=== PATIENT | male | born 1935 | race Caucasian/White ===

== ENCOUNTER → 2018-02-18 | Outpatient (CLI) | payer MEDICARE, BC ==
[2018-02-18 21:31] LABS: Albumin 3.7 g/dL (3.5-5.0); Potassium 4.7 mmol/L (3.5-5.1); Total Bilirubin 0.8 mg/dL (0.2-1.3); Total Protein 6.1 g/dL (6.3-8.2)
== END | disposition home or self-care (01) ==
LOC: LAB 18:18
PROVIDERS: ATTEND Internal Medicine Interventional Cardiology
DX: I48.91 Unspecified atrial fibrillation (principal)
CPT/HCPCS: 80053; 84443

== ENCOUNTER → 2018-03-13 | Outpatient (CLI) | payer MEDICARE, BC | END | disposition home or self-care (01) | LOC: LABWHC1 13:41 | PROVIDERS: ATTEND Family Medicine | DX: R06.02 Shortness of breath (principal) | CPT/HCPCS: 36415; 83880 ==

== ENCOUNTER → 2018-03-26 | Outpatient (CLI) | payer MEDICARE, BC ==
[2018-03-26 16:02] LABS: HCT 46.6 % (39.0-53.0); HGB 14.6 gm/dL (13.0-17.5); MCH 29.3 pg (25.0-35.0); MCHC 31.2 g/dL (31.0-37.0); MCV 93.9 fL (80.0-100.0); Mean Platelet Volume 6.8; Platelet Count 139 k/uL (150-450); RBC 4.96 m/uL (4.30-5.90); RDW 14.2 % (11.5-15.5); WBC 7.2 k/uL (3.8-10.6)
== END | disposition home or self-care (01) ==
LOC: LABPAT 15:27
PROVIDERS: ATTEND Internal Medicine Interventional Cardiology
DX: Z01.812 Encounter for preprocedural laboratory examination (principal); I48.1 Persistent atrial fibrillation
CPT/HCPCS: 36415; 85027

== ENCOUNTER 2018-04-02 06:12 | Day surgery (SDC) | payer MEDICARE, BC ==
[2018-03-26 10:06] VITALS: BMI 35.9
[~2018-04-02 06:12] MED LIST: LACTATED RINGERS 1,000 ML IV SCH; LIDOCAINE 1% 20 ML VIAL (10MG/ML) FOR IV START INTRADERMA PRN; MIDAZOLAM 2 MG/2 ML VIAL IV PRN; SODIUM CHLORIDE 0.9% 1,000 ML IV SCH
[2018-04-02 06:54] VITALS: TEMP 97.5
[2018-04-02] MEDS ORDERED: SODIUM CHLORIDE 0.9% 500 ML IV ONE (06:54)
[2018-04-02] MEDS ORDERED: BENZOCAINE SPRAY 1 CAN MUCOUS MEM ONE ×2 (07:05→07:15)
[2018-04-02] MEDS ORDERED: LIDOCAINE 1% INJ 10MG/ML (20 ML MDV) ONE (07:14)
[2018-04-02] MEDS ORDERED: PROPOFOL 10 MG/ML 20 ML VIAL IV ONE (07:14)
[2018-04-02] MEDS ORDERED: SODIUM CHLORIDE 0.9% 1,000 ML IV SCH (07:45)
--- NOTE | 2018-04-02 07:51 | CE ---
CARDIAC ELECTROPHYSIOLOGY REPORT CARDIOVERSION PROCEDURE NOTE. INDICATION: Atrial fibrillation PROCEDURE: After explaining the procedure to the patient, its risks and the complications and after obtaining sedated state and performing transesophageal echocardiogram, a biphasic synchronized cardioversion using 200 joules was performed with mu-ism of normal sinus rhythm. There was no immediate complication. AMY / TRISHA: [id number] /
--- NOTE | 2018-04-02 08:04 | ECHOT ---
TRANSESOPHAGEAL ECHOCARDIOGRAM INDICATION: Evaluation left atrial appendage. PROCEDURE: After explaining the procedure to the patient, its risks and the complications, blood pressure, heart rate, O2 saturation was monitored. The throat was sprayed with Cetacaine. After receiving sedated state per anesthesia department, the probe was introduced into the esophagus without difficulty. Images were obtained. Following that, the probe was removed there was no immediate complication. FINDINGS: Biatrial enlargement was noted. Left atrial appendage was normal. Mild spontaneous contrast was noted. Aneurysmal interatrial septum was noted. The left ventricular size was normal. There was mild global hypokinesis. Estimated ejection fraction 40%. The aortic valve revealed fibrocalcific change with aortic cusp with preserved opening. Mitral annulus calcification was noted. Tricuspid valve was normal. Descending thoracic aorta appears to be normal. Minimal pericardial effusion was noted. Contrast bubble study revealed no shunting across the interatrial septum. Doppler pulse wave and color Doppler obtained and revealed moderate mitral and tricuspid regurgitation with mild aortic regurgitation. There was no shunting by color Doppler study. CONCLUSION: 1. Biatrial enlargement with normal appearance of left atrial appendage. 2. Aneurysmal interatrial septum. 3. Moderately impaired left ventricular systolic function. 4. Aortic sclerosis with no evidence of stenosis. 5. Mitral annulus calcification. 6. Moderate mitral, tricuspid and mild aortic regurgitation. 7. No evidence shunting across the interatrial septum. MMODL / IJN: [id number] /
[2018-04-02] MEDS ORDERED: methylPREDNISolone 4 MG TAB PO SCH (09:00)
[2018-04-02] MEDS ORDERED: APIXABAN 2.5 MG TABLET PO SCH (09:00)
[2018-04-02] MEDS ORDERED: CARBIDOPA-LEVODOPA 25-100 MG 1 EACH TAB PO SCH (09:00)
[2018-04-02] MEDS ORDERED: NON-FORMULARY DRUG (Carvedilol [Coreg] 25 MG) PO SCH (09:00)
[2018-04-02] MEDS ORDERED: FUROSEMIDE 40 MG TAB PO SCH (09:00)
[2018-04-02] MEDS ORDERED: AMIODARONE 200 MG TAB PO SCH (09:00)
[2018-04-02 09:29] VITALS: PULSE 54; RESP 16
[2018-04-02 09:39] VITALS: BP 121/79
[2018-04-02] MEDS ORDERED: LISINOPRIL 10 MG TAB PO SCH (21:00)
== END 2018-04-02 09:59 | disposition home or self-care (01) ==
LOC: CATHCVL 06:12
PROVIDERS: ATTEND Internal Medicine Interventional Cardiology
DX: I48.91 Unspecified atrial fibrillation (principal); I08.3 Combined rheumatic disorders of mitral, aortic and tricuspid valves; I25.3 Aneurysm of heart; I11.9 Hypertensive heart disease without heart failure; I44.0 Atrioventricular block, first degree; I44.7 Left bundle-branch block, unspecified; I25.10 Atherosclerotic heart disease of native coronary artery without angina pectoris; I42.9 Cardiomyopathy, unspecified; E78.2 Mixed hyperlipidemia; E11.9 Type 2 diabetes mellitus without complications; M10.9 Gout, unspecified; I25.2 Old myocardial infarction; Z79.01 Long term (current) use of anticoagulants; Z79.899 Other long term (current) drug therapy; Z79.52 Long term (current) use of systemic steroids
CPT/HCPCS: 93312; 93320; 93325; 92960; J2001; J2704

== ENCOUNTER → 2018-05-22 | Outpatient (CLI) | payer MEDICARE, BC ==
[2018-05-22 13:39] LABS: Albumin 3.6 g/dL (3.5-5.0); Calcium 9.3 mg/dL (8.4-10.2); Potassium 5.1 mmol/L (3.5-5.1); Total Bilirubin 1.2 mg/dL (0.2-1.3); Total Protein 6.3 g/dL (6.3-8.2)
== END | disposition home or self-care (01) ==
LOC: LABWHC1 12:27
PROVIDERS: ATTEND Internal Medicine Interventional Cardiology
DX: I48.1 Persistent atrial fibrillation (principal)
CPT/HCPCS: 36415; 80053

== ENCOUNTER 2018-07-27 23:46 | Inpatient (IN) | payer MEDICARE, BC ==
--- NOTE | 2018-07-27 23:52 | ED ---
Weakness HPI - General Stated complaint: weakness Time Seen by Provider: 07/27/18 23:51 - History of Present Illness Initial comments: Julius is a pleasant 83-year-old male who presents the emergency department today via EMS after his called concerned that he has been ill and may have pneumonia. He reports he was in his usual state of health until Saturday of this week. He states on Saturday he went and put blankets [place] the [place] of the [place], he reports after being on the cold all day he was feeling unwell, he reports that since that time he developed a progressively worsening productive cough. He's also lost his voice. He attributes this to coughing. Patient reports that his cough is productive of dark sputum. He also reports that today he had subjective fever, chills and had an episode of vomiting and reports the vomited up a lot of mucus. She reports that he just feels completely run down and without any energy. He denies any chest pain, palpitations, but does report fever and SOB. - Related Data Home Medications Medication Instructions Recorded Confirmed Carbidopa-Levodopa 25-100 mg 2 tab PO BID 08/03/16 04/02/18 [Sinemet 25-100] Carvedilol [Coreg] 25 mg PO BID 08/03/16 04/02/18 methylPREDNISolone [Medrol] 4 mg PO DAILY 08/03/16 04/02/18 Amiodarone [Cordarone] 200 mg PO DAILY 03/26/18 04/02/18 Apixaban [Eliquis] 2.5 mg PO BID 03/26/18 04/02/18 Furosemide [Lasix] 40 mg PO DAILY 03/26/18 04/02/18 Lisinopril [Zestril] 10 mg PO HS 03/26/18 04/02/18 Allergies Allergy/AdvReac Type Severity Reaction Status Date / Time No Known Allergies Allergy Verified 07/27/18 23:50 Review of Systems ROS Statement: Those systems with pertinent positive or pertinent negative responses have been documented in the HPI. ROS Other: All systems not noted in ROS Statement are negative. Past Medical History Past Medical History: Atrial Fibrillation, Coronary Artery Disease (CAD), Cancer , Chest Pain / Angina, Heart Failure, Diabetes Mellitus, Hypertension, Myocardial Infarction ([place]), Osteoarthritis (OA), Skin Disorder, Supraventricular Tachycardia (SVT) Additional Past Medical History / Comment(s): hx gout, diet control diabetic(rx in past), hx kidney stones, skin cancer Last Myocardial Infarction Date:: unknown History of Any Multi-Drug Resistant Organisms: None Reported Past Surgical History: Appendectomy, Back Surgery, Heart Catheterization With Stent, Joint Replacement Additional Past Surgical History / Comment(s): bilateral knee replacement(left knee x 2), left hip replacement, two cardiac stents, spinal fusion, michael cataracts Past Anesthesia/Blood Transfusion Reactions: No Reported Reaction Date of Last Stent Placement:: unknown Smoking Status: Never smoker - Past Family History Brother(s) Family Medical History: Cancer Daughter(s) Family Medical History: Cancer Father Family Medical History: Cancer General Exam - General Exam Comments Initial Comments: Physical Exam GENERAL: Chronically ill-appearing HENT: Normocephalic, Atraumatic. EYES: PERRL, EOMI PULMONARY: Crackles at left bases CARDIOVASCULAR: Irregularly irregular tachycardic ABDOMEN: Soft and nontender with normal bowel sounds. SKIN: Skin is clear with no lesions or rashes and otherwise unremarkable. : Deferred NEUROLOGIC: Patient is alert and oriented x3. Moving all extremities spontaneously MUSCULOSKELETAL: 2+ pitting edema of the bilateral lower extremities PSYCHIATRIC: Normal psychiatric evaluation. Limitations: no limitations Course Vital Signs 07/27/18 07/28/18 07/28/18 23:50 00:45 01:40 Temperature 96.9 F L 97.5 F L 97.6 F Pulse Rate 111 H 126 H 126 H Respiratory 20 22 22 Rate Blood Pressure 94/73 98/80 122/78 O2 Sat by Pulse 97 97 98 Oximetry EKG Findings - EKG Comments: EKG Findings:: EKG obtained at 12:09 AM, rate is 120, rhythm is a wide complex irregularly irregular tachycardia consistent with the history of atrial fibrillation in the left bundle-branch block. There are no acute ST elevations or depressions no evidence of acute ischemia or infarction. Medical Decision Making - Medical Decision Making Patient was seen and evaluated, history was obtained from the patient and at bedside as well as review of medical record Patient is noted to be tachycardic, mildly hypotensive, on physical exam he appears to be fluid overloaded as he does have 2+ pitting edema bilaterally. Patient received small fluid bolus in route to the hospital. At this time I'll hold further fluids, septic workup was obtained Labs with elevated lactic acid No leukocytosis, normal kidney function and electrolytes Chest x-ray concerning for left lower lobe pneumonia Rocephin and azithromycin ordered for pneumonia Patient's blood pressure remained soft systolics in the 90s, heart rate improving but remains in the 1 teens A. fib on the monitor. A 500 mL fluid bolus was ordered Considering the patient's multiple comorbidities, A. fib, hypotension, pneumonia and generalized malaise I do feel he warrants admission to the hospital. Patient care was discussed with his primary care physician Dr. Riddle who agrees with the plan for admission and treatment for community- acquired pneumonia, intravascular fluid depletion and congestive heart failure. - Lab Data Result diagrams: 07/28/18 00:10 07/28/18 00:10 Lab Results 07/28/18 07/28/18 07/28/18 Range/Units 00:10 00:10 00:10 WBC 5.4 (3.8-10.6) k/uL RBC 4.41 (4.30-5.90) m/uL Hgb 13.8 (13.0-17.5) gm/dL Hct 43.4 (39.0-53.0) % MCV 98.5 (80.0-100.0) fL MCH 31.3 (25.0-35.0) pg MCHC 31.8 (31.0-37.0) g/dL RDW 15.1 (11.5-15.5) % Plt Count 117 L (150-450) k/uL Neutrophils % 82 % Lymphocytes % 10 % Monocytes % 5 % Eosinophils % 1 % Basophils % 0 % Neutrophils # 4.4 (1.3-7.7) k/uL Lymphocytes # 0.6 L (1.0-4.8) k/uL Monocytes # 0.3 (0-1.0) k/uL Eosinophils # 0.1 (0-0.7) k/uL Basophils # 0.0 (0-0.2) k/uL Macrocytosis Slight PT (9.0-12.0) sec INR (<1.2) APTT (22.0-30.0) sec Sodium 136 L (137-145) mmol/L Potassium 3.9 (3.5-5.1) mmol/L Chloride 98 (98-107) mmol/L Carbon Dioxide 29 (22-30) mmol/L Anion Gap 9 mmol/L BUN 32 H (9-20) mg/dL Creatinine 0.95 (0.66-1.25) mg/dL Est GFR (CKD-EPI)AfAm 85 (>60 ml/min/1.73 sqM) Est GFR (CKD-EPI)NonAf 73 (>60 ml/min/1.73 sqM) Glucose 183 H (74-99) mg/dL Plasma Lactic Acid Otilio (0.7-2.0) mmol/L Calcium 8.3 L (8.4-10.2) mg/dL Total Bilirubin 2.0 H (0.2-1.3) mg/dL AST 22 (17-59) U/L ALT 15 L (21-72) U/L Alkaline Phosphatase 85 (38-126) U/L Total Creatine Kinase <20 L (55-170) U/L CK-MB (CK-2) 0.8 (0.0-2.4) ng/mL CK-MB (CK-2) Rel Index Troponin I <0.012 (0.000-0.034) ng/mL NT-Pro-B Natriuret Pep pg/mL Total Protein 5.8 L (6.3-8.2) g/dL Albumin 3.2 L (3.5-5.0) g/dL Influenza Type A RNA (Not Detectd) Influenza Type B (PCR) (Not Detectd) 07/28/18 07/28/18 07/28/18 Range/Units 00:10 00:10 00:10 WBC (3.8-10.6) k/uL RBC (4.30-5.90) m/uL Hgb (13.0-17.5) gm/dL Hct (39.0-53.0) % MCV (80.0-100.0) fL MCH (25.0-35.0) pg MCHC (31.0-37.0) g/dL RDW (11.5-15.5) % Plt Count (150-450) k/uL Neutrophils % % Lymphocytes % % Monocytes % % Eosinophils % % Basophils % % Neutrophils # (1.3-7.7) k/uL Lymphocytes # (1.0-4.8) k/uL Monocytes # (0-1.0) k/uL Eosinophils # (0-0.7) k/uL Basophils # (0-0.2) k/uL Macrocytosis PT 12.2 H (9.0-12.0) sec INR 1.3 H (<1.2) APTT 24.4 (22.0-30.0) sec Sodium (137-145) mmol/L Potassium (3.5-5.1) mmol/L Chloride (98-107) mmol/L Carbon Dioxide (22-30) mmol/L Anion Gap mmol/L BUN (9-20) mg/dL Creatinine (0.66-1.25) mg/dL Est GFR (CKD-EPI)AfAm (>60 ml/min/1.73 sqM) Est GFR (CKD-EPI)NonAf (>60 ml/min/1.73 sqM) Glucose (74-99) mg/dL Plasma Lactic Acid Otilio 2.8 H* (0.7-2.0) mmol/L Calcium (8.4-10.2) mg/dL Total Bilirubin (0.2-1.3) mg/dL AST (17-59) U/L ALT (21-72) U/L Alkaline Phosphatase (38-126) U/L Total Creatine Kinase (55-170) U/L CK-MB (CK-2) (0.0-2.4) ng/mL CK-MB (CK-2) Rel Index Troponin I (0.000-0.034) ng/mL NT-Pro-B Natriuret Pep 4960 pg/mL Total Protein (6.3-8.2) g/dL Albumin (3.5-5.0) g/dL Influenza Type A RNA (Not Detectd) Influenza Type B (PCR) (Not Detectd) 07/28/18 Range/Units 01:35 WBC (3.8-10.6) k/uL RBC (4.30-5.90) m/uL Hgb (13.0-17.5) gm/dL Hct (39.0-53.0) % MCV (80.0-100.0) fL MCH (25.0-35.0) pg MCHC (31.0-37.0) g/dL RDW (11.5-15.5) % Plt Count (150-450) k/uL Neutrophils % % Lymphocytes % % Monocytes % % Eosinophils % % Basophils % % Neutrophils # (1.3-7.7) k/uL Lymphocytes # (1.0-4.8) k/uL Monocytes # (0-1.0) k/uL Eosinophils # (0-0.7) k/uL Basophils # (0-0.2) k/uL Macrocytosis PT (9.0-12.0) sec INR (<1.2) APTT (22.0-30.0) sec Sodium (137-145) mmol/L Potassium (3.5-5.1) mmol/L Chloride (98-107) mmol/L Carbon Dioxide (22-30) mmol/L Anion Gap mmol/L BUN (9-20) mg/dL Creatinine (0.66-1.25) mg/dL Est GFR (CKD-EPI)AfAm (>60 ml/min/1.73 sqM) Est GFR (CKD-EPI)NonAf (>60 ml/min/1.73 sqM) Glucose (74-99) mg/dL Plasma Lactic Acid Otilio (0.7-2.0) mmol/L Calcium (8.4-10.2) mg/dL Total Bilirubin (0.2-1.3) mg/dL AST (17-59) U/L ALT (21-72) U/L Alkaline Phosphatase (38-126) U/L Total Creatine Kinase (55-170) U/L CK-MB (CK-2) (0.0-2.4) ng/mL CK-MB (CK-2) Rel Index Troponin I (0.000-0.034) ng/mL NT-Pro-B Natriuret Pep pg/mL Total Protein (6.3-8.2) g/dL Albumin (3.5-5.0) g/dL Influenza Type A RNA Not Detected (Not Detectd) Influenza Type B (PCR) Not Detected (Not Detectd) Disposition Clinical Impression: Pneumonia, CHF exacerbation, Atrial fibrillation with RVR Disposition: ADMITTED IP TO THIS HOSP Condition: Stable Is patient prescribed a controlled substance at d/c from ED?: No Referrals: Davey Riddle MD [Primary Care Provider] - 1-2 days
[2018-07-28 00:32] LABS: Basophils % (A) 0 %; Eosinophils # (A) 0.1 k/uL (0-0.7); Eosinophils % (A) 1 %; HCT 43.4 % (39.0-53.0); HGB 13.8 gm/dL (13.0-17.5); Lymphocytes # (A) 0.6 k/uL (1.0-4.8); Lymphocytes % (A) 10 %; MCH 31.3 pg (25.0-35.0); MCHC 31.8 g/dL (31.0-37.0); MCV 98.5 fL (80.0-100.0); Macrocytosis Slight; Monocytes # (A) 0.3 k/uL (0-1.0); Monocytes % (A) 5 %; Neutrophils # (A) 4.4 k/uL (1.3-7.7); Neutrophils % (A) 82 %; Platelet Count 117 k/uL (150-450); RBC 4.41 m/uL (4.30-5.90); RDW 15.1 % (11.5-15.5); WBC 5.4 k/uL (3.8-10.6)
[2018-07-28 00:42] LABS: Albumin 3.2 g/dL (3.5-5.0); Calcium 8.3 mg/dL (8.4-10.2); Potassium 3.9 mmol/L (3.5-5.1); Total Protein 5.8 g/dL (6.3-8.2)
--- NOTE | 2018-07-28 00:46 | XR ---
EXAMINATION TYPE: XR chest 2V DATE OF EXAM: 07/28/2018 COMPARISON: NONE HISTORY: Weakness and cough TECHNIQUE: Frontal and lateral views of the chest are obtained. FINDINGS: There is mild linear density at the left lung base. There is no heart failure. Heart size is normal. Thoracic aorta is atheromatous. There are chest leads. Costophrenic angles are clear. Ther e is spurring in the thoracic spine. IMPRESSION: Subsegmental atelectasis at the left lung base. No heart failure.
[2018-07-28 00:48] LABS: INR 1.3 (<1.2); Partial Thromboplastin Time 24.4 sec (22.0-30.0); Prothrombin Time 12.2 sec (9.0-12.0)
[2018-07-28 00:54] LABS: Creatine Kinase <20 U/L (55-170)
[2018-07-28] MEDS ORDERED: SODIUM CHLORIDE 0.9% 500 ML 500 ML IV ONE (01:05)
[2018-07-28 01:07] LABS: Creatine Kinase MB 0.8 ng/mL (0.0-2.4); Troponin I <0.012 ng/mL (0.000-0.034)
[2018-07-28] MEDS ORDERED: AZITHROMYCIN 500 MG in SODIUM CHLORIDE 0.9% 250 ML IVPB STA (01:23)
[2018-07-28] MEDS: SODIUM CHLORIDE 0.9% 1,000 ML IV SCH ×2 (01:30→21:11)
[2018-07-28] MEDS ORDERED: PNEUMONIA PROTOCOL UTILIZED 1 EACH MISC PO PRN (02:28)
[2018-07-28] MEDS ORDERED: CARVEDILOL 12.5 MG TAB PO STA ×2 (02:50→03:24)
[2018-07-28] MEDS: IPRATROPIUM-ALBUTEROL 3 ML NEB INHALATION PRN ×4 (03:31→19:30)
[2018-07-28 04:33] LABS: Appearance,Urine Clear (Clear); Bilirubin,Urine 1+ (Negative); Blood,Urine Negative (Negative); Color,Urine Dark Yellow; Glucose,Urine (UA) Trace (Negative); Hyaline Casts,Urine 13 /lpf (0-2); Ketones,Urine Negative (Negative); Leukocyte Esterase,Urine Negative (Negative); Mucus,Urine Many /hpf; Nitrite,Urine Negative (Negative); PH, Urine 5.5 (5.0-8.0); Protein,Urine 2+ (Negative); RBC,Urine 1 /hpf (0-5); Specific Gravity,Urine 1.028 (1.001-1.035); Squamous Epithelial Cell,Urine 1 /hpf (0-4); WBC,Urine 1 /hpf (0-5)
[2018-07-28] MEDS: FUROSEMIDE 40 MG TAB PO SCH (09:09)
[2018-07-28] MEDS: CARVEDILOL 12.5 MG TAB PO SCH ×2 (09:10→18:26)
[2018-07-28] MEDS: CARBIDOPA-LEVODOPA 25-100 MG 1 EACH TAB PO SCH ×2 (09:10→21:10)
[2018-07-28] MEDS: AMIODARONE 200 MG TAB PO SCH (09:11)
[2018-07-28] MEDS: APIXABAN 2.5 MG TABLET PO SCH ×2 (09:11→21:10)
--- NOTE | 2018-07-28 14:43 | HP ---
HISTORY AND PHYSICAL CHIEF COMPLAINT: Congestion, shortness of breath and left lower lobe pneumonitis. HISTORY OF PRESENT ILLNESS: This is another admission for this 83-year-old gentleman who has a history of coronary artery disease, hypertension, and CHF. He has been having a lot of difficulty lately in regaining strength and quality of life. After an episode of congestive heart failure, he probably started with urinary tract infection and then went out to the cemetery on a cold day and became chilled and then developed a sore throat, congestion, and cough. He grew worse with shortness of breath and malaise and came to the emergency room where he was diagnosed as having left lower lobe pneumonitis. REVIEW OF SYSTEMS: He has had no syncope, neurologic changes, problems with vision or hearing, hemoptysis, purulent sputum production, angina, arrhythmias, etc. He has had no abdominal pain, nausea, vomiting, melena, hematochezia, jaundice, hematuria, frequency, urgency, renal failure, etc. Past medical history, family history and personal and social histories demonstrate that he cannot take ALLOPURINOL, QUINIDINE and CELEBREX. He is on in Entresto 24-26 b.i.d., carvedilol 25 twice a day, Eliquis 2.5 twice a day, lisinopril 10 mg once a day, amiodarone 200 mg once a day, Lasix 40 mg once a day, Trazodone 50 mg 1 or 2 at bedtime, Remeron 15 mg at bedtime. Vitamin D3 five thousand units a day, Lipitor 40 mg at bedtime, aspirin 325 once a day. The remainder of his history is unremarkable. He has never been a smoker and he does not drink. PHYSICAL EXAM: Blood pressure 120/70 with a pulse of 84, respirations of 37, and he is afebrile. GENERAL: He appeared to be dehydrated, weak, in no acute distress. He was awake and alert. Head, ears, eyes, nose, mouth, and throat were normal. Neck veins not distended. Chest demonstrated reduced rales and rhonchi scattered throughout. Cardiac exam demonstrated sinus rhythm and no murmurs or extra sounds. The abdomen is soft, nontender. Extremities are normal. Neurologically, he is intact. He is admitted to the hospital with diagnoses: 1. Left lower lobe pneumonitis. 2. Upper respiratory infection. 3. Bronchitis. 4. History of coronary artery disease. 5. Congestive heart failure. PLAN: 1. Bed rest. 2. IV fluids. 3. Antibiotics and updrafts. AMY / CHUCHON: [id number] /
[2018-07-28] MEDS ORDERED: LISINOPRIL 10 MG TAB PO SCH (21:00)
[2018-07-28] MEDS: SACUBITRIL/VALSARTAN 24 MG-26 MG TABLET PO SCH (21:04)
[2018-07-28] MEDS: MIRTAZAPINE 15 MG TAB PO SCH (21:10)
[2018-07-28] MEDS: AZITHROMYCIN 500 MG TAB PO SCH (21:10)
[2018-07-29] MEDS: IPRATROPIUM-ALBUTEROL 3 ML NEB INHALATION PRN ×4 (07:53→21:23)
[2018-07-29] MEDS: AZITHROMYCIN 500 MG TAB PO SCH (09:28)
[2018-07-29] MEDS: APIXABAN 2.5 MG TABLET PO SCH ×2 (09:28→20:54)
[2018-07-29] MEDS: CARBIDOPA-LEVODOPA 25-100 MG 1 EACH TAB PO SCH ×2 (09:28→20:54)
[2018-07-29] MEDS: ASPIRIN 325 MG TAB PO SCH (09:29)
[2018-07-29] MEDS: AMIODARONE 200 MG TAB PO SCH (09:29)
[2018-07-29] MEDS: SPIRONOLACTONE 25 MG TAB PO SCH (09:29)
[2018-07-29] MEDS: FUROSEMIDE 40 MG TAB PO SCH (09:29)
[2018-07-29] MEDS: SACUBITRIL/VALSARTAN 24 MG-26 MG TABLET PO SCH ×2 (09:29→20:53)
[2018-07-29] MEDS: CARVEDILOL 12.5 MG TAB PO SCH ×2 (09:29→18:30)
[2018-07-29] MEDS: SODIUM CHLORIDE 0.9% 1,000 ML IV SCH (09:30)
--- NOTE | 2018-07-29 17:15 | PN ---
PROGRESS NOTE DATE OF SERVICE: 07/29/2018 CHIEF COMPLAINT: Pneumonitis. HISTORY OF PRESENT ILLNESS: This gentleman is feeling a little bit better and a little bit less short of breath. PHYSICAL EXAMINATION: Breath sounds are still diminished at the bases and he has wheezing on expiration throughout. Cardiac exam is normal. IMPRESSION: 1. Pneumonitis. 2. Mild congestive heart failure. 3. Hypertension. PLAN: Continue with current program with IV fluids, antibiotics and updrafts. MMODL / IJN: [id number] /
[2018-07-29] MEDS: MIRTAZAPINE 15 MG TAB PO SCH (20:54)
[2018-07-30] MEDS: IPRATROPIUM-ALBUTEROL 3 ML NEB INHALATION PRN ×4 (04:27→19:45)
[2018-07-30] MEDS: FUROSEMIDE 40 MG TAB PO SCH (07:24)
[2018-07-30] MEDS: SPIRONOLACTONE 25 MG TAB PO SCH (07:25)
[2018-07-30] MEDS: ASPIRIN 325 MG TAB PO SCH (07:25)
[2018-07-30] MEDS: APIXABAN 2.5 MG TABLET PO SCH ×2 (07:25→21:23)
[2018-07-30] MEDS: AMIODARONE 200 MG TAB PO SCH (07:25)
[2018-07-30] MEDS: CARBIDOPA-LEVODOPA 25-100 MG 1 EACH TAB PO SCH ×2 (07:25→21:22)
[2018-07-30] MEDS: CARVEDILOL 12.5 MG TAB PO SCH ×2 (07:25→17:44)
[2018-07-30] MEDS: SACUBITRIL/VALSARTAN 24 MG-26 MG TABLET PO SCH ×2 (07:26→21:23)
[2018-07-30] MEDS: AZITHROMYCIN 500 MG TAB PO SCH (07:26)
--- NOTE | 2018-07-30 09:23 | CDI ---
Last Revision, July 2017 Documentation Clarification Form Date: 07/30/18 From: Sowmya Greer RN Admit Date: 07/28/2018 2:32:00 AM Patient Name: Julius Murphy Visit Number: [id number] ATTENTION: The Clinical Documentation Specialists (CDI) and [facility] Coding Staff appreciate your assistance in clarifying documentation. Please respond to the clarification below the line at the bottom and electronically sign. The CDI & [facility] Coding staff will review the response and follow-up if needed. Please note: Queries are made part of the Legal Health Record. If you have any questions, please contact the author of this message via ITS. Davey Escobar MD, Documentation and location in medical record included Pneumonia and UTI. Patient admitted with Pneumonia, CHF exacerbation, A Fib RVR and UTI. History/Risk Factors: CAD, CHF, HTN Clinical Indicators: WBC on admission: 5.4 Lactic acid: 2.4 Blood cultures: No growth after 48 hours Sputum culture in process Vitals signs on admission: T 96.9, P 111, R 20, 94/73, 97% RA, On 07/28: P 126 , B/P 98/80, R 22 Treatment: ID Consult: no Antibiotics: Azithromycin PO, Ceftriaxone IVPB IV Bolus: .9 500 ml In your professional opinion, please clarify if these findings signify one of the following conditions, whether the condition is POA, and cause, if known: Condition Sepsis ruled out Sepsis ruled in Other, please specify Unable to determine Present on Admission: Yes No Identify the (suspected) organism MTDD
[2018-07-30 11:21] LABS: HCT 41.4 % (39.0-53.0); HGB 13.4 gm/dL (13.0-17.5); MCH 32.4 pg (25.0-35.0); MCHC 32.3 g/dL (31.0-37.0); MCV 100.3 fL (80.0-100.0); Macrocytosis Slight; Mean Platelet Volume 6.7; Platelet Count 118 k/uL (150-450); RBC 4.13 m/uL (4.30-5.90); RDW 15.5 % (11.5-15.5); WBC 6.8 k/uL (3.8-10.6)
[2018-07-30 12:10] LABS: Glucose,Whole Blood 164 mg/dL (75-99)
[2018-07-30] MEDS: INSULIN ASPART 100 UNIT/ML 1 ML 10 ML VIAL SQ SCH ×3 (12:10→21:22)
[2018-07-30 12:15] LABS: Total Bilirubin 1.1 mg/dL (0.2-1.3); Total Protein 5.5 g/dL (6.3-8.2)
[2018-07-30 12:27] LABS: Anisocytosis (M) Present; Band Neutrophils % 1 %; Eosinophils # (M) 0.07 k/uL (0-0.7); Lymphocytes # (M) 0.82 k/uL (1.0-4.8); Monocytes # (M) 0.54 k/uL (0-1.0); Neutrophils % (M) 78 %; Nucleated Red Blood Cells 0 /100 WBC (0-0); Poikilocytosis (M) Present; Total Cells Counted 100
--- NOTE | 2018-07-30 13:50 | XR ---
EXAMINATION TYPE: XR chest 2V DATE OF EXAM: 07/30/2018 COMPARISON: 07/28/2018 HISTORY: Shortness of breath TECHNIQUE: Frontal and lateral views of the chest are obtained. FINDINGS: Scattered senescent parenchymal changes noted. Hyperinflation compatible with COPD. Persistent right lower lobe infiltrate. Mild patchy density left lung base also persists. Continued f ollow-up advised. Heart size is stable. Mediastinal structures are stable and grossly unremarkable. No evidence for hilar prominence. Degenerative changes dorsal spine. IMPRESSION: 1. Persistent right lower lobe infiltrate. Mild patchy density left lung base also persists. Continue d follow-up advised.
[2018-07-30 17:43] LABS: Glucose,Whole Blood 111 mg/dL (75-99)
[2018-07-30] MEDS: SODIUM CHLORIDE 0.9% 1,000 ML IV SCH (17:45)
[2018-07-30 19:42] LABS: Glucose,Whole Blood 165 mg/dL (75-99)
[2018-07-30] MEDS: BUDESONIDE 0.5 MG/2 ML NEBU INHALATION SCH (19:45)
[2018-07-30] MEDS: MIRTAZAPINE 15 MG TAB PO SCH (21:22)
[2018-07-31 07:33] LABS: Glucose,Whole Blood 107 mg/dL (75-99)
[2018-07-31] MEDS: INSULIN ASPART 100 UNIT/ML 1 ML 10 ML VIAL SQ SCH ×4 (07:36→21:46)
[2018-07-31] MEDS: CARVEDILOL 12.5 MG TAB PO SCH ×2 (07:40→16:53)
--- NOTE | 2018-07-31 08:08 | CDI ---
Last Revision, July 2017 Documentation Clarification Form Date: 07/31/18 From: Sowmya Greer RN Admit Date: 07/28/2018 2:32:00 AM Patient Name: Julius Murphy Visit Number: [id number] ATTENTION: The Clinical Documentation Specialists (CDI) and [facility] Coding Staff appreciate your assistance in clarifying documentation. Please respond to the clarification below the line at the bottom and electronically sign. The CDI & [facility] Coding staff will review the response and follow-up if needed. Please note: Queries are made part of the Legal Health Record. If you have any questions, please contact the author of this message via ITS. Davey Escobar MD, Can you please render your opinion on the following documentation? Patient was admitted with Pneumonia, CHF exacerbation, and A-Fib with RVR History/Risk Factors: CAD, CHF, HTN, skin cancer, angina, DM, PR, OA, SVT Clinical Indicators: VS on admission: T 96.9, P 111, R 20, 94/73, 97% RA BNP: 4210 & 3230 Echocardiogram Results: Results from 04/02/18 EF 40% Chest X Ray: Persistent right lower lobe infiltrate, mild patchy density left lung base ED note: 2+ pitting edema bilaterally. Treatment: Heart Healthy diet Lasix 40mg daily PO (also at home), Daily Weights, strict I&O No Cardiology consult In your professional opinion, can you please clarify the acuity and type of CHF if known? Diastolic Heart Failure: Acute Chronic Acute on Chronic Systolic & Diastolic Heart Failure: Acute Chronic Acute on Chronic Heart Failure Unable to Determine Other, please specify MTDD
[2018-07-31] MEDS: IPRATROPIUM-ALBUTEROL 3 ML NEB INHALATION PRN ×2 (08:22→11:36)
[2018-07-31] MEDS: BUDESONIDE 0.5 MG/2 ML NEBU INHALATION SCH ×2 (08:22→18:56)
[2018-07-31] MEDS: AMIODARONE 200 MG TAB PO SCH (08:53)
[2018-07-31] MEDS: CARBIDOPA-LEVODOPA 25-100 MG 1 EACH TAB PO SCH ×2 (08:53→21:45)
[2018-07-31] MEDS: APIXABAN 2.5 MG TABLET PO SCH ×2 (08:53→21:45)
[2018-07-31] MEDS: ASPIRIN 325 MG TAB PO SCH (08:53)
[2018-07-31] MEDS: SPIRONOLACTONE 25 MG TAB PO SCH (08:53)
[2018-07-31] MEDS: FUROSEMIDE 40 MG TAB PO SCH (08:53)
[2018-07-31] MEDS: AZITHROMYCIN 500 MG TAB PO SCH (08:53)
[2018-07-31] MEDS: SACUBITRIL/VALSARTAN 24 MG-26 MG TABLET PO SCH ×2 (08:53→21:48)
[2018-07-31] MEDS: SODIUM CHLORIDE 0.9% 1,000 ML IV SCH (10:40)
[2018-07-31 12:06] LABS: Glucose,Whole Blood 145 mg/dL (75-99)
--- NOTE | 2018-07-31 16:47 | PN ---
PROGRESS NOTE CHIEF COMPLAINT: Pneumonitis. HISTORY OF PRESENT ILLNESS: This gentleman is still quite short of breath and wheezy. He is also slightly tachycardic. REVIEW OF SYSTEMS: He is awake and alert and not complaining of any pain. He is not confused. Chest demonstrates bilateral wheezing with rhonchi and rales at both bases. Cardiac exam demonstrates tachycardia and the abdomen is soft, nontender. IMPRESSION: 1. Pneumonitis. 2. Bronchospasm. 3. Congestive heart failure. 4. Tachycardia. PLAN: 1. Repeat BNP. 2. Repeat chest x-ray. 3. Follow labs. 4. Increase updrafts. MMODL / IJN: [id number] /
[2018-07-31] MEDS: methylPREDNISolone SOD SUCCI 40 MG/ML 1 ML VIAL IV SCH (16:48)
--- NOTE | 2018-07-31 16:50 | PN ---
PROGRESS NOTE DATE OF SERVICE: 07/31/2018. CHIEF COMPLAINT: Pneumonitis with bronchospasm. HISTORY OF PRESENT ILLNESS: This gentleman is still having quite a bit of wheezing. Other than that, he is doing well. He is not short of breath. He has no pain. He is not febrile. PHYSICAL EXAM: Chest demonstrates bilateral wheezing. Cardiac exam is normal. Abdomen is soft, nontender. IMPRESSION: 1. Pneumonitis. 2. Bronchospasm. 3. Congestive heart failure. 4. Coronary artery disease. 5. Diabetes. PLAN: Try adding Solu Medrol 30 mg IV q.8h to see if it helps his bronchospasm. MMODL / IJN: [id number] /
[2018-07-31 17:23] LABS: Glucose,Whole Blood 153 mg/dL (75-99)
--- NOTE | 2018-07-31 20:11 | MISC ---
MISCELLANOUS REPORT Diastolic heart failure, chronic. Systolic chronic. MMODL / IJN: [id number] /
--- NOTE | 2018-07-31 20:11 | MISC ---
MISCELLANOUS REPORT Sepsis ruled out. MMODL / IJN: [id number] /
[2018-07-31 20:28] LABS: Glucose,Whole Blood 199 mg/dL (75-99)
[2018-07-31 21:22] LABS: Glucose,Whole Blood 177 mg/dL (75-99)
[2018-07-31] MEDS: MIRTAZAPINE 15 MG TAB PO SCH (21:45)
[2018-08-01] MEDS: methylPREDNISolone SOD SUCCI 40 MG/ML 1 ML VIAL IV SCH ×4 (00:24→23:31)
[2018-08-01] MEDS: SODIUM CHLORIDE 0.9% 1,000 ML IV SCH ×2 (06:50→23:33)
[2018-08-01 07:08] LABS: Glucose,Whole Blood 156 mg/dL (75-99)
[2018-08-01] MEDS: BUDESONIDE 0.5 MG/2 ML NEBU INHALATION SCH ×2 (08:10→20:22)
[2018-08-01] MEDS: IPRATROPIUM-ALBUTEROL 3 ML NEB INHALATION PRN ×4 (08:10→20:22)
[2018-08-01] MEDS: FUROSEMIDE 40 MG TAB PO SCH (09:52)
[2018-08-01] MEDS: AZITHROMYCIN 500 MG TAB PO SCH (09:52)
[2018-08-01] MEDS: AMIODARONE 200 MG TAB PO SCH (09:52)
[2018-08-01] MEDS: ASPIRIN 325 MG TAB PO SCH (09:52)
[2018-08-01] MEDS: CARBIDOPA-LEVODOPA 25-100 MG 1 EACH TAB PO SCH ×2 (09:52→22:01)
[2018-08-01] MEDS: SPIRONOLACTONE 25 MG TAB PO SCH (09:53)
[2018-08-01] MEDS: APIXABAN 2.5 MG TABLET PO SCH ×2 (09:53→21:57)
[2018-08-01] MEDS: INSULIN ASPART 100 UNIT/ML 1 ML 10 ML VIAL SQ SCH ×4 (09:58→22:02)
[2018-08-01 11:43] LABS: Glucose,Whole Blood 230 mg/dL (75-99)
[2018-08-01] MEDS: SACUBITRIL/VALSARTAN 24 MG-26 MG TABLET PO SCH ×2 (12:10→21:57)
[2018-08-01] MEDS: CARVEDILOL 12.5 MG TAB PO SCH ×2 (12:10→17:12)
[2018-08-01 16:47] LABS: Glucose,Whole Blood 287 mg/dL (75-99)
[2018-08-01 20:22] LABS: Glucose,Whole Blood 274 mg/dL (75-99)
[2018-08-01] MEDS: MIRTAZAPINE 15 MG TAB PO SCH (22:02)
[2018-08-02 07:24] LABS: Glucose,Whole Blood 212 mg/dL (75-99)
[2018-08-02] MEDS: BUDESONIDE 0.5 MG/2 ML NEBU INHALATION SCH ×2 (07:53→19:05)
[2018-08-02] MEDS: IPRATROPIUM-ALBUTEROL 3 ML NEB INHALATION PRN ×2 (07:53→19:05)
[2018-08-02] MEDS: INSULIN ASPART 100 UNIT/ML 1 ML 10 ML VIAL SQ SCH ×4 (08:01→20:48)
[2018-08-02] MEDS: SPIRONOLACTONE 25 MG TAB PO SCH (08:04)
[2018-08-02] MEDS: FUROSEMIDE 40 MG TAB PO SCH (08:04)
[2018-08-02] MEDS: CARBIDOPA-LEVODOPA 25-100 MG 1 EACH TAB PO SCH ×2 (08:04→20:47)
[2018-08-02] MEDS: APIXABAN 2.5 MG TABLET PO SCH ×2 (08:04→22:19)
[2018-08-02] MEDS: ASPIRIN 325 MG TAB PO SCH (08:04)
[2018-08-02] MEDS: AZITHROMYCIN 500 MG TAB PO SCH (08:05)
[2018-08-02] MEDS: AMIODARONE 200 MG TAB PO SCH (08:05)
[2018-08-02] MEDS: SACUBITRIL/VALSARTAN 24 MG-26 MG TABLET PO SCH ×2 (08:05→20:51)
[2018-08-02] MEDS: CARVEDILOL 12.5 MG TAB PO SCH ×2 (08:05→17:31)
[2018-08-02] MEDS: methylPREDNISolone SOD SUCCI 40 MG/ML 1 ML VIAL IV SCH ×3 (08:06→23:39)
[2018-08-02 11:26] LABS: Glucose,Whole Blood 229 mg/dL (75-99)
[2018-08-02 16:58] LABS: Glucose,Whole Blood 228 mg/dL (75-99)
[2018-08-02 20:27] LABS: Glucose,Whole Blood 247 mg/dL (75-99)
[2018-08-02] MEDS: MIRTAZAPINE 15 MG TAB PO SCH (20:48)
[2018-08-02] MEDS: SODIUM CHLORIDE 0.9% 1,000 ML IV SCH (22:20)
[2018-08-03 07:05] LABS: Glucose,Whole Blood 197 mg/dL (75-99)
[2018-08-03] MEDS: INSULIN ASPART 100 UNIT/ML 1 ML 10 ML VIAL SQ SCH ×4 (07:37→22:25)
[2018-08-03] MEDS: BUDESONIDE 0.5 MG/2 ML NEBU INHALATION SCH ×2 (07:41→20:54)
[2018-08-03] MEDS: IPRATROPIUM-ALBUTEROL 3 ML NEB INHALATION PRN ×4 (07:41→20:54)
[2018-08-03] MEDS: methylPREDNISolone SOD SUCCI 40 MG/ML 1 ML VIAL IV SCH ×2 (08:15→17:15)
[2018-08-03] MEDS: FUROSEMIDE 40 MG TAB PO SCH (08:16)
[2018-08-03] MEDS: CARVEDILOL 12.5 MG TAB PO SCH ×2 (08:16→17:15)
[2018-08-03] MEDS: APIXABAN 2.5 MG TABLET PO SCH ×2 (08:16→22:16)
[2018-08-03] MEDS: SPIRONOLACTONE 25 MG TAB PO SCH (08:16)
[2018-08-03] MEDS: ASPIRIN 325 MG TAB PO SCH (08:16)
[2018-08-03] MEDS: AMIODARONE 200 MG TAB PO SCH (08:16)
[2018-08-03] MEDS: CARBIDOPA-LEVODOPA 25-100 MG 1 EACH TAB PO SCH ×2 (08:16→22:16)
[2018-08-03] MEDS: AZITHROMYCIN 500 MG TAB PO SCH (08:16)
[2018-08-03] MEDS: SACUBITRIL/VALSARTAN 24 MG-26 MG TABLET PO SCH ×2 (08:16→22:16)
[2018-08-03 12:26] LABS: Glucose,Whole Blood 282 mg/dL (75-99)
[2018-08-03] MEDS: SODIUM CHLORIDE 0.9% 1,000 ML IV SCH (14:24)
--- NOTE | 2018-08-03 14:35 | PN ---
PROGRESS NOTE DATE OF SERVICE: 08/01/2018 CHIEF COMPLAINT: Pneumonitis. HISTORY OF PRESENT ILLNESS: This gentleman is starting to improve. He is wheezing much less. He has had no confusion, shortness of breath, chest pain, nausea, vomiting, etc. PHYSICAL EXAM: Color is improved. He continues to have rales and rhonchi bilaterally and particularly posterior at the bases. Cardiac exam is unchanged. Abdomen is soft, nontender. IMPRESSION: 1. Bronchial pneumonia. 2. Congestive heart failure. PLAN: Continue on current program and he is steadily improving. MMODL / IJN: [id number] /
--- NOTE | 2018-08-03 14:47 | PN ---
PROGRESS NOTE DATE OF SERVICE: 08/02/2018 CHIEF COMPLAINT: Pneumonia with bronchospasm and CHF. HISTORY OF PRESENT ILLNESS: This gentleman is doing much better. Since being placed on steroids, he has much less wheezing. Shortness of breath improved. He is feeling better. PHYSICAL EXAM: Head, ears, eyes, nose, mouth, and throat are normal and his chest demonstrates rales and rhonchi at the bases posteriorly, but his chest is generally clearing. Wheezing is gone. Cardiac exam is unchanged. Abdomen is soft, nontender. IMPRESSION: 1. Pneumonitis. 2. Bronchospasm. 3. Congestive heart failure. PLAN: He continues to improve, but will require several more days for him to be strong enough to go home. MMODL / IJN: [id number] /
[2018-08-03 16:21] LABS: Glucose,Whole Blood 348 mg/dL (75-99)
--- NOTE | 2018-08-03 17:02 | PN ---
PROGRESS NOTE CHIEF COMPLAINT: Pneumonitis and heart failure. HISTORY OF PRESENT ILLNESS: This gentleman is doing better each day. He is complaining a little bit now of some scrotal edema. He has had no dysuria. PHYSICAL EXAM: Chest is improving. He still has rales and rhonchi bilaterally posteriorly. Cardiac exam is normal. Abdomen is soft, nontender. He has a significant amount of edema in the scrotum and in the left hemiscrotum. He may have a hydrocele. IMPRESSION: 1. Pneumonitis. 2. Congestive heart failure. 3. Possible hydrocele. PLAN: Continue on current program and probably discharge in the next day or two. MMODL / IJN: [id number] /
[2018-08-03 20:00] LABS: Glucose,Whole Blood 297 mg/dL (75-99)
[2018-08-03] MEDS: MIRTAZAPINE 15 MG TAB PO SCH (22:16)
[2018-08-04] MEDS: methylPREDNISolone SOD SUCCI 40 MG/ML 1 ML VIAL IV SCH ×4 (00:15→23:51)
[2018-08-04 06:54] LABS: Glucose,Whole Blood 209 mg/dL (75-99)
[2018-08-04] MEDS: IPRATROPIUM-ALBUTEROL 3 ML NEB INHALATION PRN ×2 (08:30→12:09)
[2018-08-04] MEDS: BUDESONIDE 0.5 MG/2 ML NEBU INHALATION SCH ×2 (08:30→19:28)
[2018-08-04] MEDS: AMIODARONE 200 MG TAB PO SCH (09:00)
[2018-08-04] MEDS: INSULIN ASPART 100 UNIT/ML 1 ML 10 ML VIAL SQ SCH ×4 (09:00→20:10)
[2018-08-04] MEDS: ASPIRIN 325 MG TAB PO SCH (09:00)
[2018-08-04] MEDS: FUROSEMIDE 40 MG TAB PO SCH (09:00)
[2018-08-04] MEDS: SPIRONOLACTONE 25 MG TAB PO SCH (09:00)
[2018-08-04] MEDS: AZITHROMYCIN 500 MG TAB PO SCH (09:00)
[2018-08-04] MEDS: APIXABAN 2.5 MG TABLET PO SCH ×2 (09:00→20:10)
[2018-08-04] MEDS: CARBIDOPA-LEVODOPA 25-100 MG 1 EACH TAB PO SCH ×2 (09:00→20:10)
[2018-08-04] MEDS: SACUBITRIL/VALSARTAN 24 MG-26 MG TABLET PO SCH ×2 (09:01→20:10)
[2018-08-04] MEDS: CARVEDILOL 12.5 MG TAB PO SCH ×2 (09:01→16:08)
[2018-08-04 11:51] LABS: Glucose,Whole Blood 322 mg/dL (75-99)
[2018-08-04] MEDS: SODIUM CHLORIDE 0.9% 1,000 ML IV SCH (13:12)
[2018-08-04] MEDS: TAMSULOSIN 0.4 MG CAP.ER.24H PO SCH (16:06)
[2018-08-04 17:15] LABS: Glucose,Whole Blood 310 mg/dL (75-99)
--- NOTE | 2018-08-04 19:04 | P.GSCN ---
History of Present Illness Consult date: 08/04/18 History of present illness: This is an 83-year-old gentleman in the hospital with respiratory issues. I've been asked to see the patient for scrotal edema possible hydrocele possible urine retention. This patient has a known history of cardiac issues including congestive failure. He had a chest x-ray on 07 30 suggested atelectasis or infiltrate. The patient apparently has had some problems urinating this morning. He is also on examination found to have scrotal edema for this reason I assessed see the patient. The patient is interviewed at the bedside. He states that he did have problems urinating last night but is urinated well today. Catheterized for 500 mL and 250 mL successively over the night. Today is urinating without difficulty. The patient does have some shortness of breath. He has marked lower extremity and abdominal edema as well as genital edema. The patient was just started on tamsulosin today. Review of Systems - Constitutional Reports fatigue, Reports weakness, Reports weight gain - Respiratory Reports dyspnea - Genitourinary Reports urinary hesitancy Past Medical History Past Medical History: Atrial Fibrillation, Coronary Artery Disease (CAD), Cancer , Chest Pain / Angina, Heart Failure, Diabetes Mellitus, Hypertension, Myocardial Infarction (ID), Osteoarthritis (OA), Skin Disorder, Supraventricular Tachycardia (SVT) Additional Past Medical History / Comment(s): hx gout, diet control diabetic(rx in past), hx kidney stones, skin cancer Last Myocardial Infarction Date:: 1992 History of Any Multi-Drug Resistant Organisms: None Reported Past Surgical History: Appendectomy, Back Surgery, Heart Catheterization With Stent, Joint Replacement Additional Past Surgical History / Comment(s): bilateral knee replacement(left knee x 2), left hip replacement, two cardiac stents, spinal fusion, michael cataracts Past Anesthesia/Blood Transfusion Reactions: No Reported Reaction Date of Last Stent Placement:: unknown Past Psychological History: No Psychological Hx Reported Smoking Status: Never smoker Past Alcohol Use History: None Reported Past Drug Use History: None Reported - Past Family History Brother(s) Family Medical History: Cancer Daughter(s) Family Medical History: Cancer Father Family Medical History: Cancer Medications and Allergies Home Medications Medication Instructions Recorded Confirmed Type Carvedilol [Coreg] 25 mg PO BID 08/03/16 07/28/18 History Amiodarone [Cordarone] 200 mg PO DAILY 03/26/18 07/28/18 History Apixaban [Eliquis] 2.5 mg PO BID 03/26/18 07/28/18 History Furosemide [Lasix] 40 mg PO DAILY 03/26/18 07/28/18 History Lisinopril [Zestril] 10 mg PO DAILY 03/26/18 07/28/18 History Aspirin EC [Ecotrin] 325 mg PO DAILY 07/28/18 07/28/18 History Atorvastatin [Lipitor] 40 mg PO DAILY 07/28/18 07/28/18 History Cholecalciferol [Vitamin D3] 5,000 unit PO DAILY 07/28/18 07/28/18 History Mirtazapine [Remeron] 15 mg PO HS 07/28/18 07/28/18 History Sacubitril/Valsartan [Entresto 24 1 tab PO BID 07/28/18 07/28/18 History mg-26 mg Tablet] Spironolactone [Aldactone] 25 mg PO DAILY 07/28/18 07/28/18 History traZODone HCL [Desyrel] 100 mg PO HS PRN 07/28/18 07/28/18 History Allergies Allergy/AdvReac Type Severity Reaction Status Date / Time No Known Allergies Allergy Verified 07/28/18 09:17 Surgical - Exam Vital Signs Temp Pulse Resp BP Pulse Ox 96.9 F L 111 H 20 94/73 97 07/27/18 23:50 07/27/18 23:50 07/27/18 23:50 07/27/18 23:50 07/27/18 23:50 - General well developed, well nourished - Eyes PERRL - ENT no hearing loss - Neck trachea midline - Respiratory normal expansion, normal respiratory effort - Cardiovascular Rhythm: irregularly irregular - Abdomen Lower abdominal edema Abdomen: soft, non tender - Genitourinary Marked scrotal and penile edema. Testicles are not palpable due to the edema. The prostate is 20-30 g and benign. normal penis with no external lesions - Rectum Rectum: normal sphincter tone - Integumentary no rash, no growths - Neurologic normal coordination, normal sensation - Musculoskeletal Pitting edema all the way up into his thighs bilaterally. - Psychiatric oriented to time, oriented to person, oriented to place, speech is normal, memory intact Results - Labs 07/30/18 11:00 07/30/18 11:00 Abnormal Lab Results - Last 24 Hours (Table) 08/03/18 08/04/18 08/04/18 Range/Units 19:48 06:53 11:34 POC Glucose (mg/dL) 297 H 209 H 322 H (75-99) mg/dL 08/04/18 Range/Units 17:04 POC Glucose (mg/dL) 310 H (75-99) mg/dL Assessment and Plan Assessment: Impression: Scrotal edema secondary to generalized edema is likely cardiac based on history. No evidence of hydrocele. Incomplete bladder emptying intermittent probably related to fluid shifts and immobility. Recommendations: Even of the lower extremity edema and probable cardiac problems will help the scrotal edema. There is nothing urologic to do for that. With regards to voiding tamsulosin should aid but more importantly the cardiac issues will need to be dealt with.
[2018-08-04] MEDS: MIRTAZAPINE 15 MG TAB PO SCH (20:10)
[2018-08-04 20:17] LABS: Glucose,Whole Blood 276 mg/dL (75-99)
[2018-08-05 06:46] LABS: Glucose,Whole Blood 203 mg/dL (75-99)
[2018-08-05] MEDS: IPRATROPIUM-ALBUTEROL 3 ML NEB INHALATION PRN ×2 (07:13→19:47)
[2018-08-05] MEDS: BUDESONIDE 0.5 MG/2 ML NEBU INHALATION SCH ×2 (07:14→19:47)
[2018-08-05] MEDS: INSULIN ASPART 100 UNIT/ML 1 ML 10 ML VIAL SQ SCH ×4 (09:48→20:47)
[2018-08-05] MEDS: SACUBITRIL/VALSARTAN 24 MG-26 MG TABLET PO SCH ×2 (09:49→23:28)
[2018-08-05] MEDS: AZITHROMYCIN 500 MG TAB PO SCH (09:49)
[2018-08-05] MEDS: ASPIRIN 325 MG TAB PO SCH (10:14)
[2018-08-05] MEDS: CARVEDILOL 12.5 MG TAB PO SCH ×2 (10:15→18:55)
[2018-08-05] MEDS: FUROSEMIDE 40 MG TAB PO SCH (10:15)
[2018-08-05] MEDS: AMIODARONE 200 MG TAB PO SCH (10:16)
[2018-08-05] MEDS: SODIUM CHLORIDE 0.9% 1,000 ML IV SCH (10:16)
[2018-08-05] MEDS: CARBIDOPA-LEVODOPA 25-100 MG 1 EACH TAB PO SCH ×2 (10:16→20:47)
[2018-08-05] MEDS: APIXABAN 2.5 MG TABLET PO SCH ×2 (10:16→20:47)
[2018-08-05] MEDS: SPIRONOLACTONE 25 MG TAB PO SCH (10:16)
[2018-08-05] MEDS: methylPREDNISolone SOD SUCCI 40 MG/ML 1 ML VIAL IV SCH ×3 (10:17→23:28)
--- NOTE | 2018-08-05 10:44 | CDI ---
Documentation Clarification Form Date: 08/05/18 From: Sowmya Greer RN Admit Date: 07/28/2018 2:32:00 AM Patient Name: Julius Murphy Visit Number: [id number] ATTENTION: The Clinical Documentation Specialists (CDI) and [facility] Coding Staff appreciate your assistance in clarifying documentation. Please respond to the clarification below the line at the bottom and electronically sign. The CDI & [facility] Coding staff will review the response and follow-up if needed. Please note: Queries are made part of the Legal Health Record. If you have any questions, please contact the author of this message via ITS. Dr. Davey Riddle, Can you please render your opinion on the following documentation? Patient presented with Weakness and dyspnea. Admitted with Pneumonia, CHF exacerbation, and A Fib RVR History/Risk Factors: CAD, CHF, HTN, DM, [place], SVT Clinical indicators: Abnormal Blood Sugars: 164, 111, 165, 107, 145, 153, 199, 177, 156, 230, 287 , 274, 212, 229, 228, 247, 197, 282, 348, 297, 209, 322, 310, 276, 203 Patient is On Soul-Medrol q 8 hr Treatment: Monitor blood glucose Novolog PRN Clinical significance of diagnostic testing and treatment CANNOT be assumed or coded without physician documentation of significance if any. Please clarify what abnormal laboratory signifies: Disease process, please specify Infectious process, please specify Unable to determine Other, please specify MTDD
--- NOTE | 2018-08-05 11:01 | CDI ---
Documentation Clarification Form Date: From: Somwya Greer RN Admit Date: 07/28/2018 2:32:00 AM Patient Name: Julius Murphy Visit Number: [id number] ATTENTION: The Clinical Documentation Specialists (CDI) and [facility] Coding Staff appreciate your assistance in clarifying documentation. Please respond to the clarification below the line at the bottom and electronically sign. The CDI & [facility] Coding staff will review the response and follow-up if needed. Please note: Queries are made part of the Legal Health Record. If you have any questions, please contact the author of this message via ITS. Dr. Daevy Riddle, The patient presented with the following Weakness, productive cough, lost his voice, dark sputum, chills and vomiting. Patient was admitted with Pneumonia, CHF exacerbation, A Fib RVR and patient was found to have a UTI. History/Risk Factors: CAD, CHF, HTN, skin cancer, angina, DM, [place], OA, SVT Clinical Indicators: Urinalysis: color dark yellow, mucus many, casts 13 WBC on admission: 6.8 Lactic acid: 2.4 Blood cultures: no growth after 144 hours Vitals signs on admission: T 96.6, P 111, R 20, 94/73, 97% RA H&P states: Upper respiratory infection, Bronchitis, UTI and left lower lobe pneumonia Treatment: Antibiotics: Azithromycin PO, Ceftriaxone IVPB, IV Bolus: .9 500ML x1 In your professional opinion, please clarify if these findings signify one of the following conditions, whether the condition is POA, and cause, if known: Condition Sepsis ruled in Sepsis ruled out Other, please specify Unable to determine Present on Admission Yes No MTDD
[2018-08-05 11:44] LABS: Glucose,Whole Blood 255 mg/dL (75-99)
[2018-08-05 17:04] LABS: Glucose,Whole Blood 242 mg/dL (75-99)
[2018-08-05] MEDS: TAMSULOSIN 0.4 MG CAP.ER.24H PO SCH (18:55)
[2018-08-05 20:08] LABS: Glucose,Whole Blood 245 mg/dL (75-99)
[2018-08-05] MEDS: MIRTAZAPINE 15 MG TAB PO SCH (20:47)
[2018-08-06] MEDS: SODIUM CHLORIDE 0.9% 1,000 ML IV SCH (05:40)
[2018-08-06] MEDS: IPRATROPIUM-ALBUTEROL 3 ML NEB INHALATION PRN ×2 (07:05→19:28)
[2018-08-06] MEDS: BUDESONIDE 0.5 MG/2 ML NEBU INHALATION SCH ×2 (07:05→19:28)
[2018-08-06 07:06] LABS: Glucose,Whole Blood 192 mg/dL (75-99)
[2018-08-06] MEDS: INSULIN ASPART 100 UNIT/ML 1 ML 10 ML VIAL SQ SCH ×4 (08:12→21:41)
[2018-08-06] MEDS: CARVEDILOL 12.5 MG TAB PO SCH ×2 (08:13→17:18)
[2018-08-06] MEDS: AMIODARONE 200 MG TAB PO SCH (08:13)
[2018-08-06] MEDS: SPIRONOLACTONE 25 MG TAB PO SCH (08:13)
[2018-08-06] MEDS: APIXABAN 2.5 MG TABLET PO SCH ×2 (08:13→21:42)
[2018-08-06] MEDS: ASPIRIN 325 MG TAB PO SCH (08:13)
[2018-08-06] MEDS: CARBIDOPA-LEVODOPA 25-100 MG 1 EACH TAB PO SCH ×2 (08:13→21:42)
[2018-08-06] MEDS: SACUBITRIL/VALSARTAN 24 MG-26 MG TABLET PO SCH (08:14)
[2018-08-06] MEDS: AZITHROMYCIN 500 MG TAB PO SCH (08:14)
[2018-08-06] MEDS: FUROSEMIDE 40 MG TAB PO SCH (08:23)
[2018-08-06] MEDS: methylPREDNISolone SOD SUCCI 40 MG/ML 1 ML VIAL IV SCH ×2 (08:23→17:17)
--- NOTE | 2018-08-06 09:03 | P.PN ---
Subjective Progress Note Date: 08/06/18 The scrotal swelling and lower extremity swelling have decreased somewhat. He has no complaints. Objective - Vital Signs Vital signs: Vital Signs Temp 97.5 F L 08/06/18 07:25 Pulse 110 H 08/06/18 07:25 Resp 20 08/06/18 07:25 BP 102/60 08/06/18 08:26 Pulse Ox 97 08/06/18 07:25 Intake & Output 08/05/18 08/06/18 08/06/18 18:59 06:59 18:59 Intake Total 140 Output Total 400 Balance 140 -400 Weight 133 kg Intake: IV 140 Sodium Chloride 0.9% 1, 140 000 ml @ 20 mls/hr IV . Q24H MARIA C Rx#:[id number] Output: Urine 400 Other: Voiding Method Urinal # Voids 1 - Labs CBC & Chem 7: 07/30/18 11:00 07/30/18 11:00 Labs: Abnormal Lab Results - Last 24 Hours (Table) 08/05/18 08/05/18 08/05/18 Range/Units 11:43 17:02 20:07 POC Glucose (mg/dL) 255 H 242 H 245 H (75-99) mg/dL 08/06/18 Range/Units 07:04 POC Glucose (mg/dL) 192 H (75-99) mg/dL
[2018-08-06 11:40] LABS: Glucose,Whole Blood 288 mg/dL (75-99)
--- NOTE | 2018-08-06 12:29 | MISC ---
MISCELLANOUS REPORT QUERY Question: Clarify what abnormal laboratory signify infectious process pneumonitis. MMODL / IJN: [id number] /
--- NOTE | 2018-08-06 16:08 | PN ---
PROGRESS NOTE CHIEF COMPLAINT: Pneumonitis and congestive heart failure. HISTORY OF PRESENT ILLNESS: This gentleman's has developed retention. He had around a 1000 mL of retained urine. This will be evaluated. PHYSICAL EXAM: Abdomen is soft and nontender. Chest is clear. Cardiac exam is unchanged. IMPRESSION: 1. Pneumonitis. 2. Congestive heart failure. 3. Coronary artery disease. 4. Urinary retention. PLAN: 1. Echo of the bladder. 2. Leyva catheter. 3. Start Flomax 0.4 at bedtime. 4. Urology consult. MMODL / IJN: [id number] /
--- NOTE | 2018-08-06 16:26 | PN ---
PROGRESS NOTE CHIEF COMPLAINT: Pneumonitis, urinary retention. HISTORY OF PRESENT ILLNESS: This gentleman is doing a little bit better. Catheter is out. He is being straight cathed. He has had no fever and chills, cough, etc. He is eating. He is feeling stronger. PHYSICAL EXAM: Color is good. Chest is clear. Cardiac exam is normal. Abdomen is soft, nontender. IMPRESSION: 1. Pneumonitis. 2. Congestive heart failure. 3. Coronary artery disease. 4. Urinary retention. PLAN: Continue to try to increase activity and probably home in the next few days. MMODL / IJN: [id number] /
--- NOTE | 2018-08-06 16:29 | PN ---
PROGRESS NOTE DATE OF SERVICE: 08/06/2018 CHIEF COMPLAINT: Pneumonitis and urinary retention. HISTORY OF PRESENT ILLNESS: This gentleman seems to be doing pretty well. He is awake and alert. He is still being cathed as needed. PHYSICAL EXAM: His chest demonstrates decreased breath sounds at bases, but very few rales. Cardiac exam is unremarkable. Abdomen is soft and protuberant. Extremities are normal. IMPRESSION: 1. Pneumonitis. 2. Congestive heart failure. 3. Coronary artery disease. 4. Urinary retention. PLAN: Continue to work on increasing activity with hopes of getting him out of the hospital sometime this week. MMODL / IJN: [id number] /
[2018-08-06 17:17] LABS: Glucose,Whole Blood 290 mg/dL (75-99)
[2018-08-06] MEDS: TAMSULOSIN 0.4 MG CAP.ER.24H PO SCH (17:18)
[2018-08-06 21:36] LABS: Glucose,Whole Blood 302 mg/dL (75-99)
[2018-08-06] MEDS: MIRTAZAPINE 15 MG TAB PO SCH (21:42)
[2018-08-07] MEDS: methylPREDNISolone SOD SUCCI 40 MG/ML 1 ML VIAL IV SCH ×4 (00:30→23:07)
[2018-08-07] MEDS: SACUBITRIL/VALSARTAN 24 MG-26 MG TABLET PO SCH ×2 (00:30→07:37)
[2018-08-07] MEDS: SODIUM CHLORIDE 0.9% 1,000 ML IV SCH ×2 (00:31→23:07)
[2018-08-07] MEDS ORDERED: BENZOCAINE/MENTHOL LOZENG 1 EACH LOZENGE MUCOUS MEM PRN (06:48)
[2018-08-07 07:18] LABS: Glucose,Whole Blood 206 mg/dL (75-99)
[2018-08-07 07:21] LABS: Basophils % (A) 0 %; Eosinophils % (A) 1 %; HCT 44.4 % (39.0-53.0); HGB 14.1 gm/dL (13.0-17.5); Lymphocytes # (A) 0.4 k/uL (1.0-4.8); Lymphocytes % (A) 5 %; MCH 31.9 pg (25.0-35.0); MCHC 31.8 g/dL (31.0-37.0); MCV 100.4 fL (80.0-100.0); Macrocytosis Slight; Monocytes # (A) 0.3 k/uL (0-1.0); Monocytes % (A) 4 %; Neutrophils % (A) 90 %; Platelet Count 125 k/uL (150-450); RBC 4.43 m/uL (4.30-5.90); RDW 15.1 % (11.5-15.5); WBC 6.7 k/uL (3.8-10.6)
[2018-08-07] MEDS: BUDESONIDE 0.5 MG/2 ML NEBU INHALATION SCH ×2 (07:26→19:36)
[2018-08-07] MEDS: IPRATROPIUM-ALBUTEROL 3 ML NEB INHALATION PRN ×2 (07:26→19:36)
[2018-08-07] MEDS: INSULIN ASPART 100 UNIT/ML 1 ML 10 ML VIAL SQ SCH ×4 (07:36→23:06)
[2018-08-07] MEDS: AMIODARONE 200 MG TAB PO SCH (07:38)
[2018-08-07] MEDS: CARBIDOPA-LEVODOPA 25-100 MG 1 EACH TAB PO SCH ×2 (07:38→23:06)
[2018-08-07] MEDS: AZITHROMYCIN 500 MG TAB PO SCH (07:38)
[2018-08-07] MEDS: SPIRONOLACTONE 25 MG TAB PO SCH (07:38)
[2018-08-07] MEDS: FUROSEMIDE 40 MG TAB PO SCH (07:38)
[2018-08-07] MEDS: ASPIRIN 325 MG TAB PO SCH (07:38)
[2018-08-07 07:39] LABS: ALT 27 U/L (21-72); AST 35 U/L (17-59); Albumin 2.7 g/dL (3.5-5.0); Alkaline Phosphatase 62 U/L (38-126); Anion Gap 7 mmol/L; Blood Urea Nitrogen 34 mg/dL (9-20); Calcium 7.9 mg/dL (8.4-10.2); Carbon Dioxide 26 mmol/L (22-30); Chloride 99 mmol/L (98-107); Glucose 227 mg/dL (74-99); Sodium 132 mmol/L (137-145); Total Bilirubin 0.8 mg/dL (0.2-1.3); Total Protein 5.2 g/dL (6.3-8.2)
[2018-08-07] MEDS: CARVEDILOL 12.5 MG TAB PO SCH ×2 (07:39→17:30)
[2018-08-07] MEDS: APIXABAN 2.5 MG TABLET PO SCH ×2 (07:39→23:06)
[2018-08-07 08:12] LABS: Potassium 4.7 mmol/L (3.5-5.1)
[2018-08-07 11:21] LABS: Glucose,Whole Blood 245 mg/dL (75-99)
[2018-08-07 17:14] LABS: Glucose,Whole Blood 204 mg/dL (75-99)
[2018-08-07] MEDS: NYSTATIN 100,000 UNIT/ML SUSP 500,000 UNIT/5 ML CUP PO SCH (17:25)
[2018-08-07] MEDS: TAMSULOSIN 0.4 MG CAP.ER.24H PO SCH (17:30)
[2018-08-07 20:00] LABS: Glucose,Whole Blood 237 mg/dL (75-99)
[2018-08-07] MEDS: MIRTAZAPINE 15 MG TAB PO SCH (23:06)
[2018-08-08] MEDS: SACUBITRIL/VALSARTAN 24 MG-26 MG TABLET PO SCH ×3 (00:44→21:26)
[2018-08-08 07:10] LABS: Glucose,Whole Blood 182 mg/dL (75-99)
[2018-08-08] MEDS: INSULIN ASPART 100 UNIT/ML 1 ML 10 ML VIAL SQ SCH ×4 (07:18→21:26)
[2018-08-08] MEDS: CARBIDOPA-LEVODOPA 25-100 MG 1 EACH TAB PO SCH ×2 (08:48→21:25)
[2018-08-08] MEDS: AZITHROMYCIN 500 MG TAB PO SCH (08:48)
[2018-08-08] MEDS: methylPREDNISolone SOD SUCCI 40 MG/ML 1 ML VIAL IV SCH ×2 (08:48→16:57)
[2018-08-08] MEDS: APIXABAN 2.5 MG TABLET PO SCH ×2 (08:48→21:25)
[2018-08-08] MEDS: CARVEDILOL 12.5 MG TAB PO SCH ×2 (08:48→16:57)
[2018-08-08] MEDS: FUROSEMIDE 40 MG TAB PO SCH (08:48)
[2018-08-08] MEDS: AMIODARONE 200 MG TAB PO SCH (08:48)
[2018-08-08] MEDS: SPIRONOLACTONE 25 MG TAB PO SCH (08:49)
[2018-08-08] MEDS: ASPIRIN 325 MG TAB PO SCH (08:49)
[2018-08-08] MEDS: BUDESONIDE 0.5 MG/2 ML NEBU INHALATION SCH ×2 (09:54→20:55)
[2018-08-08] MEDS: IPRATROPIUM-ALBUTEROL 3 ML NEB INHALATION PRN ×2 (09:54→20:55)
[2018-08-08 11:28] LABS: Glucose,Whole Blood 222 mg/dL (75-99)
[2018-08-08 16:55] LABS: Glucose,Whole Blood 252 mg/dL (75-99)
[2018-08-08] MEDS ORDERED: VANCOMYCIN IV PER PHARMACY 1 EACH MISC MISCELLANE PRN (17:59)
[2018-08-08] MEDS: TAMSULOSIN 0.4 MG CAP.ER.24H PO SCH (18:02)
[2018-08-08] MEDS: SODIUM CHLORIDE 0.9% 1,000 ML IV SCH (20:09)
[2018-08-08] MEDS: VANCOMYCIN 2,500 MG in SODIUM CHLORIDE 0.9% 500 ML 500 ML IVPB SCH (20:09)
[2018-08-08 21:07] LABS: Glucose,Whole Blood 334 mg/dL (75-99)
[2018-08-08] MEDS: guaiFENesin 600 MG TABLET.ER PO SCH (21:25)
[2018-08-08] MEDS: MIRTAZAPINE 15 MG TAB PO SCH (21:26)
[2018-08-09] MEDS: methylPREDNISolone SOD SUCCI 40 MG/ML 1 ML VIAL IV SCH ×4 (00:10→23:46)
[2018-08-09 07:28] LABS: Glucose,Whole Blood 189 mg/dL (75-99)
[2018-08-09] MEDS: VANCOMYCIN 2,500 MG in SODIUM CHLORIDE 0.9% 500 ML 500 ML IVPB SCH (08:21)
[2018-08-09] MEDS: INSULIN ASPART 100 UNIT/ML 1 ML 10 ML VIAL SQ SCH ×4 (08:21→20:45)
[2018-08-09] MEDS: CARVEDILOL 12.5 MG TAB PO SCH ×2 (08:22→17:51)
[2018-08-09] MEDS: CARBIDOPA-LEVODOPA 25-100 MG 1 EACH TAB PO SCH ×2 (08:22→20:44)
[2018-08-09] MEDS: SACUBITRIL/VALSARTAN 24 MG-26 MG TABLET PO SCH ×2 (08:22→20:41)
[2018-08-09] MEDS: guaiFENesin 600 MG TABLET.ER PO SCH ×2 (08:23→20:47)
[2018-08-09] MEDS: AMIODARONE 200 MG TAB PO SCH (08:23)
[2018-08-09] MEDS: ASPIRIN 325 MG TAB PO SCH (08:23)
[2018-08-09] MEDS: SPIRONOLACTONE 25 MG TAB PO SCH (08:23)
[2018-08-09] MEDS: APIXABAN 2.5 MG TABLET PO SCH ×2 (08:23→20:45)
[2018-08-09] MEDS: FUROSEMIDE 40 MG TAB PO SCH (08:23)
[2018-08-09] MEDS: AZITHROMYCIN 500 MG TAB PO SCH (08:24)
[2018-08-09] MEDS: BUDESONIDE 0.5 MG/2 ML NEBU INHALATION SCH ×2 (10:00→20:46)
[2018-08-09 12:10] LABS: Glucose,Whole Blood 206 mg/dL (75-99)
--- NOTE | 2018-08-09 14:50 | PN ---
PROGRESS NOTE DATE OF SERVICE: 08/07/2018 CHIEF COMPLAINT: Pneumonitis. HISTORY OF PRESENT ILLNESS: This gentleman is getting a little bit stronger every day. It is expected that he will go home. He has good family support. He is currently receiving intermittent catheterizations. PHYSICAL EXAM: His chest is fairly clear with only occasional rales at the bases now. Cardiac exam is unchanged. The abdomen is soft and nontender. His activity is being increased. IMPRESSION: 1. Pneumonitis. 2. Congestive heart failure. 3. Urinary retention. 4. Urinary tract infection. PLAN: Continue to increase activity in hopes that he will be able to be discharged soon. MMODL / IJN: [id number] /
--- NOTE | 2018-08-09 16:35 | PN ---
PROGRESS NOTE DATE OF SERVICE: 08/08/2018 CHIEF COMPLAINT: Pneumonitis. HISTORY OF PRESENT ILLNESS: This gentleman is coming along nicely. However, there was a call from the lab that he has grown MRSA out of his sputum. Hence, he will be referred to Infectious Disease and be started on vancomycin. He can probably go home fairly soon in that he is clinically improving and we will likely be able to manage this as an outpatient with oral antibiotics and close followup. MMODL / IJN: [id number] /
--- NOTE | 2018-08-09 16:56 | PN ---
PROGRESS NOTE DATE OF SERVICE: 08/09/2018 CHIEF COMPLAINT: Pneumonitis and congestive heart failure. HISTORY OF PRESENT ILLNESS: This gentleman continues to improve and do well. He has not been seen by Infectious Disease yet, but vancomycin has been started. PHYSICAL EXAM: His color is good. He is alert. He has occasional rhonchi and scattered rales throughout. Cardiac exam is unchanged. The abdomen is soft, nontender. IMPRESSION: 1. Pneumonitis. 2. Methicillin resistant Staphylococcus aureus. 3. Congestive heart failure. 4. Hypertension. PLAN: We will keep him on vancomycin for another day or 2 and then try to discharge him home. MMODL / IJN: [id number] /
--- NOTE | 2018-08-09 17:04 | P.CONS ---
History of Present Illness - Reason for Consult Consult date: 08/09/18 - Chief Complaint Shortness of breath and congestion - History of Present Illness Pleasant 83-year-old male who's been seen by the infectious disease service in the past presents to hospital with complaints of progressive shortness of breath cough and chest congestion. The time of his admission on he had evidence of left lower lobe pneumonia has been treated with antibiotic therapy. Was also thought that he was having difficulties with congestive heart failure at that time. It is related the patient had chills, malaise significant congestion in his chest with cough at the time of his diagnosis. Since since admission there has only been slow improvement but not resolution. With the lack of resolution cultures were obtained and sputum culture showed evidence of MRSA in the infectious diseases consultation was requested Review of Systems HEENT:Denies headache or acute visual change. Denies sinus or mouth discomforts. Denies neck stiffness or pain. Denies significant oral cavity pain. Denies difficulty on swallowing. Lungs: Cough sputum production still has shortness of breath no hemoptysis Cardiovascular: Denies chest pain or pressure no chest wall pain orthopnea does have dyspnea with any exertion no syncope Gastrointestinal:Denies nausea, vomiting, diarrhea, constipation, hematemesis, melena, hematochezia. No no significant change of bowel habit noticed. Musculoskeletal: denies significant myalgias or arthralgias. No new joint swelling. Denies new back pain. Skin: Lower extremity edema and apparently was having some discomfort to his left heel that's improved Neuro: Denies headache or visual change. Denies any new onset weakness or difficulty with ambulation. Denies falls or seizures. Psychiatric:Denies anxiety or depression. Endocrine: Fatigue and has gained weight Past Medical History Past Medical History: Atrial Fibrillation, Coronary Artery Disease (CAD), Cancer , Chest Pain / Angina, Heart Failure, Diabetes Mellitus, Hypertension, Myocardial Infarction (NE), Osteoarthritis (OA), Skin Disorder, Supraventricular Tachycardia (SVT) Additional Past Medical History / Comment(s): hx gout, diet control diabetic(rx in past), hx kidney stones, skin cancer Last Myocardial Infarction Date:: 1992 History of Any Multi-Drug Resistant Organisms: MRSA Year Discovered:: 08/05/18 MDRO Source:: mrsa sputum Past Surgical History: Appendectomy, Back Surgery, Heart Catheterization With Stent, Joint Replacement Additional Past Surgical History / Comment(s): bilateral knee replacement(left knee x 2), left hip replacement, two cardiac stents, spinal fusion, michael cataracts Past Anesthesia/Blood Transfusion Reactions: No Reported Reaction Date of Last Stent Placement:: unknown Additional Psychological History / Comment(s): Lifelong nonsmoker. Retired. Lives with his daughter Pily and her family. No recent travel. The experience. No animals in the home Smoking Status: Never smoker - Past Family History Brother(s) Family Medical History: Cancer Daughter(s) Family Medical History: Cancer Father Family Medical History: Cancer Medications and Allergies Home Medications and Allergies Comment(s): Current Medications Albuterol/Ipratropium (Duoneb 0.5 Mg-3 Mg/3 Ml Soln) 3 ml INHALATION RT-Q4H PRN PRN Reason: shortness of breath Last Admin: 08/08/18 20:55 Dose: 3 ml Amiodarone HCl (Cordarone) 200 mg PO DAILY [facility] Last Admin: 08/09/18 08:23 Dose: 200 mg Apixaban (Eliquis) 2.5 mg PO BID [facility] Last Admin: 08/09/18 08:23 Dose: 2.5 mg Aspirin (Aspirin) 325 mg PO DAILY [facility] Last Admin: 08/09/18 08:23 Dose: 325 mg Benzocaine/Menthol (Cepacol Lozenge) 1 each MUCOUS MEM Q4HR PRN PRN Reason: Sore Throat Last Admin: 08/07/18 07:36 Dose: 1 each Budesonide (Pulmicort) 0.5 mg INHALATION RT-BID [facility] Last Admin: 08/09/18 10:00 Dose: Not Given Carbidopa/Levodopa (Sinemet 25-100) 2 each PO BID [facility] Last Admin: 08/09/18 08:22 Dose: 2 each Carvedilol (Coreg) 25 mg PO BID-W/MEALS [facility] Last Admin: 08/09/18 08:22 Dose: 25 mg Furosemide (Lasix) 40 mg PO DAILY [facility] Last Admin: 08/09/18 08:23 Dose: 40 mg Guaifenesin (Mucinex) 600 mg PO Q12HR [facility] Last Admin: 08/09/18 08:23 Dose: 600 mg Sodium Chloride (Saline 0.9%) 1,000 mls @ 20 mls/hr IV .Q24H [facility] Last Admin: 08/08/18 20:09 Dose: 20 mls/hr Vancomycin HCl 2,500 mg/ (Sodium Chloride) 500 mls @ 167 mls/hr IVPB Q24HR [facility] Last Admin: 08/09/18 08:21 Dose: 167 mls/hr Insulin Aspart (Novolog) 0 unit SQ ACHS [facility]; Protocol Last Admin: 08/09/18 12:15 Dose: 4 unit Methylprednisolone Sodium Succinate (Solu-Medrol) 30 mg IV Q8HR [facility] Last Admin: 08/09/18 08:24 Dose: 30 mg Mirtazapine (Remeron) 15 mg PO HS [facility] Last Admin: 08/08/18 21:26 Dose: 15 mg Miscellaneous Information (Pneumonia Protocol Utilized) 1 each PO ONCE PRN PRN Reason: Per Protocol Nystatin (Mycostatin Oral Susp) 500,000 unit PO QID [facility] Sacubitril/Valsartan (Entresto 24 Mg-26 Mg Tablet) 1 each PO BID [facility] Last Admin: 08/09/18 08:22 Dose: 1 each Spironolactone (Aldactone) 25 mg PO DAILY [facility] Last Admin: 08/09/18 08:23 Dose: 25 mg Tamsulosin HCl (Flomax) 0.4 mg PO PC-SUPPER [facility] Last Admin: 08/08/18 18:02 Dose: 0.4 mg Home Medications Medication Instructions Recorded Confirmed Type Carvedilol [Coreg] 25 mg PO BID 08/03/16 07/28/18 History Amiodarone [Cordarone] 200 mg PO DAILY 03/26/18 07/28/18 History Apixaban [Eliquis] 2.5 mg PO BID 03/26/18 07/28/18 History Furosemide [Lasix] 40 mg PO DAILY 03/26/18 07/28/18 History Lisinopril [Zestril] 10 mg PO DAILY 03/26/18 07/28/18 History Aspirin EC [Ecotrin] 325 mg PO DAILY 07/28/18 07/28/18 History Atorvastatin [Lipitor] 40 mg PO DAILY 07/28/18 07/28/18 History Cholecalciferol [Vitamin D3] 5,000 unit PO DAILY 07/28/18 07/28/18 History Mirtazapine [Remeron] 15 mg PO HS 07/28/18 07/28/18 History Sacubitril/Valsartan [Entresto 24 1 tab PO BID 07/28/18 07/28/18 History mg-26 mg Tablet] Spironolactone [Aldactone] 25 mg PO DAILY 07/28/18 07/28/18 History traZODone HCL [Desyrel] 100 mg PO HS PRN 07/28/18 07/28/18 History Allergies Allergy/AdvReac Type Severity Reaction Status Date / Time No Known Allergies Allergy Verified 07/28/18 09:17 Physical Exam Vitals: Vital Signs Temp Pulse Pulse Resp BP Pulse Ox 08/09/18 14:50 97.8 F 58 L 18 92/51 97 08/09/18 07:20 98.3 F 93 18 94/66 97 08/08/18 23:25 97.6 F 106 H 16 94/64 94 L 08/08/18 21:10 97 08/08/18 20:55 94 08/08/18 19:03 98.5 F 81 15 104/71 91 L Intake and Output 08/09/18 08/09/18 08/09/18 06:59 14:59 22:59 Intake Total 200 Output Total 300 Balance -100 Intake: Intake, IV Titration 200 Amount Sodium Chloride 0.9% 1, 200 000 ml @ 20 mls/hr IV . Q24H [facility] Rx#:[id number] Output: Urine 300 Other: Voiding Method Toilet Urinal # Voids 1 Weight 135.5 kg Pleasant 83-year-old male not in distress but is still not feel well HEENT: Anicteric conjunctiva are pink and moist nasal mucosa grossly intact without significant lesions, there is no thrush. Neck: The neck is supple without significant lymphadenopathy or thyromegaly. Lungs: Symmetrical air entry is noted expiratory wheezes are somewhat scattered few crackles in the right lower zone Heart: Regular rate and rhythm with an audible S1-S2, no S3 no S4. There is no significant murmur click or rub, PMI was nondisplaced. Abdomen: Positive bowel sounds soft and nontender without palpable masses or organomegaly. There was no guarding or rebound. Extremities: The upper extremities have evidence of edema he has very thin skin and there are areas of injury and ecchymosis. The arms are with significant edema and there is evidence of weeping. No splinter hemorrhages were noted. Lower extremities have edema 2+ and symmetric no open ulcers are seen Neuro: Awake alert oriented to person place and time. There are no acute new gross focal sensory motor deficits. Results CBC & Chem 7: 08/07/18 06:38 12 06:38 Labs: Abnormal Lab Results - Last 24 Hours (Table) 08/08/18 08/08/18 08/09/18 Range/Units 16:41 21:05 07:24 POC Glucose (mg/dL) 252 H 334 H 189 H (75-99) mg/dL 08/09/18 Range/Units 12:09 POC Glucose (mg/dL) 206 H (75-99) mg/dL Microbiology - Last 24 Hours (Table) 08/05/18 19:51 Gram Stain - Final Sputum Sputum Culture - Final Methicillin resist S. aureus Xi albicans Laboratory Results WBC 6.7 k/uL (3.8-10.6) 08/07/18 06:38 RBC 4.43 m/uL (4.30-5.90) 08/07/18 06:38 Hgb 14.1 gm/dL (13.0-17.5) 08/07/18 06:38 Hct 44.4 % (39.0-53.0) 08/07/18 06:38 MCV 100.4 fL (80.0-100.0) H 08/07/18 06:38 MCH 31.9 pg (25.0-35.0) 08/07/18 06:38 MCHC 31.8 g/dL (31.0-37.0) 08/07/18 06:38 RDW 15.1 % (11.5-15.5) 08/07/18 06:38 Plt Count 125 k/uL (150-450) L 08/07/18 06:38 Neutrophils % 90 % 08/07/18 06:38 Neutrophils % (Manual) 78 % 07/30/18 11:00 Band Neutrophils % 1 % 07/30/18 11:00 Lymphocytes % 5 % 08/07/18 06:38 Lymphocytes % (Manual) 12 % 07/30/18 11:00 Monocytes % 4 % 08/07/18 06:38 Monocytes % (Manual) 8 % 07/30/18 11:00 Eosinophils % 1 % 08/07/18 06:38 Eosinophils % (Manual) 1 % 07/30/18 11:00 Basophils % 0 % 08/07/18 06:38 Neutrophils # 6.0 k/uL (1.3-7.7) 08/07/18 06:38 Neutrophils # (Manual) 5.30 k/uL (1.3-7.7) 07/30/18 11:00 Lymphocytes # 0.4 k/uL (1.0-4.8) L 08/07/18 06:38 Lymphocytes # (Manual) 0.82 k/uL (1.0-4.8) L 07/30/18 11:00 Monocytes # 0.3 k/uL (0-1.0) 08/07/18 06:38 Monocytes # (Manual) 0.54 k/uL (0-1.0) 07/30/18 11:00 Eosinophils # 0.0 k/uL (0-0.7) 08/07/18 06:38 Eosinophils # (Manual) 0.07 k/uL (0-0.7) 07/30/18 11:00 Basophils # 0.0 k/uL (0-0.2) 08/07/18 06:38 Nucleated RBCs 0 /100 WBC (0-0) 07/30/18 11:00 Poikilocytosis (manual Present 07/30/18 11:00 Anisocytosis (manual) Present 07/30/18 11:00 Macrocytosis Slight 08/07/18 06:38 PT 12.2 sec (9.0-12.0) H 07/28/18 00:10 INR 1.3 (<1.2) H 07/28/18 00:10 APTT 24.4 sec (22.0-30.0) 07/28/18 00:10 Sodium 132 mmol/L (137-145) L 08/07/18 06:38 Potassium 4.7 mmol/L (3.5-5.1) 08/07/18 06:38 Chloride 99 mmol/L (98-107) 08/07/18 06:38 Carbon Dioxide 26 mmol/L (22-30) 08/07/18 06:38 Anion Gap 7 mmol/L 08/07/18 06:38 BUN 34 mg/dL (9-20) H 08/07/18 06:38 Creatinine 0.89 mg/dL (0.66-1.25) 08/07/18 06:38 Est GFR (CKD-EPI)AfAm >90 (>60 ml/min/1.73 sqM) 08/07/18 06:38 Est GFR (CKD-EPI)NonAf 78 (>60 ml/min/1.73 sqM) 08/07/18 06:38 Glucose 227 mg/dL (74-99) H 08/07/18 06:38 POC Glucose (mg/dL) 206 mg/dL (75-99) H 08/09/18 12:09 POC Glu Lifeguard ID [place] 08/09/18 12:09 Lactic Ac Sepsis Rflx Y 07/28/18 04:21 Plasma Lactic Acid Otilio 1.8 mmol/L (0.7-2.0) 07/28/18 07:36 Calcium 7.9 mg/dL (8.4-10.2) L 08/07/18 06:38 Total Bilirubin 0.8 mg/dL (0.2-1.3) 08/07/18 06:38 AST 35 U/L (17-59) 08/07/18 06:38 ALT 27 U/L (21-72) 08/07/18 06:38 Alkaline Phosphatase 62 U/L (38-126) 08/07/18 06:38 Total Creatine Kinase <20 U/L (55-170) L 07/28/18 00:10 CK-MB (CK-2) 0.8 ng/mL (0.0-2.4) 07/28/18 00:10 CK-MB (CK-2) Rel Index 07/28/18 00:10 Troponin I <0.012 ng/mL (0.000-0.034) 07/28/18 00:10 NT-Pro-B Natriuret Pep 3230 pg/mL 07/30/18 11:00 Total Protein 5.2 g/dL (6.3-8.2) L 08/07/18 06:38 Albumin 2.7 g/dL (3.5-5.0) L 08/07/18 06:38 Urine Color Dark Yellow 07/28/18 04:15 Urine Appearance Clear (Clear) 07/28/18 04:15 Urine pH 5.5 (5.0-8.0) 07/28/18 04:15 Ur Specific [place] 1.028 (1.001-1.035) 07/28/18 04:15 Urine Protein 2+ (Negative) H 07/28/18 04:15 Urine Glucose (UA) Trace (Negative) H 07/28/18 04:15 Urine Ketones Negative (Negative) 07/28/18 04:15 Urine Blood Negative (Negative) 07/28/18 04:15 Urine Nitrite Negative (Negative) 07/28/18 04:15 Urine Bilirubin 1+ (Negative) H 07/28/18 04:15 Urine Urobilinogen 6.0 mg/dL (<2.0) 07/28/18 04:15 Ur Leukocyte Esterase Negative (Negative) 07/28/18 04:15 Urine RBC 1 /hpf (0-5) 07/28/18 04:15 Urine WBC 1 /hpf (0-5) 07/28/18 04:15 Ur Squamous Epith Cells 1 /hpf (0-4) 07/28/18 04:15 Hyaline Casts 13 /lpf (0-2) H 07/28/18 04:15 Urine Mucus Many /hpf (None) H 07/28/18 04:15 Influenza Type A RNA Not Detected (Not Detectd) 07/28/18 01:35 Influenza Type B (PCR) Not Detected (Not Detectd) 07/28/18 01:35 Microbiology 08/05/18 19:51 Sputum Gram Stain - Final 08/05/18 19:51 Sputum Sputum Culture - Final Methicillin resist S. aureus Xi albicans 07/28/18 00:10 Blood Blood Culture - Final No Growth after 144 hours Assessment and Plan (1) Atrial fibrillation with RVR Current Visit: Yes Status: Acute Code(s): I48.91 - UNSPECIFIED ATRIAL FIBRILLATION SNOMED Code(s): 613152153118782 (2) MRSA pneumonia Narrative/Plan: Pleasant 83-year-old male presents to Hospital feeling poorly any evidence of pneumonia which is right lower lobe as well as A. fib with RVR. He is now been stabilized but continues to have cough and shortness of breath. Sputum cultures were obtained and now has evidence of MRSA in his sputum. Antibiotic therapy has now been transitioned to vancomycin this will therapy in the no other pathogens have been found, and he is flu negative. Would plan a few days vancomycin therapy and monitor his progress. This potentially could require a course of outpatient intravenous antibiotic therapy but if he has improvement there is a possibility of transition to oral therapy to complete the treatment of his current pneumonia. He has a extremity edema and EMILY hose are requested. He is elevating his legs which is excellent. He has edema and weeping to his upper extremities for which some Silvadene wraps are applied to help with this acute difficulty. He is receiving diuresis and treatment for his underlying cardiovascular disease. Current Visit: Yes Status: Acute Code(s): J15.212 - PNEUMONIA DUE TO METHICILLIN RESISTANT STAPHYLOCOCCUS AUREUS SNOMED Code(s): 330827522778148
[2018-08-09 17:46] LABS: Glucose,Whole Blood 294 mg/dL (75-99)
[2018-08-09] MEDS: NYSTATIN 100,000 UNIT/ML SUSP 500,000 UNIT/5 ML CUP PO SCH ×2 (17:51→20:44)
[2018-08-09] MEDS: TAMSULOSIN 0.4 MG CAP.ER.24H PO SCH (17:51)
[2018-08-09] MEDS: SODIUM CHLORIDE 0.9% 1,000 ML IV SCH (20:04)
[2018-08-09 20:07] LABS: Glucose,Whole Blood 304 mg/dL (75-99)
[2018-08-09] MEDS: MIRTAZAPINE 15 MG TAB PO SCH (20:45)
[2018-08-09] MEDS: IPRATROPIUM-ALBUTEROL 3 ML NEB INHALATION PRN (20:46)
[2018-08-10 07:11] LABS: Glucose,Whole Blood 244 mg/dL (75-99)
[2018-08-10] MEDS: AMIODARONE 200 MG TAB PO SCH ×2 (07:37→15:17)
[2018-08-10] MEDS: INSULIN ASPART 100 UNIT/ML 1 ML 10 ML VIAL SQ SCH ×4 (07:42→22:17)
[2018-08-10] MEDS: CARVEDILOL 12.5 MG TAB PO SCH (07:43)
[2018-08-10 08:22] LABS: Calcium 7.9 mg/dL (8.4-10.2); Potassium 4.9 mmol/L (3.5-5.1)
[2018-08-10] MEDS: IPRATROPIUM-ALBUTEROL 3 ML NEB INHALATION PRN ×2 (09:11→21:33)
[2018-08-10] MEDS: BUDESONIDE 0.5 MG/2 ML NEBU INHALATION SCH ×2 (09:12→21:33)
[2018-08-10] MEDS: FUROSEMIDE 40 MG TAB PO SCH ×2 (09:53→16:41)
[2018-08-10] MEDS: methylPREDNISolone SOD SUCCI 40 MG/ML 1 ML VIAL IV SCH ×2 (09:53→20:41)
[2018-08-10] MEDS: VANCOMYCIN 2,500 MG in SODIUM CHLORIDE 0.9% 500 ML 500 ML IVPB SCH (09:53)
[2018-08-10] MEDS: SACUBITRIL/VALSARTAN 24 MG-26 MG TABLET PO SCH ×2 (10:02→22:18)
[2018-08-10] MEDS: APIXABAN 2.5 MG TABLET PO SCH ×2 (10:07→20:41)
[2018-08-10] MEDS: guaiFENesin 600 MG TABLET.ER PO SCH ×2 (10:07→20:41)
[2018-08-10] MEDS: NYSTATIN 100,000 UNIT/ML SUSP 500,000 UNIT/5 ML CUP PO SCH ×4 (10:07→22:17)
[2018-08-10] MEDS: CARBIDOPA-LEVODOPA 25-100 MG 1 EACH TAB PO SCH ×2 (10:07→20:41)
[2018-08-10] MEDS: ASPIRIN 325 MG TAB PO SCH (10:07)
[2018-08-10 11:56] LABS: Glucose,Whole Blood 236 mg/dL (75-99)
[2018-08-10 12:36] LABS: Basophils % (A) 0 %; Eosinophils % (A) 0 %; HCT 48.1 % (39.0-53.0); HGB 14.7 gm/dL (13.0-17.5); Lymphocytes # (A) 0.3 k/uL (1.0-4.8); Lymphocytes % (A) 3 %; MCH 31.8 pg (25.0-35.0); MCHC 30.6 g/dL (31.0-37.0); MCV 103.8 fL (80.0-100.0); Macrocytosis Moderate; Mean Platelet Volume 7.6; Monocytes # (A) 0.3 k/uL (0-1.0); Monocytes % (A) 4 %; Neutrophils # (A) 7.7 k/uL (1.3-7.7); Neutrophils % (A) 92 %; Platelet Count 109 k/uL (150-450); RBC 4.64 m/uL (4.30-5.90); RDW 14.9 % (11.5-15.5); WBC 8.4 k/uL (3.8-10.6)
[2018-08-10] MEDS: SPIRONOLACTONE 25 MG TAB PO SCH (12:43)
[2018-08-10 12:49] LABS: Albumin 2.7 g/dL (3.5-5.0)
--- NOTE | 2018-08-10 13:31 | XR ---
EXAMINATION TYPE: XR chest 2V DATE OF EXAM: 08/10/2018 HISTORY: CHF. REFERENCE: Previous study dated 07/30/2018. FINDINGS: The heart is mildly enlarged. There is bibasilar atelectasis which is minimal. Pleural spac es are clear. IMPRESSION: OVERALL IMPROVED AERATION FROM THE PREVIOUS STUDY.
[2018-08-10 16:36] LABS: Glucose,Whole Blood 246 mg/dL (75-99)
[2018-08-10] MEDS: SODIUM CHLORIDE 0.9% 1,000 ML IV SCH (16:48)
[2018-08-10] MEDS: CARVEDILOL 3.125 MG TAB PO SCH (17:39)
[2018-08-10] MEDS: TAMSULOSIN 0.4 MG CAP.ER.24H PO SCH (17:39)
[2018-08-10] MEDS: MIRTAZAPINE 15 MG TAB PO SCH (20:41)
[2018-08-10 21:16] LABS: Glucose,Whole Blood 252 mg/dL (75-99)
--- NOTE | 2018-08-10 22:27 | P.PN ---
Subjective Progress Note Date: 08/10/18 Edgar 83-year-old male who's been seen by the infectious disease service in the past presents to hospital with complaints of progressive shortness of breath cough and chest congestion. The time of his admission on he had evidence of left lower lobe pneumonia has been treated with antibiotic therapy. Was also thought that he was having difficulties with congestive heart failure at that time. It is related the patient had chills, malaise significant congestion in his chest with cough at the time of his diagnosis. Since since admission there has only been slow improvement but not resolution. With the lack of resolution cultures were obtained and sputum culture showed evidence of MRSA in the infectious diseases consultation was requested 08/10/2018 Patient relates feeling slightly better today. The upper extremities edema is responded well to the wraps. Lower extremity edema is also improving with elevation and compression hose. Shortness of breath is improved but certainly not resolved. Is not having fever or chills. Objective - Vital Signs Vital signs: Vital Signs Temp 97.7 F 08/10/18 18:43 Pulse 127 H 08/10/18 21:47 Resp 20 08/10/18 18:43 BP 86/67 08/10/18 18:43 Pulse Ox 97 08/10/18 21:35 Intake & Output 08/10/18 08/10/18 08/11/18 06:59 18:59 06:59 Intake Total 640 600 Output Total 300 Balance 640 300 Weight 140 kg Intake: IV 200 100 Sodium Chloride 0.9% 1, 200 100 000 ml @ 20 mls/hr IV . Q24H [facility] Rx#:[id number] Intake, IV Titration 500 Amount Vancomycin 2,500 mg In 500 Sodium Chloride 0.9% 500 ml 500 ml @ 167 mls/hr IVPB Q24HR [facility] Rx#: [id number] Oral 440 Output: Urine 300 Other: Voiding Method Toilet Urinal # Voids 2 1 # Bowel Movements 1 - Exam Pleasant 83-year-old male not in distress but is still not feel well HEENT: Anicteric conjunctiva are pink and moist nasal mucosa grossly intact without significant lesions, there is no thrush. Neck: The neck is supple without significant lymphadenopathy or thyromegaly. Lungs: Symmetrical air entry is noted expiratory wheezes are somewhat scattered few crackles in the right lower zone Heart: Regular rate and rhythm with an audible S1-S2, no S3 no S4. There is no significant murmur click or rub, PMI was nondisplaced. Abdomen: Positive bowel sounds soft and nontender without palpable masses or organomegaly. There was no guarding or rebound. Extremities: The upper extremities have evidence of edema with the compression wraps of the upper extremities the copious edema and weeping is improved. No splinter hemorrhages were noted. Lower extremities have edema 2+ and symmetric no open ulcers are seen Neuro: Awake alert oriented to person place and time. There are no acute new gross focal sensory motor deficits. - Labs CBC & Chem 7: 08/10/18 07:26 08/10/18 07:26 Labs: Abnormal Lab Results - Last 24 Hours (Table) 08/10/18 08/10/18 08/10/18 Range/Units 07:10 07:26 07:26 MCV 103.8 H (80.0-100.0) fL MCHC 30.6 L (31.0-37.0) g/dL Plt Count 109 L (150-450) k/uL Lymphocytes # 0.3 L (1.0-4.8) k/uL Sodium 131 L (137-145) mmol/L BUN 40 H (9-20) mg/dL Glucose 228 H (74-99) mg/dL POC Glucose (mg/dL) 244 H (75-99) mg/dL Calcium 7.9 L (8.4-10.2) mg/dL Total Protein 5.0 L (6.3-8.2) g/dL Albumin 2.7 L (3.5-5.0) g/dL 08/10/18 08/10/18 08/10/18 Range/Units 11:55 16:34 21:14 MCV (80.0-100.0) fL MCHC (31.0-37.0) g/dL Plt Count (150-450) k/uL Lymphocytes # (1.0-4.8) k/uL Sodium (137-145) mmol/L BUN (9-20) mg/dL Glucose (74-99) mg/dL POC Glucose (mg/dL) 236 H 246 H 252 H (75-99) mg/dL Calcium (8.4-10.2) mg/dL Total Protein (6.3-8.2) g/dL Albumin (3.5-5.0) g/dL Laboratory Results WBC 8.4 k/uL (3.8-10.6) 08/10/18 07:26 RBC 4.64 m/uL (4.30-5.90) 08/10/18 07:26 Hgb 14.7 gm/dL (13.0-17.5) 08/10/18 07:26 Hct 48.1 % (39.0-53.0) 08/10/18 07:26 MCV 103.8 fL (80.0-100.0) H 08/10/18 07:26 MCH 31.8 pg (25.0-35.0) 08/10/18 07: MCHC 30.6 g/dL (31.0-37.0) L 08/10/18 07:26 RDW 14.9 % (11.5-15.5) 08/10/18 07:26 Plt Count 109 k/uL (150-450) L 08/10/18 07:26 Neutrophils % 92 % 08/10/18 07:26 Neutrophils % (Manual) 78 % 07/30/18 11:00 Band Neutrophils % 1 % 07/30/18 11:00 Lymphocytes % 3 % 08/10/18 07:26 Lymphocytes % (Manual) 12 % 07/30/18 11:00 Monocytes % 4 % 08/10/18 07:26 Monocytes % (Manual) 8 % 07/30/18 11:00 Eosinophils % 0 % 08/10/18 07: Eosinophils % (Manual) 1 % 07/30/18 11:00 Basophils % 0 % 08/10/18 07:26 Neutrophils # 7.7 k/uL (1.3-7.7) 08/10/18 07: Neutrophils # (Manual) 5.30 k/uL (1.3-7.7) 07/30/18 11:00 Lymphocytes # 0.3 k/uL (1.0-4.8) L 08/10/18 07:26 Lymphocytes # (Manual) 0.82 k/uL (1.0-4.8) L 07/30/18 11:00 Monocytes # 0.3 k/uL (0-1.0) 08/10/18 07: Monocytes # (Manual) 0.54 k/uL (0-1.0) 07/30/18 11:00 Eosinophils # 0.0 k/uL (0-0.7) 08/10/18 07:26 Eosinophils # (Manual) 0.07 k/uL (0-0.7) 07/30/18 11:00 Basophils # 0.0 k/uL (0-0.2) 08/10/18 07:26 Nucleated RBCs 0 /100 WBC (0-0) 07/30/18 11:00 Poikilocytosis (manual Present 07/30/18 11:00 Anisocytosis (manual) Present 07/30/18 11:00 Macrocytosis Moderate 08/10/18 07:26 PT 12.2 sec (9.0-12.0) H 07/28/18 00:10 INR 1.3 (<1.2) H 07/28/18 00:10 APTT 24.4 sec (22.0-30.0) 07/28/18 00:10 Sodium 131 mmol/L (137-145) L 08/10/18 07:26 Potassium 4.9 mmol/L (3.5-5.1) 08/10/18 07:26 Chloride 98 mmol/L (98-107) 08/10/18 07:26 Carbon Dioxide 25 mmol/L (22-30) 08/10/18 07:26 Anion Gap 8 mmol/L 08/10/18 07:26 BUN 40 mg/dL (9-20) H 08/10/18 07:26 Creatinine 0.90 mg/dL (0.66-1.25) 08/10/18 07:26 Est GFR (CKD-EPI)AfAm 90 (>60 ml/min/1.73 sqM) 08/10/18 07:26 Est GFR (CKD-EPI)NonAf 78 (>60 ml/min/1.73 sqM) 08/10/18 07:26 Glucose 228 mg/dL (74-99) H 08/10/18 07:26 POC Glucose (mg/dL) 252 mg/dL (75-99) H 08/10/18 21:14 POC Glu Geospatial Technician LOY Jm Nation 08/10/18 21:14 Lactic Ac Sepsis Rflx Y 07/28/18 04:21 Plasma Lactic Acid Otilio 1.8 mmol/L (0.7-2.0) 07/28/18 07:36 Calcium 7.9 mg/dL (8.4-10.2) L 08/10/18 07:26 Total Bilirubin 1.0 mg/dL (0.2-1.3) 08/10/18 07:26 AST 25 U/L (17-59) 08/10/18 07:26 ALT 52 U/L (21-72) 08/10/18 07:26 Alkaline Phosphatase 60 U/L (38-126) 08/10/18 07:26 Total Creatine Kinase <20 U/L (55-170) L 07/28/18 00:10 CK-MB (CK-2) 0.8 ng/mL (0.0-2.4) 07/28/18 00:10 CK-MB (CK-2) Rel Index 07/28/18 00:10 Troponin I <0.012 ng/mL (0.000-0.034) 07/28/18 00:10 NT-Pro-B Natriuret Pep 2090 pg/mL 08/10/18 07:26 Total Protein 5.0 g/dL (6.3-8.2) L 08/10/18 07:26 Albumin 2.7 g/dL (3.5-5.0) L 08/10/18 07:26 Urine Color Dark Yellow 07/28/18 04:15 Urine Appearance Clear (Clear) 07/28/18 04:15 Urine pH 5.5 (5.0-8.0) 07/28/18 04:15 Ur Specific [place] 1.028 (1.001-1.035) 07/28/18 04:15 Urine Protein 2+ (Negative) H 07/28/18 04:15 Urine Glucose (UA) Trace (Negative) H 07/28/18 04:15 Urine Ketones Negative (Negative) 07/28/18 04:15 Urine Blood Negative (Negative) 07/28/18 04:15 Urine Nitrite Negative (Negative) 07/28/18 04:15 Urine Bilirubin 1+ (Negative) H 07/28/18 04:15 Urine Urobilinogen 6.0 mg/dL (<2.0) 07/28/18 04:15 Ur Leukocyte Esterase Negative (Negative) 07/28/18 04:15 Urine RBC 1 /hpf (0-5) 07/28/18 04:15 Urine WBC 1 /hpf (0-5) 07/28/18 04:15 Ur Squamous Epith Cells 1 /hpf (0-4) 07/28/18 04:15 Hyaline Casts 13 /lpf (0-2) H 07/28/18 04:15 Urine Mucus Many /hpf (None) H 07/28/18 04:15 Influenza Type A RNA Not Detected (Not Detectd) 07/28/18 01:35 Influenza Type B (PCR) Not Detected (Not Detectd) 07/28/18 01:35 Microbiology 08/05/18 19:51 Sputum Gram Stain - Final 08/05/18 19:51 Sputum Sputum Culture - Final Methicillin resist S. aureus Xi albicans 07/28/18 00:10 Blood Blood Culture - Final No Growth after 144 hours Assessment and Plan (1) Atrial fibrillation with RVR Current Visit: Yes Status: Acute Code(s): I48.91 - UNSPECIFIED ATRIAL FIBRILLATION SNOMED Code(s): 411869178396098 (2) MRSA pneumonia Narrative/Plan: Pleasant 83-year-old male presents to Hospital feeling poorly any evidence of pneumonia which is right lower lobe as well as A. fib with RVR. He is now been stabilized but continues to have cough and shortness of breath. Sputum cultures were obtained and now has evidence of MRSA in his sputum. Antibiotic therapy has now been transitioned to vancomycin this will therapy in the no other pathogens have been found, and he is flu negative. Would plan a few days vancomycin therapy and monitor his progress. This potentially could require a course of outpatient intravenous antibiotic therapy but if he has improvement there is a possibility of transition to oral therapy to complete the treatment of his current pneumonia. He has a extremity edema and EMILY hose are requested. He is elevating his legs which is excellent. He has edema and weeping to his upper extremities for which some Silvadene wraps are applied to help with this acute difficulty. He is receiving diuresis and treatment for his underlying cardiovascular disease. 08/10/2018 patient is feeling somewhat better today. Shortness of breath is stable to slightly improved. The edema is improving with the compression that is being applied. He is tolerating current antibiotic therapy well. Continue elevate the arms and legs while he is at rest and increase his protein intake. Antibiotic therapy with vancomycin is being utilized for now. We'll have a potential for conversion to oral antibiotic at discharge if he continues to have further improvement. Current Visit: Yes Status: Acute Code(s): J15.212 - PNEUMONIA DUE TO METHICILLIN RESISTANT STAPHYLOCOCCUS AUREUS SNOMED Code(s): [id number]
[2018-08-10] MEDS: INSULIN DETEMIR 100 UNIT/ML 10 ML VIAL SQ SCH (23:56)
[2018-08-11 06:34] LABS: Glucose,Whole Blood 194 mg/dL (75-99)
[2018-08-11] MEDS: INSULIN ASPART 100 UNIT/ML 1 ML 10 ML VIAL SQ SCH ×4 (06:55→20:54)
[2018-08-11] MEDS: CARVEDILOL 3.125 MG TAB PO SCH ×2 (06:55→17:36)
[2018-08-11] MEDS: SODIUM CHLORIDE 0.9% 1,000 ML IV SCH (08:15)
[2018-08-11] MEDS: FUROSEMIDE 40 MG TAB PO SCH (08:16)
[2018-08-11] MEDS: guaiFENesin 600 MG TABLET.ER PO SCH ×2 (08:16→20:53)
[2018-08-11] MEDS: CARBIDOPA-LEVODOPA 25-100 MG 1 EACH TAB PO SCH ×2 (08:16→20:53)
[2018-08-11] MEDS: AMIODARONE 200 MG TAB PO SCH (08:16)
[2018-08-11] MEDS: APIXABAN 2.5 MG TABLET PO SCH ×2 (08:16→20:53)
[2018-08-11] MEDS: SPIRONOLACTONE 25 MG TAB PO SCH (08:16)
[2018-08-11] MEDS: SACUBITRIL/VALSARTAN 24 MG-26 MG TABLET PO SCH ×2 (08:16→21:06)
[2018-08-11] MEDS: NYSTATIN 100,000 UNIT/ML SUSP 500,000 UNIT/5 ML CUP PO SCH ×4 (08:16→20:53)
[2018-08-11] MEDS: ASPIRIN 325 MG TAB PO SCH (08:16)
[2018-08-11] MEDS: methylPREDNISolone SOD SUCCI 40 MG/ML 1 ML VIAL IV SCH ×2 (08:17→20:54)
[2018-08-11] MEDS: IPRATROPIUM-ALBUTEROL 3 ML NEB INHALATION PRN ×4 (08:29→20:06)
[2018-08-11] MEDS: BUDESONIDE 0.5 MG/2 ML NEBU INHALATION SCH ×2 (08:29→20:06)
[2018-08-11] MEDS: VANCOMYCIN 2,500 MG in SODIUM CHLORIDE 0.9% 500 ML 500 ML IVPB SCH (09:06)
--- NOTE | 2018-08-11 11:27 | P.CRDCN ---
History of Present Illness Consult date: 08/11/18 Requesting physician: Davey Riddle Consult reason: congestive heart failure Chief complaint: Shortness of breath History of present illness: This is an 83-year-old gentleman who follows regularly with Dr. Jorge in the office. He has known history of persistent atrial fibrillation, hyperlipidemia, hypertension, diabetes, nonischemic cardiomyopathy, osteoarthritis, coronary artery disease with prior stent placement to the proximal OM in 2002, presented to the hospital a couple of weeks ago with symptoms of progressively worsening shortness of breath with associated productive cough and cough congestion. Patient had evidence of left lower lobe pneumonia and was being treated with antibiotic therapy. Patient persisted to be short of breath, sputum culture showed evidence of MRSA, infectious disease is also currently following. BNP level was obtained which came back to be elevated and for this reason a cardiology consultation was requested. Chest x- ray shows subsegmental atelectasis in the left lung base with no acute heart failure. Subsequent x-ray showed persistent right lower lobe infiltrate. EKG shows atrial fibrillation with rapid ventricular response. Chest x-ray repeated yesterday morning shows overall improved aeration from previous study. Blood pressure 103/50 with a heart rate in the 1 teens, 95% on room air. White blood cell count 8.4, hemoglobin 14.7, platelet count 109. Sodium 131, potassium 4.9, BUN 40, creatinine 0.9. BNP 2090. Total protein 5.0, albumin 2.7. We will discontinue the oral diuretics and start the patient on IV Lasix today. Obtain echocardiogram with Doppler study. Decrease aspirin to 81 mg daily. At the time of my examination this morning, patient still complaining of feeling short of breath, he has significant generalized edema throughout. Past Medical History Past Medical History: Atrial Fibrillation, Coronary Artery Disease (CAD), Cancer , Chest Pain / Angina, Heart Failure, Diabetes Mellitus, Hypertension, Myocardial Infarction ([place]), Osteoarthritis (OA), Skin Disorder, Supraventricular Tachycardia (SVT) Additional Past Medical History / Comment(s): hx gout, diet control diabetic(rx in past), hx kidney stones, skin cancer Last Myocardial Infarction Date:: 1992 History of Any Multi-Drug Resistant Organisms: MRSA Date of last positivie culture/infection: 08/05/18 MDRO Source:: mrsa sputum Past Surgical History: Appendectomy, Back Surgery, Heart Catheterization With Stent, Joint Replacement Additional Past Surgical History / Comment(s): bilateral knee replacement(left knee x 2), left hip replacement, two cardiac stents, spinal fusion, michael cataracts Past Anesthesia/Blood Transfusion Reactions: No Reported Reaction Date of Last Stent Placement:: unknown Additional Psychological History / Comment(s): Lifelong nonsmoker. Retired. Lives with his daughter Pily and her family. No recent travel. The experience. No animals in the home Smoking Status: Never smoker - Past Family History Brother(s) Family Medical History: Cancer Daughter(s) Family Medical History: Cancer Father Family Medical History: Cancer Medications and Allergies Home Medications Medication Instructions Recorded Confirmed Type Carvedilol [Coreg] 25 mg PO BID 08/03/16 07/28/18 History Amiodarone [Cordarone] 200 mg PO DAILY 03/26/18 07/28/18 History Apixaban [Eliquis] 2.5 mg PO BID 03/26/18 07/28/18 History Furosemide [Lasix] 40 mg PO DAILY 03/26/18 07/28/18 History Lisinopril [Zestril] 10 mg PO DAILY 03/26/18 07/28/18 History Aspirin EC [Ecotrin] 325 mg PO DAILY 07/28/18 07/28/18 History Atorvastatin [Lipitor] 40 mg PO DAILY 07/28/18 07/28/18 History Cholecalciferol [Vitamin D3] 5,000 unit PO DAILY 07/28/18 07/28/18 History Mirtazapine [Remeron] 15 mg PO HS 07/28/18 07/28/18 History Sacubitril/Valsartan [Entresto 24 1 tab PO BID 07/28/18 07/28/18 History mg-26 mg Tablet] Spironolactone [Aldactone] 25 mg PO DAILY 07/28/18 07/28/18 History traZODone HCL [Desyrel] 100 mg PO HS PRN 07/28/18 07/28/18 History Allergies Allergy/AdvReac Type Severity Reaction Status Date / Time No Known Allergies Allergy Verified 07/28/18 09:17 Physical Exam Vitals: Vital Signs Temp Pulse Pulse Resp BP BP Pulse Ox 08/11/18 08:51 112 H 08/11/18 08:31 114 H 08/11/18 08:00 97.4 F L 100 18 103/55 95 08/11/18 04:00 98.1 F 118 H 18 101/69 08/11/18 00:00 97.7 F 116 H 20 104/64 08/10/18 21:47 127 H 08/10/18 21:35 125 H 97 08/10/18 20:00 96.2 F L 121 H 20 100/62 08/10/18 18:43 97.7 F 121 H 20 86/67 08/10/18 16:09 122 H 08/10/18 15:55 100/67 08/10/18 13:39 97.4 F L 113 H 17 86/55 97 08/10/18 12:40 102/72 Intake and Output 08/10/18 08/11/18 08/11/18 22:59 06:59 14:59 Intake Total 600 240 Output Total 800 500 Balance -200 -500 240 Intake: IV 100 Sodium Chloride 0.9% 1, 100 000 ml @ 20 mls/hr IV . Q24H [facility] Rx#:[id number] Intake, IV Titration 500 Amount Vancomycin 2,500 mg In 500 Sodium Chloride 0.9% 500 ml 500 ml @ 167 mls/hr IVPB Q24HR [facility] Rx#: [id number] Oral 240 Output: Urine 800 500 Other: Voiding Method Urinal Urinal # Voids 1 # Bowel Movements 1 Weight 144.5 kg PHYSICAL EXAMINATION: GENERAL:83-year-old gentleman in no acute distress at the time of my examination HEENT: Head is atraumatic, normocephalic. Pupils equal, round. Sclera anicteric. Conjunctiva are clear. Mucous membranes of the mouth are moist. Neck is supple. There is elevated jugular venous pressure. No carotid bruit is heard. HEART EXAMINATION: Heart S1 and S2 irregularly irregular a systolic ejection murmur is heard. CHEST EXAMINATION: Lungs reveal diminished air entry to bilateral bases. ABDOMEN: Soft, obese, nontender. Bowel sounds are heard. No organomegaly noted. EXTREMITIES: 2+ peripheral pulses with 3+ evidence of peripheral edema, bilateral [place] wraps to arms with significant drainage noted. NEUROLOGIC patient is awake, alert and oriented 3 . . Results 08/10/18 07:26 08/10/18 07:26 Cardiac Enzymes 08/10/18 Range/Units 07:26 AST 25 (17-59) U/L CBC 08/10/18 Range/Units 07:26 WBC 8.4 (3.8-10.6) k/uL RBC 4.64 (4.30-5.90) m/uL Hgb 14.7 (13.0-17.5) gm/dL Hct 48.1 (39.0-53.0) % Plt Count 109 L (150-450) k/uL Comprehensive Metabolic Panel 08/10/18 Range/Units 07:26 Sodium 131 L (137-145) mmol/L Potassium 4.9 (3.5-5.1) mmol/L Chloride 98 (98-107) mmol/L Carbon Dioxide 25 (22-30) mmol/L BUN 40 H (9-20) mg/dL Creatinine 0.90 (0.66-1.25) mg/dL Glucose 228 H (74-99) mg/dL Calcium 7.9 L (8.4-10.2) mg/dL AST 25 (17-59) U/L ALT 52 (21-72) U/L Alkaline Phosphatase 60 (38-126) U/L Total Protein 5.0 L (6.3-8.2) g/dL Albumin 2.7 L (3.5-5.0) g/dL Current Medications Generic Name Dose Route Start Last Admin Trade Name Freq PRN Reason Stop Dose Admin Albuterol/Ipratropium 3 ml 07/28/18 02:28 08/11/18 08:29 Duoneb 0.5 Mg-3 Mg/3 Ml Soln INHALATION 3 ml RT-Q4H PRN Administration shortness of breath Amiodarone HCl 200 mg 07/28/18 09:00 08/11/18 08:16 Cordarone PO 200 mg DAILY MAR[facility] C Administration Apixaban 2.5 mg 07/28/18 09:00 08/11/18 08:16 Eliquis PO 2.5 mg BID MAR[facility] C Administration Aspirin 325 mg 07/29/18 09:00 08/11/18 08:16 Aspirin PO 325 mg DAILY MAR[facility] C Administration Benzocaine/Menthol 1 each 08/07/18 06:48 08/07/18 07:36 Cepacol Lozenge MUCOUS MEM 1 each Q4HR PRN Administration Sore Throat Budesonide 0.5 mg 07/30/18 20:00 08/11/18 08:29 Pulmicort INHALATION 0.5 mg RT-BID MAR[facility] C Administration Carbidopa/Levodopa 2 each 07/28/18 09:00 08/11/18 08:16 Sinemet 25-100 PO 2 each BID [facility] C Administration Carvedilol 3.125 mg 08/10/18 17:30 08/11/18 06:55 Coreg PO 3.125 mg BID-W/MEALS [facility] C Administration Furosemide 40 mg 08/10/18 16:00 08/11/18 08:16 Lasix PO 40 mg BID@0900,1600 [facility] C Administration Guaifenesin 600 mg 08/08/18 21:00 08/11/18 08:16 Mucinex PO 600 mg Q12HR [facility] C Administration Sodium Chloride 1,000 mls @ 20 mls/hr 07/28/18 01:15 08/11/18 08:15 Saline 0.9% IV Not Given .Q24H [facility] Vancomycin HCl 2,500 mg/ 500 mls @ 167 mls/hr 08/08/18 18:30 08/11/18 09:06 Sodium Chloride IVPB 167 mls/hr Q24HR [facility] Administration Insulin Aspart 0 unit 07/30/18 12:30 08/11/18 06:55 Novolog SQ 3 unit ACHS [facility] C Administration Protocol Insulin Detemir 40 unit 08/10/18 21:00 08/10/18 23:56 Levemir SQ 40 unit HS [facility] C Administration Methylprednisolone Sodium Succinate 20 mg 08/10/18 21:00 08/11/18 08:17 Solu-Medrol IV 20 mg Q12HR [facility] C Administration Mirtazapine 15 mg 07/28/18 21:00 08/10/18 20:41 Remeron PO 15 mg HS [facility] C Administration Miscellaneous Information 1 each 07/28/18 02:28 Pneumonia Protocol Utilized PO ONCE PRN Per Protocol Miscellaneous Information 0 each 08/12/18 08:00 Vancomycin Trough Due MISCELLANE 08/12/18 08:01 DIRECTED ONE Nystatin 500,000 unit 08/09/18 18:00 08/11/18 08:16 Mycostatin Oral Susp PO 500,000 unit QID [facility] Administration Sacubitril/Valsartan 1 each 07/28/18 21:00 08/11/18 08:16 Entresto 24 Mg-26 Mg Tablet PO 1 each BID [facility] C Administration Silver Sulfadiazine 1 applic 08/10/18 20:00 08/10/18 20:43 Silvadene Cream TOPICAL 1 applic 1999 [facility] C Administration Spironolactone 25 mg 07/29/18 09:00 08/11/18 08:16 Aldactone PO 25 mg DAILY [facility] C Administration Tamsulosin HCl 0.4 mg 08/04/18 18:30 08/10/18 17:39 Flomax PO 0.4 mg PC-SUPPER [facility] C Administration Intake and Output 08/10/18 08/11/18 08/11/18 22:59 06:59 14:59 Intake Total 600 240 Output Total 800 500 Balance -200 -500 240 Intake: IV 100 Sodium Chloride 0.9% 1, 100 000 ml @ 20 mls/hr IV . Q24H [facility] Rx#:[id number] Intake, IV Titration 500 Amount Vancomycin 2,500 mg In 500 Sodium Chloride 0.9% 500 ml 500 ml @ 167 mls/hr IVPB Q24HR [facility] Rx#: [id number] Oral 240 Output: Urine 800 500 Other: Voiding Method Urinal Urinal # Voids 1 # Bowel Movements 1 Weight 144.5 kg 08/10/18 07:26 08/10/18 07:26 EKG Interpretations (text) EKG shows atrial fibrillation with rapid ventricular response Assessment and Plan Plan: Assessment and plan #1 symptoms of progressively since shortness of breath with associated productive cough of Bilateral peripheral edema. Evidence of right lower lobe pneumonia, sputum cultures with evidence of MRSA. Combination of pneumonia and congestive cardiac failure, systolic acute on chronic. #2 chronic persistent atrial fibrillation on Eliquis for anticoagulation #3 coronary artery disease with prior stent placement #4 hyperlipidemia #5 diabetes Plan We will obtain an echocardiogram with Doppler study. Discontinue by mouth Lasix and start the patient on oral diuretics. Monitor intake and output along with daily weights and daily lytes BUN and creatinine. Optimize rate control. Decrease aspirin to 81 mg daily. Continue Coreg and Entresto along with amiodarone. Further recommendations to follow. DNP note has been reviewed, I agree with a documented findings and plan of care. Patient was seen and examined.
[2018-08-11 12:17] LABS: Glucose,Whole Blood 243 mg/dL (75-99)
[2018-08-11] MEDS: FUROSEMIDE 250 MG in SODIUM CHLORIDE 0.9% 225 ML IVP SCH (14:17)
[2018-08-11 16:37] LABS: Glucose,Whole Blood 257 mg/dL (75-99)
[2018-08-11] MEDS: TAMSULOSIN 0.4 MG CAP.ER.24H PO SCH (17:35)
[2018-08-11 20:37] LABS: Glucose,Whole Blood 247 mg/dL (75-99)
[2018-08-11] MEDS: MIRTAZAPINE 15 MG TAB PO SCH (20:53)
[2018-08-11] MEDS: INSULIN DETEMIR 100 UNIT/ML 10 ML VIAL SQ SCH (20:53)
[2018-08-11] MEDS ORDERED: FUROSEMIDE 10 MG/ML 4 ML VIAL IV SCH (21:00)
--- NOTE | 2018-08-11 22:04 | PN ---
PROGRESS NOTE DATE OF SERVICE: 08/11/2018. CHIEF COMPLAINT: Congestive heart failure. HISTORY OF PRESENT ILLNESS: This gentleman has been diuresing and is feeling a little bit less short of breath. He has had no fever, chills, chest pain etc. PHYSICAL EXAM: Chest demonstrates scattered rales and rhonchi. Cardiac exam is unchanged and the abdomen is protuberant. Extremities might be slightly less edematous. IMPRESSION: 1. Acute congestive heart failure. 2. Chronic congestive heart failure. 3. Atherosclerotic cardiomyopathy. 4. Diastolic heart failure. 5. Generalized anasarca. 6. Pneumonitis. PLAN: Continue current program. Await results of echocardiogram. MMODL / IJN: [id number] /
--- NOTE | 2018-08-12 05:49 | PN ---
PROGRESS NOTE DATE OF SERVICE: 08/10/2018 CHIEF COMPLAINT: Pneumonitis. HISTORY OF PRESENT ILLNESS: This gentleman is having issues with anasarca and progressively becoming more edematous. He states that his breathing is adequate, however. He is also extremely weak and is having difficulty standing. He has not been getting physical therapy. PHYSICAL EXAM: He has severe edema of both arms and legs with some transudation in the arms as well as the lower legs. is rales of the bases. The cardiac exam is normal except for atrial fibrillation. IMPRESSION: 1. Progressive congestive heart failure. 2. Anasarca. 3. Pneumonitis. 4. Generalized weakness. PLAN: 1. Increase diuretic management. 2. Consult with Cardiology. 3. Echocardiogram. 4. Telemetry. MMADAMARISL / CHUCHON: [id number] /
[2018-08-12 05:53] LABS: Glucose,Whole Blood 147 mg/dL (75-99)
[2018-08-12] MEDS: SODIUM CHLORIDE 0.9% 1,000 ML IV SCH ×2 (06:33→20:46)
[2018-08-12] MEDS: CARVEDILOL 3.125 MG TAB PO SCH ×2 (07:06→17:51)
[2018-08-12] MEDS: INSULIN ASPART 100 UNIT/ML 1 ML 10 ML VIAL SQ SCH ×4 (07:06→21:09)
[2018-08-12 07:39] LABS: Calcium 7.4 mg/dL (8.4-10.2)
--- NOTE | 2018-08-12 07:42 | P.PN ---
Subjective Progress Note Date: 08/11/18 Edgar 83-year-old male who's been seen by the infectious disease service in the past presents to hospital with complaints of progressive shortness of breath cough and chest congestion. The time of his admission on he had evidence of left lower lobe pneumonia has been treated with antibiotic therapy. Was also thought that he was having difficulties with congestive heart failure at that time. It is related the patient had chills, malaise significant congestion in his chest with cough at the time of his diagnosis. Since since admission there has only been slow improvement but not resolution. With the lack of resolution cultures were obtained and sputum culture showed evidence of MRSA in the infectious diseases consultation was requested 08/10/2018 Patient relates feeling slightly better today. The upper extremities edema is responded well to the wraps. Lower extremity edema is also improving with elevation and compression hose. Shortness of breath is improved but certainly not resolved. Is not having fever or chills. 08/11/2018 H and continues to feel slightly improved. The upper extremity edema continues to improve with the elevation in the wraps. Lower extremities still have some edema. Shortness of breath is improved. Objective - Vital Signs Vital signs: Vital Signs Temp 97.0 F L 08/12/18 02:40 Pulse 120 H 08/12/18 02:40 Resp 19 08/12/18 02:40 BP 93/60 08/12/18 02:40 Pulse Ox 96 08/12/18 02:40 Intake & Output 08/11/18 08/12/18 08/12/18 18:59 06:59 18:59 Intake Total 960 600 Output Total 500 3750 Balance 460 -3150 Weight 139.5 kg Intake: Intake, IV Titration 600 Amount Furosemide 250 mg In 600 Sodium Chloride 0.9% 225 ml @ 10 MG/HR 10 mls/hr IVP .Q24H [facility] Rx#: [id number] Oral 960 Output: Urine 500 3750 Other: Voiding Method Urinal Urinal # Voids 1 # Bowel Movements 1 - Exam Edgar 83-year-old male not in distress but is still not feel well HEENT: Anicteric conjunctiva are pink and moist nasal mucosa grossly intact without significant lesions, there is no thrush. Neck: The neck is supple without significant lymphadenopathy or thyromegaly. Lungs: Symmetrical air entry is noted expiratory wheezes are somewhat scattered few crackles in the right lower zone Heart: Regular rate and rhythm with an audible S1-S2, no S3 no S4. There is no significant murmur click or rub, PMI was nondisplaced. Abdomen: Positive bowel sounds soft and nontender without palpable masses or organomegaly. There was no guarding or rebound. Extremities: The upper extremities have evidence of edema with the compression wraps of the upper extremities the copious edema and weeping is improved. No splinter hemorrhages were noted. Lower extremities have edema 2+ and symmetric no open ulcers are seen Neuro: Awake alert oriented to person place and time. There are no acute new gross focal sensory motor deficits. - Labs CBC & Chem 7: 08/10/18 07:26 08/10/18 07:26 Labs: Abnormal Lab Results - Last 24 Hours (Table) 08/11/18 08/11/18 08/11/18 Range/Units 12:03 16:35 20:35 POC Glucose (mg/dL) 243 H 257 H 247 H (75-99) mg/dL 08/12/18 Range/Units 05:51 POC Glucose (mg/dL) 147 H (75-99) mg/dL Laboratory Results WBC 8.4 k/uL (3.8-10.6) 08/10/18 07:26 RBC 4.64 m/uL (4.30-5.90) 08/10/18 07:26 Hgb 14.7 gm/dL (13.0-17.5) 08/10/18 07:26 Hct 48.1 % (39.0-53.0) 08/10/18 07:26 MCV 103.8 fL (80.0-100.0) H 08/10/18 07:26 MCH 31.8 pg (25.0-35.0) 08/10/18 07:26 MCHC 30.6 g/dL (31.0-37.0) L 08/10/18 07:26 RDW 14.9 % (11.5-15.5) 08/10/18 07:26 Plt Count 109 k/uL (150-450) L 08/10/18 07:26 Neutrophils % 92 % 08/10/18 07:26 Neutrophils % (Manual) 78 % 07/30/18 11:00 Band Neutrophils % 1 % 07/30/18 11:00 Lymphocytes % 3 % 08/10/18 07:26 Lymphocytes % (Manual) 12 % 07/30/18 11:00 Monocytes % 4 % 08/10/18 07: Monocytes % (Manual) 8 % 07/30/18 11:00 Eosinophils % 0 % 08/10/18 07:26 Eosinophils % (Manual) 1 % 07/30/18 11:00 Basophils % 0 % 08/10/18 07:26 Neutrophils # 7.7 k/uL (1.3-7.7) 08/10/18 07:26 Neutrophils # (Manual) 5.30 k/uL (1.3-7.7) 07/30/18 11:00 Lymphocytes # 0.3 k/uL (1.0-4.8) L 08/10/18 07:26 Lymphocytes # (Manual) 0.82 k/uL (1.0-4.8) L 07/30/18 11:00 Monocytes # 0.3 k/uL (0-1.0) 08/10/18 07:26 Monocytes # (Manual) 0.54 k/uL (0-1.0) 07/30/18 11:00 Eosinophils # 0.0 k/uL (0-0.7) 08/10/18 07:26 Eosinophils # (Manual) 0.07 k/uL (0-0.7) 07/30/18 11:00 Basophils # 0.0 k/uL (0-0.2) 08/10/18 07:26 Nucleated RBCs 0 /100 WBC (0-0) 07/30/18 11:00 Poikilocytosis (manual Present 07/30/18 11:00 Anisocytosis (manual) Present 07/30/18 11:00 Macrocytosis Moderate 08/10/18 07:26 PT 12.2 sec (9.0-12.0) H 07/28/18 00:10 INR 1.3 (<1.2) H 07/28/18 00:10 APTT 24.4 sec (22.0-30.0) 07/28/18 00:10 Sodium 131 mmol/L (137-145) L 08/10/18 07:26 Potassium 4.9 mmol/L (3.5-5.1) 08/10/18 07:26 Chloride 98 mmol/L (98-107) 08/10/18 07:26 Carbon Dioxide 25 mmol/L (22-30) 08/10/18 07:26 Anion Gap 8 mmol/L 08/10/18 07:26 BUN 40 mg/dL (9-20) H 08/10/18 07:26 Creatinine 0.90 mg/dL (0.66-1.25) 08/10/18 07:26 Est GFR (CKD-EPI)AfAm 90 (>60 ml/min/1.73 sqM) 08/10/18 07:26 Est GFR (CKD-EPI)NonAf 78 (>60 ml/min/1.73 sqM) 08/10/18 07:26 Glucose 228 mg/dL (74-99) H 08/10/18 07:26 POC Glucose (mg/dL) 147 mg/dL (75-99) H 08/12/18 05:51 POC Glu [employer] Jm Michael 08/12/18 05:51 Lactic Ac Sepsis Rflx Y 07/28/18 04:21 Plasma Lactic Acid Otilio 1.8 mmol/L (0.7-2.0) 07/28/18 07:36 Calcium 7.9 mg/dL (8.4-10.2) L 08/10/18 07:26 Total Bilirubin 1.0 mg/dL (0.2-1.3) 08/10/18 07:26 AST 25 U/L (17-59) 08/10/18 07:26 ALT 52 U/L (21-72) 08/10/18 07:26 Alkaline Phosphatase 60 U/L (38-126) 08/10/18 07:26 Total Creatine Kinase <20 U/L (55-170) L 07/28/18 00:10 CK-MB (CK-2) 0.8 ng/mL (0.0-2.4) 07/28/18 00:10 CK-MB (CK-2) Rel Index 07/28/18 00:10 Troponin I <0.012 ng/mL (0.000-0.034) 07/28/18 00:10 NT-Pro-B Natriuret Pep 2090 pg/mL 08/10/18 07:26 Total Protein 5.0 g/dL (6.3-8.2) L 08/10/18 07:26 Albumin 2.7 g/dL (3.5-5.0) L 08/10/18 07:26 Urine Color Dark Yellow 07/28/18 04:15 Urine Appearance Clear (Clear) 07/28/18 04:15 Urine pH 5.5 (5.0-8.0) 07/28/18 04:15 Ur Specific [place] 1.028 (1.001-1.035) 07/28/18 04:15 Urine Protein 2+ (Negative) H 07/28/18 04:15 Urine Glucose (UA) Trace (Negative) H 07/28/18 04:15 Urine Ketones Negative (Negative) 07/28/18 04:15 Urine Blood Negative (Negative) 07/28/18 04:15 Urine Nitrite Negative (Negative) 07/28/18 04:15 Urine Bilirubin 1+ (Negative) H 07/28/18 04:15 Urine Urobilinogen 6.0 mg/dL (<2.0) 07/28/18 04:15 Ur Leukocyte Esterase Negative (Negative) 07/28/18 04:15 Urine RBC 1 /hpf (0-5) 07/28/18 04:15 Urine WBC 1 /hpf (0-5) 07/28/18 04:15 Ur Squamous Epith Cells 1 /hpf (0-4) 07/28/18 04:15 Hyaline Casts 13 /lpf (0-2) H 07/28/18 04:15 Urine Mucus Many /hpf (None) H 07/28/18 04:15 Influenza Type A RNA Not Detected (Not Detectd) 07/28/18 01:35 Influenza Type B (PCR) Not Detected (Not Detectd) 07/28/18 01:35 Microbiology 08/05/18 19:51 Sputum Gram Stain - Final 08/05/18 19:51 Sputum Sputum Culture - Final Methicillin resist S. aureus Xi albicans 07/28/18 00:10 Blood Blood Culture - Final No Growth after 144 hours Assessment and Plan (1) Atrial fibrillation with RVR Current Visit: Yes Status: Acute Code(s): I48.91 - UNSPECIFIED ATRIAL FIBRILLATION SNOMED Code(s): 486180505828719 (2) MRSA pneumonia Narrative/Plan: Pleasant 83-year-old male presents to Hospital feeling poorly any evidence of pneumonia which is right lower lobe as well as A. fib with RVR. He is now been stabilized but continues to have cough and shortness of breath. Sputum cultures were obtained and now has evidence of MRSA in his sputum. Antibiotic therapy has now been transitioned to vancomycin this will therapy in the no other pathogens have been found, and he is flu negative. Would plan a few days vancomycin therapy and monitor his progress. This potentially could require a course of outpatient intravenous antibiotic therapy but if he has improvement there is a possibility of transition to oral therapy to complete the treatment of his current pneumonia. He has a extremity edema and EMILY hose are requested. He is elevating his legs which is excellent. He has edema and weeping to his upper extremities for which some Silvadene wraps are applied to help with this acute difficulty. He is receiving diuresis and treatment for his underlying cardiovascular disease. 08/10/2018 patient is feeling somewhat better today. Shortness of breath is stable to slightly improved. The edema is improving with the compression that is being applied. He is tolerating current antibiotic therapy well. Continue elevate the arms and legs while he is at rest and increase his protein intake. Antibiotic therapy with vancomycin is being utilized for now. We'll have a potential for conversion to oral antibiotic at discharge if he continues to have further improvement. 08/11/2018 patient continues to have some improvement. With diuresis, elevation and compression therapy the extensive upper extremity edema is improving and the dressings are not saturated today as they have been in the past. Lower extremities still remaining quite edematous. The patient is having improvement and again there is the likelihood of oral antibiotic therapy at discharge to complete his treatment for his MRSA pneumonia. Continues to need ongoing diuretic therapy. Improved oral intake is helpful to improve his low albumin status and appropriate intake will also help with his current hyperglycemia. Current Visit: Yes Status: Acute Code(s): J15.212 - PNEUMONIA DUE TO METHICILLIN RESISTANT STAPHYLOCOCCUS AUREUS SNOMED Code(s): 465799919886347
[2018-08-12 07:44] LABS: Potassium 4.5 mmol/L (3.5-5.1)
[2018-08-12] MEDS ORDERED: VANCOMYCIN TROUGH DUE 1 EACH MISC MISCELLANE ONE (08:00)
[2018-08-12] MEDS: BUDESONIDE 0.5 MG/2 ML NEBU INHALATION SCH ×2 (08:41→20:36)
[2018-08-12] MEDS: IPRATROPIUM-ALBUTEROL 3 ML NEB INHALATION PRN ×2 (08:42→20:34)
[2018-08-12] MEDS: CARBIDOPA-LEVODOPA 25-100 MG 1 EACH TAB PO SCH ×2 (09:44→20:46)
[2018-08-12] MEDS: AMIODARONE 200 MG TAB PO SCH (09:44)
[2018-08-12] MEDS: APIXABAN 2.5 MG TABLET PO SCH ×2 (09:44→20:46)
[2018-08-12] MEDS: SPIRONOLACTONE 25 MG TAB PO SCH (09:45)
[2018-08-12] MEDS: ASPIRIN 81 MG PO SCH (09:45)
[2018-08-12] MEDS: guaiFENesin 600 MG TABLET.ER PO SCH ×2 (09:45→20:46)
[2018-08-12] MEDS: NYSTATIN 100,000 UNIT/ML SUSP 500,000 UNIT/5 ML CUP PO SCH ×4 (09:45→20:46)
[2018-08-12] MEDS: methylPREDNISolone SOD SUCCI 40 MG/ML 1 ML VIAL IV SCH ×2 (09:45→20:44)
[2018-08-12] MEDS: VANCOMYCIN 2,500 MG in SODIUM CHLORIDE 0.9% 500 ML 500 ML IVPB SCH (10:02)
--- NOTE | 2018-08-12 11:26 | ECHOF ---
Referral Reason:chf MEASUREMENTS -------- HEIGHT: 177.8 cm WEIGHT: 144.2 kg BP: 103/55 RVIDd: 3.4 cm (< 3.3) IVSd: 1.4 cm (0.6 - 1.1) LVIDd: 4.4 cm (3.9 - 5.3) LVPWd: 1.5 cm (0.6 - 1.1) IVSs: 1.7 cm LVIDs: 3.6 cm LVPWs: 2.2 cm LA Diam: 3.8 cm (2.7 - 3.8) LAESV Index (A-L): 30.91 ml/m Ao Diam: 2.9 cm (2.0 - 3.7) AV Cusp: 1.8 cm (1.5 - 2.6) MV EXCURSION: 18.742 mm (> 18.000) MV EF SLOPE: 164 mm/s (70 - 150) EPSS: 1.4 cm RAP: 5.00 mmHg RVSP: 26.52 mmHg FINDINGS -------- Undetermined rhythm. This was a technically difficult study with suboptimal views. The left ventricular size is normal. There is moderate concentric left ventricular hypertrophy. O verall left ventricular systolic function is moderate-severely impaired with, an EF between 30 - 35 % . The right ventricle is mildly enlarged. LA is midly dilated 29-33ml/m2. The right atrium was not well visualized. 3 ml of Lumason was utilized for enhancement of images. There is mild aortic valve sclerosis. Mild mitral annular calcification present. Mild mitral regurgitation is present. Mild tricuspid regurgitation present. Right ventricular systolic pressure is normal at < 35 mmHg. Trace/mild (physiologic) pulmonic regurgitation. The aortic root size is normal. IVC Not well visulized. There is no pericardial effusion. CONCLUSIONS -------- 1. Undetermined rhythm. 2. This was a technically difficult study with suboptimal views. 3. The left ventricular size is normal. 4. There is moderate concentric left ventricular hypertrophy. 5. Overall left ventricular systolic function is moderate-severely impaired with, an EF between 30 - 35 %. 6. The right ventricle is mildly enlarged. 7. LA is midly dilated 29-33ml/m2. 8. The right atrium was not well visualized. 9. 3 ml of Lumason was utilized for enhancement of images. 10. There is mild aortic valve sclerosis. 11. Mild mitral annular calcification present. 12. Mild mitral regurgitation is present. 13. Mild tricuspid regurgitation present. 14. Right ventricular systolic pressure is normal at < 35 mmHg. 15. Trace/mild (physiologic) pulmonic regurgitation. 16. The aortic root size is normal. 17. IVC Not well visulized. 18. There is no pericardial effusion. OUTPATIENT PHLEBOTOMIST: Elizabeth Traore RDCS
[2018-08-12 11:53] LABS: Glucose,Whole Blood 224 mg/dL (75-99)
[2018-08-12] MEDS: SACUBITRIL/VALSARTAN 24 MG-26 MG TABLET PO SCH ×2 (12:27→20:39)
--- NOTE | 2018-08-12 14:52 | P.PN ---
Subjective Progress Note Date: 08/12/18 This is an 83-year-old gentleman who follows regularly with Dr. Jorge in the office. He has known history of persistent atrial fibrillation, hyperlipidemia, hypertension, diabetes, nonischemic cardiomyopathy, osteoarthritis, coronary artery disease with prior stent placement to the proximal OM in 2002, presented to the hospital a couple of weeks ago with symptoms of progressively worsening shortness of breath with associated productive cough and cough congestion. Patient had evidence of left lower lobe pneumonia and was being treated with antibiotic therapy. Patient persisted to be short of breath, sputum culture showed evidence of MRSA, infectious disease is also currently following. BNP level was obtained which came back to be elevated and for this reason a cardiology consultation was requested. Chest x- ray shows subsegmental atelectasis in the left lung base with no acute heart failure. Subsequent x-ray showed persistent right lower lobe infiltrate. EKG shows atrial fibrillation with rapid ventricular response. Chest x-ray repeated yesterday morning shows overall improved aeration from previous study. Blood pressure 103/50 with a heart rate in the 1 teens, 95% on room air. White blood cell count 8.4, hemoglobin 14.7, platelet count 109. Sodium 131, potassium 4.9, BUN 40, creatinine 0.9. BNP 2090. Total protein 5.0, albumin 2.7. We will discontinue the oral diuretics and start the patient on IV Lasix today. Obtain echocardiogram with Doppler study. Decrease aspirin to 81 mg daily. At the time of my examination this morning, patient still complaining of feeling short of breath, he has significant generalized edema throughout. 08/12/2008 Patient seen and examined this morning, diuresed well through the night last night, weight down 5 kg. We will continue current dose of IV Lasix drip, continue to monitor intake and output along with daily weights today. Sodium 131, potassium 4.5, BUN 37, creatinine 0.9. Blood pressure 86/60. Objective - Vital Signs Vital signs: Vital Signs Temp 96.9 F L 08/12/18 12:00 Pulse 128 H 08/12/18 12:00 Resp 18 08/12/18 12:00 BP 85/64 08/12/18 12:00 Pulse Ox 95 08/12/18 12:00 Intake & Output 08/11/18 08/12/18 08/12/18 18:59 06:59 18:59 Intake Total 960 600 360 Output Total 500 3750 800 Balance 566 -4856 -127 Weight 139.5 kg 139.5 kg Intake: Intake, IV Titration 600 Amount Furosemide 250 mg In 600 Sodium Chloride 0.9% 225 ml @ 10 MG/HR 10 mls/hr IVP .Q24H MARIA C Rx#: [id number] Oral 960 360 Output: Urine 500 3750 800 Other: Voiding Method Urinal Urinal # Voids 1 # Bowel Movements 1 - Exam PHYSICAL EXAMINATION: GENERAL:83-year-old gentleman in no acute distress at the time of my examination HEENT: Head is atraumatic, normocephalic. Pupils equal, round. Sclera anicteric. Conjunctiva are clear. Mucous membranes of the mouth are moist. Neck is supple. There is elevated jugular venous pressure. No carotid bruit is heard. HEART EXAMINATION: Heart S1 and S2 irregularly irregular a systolic ejection murmur is heard. CHEST EXAMINATION: Lungs reveal diminished air entry to bilateral bases. ABDOMEN: Soft, obese, nontender. Bowel sounds are heard. No organomegaly noted. EXTREMITIES: 2+ peripheral pulses with 3+ evidence of peripheral edema, bilateral Payam wraps to arms with significant drainage noted. NEUROLOGIC patient is awake, alert and oriented 3 . . - Labs CBC & Chem 7: 08/10/18 07:26 08/12/18 06:54 Labs: Abnormal Lab Results - Last 24 Hours (Table) 08/11/18 08/11/18 08/12/18 Range/Units 16:35 20:35 05:51 Sodium (137-145) mmol/L Chloride (98-107) mmol/L Carbon Dioxide (22-30) mmol/L BUN (9-20) mg/dL Glucose (74-99) mg/dL POC Glucose (mg/dL) 257 H 247 H 147 H (75-99) mg/dL Calcium (8.4-10.2) mg/dL 08/12/18 08/12/18 Range/Units 06:54 11:46 Sodium 131 L (137-145) mmol/L Chloride 90 L (98-107) mmol/L Carbon Dioxide 34 H (22-30) mmol/L BUN 37 H (9-20) mg/dL Glucose 139 H (74-99) mg/dL POC Glucose (mg/dL) 224 H (75-99) mg/dL Calcium 7.4 L (8.4-10.2) mg/dL Assessment and Plan Plan: Assessment and plan #1 symptoms of progressively since shortness of breath with associated productive cough of Bilateral peripheral edema. Evidence of right lower lobe pneumonia, sputum cultures with evidence of MRSA. Combination of pneumonia and congestive cardiac failure, systolic acute on chronic. #2 chronic persistent atrial fibrillation on Eliquis for anticoagulation #3 coronary artery disease with prior stent placement #4 hyperlipidemia #5 diabetes Plan Cardiogram with Doppler study revealed an ejection fraction of 30-30%. We will recommend to continue the patient on current dose of Lasix drip. Check lytes BUN and creatinine in the morning. DNP note has been reviewed, I agree with a documented findings and plan of care. Patient was seen and examined.
[2018-08-12] MEDS: FUROSEMIDE 250 MG in SODIUM CHLORIDE 0.9% 225 ML IVP SCH (16:00)
[2018-08-12 16:43] LABS: Glucose,Whole Blood 293 mg/dL (75-99)
--- NOTE | 2018-08-12 17:29 | PN ---
PROGRESS NOTE CHIEF COMPLAINT: Pneumonitis and congestive heart failure. HISTORY OF PRESENT ILLNESS: This gentleman is doing better. He is diuresing and breathing much better. Sugars are still quite high and will increase his Levemir. Ejection fraction was 30-35 percent, which should be tolerable for him. PHYSICAL EXAM: He is less edematous. His chest demonstrates better breath sounds and fewer rales. Cardiac exam is unchanged. IMPRESSION: 1. Pneumonitis. 2. Chronic heart failure. 3. Acute exacerbation of congestive heart failure. 4. Elevated blood sugars. PLAN: Increase Levemir by 10 units and continue with this current program otherwise. MMODL / IJN: [id number] /
[2018-08-12] MEDS: TAMSULOSIN 0.4 MG CAP.ER.24H PO SCH (17:51)
[2018-08-12] MEDS: MIRTAZAPINE 15 MG TAB PO SCH (20:46)
[2018-08-12 21:04] LABS: Glucose,Whole Blood 306 mg/dL (75-99)
[2018-08-12] MEDS: INSULIN DETEMIR 100 UNIT/ML 10 ML VIAL SQ SCH (21:08)
--- NOTE | 2018-08-13 00:15 | P.PN ---
Subjective Progress Note Date: 08/12/18 Pleasant 83-year-old male who's been seen by the infectious disease service in the past presents to hospital with complaints of progressive shortness of breath cough and chest congestion. The time of his admission on he had evidence of left lower lobe pneumonia has been treated with antibiotic therapy. Was also thought that he was having difficulties with congestive heart failure at that time. It is related the patient had chills, malaise significant congestion in his chest with cough at the time of his diagnosis. Since since admission there has only been slow improvement but not resolution. With the lack of resolution cultures were obtained and sputum culture showed evidence of MRSA in the infectious diseases consultation was requested 08/10/2018 Patient relates feeling slightly better today. The upper extremities edema is responded well to the wraps. Lower extremity edema is also improving with elevation and compression hose. Shortness of breath is improved but certainly not resolved. Is not having fever or chills. 08/11/2018 H and continues to feel slightly improved. The upper extremity edema continues to improve with the elevation in the wraps. Lower extremities still have some edema. Shortness of breath is improved. 08/12/2018 patient has had further improvement with his extensive diuresis from the Lasix drip. Other than complaints of polyuria he is feeling considerably better. The significant edema and weeping from his arms has now resolved and he is more comfortable. Objective - Vital Signs Vital signs: Vital Signs Temp 97.6 F 08/12/18 20:00 Pulse 88 08/12/18 20:48 Resp 18 08/12/18 20:00 BP 90/63 08/12/18 20:00 Pulse Ox 97 08/12/18 20:39 Intake & Output 08/12/18 08/12/18 08/13/18 06:59 18:59 06:59 Intake Total 600 610 Output Total 3750 800 1650 Balance -8789 -190 -9260 Weight 139.5 kg 139.5 kg Intake: Intake, IV Titration 600 250 Amount Furosemide 250 mg In 600 250 Sodium Chloride 0.9% 225 ml @ 10 MG/HR 10 mls/hr IVP .Q24H MARIA C Rx#: [id number] Oral 360 Output: Urine 3750 800 1650 Other: Voiding Method Urinal Urinal # Voids 1 1 - Exam Pleasant 83-year-old male not in distress but is still not feel well HEENT: Anicteric conjunctiva are pink and moist nasal mucosa grossly intact without significant lesions, there is no thrush. Neck: The neck is supple without significant lymphadenopathy or thyromegaly. Lungs: Symmetrical air entry is noted expiratory wheezes are somewhat scattered few crackles in the right lower zone Heart: Regular rate and rhythm with an audible S1-S2, no S3 no S4. There is no significant murmur click or rub, PMI was nondisplaced. Abdomen: Positive bowel sounds soft and nontender without palpable masses or organomegaly. There was no guarding or rebound. Extremities: The upper extremities have evidence of edema with the compression wraps of the upper extremities the copious edema and weeping is improved. No splinter hemorrhages were noted. Lower extremities have edema 2+ and symmetric no open ulcers are seen Neuro: Awake alert oriented to person place and time. There are no acute new gross focal sensory motor deficits. - Labs CBC & Chem 7: 08/10/18 07:26 08/12/18 06:54 Labs: Abnormal Lab Results - Last 24 Hours (Table) 08/12/18 08/12/18 08/12/18 Range/Units 05:51 06:54 11:46 Sodium 131 L (137-145) mmol/L Chloride 90 L (98-107) mmol/L Carbon Dioxide 34 H (22-30) mmol/L BUN 37 H (9-20) mg/dL Glucose 139 H (74-99) mg/dL POC Glucose (mg/dL) 147 H 224 H (75-99) mg/dL Calcium 7.4 L (8.4-10.2) mg/dL 08/12/18 08/12/18 Range/Units 16:25 21:01 Sodium (137-145) mmol/L Chloride (98-107) mmol/L Carbon Dioxide (22-30) mmol/L BUN (9-20) mg/dL Glucose (74-99) mg/dL POC Glucose (mg/dL) 293 H 306 H (75-99) mg/dL Calcium (8.4-10.2) mg/dL Laboratory Results WBC 8.4 k/uL (3.8-10.6) 08/10/18 07:26 RBC 4.64 m/uL (4.30-5.90) 08/10/18 07:26 Hgb 14.7 gm/dL (13.0-17.5) 08/10/18 07:26 Hct 48.1 % (39.0-53.0) 08/10/18 07:26 MCV 103.8 fL (80.0-100.0) H 08/10/18 07:26 MCH 31.8 pg (25.0-35.0) 08/10/18 07:26 MCHC 30.6 g/dL (31.0-37.0) L 08/10/18 07:26 RDW 14.9 % (11.5-15.5) 08/10/18 07:26 Plt Count 109 k/uL (150-450) L 08/10/18 07:26 Neutrophils % 92 % 08/10/18 07:26 Neutrophils % (Manual) 78 % 07/30/18 11:00 Band Neutrophils % 1 % 07/30/18 11:00 Lymphocytes % 3 % 08/10/18 07:26 Lymphocytes % (Manual) 12 % 07/30/18 11:00 Monocytes % 4 % 08/10/18 07:26 Monocytes % (Manual) 8 % 07/30/18 11:00 Eosinophils % 0 % 08/10/18 07:26 Eosinophils % (Manual) 1 % 07/30/18 11:00 Basophils % 0 % 08/10/18 07:26 Neutrophils # 7.7 k/uL (1.3-7.7) 08/10/18 07:26 Neutrophils # (Manual) 5.30 k/uL (1.3-7.7) 07/30/18 11:00 Lymphocytes # 0.3 k/uL (1.0-4.8) L 08/10/18 07:26 Lymphocytes # (Manual) 0.82 k/uL (1.0-4.8) L 07/30/18 11:00 Monocytes # 0.3 k/uL (0-1.0) 08/10/18 07: Monocytes # (Manual) 0.54 k/uL (0-1.0) 07/30/18 11:00 Eosinophils # 0.0 k/uL (0-0.7) 08/10/18 07:26 Eosinophils # (Manual) 0.07 k/uL (0-0.7) 07/30/18 11:00 Basophils # 0.0 k/uL (0-0.2) 08/10/18 07:26 Nucleated RBCs 0 /100 WBC (0-0) 07/30/18 11:00 Poikilocytosis (manual Present 07/30/18 11:00 Anisocytosis (manual) Present 07/30/18 11:00 Macrocytosis Moderate 08/10/18 07:26 PT 12.2 sec (9.0-12.0) H 07/28/18 00:10 INR 1.3 (<1.2) H 07/28/18 00:10 APTT 24.4 sec (22.0-30.0) 07/28/18 00:10 Sodium 131 mmol/L (137-145) L 08/12/18 06:54 Potassium 4.5 mmol/L (3.5-5.1) 08/12/18 06:54 Chloride 90 mmol/L (98-107) L 08/12/18 06:54 Carbon Dioxide 34 mmol/L (22-30) H 08/12/18 06:54 Anion Gap 7 mmol/L 08/12/18 06:54 BUN 37 mg/dL (9-20) H 08/12/18 06:54 Creatinine 0.93 mg/dL (0.66-1.25) 08/12/18 06:54 Est GFR (CKD-EPI)AfAm 87 (>60 ml/min/1.73 sqM) 08/12/18 06:54 Est GFR (CKD-EPI)NonAf 75 (>60 ml/min/1.73 sqM) 08/12/18 06:54 Glucose 139 mg/dL (74-99) H 08/12/18 06:54 POC Glucose (mg/dL) 306 mg/dL (75-99) H 08/12/18 21:01 POC Glu Nurse Consultant ID Jm Nation 08/12/18 21:01 Lactic Ac Sepsis Rflx Y 07/28/18 04:21 Plasma Lactic Acid Otilio 1.8 mmol/L (0.7-2.0) 07/28/18 07:36 Calcium 7.4 mg/dL (8.4-10.2) L 08/12/18 06:54 Total Bilirubin 1.0 mg/dL (0.2-1.3) 08/10/18 07:26 AST 25 U/L (17-59) 08/10/18 07:26 ALT 52 U/L (21-72) 08/10/18 07:26 Alkaline Phosphatase 60 U/L (38-126) 08/10/18 07:26 Total Creatine Kinase <20 U/L (55-170) L 07/28/18 00:10 CK-MB (CK-2) 0.8 ng/mL (0.0-2.4) 07/28/18 00:10 CK-MB (CK-2) Rel Index 07/28/18 00:10 Troponin I <0.012 ng/mL (0.000-0.034) 07/28/18 00:10 NT-Pro-B Natriuret Pep 2090 pg/mL 08/10/18 07:26 Total Protein 5.0 g/dL (6.3-8.2) L 08/10/18 07:26 Albumin 2.7 g/dL (3.5-5.0) L 08/10/18 07:26 Urine Color Dark Yellow 07/28/18 04:15 Urine Appearance Clear (Clear) 07/28/18 04:15 Urine pH 5.5 (5.0-8.0) 07/28/18 04:15 Ur Specific [place] 1.028 (1.001-1.035) 07/28/18 04:15 Urine Protein 2+ (Negative) H 07/28/18 04:15 Urine Glucose (UA) Trace (Negative) H 07/28/18 04:15 Urine Ketones Negative (Negative) 07/28/18 04:15 Urine Blood Negative (Negative) 07/28/18 04:15 Urine Nitrite Negative (Negative) 07/28/18 04:15 Urine Bilirubin 1+ (Negative) H 07/28/18 04:15 Urine Urobilinogen 6.0 mg/dL (<2.0) 07/28/18 04:15 Ur Leukocyte Esterase Negative (Negative) 07/28/18 04:15 Urine RBC 1 /hpf (0-5) 07/28/18 04:15 Urine WBC 1 /hpf (0-5) 07/28/18 04:15 Ur Squamous Epith Cells 1 /hpf (0-4) 07/28/18 04:15 Hyaline Casts 13 /lpf (0-2) H 07/28/18 04:15 Urine Mucus Many /hpf (None) H 07/28/18 04:15 Vancomycin Trough 18.6 ug/mL 08/12/18 06:54 Influenza Type A RNA Not Detected (Not Detectd) 07/28/18 01:35 Influenza Type B (PCR) Not Detected (Not Detectd) 07/28/18 01:35 Microbiology 08/05/18 19:51 Sputum Gram Stain - Final 08/05/18 19:51 Sputum Sputum Culture - Final Methicillin resist S. aureus Xi albicans 07/28/18 00:10 Blood Blood Culture - Final No Growth after 144 hours Assessment and Plan (1) Atrial fibrillation with RVR Current Visit: Yes Status: Acute Code(s): I48.91 - UNSPECIFIED ATRIAL FIBRILLATION SNOMED Code(s): 063963616562034 (2) MRSA pneumonia Narrative/Plan: Pleasant 83-year-old male presents to Hospital feeling poorly any evidence of pneumonia which is right lower lobe as well as A. fib with RVR. He is now been stabilized but continues to have cough and shortness of breath. Sputum cultures were obtained and now has evidence of MRSA in his sputum. Antibiotic therapy has now been transitioned to vancomycin this will therapy in the no other pathogens have been found, and he is flu negative. Would plan a few days vancomycin therapy and monitor his progress. This potentially could require a course of outpatient intravenous antibiotic therapy but if he has improvement there is a possibility of transition to oral therapy to complete the treatment of his current pneumonia. He has a extremity edema and EMILY hose are requested. He is elevating his legs which is excellent. He has edema and weeping to his upper extremities for which some Silvadene wraps are applied to help with this acute difficulty. He is receiving diuresis and treatment for his underlying cardiovascular disease. 08/10/2018 patient is feeling somewhat better today. Shortness of breath is stable to slightly improved. The edema is improving with the compression that is being applied. He is tolerating current antibiotic therapy well. Continue elevate the arms and legs while he is at rest and increase his protein intake. Antibiotic therapy with vancomycin is being utilized for now. We'll have a potential for conversion to oral antibiotic at discharge if he continues to have further improvement. 08/11/2018 patient continues to have some improvement. With diuresis, elevation and compression therapy the extensive upper extremity edema is improving and the dressings are not saturated today as they have been in the past. Lower extremities still remaining quite edematous. The patient is having improvement and again there is the likelihood of oral antibiotic therapy at discharge to complete his treatment for his MRSA pneumonia. Continues to need ongoing diuretic therapy. Improved oral intake is helpful to improve his low albumin status and appropriate intake will also help with his current hyperglycemia. 08/12/2018 patient continues to have improvement as his diuresis continues to occur and his massive volume overload resolves. His extensive generalized edema is improved his weeping skin is improved. His respiratory status is improved. When ready for discharge to home on transitioned to oral antibiotic therapy. Current Visit: Yes Status: Acute Code(s): J15.212 - PNEUMONIA DUE TO METHICILLIN RESISTANT STAPHYLOCOCCUS AUREUS SNOMED Code(s): 033669041123262
[2018-08-13 05:53] LABS: Glucose,Whole Blood 130 mg/dL (75-99)
[2018-08-13] MEDS: INSULIN ASPART 100 UNIT/ML 1 ML 10 ML VIAL SQ SCH ×4 (06:00→21:44)
[2018-08-13] MEDS: CARVEDILOL 3.125 MG TAB PO SCH ×2 (06:09→09:24)
[2018-08-13] MEDS: FUROSEMIDE 250 MG in SODIUM CHLORIDE 0.9% 225 ML IVP SCH (06:09)
[2018-08-13] MEDS: IPRATROPIUM-ALBUTEROL 3 ML NEB INHALATION PRN ×2 (08:23→20:12)
[2018-08-13] MEDS: BUDESONIDE 0.5 MG/2 ML NEBU INHALATION SCH ×2 (08:23→20:12)
[2018-08-13 08:31] LABS: Calcium 7.8 mg/dL (8.4-10.2)
[2018-08-13 08:33] LABS: Potassium 4.3 mmol/L (3.5-5.1)
[2018-08-13] MEDS: guaiFENesin 600 MG TABLET.ER PO SCH ×2 (09:24→21:43)
[2018-08-13] MEDS: APIXABAN 2.5 MG TABLET PO SCH ×2 (09:24→21:42)
[2018-08-13] MEDS: AMIODARONE 200 MG TAB PO SCH (09:24)
[2018-08-13] MEDS: CARBIDOPA-LEVODOPA 25-100 MG 1 EACH TAB PO SCH ×2 (09:25→21:42)
[2018-08-13] MEDS: SPIRONOLACTONE 25 MG TAB PO SCH (09:25)
[2018-08-13] MEDS: methylPREDNISolone SOD SUCCI 40 MG/ML 1 ML VIAL IV SCH ×2 (09:26→21:43)
[2018-08-13 11:45] LABS: Glucose,Whole Blood 113 mg/dL (75-99)
--- NOTE | 2018-08-13 15:01 | P.PN ---
Subjective Progress Note Date: 08/13/18 This is an 83-year-old gentleman who follows regularly with Dr. Jorge in the office. He has known history of persistent atrial fibrillation, hyperlipidemia, hypertension, diabetes, nonischemic cardiomyopathy, osteoarthritis, coronary artery disease with prior stent placement to the proximal OM in 2002, presented to the hospital a couple of weeks ago with symptoms of progressively worsening shortness of breath with associated productive cough and cough congestion. Patient had evidence of left lower lobe pneumonia and was being treated with antibiotic therapy. Patient persisted to be short of breath, sputum culture showed evidence of MRSA, infectious disease is also currently following. BNP level was obtained which came back to be elevated and for this reason a cardiology consultation was requested. Chest x- ray shows subsegmental atelectasis in the left lung base with no acute heart failure. Subsequent x-ray showed persistent right lower lobe infiltrate. EKG shows atrial fibrillation with rapid ventricular response. Chest x-ray repeated yesterday morning shows overall improved aeration from previous study. Blood pressure 103/50 with a heart rate in the 1 teens, 95% on room air. White blood cell count 8.4, hemoglobin 14.7, platelet count 109. Sodium 131, potassium 4.9, BUN 40, creatinine 0.9. BNP 2090. Total protein 5.0, albumin 2.7. We will discontinue the oral diuretics and start the patient on IV Lasix today. Obtain echocardiogram with Doppler study. Decrease aspirin to 81 mg daily. At the time of my examination this morning, patient still complaining of feeling short of breath, he has significant generalized edema throughout. 08/12/2018 Patient seen and examined this morning, diuresed well through the night last night, weight down 5 kg. We will continue current dose of IV Lasix drip, continue to monitor intake and output along with daily weights today. Sodium 131, potassium 4.5, BUN 37, creatinine 0.9. Blood pressure 86/60. 08/13/2018 Patient seen and examined today, continues to diurese significantly well. Weight is down another 2 kg today, BUN 38 and creatinine 0.9 today. Objective - Vital Signs Vital signs: Vital Signs Temp 97.1 F L 08/13/18 08:00 Pulse 95 08/13/18 12:00 Resp 17 08/13/18 12:00 BP 90/49 08/13/18 12:00 Pulse Ox 97 08/13/18 12:00 Intake & Output 08/12/18 08/13/18 08/13/18 18:59 06:59 18:59 Intake Total 610 141.5 240 Output Total 800 3475 2800 Balance -190 -3333.5 -2560 Weight 139.5 kg 137.5 kg Intake: Intake, IV Titration 250 141.5 Amount Furosemide 250 mg In 250 141.5 Sodium Chloride 0.9% 225 ml @ 10 MG/HR 10 mls/hr IVP .Q24H MARIA C Rx#: [id number] Oral 360 240 Output: Urine 800 3475 2800 Other: Voiding Method Urinal Urinal # Voids 1 # Bowel Movements 0 - Exam PHYSICAL EXAMINATION: GENERAL:83-year-old gentleman in no acute distress at the time of my examination HEENT: Head is atraumatic, normocephalic. Pupils equal, round. Sclera anicteric. Conjunctiva are clear. Mucous membranes of the mouth are moist. Neck is supple. There is elevated jugular venous pressure. No carotid bruit is heard. HEART EXAMINATION: Heart S1 and S2 irregularly irregular a systolic ejection murmur is heard. CHEST EXAMINATION: Lungs reveal diminished air entry to bilateral bases. ABDOMEN: Soft, obese, nontender. Bowel sounds are heard. No organomegaly noted. EXTREMITIES: 2+ peripheral pulses with 3+ evidence of peripheral edema, bilateral Payam wraps to arms with significant drainage noted. NEUROLOGIC patient is awake, alert and oriented 3 . . - Labs CBC & Chem 7: 08/10/18 07:26 08/13/18 07:29 Labs: Abnormal Lab Results - Last 24 Hours (Table) 08/12/18 08/12/18 08/13/18 Range/Units 16:25 21:01 05:52 Sodium (137-145) mmol/L Chloride (98-107) mmol/L Carbon Dioxide (22-30) mmol/L BUN (9-20) mg/dL Glucose (74-99) mg/dL POC Glucose (mg/dL) 293 H 306 H 130 H (75-99) mg/dL Calcium (8.4-10.2) mg/dL 08/13/18 08/13/18 Range/Units 07:29 11:32 Sodium 131 L (137-145) mmol/L Chloride 89 L (98-107) mmol/L Carbon Dioxide 35 H (22-30) mmol/L BUN 38 H (9-20) mg/dL Glucose 109 H (74-99) mg/dL POC Glucose (mg/dL) 113 H (75-99) mg/dL Calcium 7.8 L (8.4-10.2) mg/dL Assessment and Plan Plan: Assessment and plan #1 symptoms of progressively since shortness of breath with associated productive cough of Bilateral peripheral edema. Evidence of right lower lobe pneumonia, sputum cultures with evidence of MRSA. Combination of pneumonia and congestive cardiac failure, systolic acute on chronic. #2 chronic persistent atrial fibrillation on Eliquis for anticoagulation #3 coronary artery disease with prior stent placement #4 hyperlipidemia #5 diabetes Plan From cardiology's perspective, we'll recommend to continue current dose of IV Lasix drip. Continue to monitor intake and output along with daily weights and daily lytes BUN and creatinine. DNP note has been reviewed, I agree with a documented findings and plan of care. Patient was seen and examined.
[2018-08-13 16:25] LABS: Glucose,Whole Blood 144 mg/dL (75-99)
[2018-08-13] MEDS: VANCOMYCIN 2,500 MG in SODIUM CHLORIDE 0.9% 500 ML 500 ML IVPB SCH ×2 (16:36→22:27)
--- NOTE | 2018-08-13 17:21 | PN ---
PROGRESS NOTE CHIEF COMPLAINT: Congestive heart failure, pneumonia. HISTORY OF PRESENT ILLNESS: This gentleman is doing better each day. He is diuresing nicely on the Lasix drip. PHYSICAL EXAMINATION: Breath sounds are better and there are fewer rales at the bases. Cardiac exam is normal. Abdomen is soft, nontender. IMPRESSION: 1. Resolving congestive heart failure. 2. Pneumonitis. PLAN: Start to try to increase activity. MMODL / IJN: [id number] /
[2018-08-13] MEDS: ASPIRIN 81 MG PO SCH (17:24)
[2018-08-13] MEDS: NYSTATIN 100,000 UNIT/ML SUSP 500,000 UNIT/5 ML CUP PO SCH ×3 (20:16→21:43)
[2018-08-13] MEDS: SACUBITRIL/VALSARTAN 24 MG-26 MG TABLET PO SCH ×2 (20:16→22:02)
[2018-08-13] MEDS: TAMSULOSIN 0.4 MG CAP.ER.24H PO SCH (20:26)
[2018-08-13 20:54] LABS: Glucose,Whole Blood 223 mg/dL (75-99)
[2018-08-13] MEDS: SODIUM CHLORIDE 0.9% 1,000 ML IV SCH (21:42)
[2018-08-13] MEDS: INSULIN DETEMIR 100 UNIT/ML 10 ML VIAL SQ SCH (21:43)
[2018-08-13] MEDS: MIRTAZAPINE 15 MG TAB PO SCH (21:43)
[2018-08-14 05:36] LABS: Glucose,Whole Blood 108 mg/dL (75-99)
[2018-08-14] MEDS: FUROSEMIDE 250 MG in SODIUM CHLORIDE 0.9% 225 ML IVP SCH (06:17)
[2018-08-14] MEDS: INSULIN ASPART 100 UNIT/ML 1 ML 10 ML VIAL SQ SCH ×4 (06:18→21:27)
[2018-08-14] MEDS: CARVEDILOL 3.125 MG TAB PO SCH ×2 (06:34→17:03)
[2018-08-14 07:18] LABS: Calcium 7.8 mg/dL (8.4-10.2)
[2018-08-14] MEDS: BUDESONIDE 0.5 MG/2 ML NEBU INHALATION SCH ×2 (08:45→21:18)
[2018-08-14] MEDS: IPRATROPIUM-ALBUTEROL 3 ML NEB INHALATION PRN (08:46)
[2018-08-14] MEDS: SACUBITRIL/VALSARTAN 24 MG-26 MG TABLET PO SCH ×2 (09:01→21:58)
[2018-08-14] MEDS: methylPREDNISolone SOD SUCCI 40 MG/ML 1 ML VIAL IV SCH ×2 (09:14→21:26)
[2018-08-14] MEDS: AMIODARONE 200 MG TAB PO SCH (09:15)
[2018-08-14] MEDS: APIXABAN 2.5 MG TABLET PO SCH ×2 (09:15→21:26)
[2018-08-14] MEDS: NYSTATIN 100,000 UNIT/ML SUSP 500,000 UNIT/5 ML CUP PO SCH ×4 (09:15→21:26)
[2018-08-14] MEDS: ASPIRIN 81 MG PO SCH (09:15)
[2018-08-14] MEDS: SPIRONOLACTONE 25 MG TAB PO SCH (09:15)
[2018-08-14] MEDS: guaiFENesin 600 MG TABLET.ER PO SCH ×2 (09:15→21:26)
[2018-08-14] MEDS: CARBIDOPA-LEVODOPA 25-100 MG 1 EACH TAB PO SCH ×2 (09:15→21:26)
[2018-08-14 11:56] LABS: Glucose,Whole Blood 109 mg/dL (75-99)
[2018-08-14] MEDS: SODIUM CHLORIDE 0.9% 1,000 ML IV SCH (12:12)
--- NOTE | 2018-08-14 14:11 | P.PN ---
Subjective Progress Note Date: 08/14/18 This is an 83-year-old gentleman who follows regularly with Dr. Jorge in the office. He has known history of persistent atrial fibrillation, hyperlipidemia, hypertension, diabetes, nonischemic cardiomyopathy, osteoarthritis, coronary artery disease with prior stent placement to the proximal OM in 2002, presented to the hospital a couple of weeks ago with symptoms of progressively worsening shortness of breath with associated productive cough and cough congestion. Patient had evidence of left lower lobe pneumonia and was being treated with antibiotic therapy. Patient persisted to be short of breath, sputum culture showed evidence of MRSA, infectious disease is also currently following. BNP level was obtained which came back to be elevated and for this reason a cardiology consultation was requested. Chest x- ray shows subsegmental atelectasis in the left lung base with no acute heart failure. Subsequent x-ray showed persistent right lower lobe infiltrate. EKG shows atrial fibrillation with rapid ventricular response. Chest x-ray repeated yesterday morning shows overall improved aeration from previous study. Blood pressure 103/50 with a heart rate in the 1 teens, 95% on room air. White blood cell count 8.4, hemoglobin 14.7, platelet count 109. Sodium 131, potassium 4.9, BUN 40, creatinine 0.9. BNP 2090. Total protein 5.0, albumin 2.7. We will discontinue the oral diuretics and start the patient on IV Lasix today. Obtain echocardiogram with Doppler study. Decrease aspirin to 81 mg daily. At the time of my examination this morning, patient still complaining of feeling short of breath, he has significant generalized edema throughout. 08/12/2018 Patient seen and examined this morning, diuresed well through the night last night, weight down 5 kg. We will continue current dose of IV Lasix drip, continue to monitor intake and output along with daily weights today. Sodium 131, potassium 4.5, BUN 37, creatinine 0.9. Blood pressure 86/60. 08/13/2018 Patient seen and examined today, continues to diurese significantly well. Weight is down another 2 kg today, BUN 38 and creatinine 0.9 today. 08/14/2008 Patient seen and examined today, continues to diurese well on IV Lasix drip. The weight today is down 5 kg, patient is feeling significantly better. We will discontinue the IV Lasix drip today and start the patient on IV push Lasix every 8 hourly. Objective - Vital Signs Vital signs: Vital Signs Temp 97 F L 08/14/18 08:00 Pulse 69 08/14/18 12:00 Resp 17 08/14/18 12:00 BP 101/53 08/14/18 12:00 Pulse Ox 93 L 08/14/18 12:00 Intake & Output 08/13/18 08/14/18 08/14/18 18:59 06:59 18:59 Intake Total 240 241.333 360 Output Total 2800 2325 1100 Balance -2560 -2083.667 -740 Weight 132 kg Intake: Intake, IV Titration 241.333 Amount Furosemide 250 mg In 241.333 Sodium Chloride 0.9% 225 ml @ 10 MG/HR 10 mls/hr IVP .Q24H [facility] Rx#: [id number] Oral 240 360 Output: Urine 2800 2325 1100 Other: Voiding Method Indwelling Catheter Indwelling Catheter Indwelling Catheter # Bowel Movements 0 1 - Exam PHYSICAL EXAMINATION: GENERAL:83-year-old gentleman in no acute distress at the time of my examination HEENT: Head is atraumatic, normocephalic. Pupils equal, round. Sclera anicteric. Conjunctiva are clear. Mucous membranes of the mouth are moist. Neck is supple. There is elevated jugular venous pressure. No carotid bruit is heard. HEART EXAMINATION: Heart S1 and S2 irregularly irregular a systolic ejection murmur is heard. CHEST EXAMINATION: Lungs reveal diminished air entry to bilateral bases. ABDOMEN: Soft, obese, nontender. Bowel sounds are heard. No organomegaly noted. EXTREMITIES: 2+ peripheral pulses with 1-2+ evidence of peripheral edema, bilateral [place] wraps to arms with significant drainage noted. NEUROLOGIC patient is awake, alert and oriented 3 . . - Labs CBC & Chem 7: 08/10/18 07:26 08/14/18 06:26 Labs: Abnormal Lab Results - Last 24 Hours (Table) 08/13/18 08/13/18 08/14/18 Range/Units 16:21 20:52 05:34 Sodium (137-145) mmol/L Chloride (98-107) mmol/L Carbon Dioxide (22-30) mmol/L BUN (9-20) mg/dL Glucose (74-99) mg/dL POC Glucose (mg/dL) 144 H 223 H 108 H (75-99) mg/dL Calcium (8.4-10.2) mg/dL 08/14/18 08/14/18 Range/Units 06:26 11:53 Sodium 131 L (137-145) mmol/L Chloride 86 L (98-107) mmol/L Carbon Dioxide 39 H (22-30) mmol/L BUN 35 H (9-20) mg/dL Glucose 100 H (74-99) mg/dL POC Glucose (mg/dL) 109 H (75-99) mg/dL Calcium 7.8 L (8.4-10.2) mg/dL Assessment and Plan Plan: Assessment and plan #1 symptoms of progressively since shortness of breath with associated productive cough of Bilateral peripheral edema. Evidence of right lower lobe pneumonia, sputum cultures with evidence of MRSA. Combination of pneumonia and congestive cardiac failure, systolic acute on chronic. #2 chronic persistent atrial fibrillation on Eliquis for anticoagulation #3 coronary artery disease with prior stent placement #4 hyperlipidemia #5 diabetes Plan From cardiology's perspective, we will discontinue the Lasix drip and start the patient on Lasix 40 mg IV every 8 hourly. Continue to monitor daily weights, daily lytes BUN and creatinine. DNP note has been reviewed, I agree with a documented findings and plan of care. Patient was seen and examined.
[2018-08-14 16:50] LABS: Glucose,Whole Blood 214 mg/dL (75-99)
[2018-08-14] MEDS: VANCOMYCIN 2,500 MG in SODIUM CHLORIDE 0.9% 500 ML 500 ML IVPB SCH (17:02)
[2018-08-14] MEDS: FUROSEMIDE 10 MG/ML 4 ML VIAL IV SCH ×2 (17:02→23:24)
[2018-08-14] MEDS: TAMSULOSIN 0.4 MG CAP.ER.24H PO SCH (17:03)
[2018-08-14] MEDS: NYSTATIN 100,000 UNIT/GM POWD 15 GM TOPICAL SCH ×2 (17:03→21:26)
--- NOTE | 2018-08-14 17:43 | PN ---
PROGRESS NOTE CHIEF COMPLAINT: Congestive heart failure and pneumonitis. HISTORY OF PRESENT ILLNESS: This gentleman continues to slowly respond. His continues to diuresis and he is breathing much more easily and he is feeling better. He has developed a laceration and a rash in the intertriginous areas. PHYSICAL EXAM: CHEST: Clearing a little bit more each day. Cardiac exam is unremarkable. Abdomen is soft, nontender. He has maceration in both inguinal areas. IMPRESSION: 1. Congestive heart failure. 2. Pneumonitis. 3. History of coronary artery disease. 4. Intertrigo. PLAN: 1. Nystatin powder to the groin areas. 2. Continue to monitor his blood sugars which have definitely improved. MMODL / IJN: [id number] /
[2018-08-14] MEDS: MIRTAZAPINE 15 MG TAB PO SCH (21:26)
[2018-08-14 21:33] LABS: Glucose,Whole Blood 203 mg/dL (75-99)
[2018-08-14] MEDS: INSULIN DETEMIR 100 UNIT/ML 10 ML VIAL SQ SCH (21:58)
--- NOTE | 2018-08-15 | P.PN ---
Subjective Progress Note Date: 08/14/18 Pleasant 83-year-old male who's been seen by the infectious disease service in the past presents to hospital with complaints of progressive shortness of breath cough and chest congestion. The time of his admission on he had evidence of left lower lobe pneumonia has been treated with antibiotic therapy. Was also thought that he was having difficulties with congestive heart failure at that time. It is related the patient had chills, malaise significant congestion in his chest with cough at the time of his diagnosis. Since since admission there has only been slow improvement but not resolution. With the lack of resolution cultures were obtained and sputum culture showed evidence of MRSA in the infectious diseases consultation was requested 08/10/2018 Patient relates feeling slightly better today. The upper extremities edema is responded well to the wraps. Lower extremity edema is also improving with elevation and compression hose. Shortness of breath is improved but certainly not resolved. Is not having fever or chills. 08/11/2018 H and continues to feel slightly improved. The upper extremity edema continues to improve with the elevation in the wraps. Lower extremities still have some edema. Shortness of breath is improved. 08/12/2018 patient has had further improvement with his extensive diuresis from the Lasix drip. Other than complaints of polyuria he is feeling considerably better. The significant edema and weeping from his arms has now resolved and he is more comfortable. 08/14/2018 patient has had further improvement with his diuresis. The extensive edema to his arms and legs and hands of improved he definitely feels better. No fevers or chills. Shortness of breath is improved. Objective - Vital Signs Vital signs: Vital Signs Temp 97.4 F L 08/14/18 16:00 Pulse 90 08/14/18 21:26 Resp 16 08/14/18 21:26 BP 106/68 08/14/18 20:00 Pulse Ox 94 L 08/14/18 20:00 Intake & Output 08/14/18 08/14/18 08/15/18 06:59 18:59 06:59 Intake Total 241.333 960 Output Total 5935 1999 Balance -2083.667 -1040 Weight 132 kg Intake: Intake, IV Titration 241.333 Amount Furosemide 250 mg In 241.333 Sodium Chloride 0.9% 225 ml @ 10 MG/HR 10 mls/hr IVP .Q24H [facility] Rx#: [id number] Oral 960 Output: Urine 2325 2000 Other: Voiding Method Indwelling Catheter Indwelling Catheter Indwelling Catheter # Bowel Movements 1 - Exam Pleasant 83-year-old male not in distress but is still not feel well HEENT: Anicteric conjunctiva are pink and moist nasal mucosa grossly intact without significant lesions, there is no thrush. Neck: The neck is supple without significant lymphadenopathy or thyromegaly. Lungs: Symmetrical air entry is noted expiratory wheezes are somewhat scattered few crackles in the right lower zone Heart: Regular rate and rhythm with an audible S1-S2, no S3 no S4. There is no significant murmur click or rub, PMI was nondisplaced. Abdomen: Positive bowel sounds soft and nontender without palpable masses or organomegaly. There was no guarding or rebound. Extremities: The upper extremities have evidence of edema with the compression wraps of the upper extremities the copious edema and weeping is improved. No splinter hemorrhages were noted. Lower extremities have edema 2+ and symmetric no open ulcers are seen Neuro: Awake alert oriented to person place and time. There are no acute new gross focal sensory motor deficits. - Labs CBC & Chem 7: 08/10/18 07:26 08/14/18 06:26 Labs: Abnormal Lab Results - Last 24 Hours (Table) 08/14/18 08/14/18 08/14/18 Range/Units 05:34 06:26 11:53 Sodium 131 L (137-145) mmol/L Chloride 86 L (98-107) mmol/L Carbon Dioxide 39 H (22-30) mmol/L BUN 35 H (9-20) mg/dL Glucose 100 H (74-99) mg/dL POC Glucose (mg/dL) 108 H 109 H (75-99) mg/dL Calcium 7.8 L (8.4-10.2) mg/dL 08/14/18 08/14/18 Range/Units 16:30 21:21 Sodium (137-145) mmol/L Chloride (98-107) mmol/L Carbon Dioxide (22-30) mmol/L BUN (9-20) mg/dL Glucose (74-99) mg/dL POC Glucose (mg/dL) 214 H 203 H (75-99) mg/dL Calcium (8.4-10.2) mg/dL Laboratory Results WBC 8.4 k/uL (3.8-10.6) 08/10/18 07:26 RBC 4.64 m/uL (4.30-5.90) 08/10/18 07:26 Hgb 14.7 gm/dL (13.0-17.5) 08/10/18 07:26 Hct 48.1 % (39.0-53.0) 08/10/18 07:26 MCV 103.8 fL (80.0-100.0) H 08/10/18 07:26 MCH 31.8 pg (25.0-35.0) 08/10/18 07: MCHC 30.6 g/dL (31.0-37.0) L 08/10/18 07:26 RDW 14.9 % (11.5-15.5) 08/10/18 07:26 Plt Count 109 k/uL (150-450) L 08/10/18 07:26 Neutrophils % 92 % 08/10/18 07:26 Neutrophils % (Manual) 78 % 07/30/18 11:00 Band Neutrophils % 1 % 07/30/18 11:00 Lymphocytes % 3 % 08/10/18 07:26 Lymphocytes % (Manual) 12 % 07/30/18 11:00 Monocytes % 4 % 08/10/18 07:26 Monocytes % (Manual) 8 % 07/30/18 11:00 Eosinophils % 0 % 08/10/18 07:26 Eosinophils % (Manual) 1 % 07/30/18 11:00 Basophils % 0 % 08/10/18 07:26 Neutrophils # 7.7 k/uL (1.3-7.7) 08/10/18 07:26 Neutrophils # (Manual) 5.30 k/uL (1.3-7.7) 07/30/18 11:00 Lymphocytes # 0.3 k/uL (1.0-4.8) L 08/10/18 07:26 Lymphocytes # (Manual) 0.82 k/uL (1.0-4.8) L 07/30/18 11:00 Monocytes # 0.3 k/uL (0-1.0) 08/10/18 07:26 Monocytes # (Manual) 0.54 k/uL (0-1.0) 07/30/18 11:00 Eosinophils # 0.0 k/uL (0-0.7) 08/10/18 07:26 Eosinophils # (Manual) 0.07 k/uL (0-0.7) 07/30/18 11:00 Basophils # 0.0 k/uL (0-0.2) 08/10/18 07:26 Nucleated RBCs 0 /100 WBC (0-0) 07/30/18 11:00 Poikilocytosis (manual Present 07/30/18 11:00 Anisocytosis (manual) Present 07/30/18 11:00 Macrocytosis Moderate 08/10/18 07:26 PT 12.2 sec (9.0-12.0) H 07/28/18 00:10 INR 1.3 (<1.2) H 07/28/18 00:10 APTT 24.4 sec (22.0-30.0) 07/28/18 00:10 Sodium 131 mmol/L (137-145) L 08/14/18 06:26 Potassium 4.0 mmol/L (3.5-5.1) 08/14/18 06:26 Chloride 86 mmol/L (98-107) L 08/14/18 06:26 Carbon Dioxide 39 mmol/L (22-30) H 08/14/18 06:26 Anion Gap 6 mmol/L 08/14/18 06:26 BUN 35 mg/dL (9-20) H 08/14/18 06:26 Creatinine 0.91 mg/dL (0.66-1.25) 08/14/18 06:26 Est GFR (CKD-EPI)AfAm 89 (>60 ml/min/1.73 sqM) 08/14/18 06:26 Est GFR (CKD-EPI)NonAf 77 (>60 ml/min/1.73 sqM) 08/14/18 06:26 Glucose 100 mg/dL (74-99) H 08/14/18 06:26 POC Glucose (mg/dL) 203 mg/dL (75-99) H 08/14/18 21:21 POC Glu [employer] ID Jane Price 08/14/18 21:21 Lactic Ac Sepsis Rflx Y 07/28/18 04:21 Plasma Lactic Acid Otilio 1.8 mmol/L (0.7-2.0) 07/28/18 07:36 Calcium 7.8 mg/dL (8.4-10.2) L 08/14/18 06:26 Total Bilirubin 1.0 mg/dL (0.2-1.3) 08/10/18 07:26 AST 25 U/L (17-59) 08/10/18 07:26 ALT 52 U/L (21-72) 08/10/18 07:26 Alkaline Phosphatase 60 U/L (38-126) 08/10/18 07:26 Total Creatine Kinase <20 U/L (55-170) L 07/28/18 00:10 CK-MB (CK-2) 0.8 ng/mL (0.0-2.4) 07/28/18 00:10 CK-MB (CK-2) Rel Index 07/28/18 00:10 Troponin I <0.012 ng/mL (0.000-0.034) 07/28/18 00:10 NT-Pro-B Natriuret Pep 2090 pg/mL 08/10/18 07:26 Total Protein 5.0 g/dL (6.3-8.2) L 08/10/18 07:26 Albumin 2.7 g/dL (3.5-5.0) L 08/10/18 07:26 Urine Color Dark Yellow 07/28/18 04:15 Urine Appearance Clear (Clear) 07/28/18 04:15 Urine pH 5.5 (5.0-8.0) 07/28/18 04:15 Ur Specific [place] 1.028 (1.001-1.035) 07/28/18 04:15 Urine Protein 2+ (Negative) H 07/28/18 04:15 Urine Glucose (UA) Trace (Negative) H 07/28/18 04:15 Urine Ketones Negative (Negative) 07/28/18 04:15 Urine Blood Negative (Negative) 07/28/18 04:15 Urine Nitrite Negative (Negative) 07/28/18 04:15 Urine Bilirubin 1+ (Negative) H 07/28/18 04:15 Urine Urobilinogen 6.0 mg/dL (<2.0) 07/28/18 04:15 Ur Leukocyte Esterase Negative (Negative) 07/28/18 04:15 Urine RBC 1 /hpf (0-5) 07/28/18 04:15 Urine WBC 1 /hpf (0-5) 07/28/18 04:15 Ur Squamous Epith Cells 1 /hpf (0-4) 07/28/18 04:15 Hyaline Casts 13 /lpf (0-2) H 07/28/18 04:15 Urine Mucus Many /hpf (None) H 07/28/18 04:15 Vancomycin Trough 18.6 ug/mL 08/12/18 06:54 Influenza Type A RNA Not Detected (Not Detectd) 07/28/18 01:35 Influenza Type B (PCR) Not Detected (Not Detectd) 07/28/18 01:35 Microbiology 08/05/18 19:51 Sputum Gram Stain - Final 08/05/18 19:51 Sputum Sputum Culture - Final Methicillin resist S. aureus Xi albicans 07/28/18 00:10 Blood Blood Culture - Final No Growth after 144 hours Assessment and Plan (1) Atrial fibrillation with RVR Current Visit: Yes Status: Acute Code(s): I48.91 - UNSPECIFIED ATRIAL FIBRILLATION SNOMED Code(s): 380958970598446 (2) MRSA pneumonia Narrative/Plan: Pleasant 83-year-old male presents to Hospital feeling poorly any evidence of pneumonia which is right lower lobe as well as A. fib with RVR. He is now been stabilized but continues to have cough and shortness of breath. Sputum cultures were obtained and now has evidence of MRSA in his sputum. Antibiotic therapy has now been transitioned to vancomycin this will therapy in the no other pathogens have been found, and he is flu negative. Would plan a few days vancomycin therapy and monitor his progress. This potentially could require a course of outpatient intravenous antibiotic therapy but if he has improvement there is a possibility of transition to oral therapy to complete the treatment of his current pneumonia. He has a extremity edema and EMILY hose are requested. He is elevating his legs which is excellent. He has edema and weeping to his upper extremities for which some Silvadene wraps are applied to help with this acute difficulty. He is receiving diuresis and treatment for his underlying cardiovascular disease. 08/10/2018 patient is feeling somewhat better today. Shortness of breath is stable to slightly improved. The edema is improving with the compression that is being applied. He is tolerating current antibiotic therapy well. Continue elevate the arms and legs while he is at rest and increase his protein intake. Antibiotic therapy with vancomycin is being utilized for now. We'll have a potential for conversion to oral antibiotic at discharge if he continues to have further improvement. 08/11/2018 patient continues to have some improvement. With diuresis, elevation and compression therapy the extensive upper extremity edema is improving and the dressings are not saturated today as they have been in the past. Lower extremities still remaining quite edematous. The patient is having improvement and again there is the likelihood of oral antibiotic therapy at discharge to complete his treatment for his MRSA pneumonia. Continues to need ongoing diuretic therapy. Improved oral intake is helpful to improve his low albumin status and appropriate intake will also help with his current hyperglycemia. 08/12/2018 patient continues to have improvement as his diuresis continues to occur and his massive volume overload resolves. His extensive generalized edema is improved his weeping skin is improved. His respiratory status is improved. When ready for discharge to home on transitioned to oral antibiotic therapy. 08/14/2018 ongoing improvement with his diuresis. He said extensive removal of fluid she is allowed improvement of his edema weeping and shortness of breath. We will plan on transitioning to oral doxycycline 100 mg daily twice per day for 7 days at his discharge. Current Visit: Yes Status: Acute Code(s): J15.212 - PNEUMONIA DUE TO METHICILLIN RESISTANT STAPHYLOCOCCUS AUREUS SNOMED Code(s): 665065493251125
[2018-08-15 06:35] LABS: Glucose,Whole Blood 126 mg/dL (75-99)
[2018-08-15 06:40] LABS: Calcium 7.9 mg/dL (8.4-10.2); Potassium 4.2 mmol/L (3.5-5.1)
[2018-08-15] MEDS: INSULIN ASPART 100 UNIT/ML 1 ML 10 ML VIAL SQ SCH ×4 (06:41→21:30)
[2018-08-15] MEDS: CARVEDILOL 3.125 MG TAB PO SCH (06:51)
[2018-08-15] MEDS: SACUBITRIL/VALSARTAN 24 MG-26 MG TABLET PO SCH ×2 (09:10→21:30)
[2018-08-15] MEDS: guaiFENesin 600 MG TABLET.ER PO SCH ×2 (09:11→23:27)
[2018-08-15] MEDS: APIXABAN 2.5 MG TABLET PO SCH (09:11)
[2018-08-15] MEDS: ASPIRIN 81 MG PO SCH (09:11)
[2018-08-15] MEDS: AMIODARONE 200 MG TAB PO SCH (09:11)
[2018-08-15] MEDS: CARBIDOPA-LEVODOPA 25-100 MG 1 EACH TAB PO SCH ×2 (09:11→23:27)
[2018-08-15] MEDS: FUROSEMIDE 10 MG/ML 4 ML VIAL IV SCH (09:11)
[2018-08-15] MEDS: SPIRONOLACTONE 25 MG TAB PO SCH (09:11)
[2018-08-15] MEDS: NYSTATIN 100,000 UNIT/GM POWD 15 GM TOPICAL SCH ×3 (09:12→23:33)
[2018-08-15] MEDS: methylPREDNISolone SOD SUCCI 40 MG/ML 1 ML VIAL IV SCH ×2 (09:12→23:26)
[2018-08-15] MEDS: NYSTATIN 100,000 UNIT/ML SUSP 500,000 UNIT/5 ML CUP PO SCH ×4 (09:12→23:28)
[2018-08-15] MEDS: IPRATROPIUM-ALBUTEROL 3 ML NEB INHALATION PRN (09:31)
[2018-08-15] MEDS: BUDESONIDE 0.5 MG/2 ML NEBU INHALATION SCH ×2 (09:31→19:55)
[2018-08-15] MEDS: SODIUM CHLORIDE 0.9% 1,000 ML IV SCH (10:29)
[2018-08-15 11:45] LABS: Glucose,Whole Blood 264 mg/dL (75-99)
--- NOTE | 2018-08-15 15:34 | PN ---
PROGRESS NOTE CHIEF COMPLAINT: Pneumonitis and congestive heart failure. HISTORY OF PRESENT ILLNESS: This gentleman is gradually improving each day. He continues to diurese. He is not having any shortness of breath. He is probably close to being able to go to a skilled nursing. PHYSICAL EXAMINATION: He has much less edema. Cardiac exam is unremarkable and his chest is clearing each day with fewer rales and rhonchi. IMPRESSION: 1. Pneumonitis. 2. Congestive heart failure with anasarca. PLAN: Continue with current process, and he can probably go to a skilled nursing soon. MMODL / IJN: [id number] /
[2018-08-15 16:23] LABS: Glucose,Whole Blood 269 mg/dL (75-99)
--- NOTE | 2018-08-15 17:23 | PN ---
PROGRESS NOTE Mr. Murphy was switched from Lasix drip to IV push Lasix. He is doing better. He remains in atrial fibrillation, rate control is not so optimal. I will discontinue Coreg and place him on Lopressor 25 mg t.i.d. Continue Lasix IV push, but increase to 60 mg q.8 hours. Vitals are stable. Electrolytes are good. JVD is evident. S1-S2 heard normally. Short systolic murmur at the base, irregular rhythm. Lungs reveal improved air entry. Abdomen is soft. Lower extremity edema has improved but persists. MMODL / IJN: [id number] /
[2018-08-15] MEDS: VANCOMYCIN 2,500 MG in SODIUM CHLORIDE 0.9% 500 ML 500 ML IVPB SCH (17:32)
[2018-08-15] MEDS: FUROSEMIDE 10 MG/ML 10 ML VIAL IV SCH ×2 (17:32→23:28)
[2018-08-15] MEDS: TAMSULOSIN 0.4 MG CAP.ER.24H PO SCH (17:33)
[2018-08-15 20:38] LABS: Glucose,Whole Blood 342 mg/dL (75-99)
[2018-08-15] MEDS: MIRTAZAPINE 15 MG TAB PO SCH (23:27)
[2018-08-15] MEDS: METOPROLOL TARTRATE 25 MG TAB PO SCH (23:28)
[2018-08-15] MEDS: INSULIN DETEMIR 100 UNIT/ML 10 ML VIAL SQ SCH (23:29)
[2018-08-16 05:53] LABS: Glucose,Whole Blood 143 mg/dL (75-99)
[2018-08-16] MEDS: APIXABAN 2.5 MG TABLET PO SCH ×3 (06:38→22:32)
[2018-08-16 07:00] LABS: Anion Gap 8 mmol/L; Blood Urea Nitrogen 34 mg/dL (9-20); Carbon Dioxide 37 mmol/L (22-30); Chloride 86 mmol/L (98-107); Glucose 149 mg/dL (74-99); Potassium 4.2 mmol/L (3.5-5.1); Sodium 131 mmol/L (137-145)
[2018-08-16] MEDS: INSULIN ASPART 100 UNIT/ML 1 ML 10 ML VIAL SQ SCH ×4 (07:17→22:34)
[2018-08-16] MEDS: BUDESONIDE 0.5 MG/2 ML NEBU INHALATION SCH ×2 (08:14→20:14)
[2018-08-16] MEDS: IPRATROPIUM-ALBUTEROL 3 ML NEB INHALATION PRN (08:14)
[2018-08-16] MEDS: guaiFENesin 600 MG TABLET.ER PO SCH ×2 (08:35→22:31)
[2018-08-16] MEDS: CARBIDOPA-LEVODOPA 25-100 MG 1 EACH TAB PO SCH ×2 (08:35→22:31)
[2018-08-16] MEDS: AMIODARONE 200 MG TAB PO SCH (08:35)
[2018-08-16] MEDS: ASPIRIN 81 MG PO SCH (08:35)
[2018-08-16] MEDS: SPIRONOLACTONE 25 MG TAB PO SCH (08:35)
[2018-08-16] MEDS: NYSTATIN 100,000 UNIT/ML SUSP 500,000 UNIT/5 ML CUP PO SCH ×4 (08:35→22:31)
[2018-08-16] MEDS: methylPREDNISolone SOD SUCCI 40 MG/ML 1 ML VIAL IV SCH ×2 (08:35→22:33)
[2018-08-16] MEDS: SACUBITRIL/VALSARTAN 24 MG-26 MG TABLET PO SCH ×2 (08:36→22:41)
[2018-08-16] MEDS: METOPROLOL TARTRATE 25 MG TAB PO SCH ×2 (08:36→22:31)
[2018-08-16] MEDS: FUROSEMIDE 10 MG/ML 10 ML VIAL IV SCH ×3 (08:36→22:32)
[2018-08-16] MEDS: NYSTATIN 100,000 UNIT/GM POWD 15 GM TOPICAL SCH ×3 (08:44→22:33)
[2018-08-16 11:53] LABS: Glucose,Whole Blood 198 mg/dL (75-99)
--- NOTE | 2018-08-16 13:39 | PN ---
PROGRESS NOTE DATE OF SERVICE: 08/16/2018 CHIEF COMPLAINT: CHF. HISTORY OF PRESENT ILLNESS: This gentleman is just about the same. He still has a lot of lower extremity edema, but he is less short of breath. He has had no chest pain. PHYSICAL EXAM: Chest is fairly clear. Cardiac exam is unchanged. Abdomen is protuberant, soft. He still has a lot of lower extremity and scrotal edema. IMPRESSION: Congestive heart failure. PLAN: Continue efforts to manage his congestive heart failure with the expectation that he will have to go to a custodial for rehab. MMODL / IJN: [id number] /
--- NOTE | 2018-08-16 14:17 | P.PN ---
Subjective Progress Note Date: 08/16/18 This is an 83-year-old gentleman who follows regularly with Dr. Jorge in the office. He has known history of persistent atrial fibrillation, hyperlipidemia, hypertension, diabetes, nonischemic cardiomyopathy, osteoarthritis, coronary artery disease with prior stent placement to the proximal OM in 2002, presented to the hospital a couple of weeks ago with symptoms of progressively worsening shortness of breath with associated productive cough and cough congestion. Patient had evidence of left lower lobe pneumonia and was being treated with antibiotic therapy. Patient persisted to be short of breath, sputum culture showed evidence of MRSA, infectious disease is also currently following. BNP level was obtained which came back to be elevated and for this reason a cardiology consultation was requested. Chest x- ray shows subsegmental atelectasis in the left lung base with no acute heart failure. Subsequent x-ray showed persistent right lower lobe infiltrate. EKG shows atrial fibrillation with rapid ventricular response. Chest x-ray repeated yesterday morning shows overall improved aeration from previous study. Blood pressure 103/50 with a heart rate in the 1 teens, 95% on room air. White blood cell count 8.4, hemoglobin 14.7, platelet count 109. Sodium 131, potassium 4.9, BUN 40, creatinine 0.9. BNP 2090. Total protein 5.0, albumin 2.7. We will discontinue the oral diuretics and start the patient on IV Lasix today. Obtain echocardiogram with Doppler study. Decrease aspirin to 81 mg daily. At the time of my examination this morning, patient still complaining of feeling short of breath, he has significant generalized edema throughout. 08/12/2018 Patient seen and examined this morning, diuresed well through the night last night, weight down 5 kg. We will continue current dose of IV Lasix drip, continue to monitor intake and output along with daily weights today. Sodium 131, potassium 4.5, BUN 37, creatinine 0.9. Blood pressure 86/60. 08/13/2018 Patient seen and examined today, continues to diurese significantly well. Weight is down another 2 kg today, BUN 38 and creatinine 0.9 today. 08/14/2008 Patient seen and examined today, continues to diurese well on IV Lasix drip. The weight today is down 5 kg, patient is feeling significantly better. We will discontinue the IV Lasix drip today and start the patient on IV push Lasix every 8 hourly. 08/16/2018 Patient seen and examined today, he continues to diurese well. Continues at this time to be on IV push Lasix. Sodium 131, potassium 4.2, BUN 34, creatinine 0.8. Objective - Vital Signs Vital signs: Vital Signs Temp 97.4 F L 08/16/18 11:25 Pulse 124 H 08/16/18 11:25 Resp 20 08/16/18 11:25 BP 85/62 08/16/18 11:25 Pulse Ox 97 08/16/18 11:25 Intake & Output 08/15/18 08/16/18 08/16/18 18:59 06:59 18:59 Intake Total 906 222 240 Output Total 800 2700 1200 Balance 106 -7910 -960 Weight 135 kg Intake: Oral 906 222 240 Output: Urine 800 2700 1200 Other: Voiding Method Indwelling Catheter Indwelling Catheter Indwelling Catheter # Voids 1 # Bowel Movements 1 - Exam PHYSICAL EXAMINATION: GENERAL:83-year-old gentleman in no acute distress at the time of my examination HEENT: Head is atraumatic, normocephalic. Pupils equal, round. Sclera anicteric. Conjunctiva are clear. Mucous membranes of the mouth are moist. Neck is supple. There is elevated jugular venous pressure. No carotid bruit is heard. HEART EXAMINATION: Heart S1 and S2 irregularly irregular a systolic ejection murmur is heard. CHEST EXAMINATION: Lungs reveal diminished air entry to bilateral bases. ABDOMEN: Soft, obese, nontender. Bowel sounds are heard. No organomegaly noted. EXTREMITIES: 2+ peripheral pulses with 1-2+ evidence of peripheral edema, bilateral Payam wraps to arms with significant drainage noted. NEUROLOGIC patient is awake, alert and oriented 3 . . - Labs CBC & Chem 7: 08/10/18 07:26 08/16/18 06:08 Labs: Abnormal Lab Results - Last 24 Hours (Table) 08/15/18 08/15/18 08/16/18 Range/Units 16:19 20:36 05:52 Sodium (137-145) mmol/L Chloride (98-107) mmol/L Carbon Dioxide (22-30) mmol/L BUN (9-20) mg/dL Glucose (74-99) mg/dL POC Glucose (mg/dL) 269 H 342 H 143 H (75-99) mg/dL Calcium (8.4-10.2) mg/dL 08/16/18 08/16/18 Range/Units 06:08 11:19 Sodium 131 L (137-145) mmol/L Chloride 86 L (98-107) mmol/L Carbon Dioxide 37 H (22-30) mmol/L BUN 34 H (9-20) mg/dL Glucose 149 H (74-99) mg/dL POC Glucose (mg/dL) 198 H (75-99) mg/dL Calcium 8.0 L (8.4-10.2) mg/dL Assessment and Plan Plan: Assessment and plan #1 symptoms of progressively since shortness of breath with associated productive cough of Bilateral peripheral edema. Evidence of right lower lobe pneumonia, sputum cultures with evidence of MRSA. Combination of pneumonia and congestive cardiac failure, systolic acute on chronic. #2 chronic persistent atrial fibrillation on Eliquis for anticoagulation #3 coronary artery disease with prior stent placement #4 hyperlipidemia #5 diabetes Plan From cardiology's perspective, we will continue the Lasix 60 mg IV every 8 hourly. Continue to monitor daily weights, daily lytes BUN and creatinine. DNP note has been reviewed, I agree with a documented findings and plan of care. Patient was seen and examined.
[2018-08-16] MEDS: VANCOMYCIN 2,500 MG in SODIUM CHLORIDE 0.9% 500 ML 500 ML IVPB SCH (16:49)
[2018-08-16] MEDS: SODIUM CHLORIDE 0.9% 1,000 ML IV SCH (17:26)
[2018-08-16 17:48] LABS: Glucose,Whole Blood 337 mg/dL (75-99)
[2018-08-16] MEDS: TAMSULOSIN 0.4 MG CAP.ER.24H PO SCH (18:47)
[2018-08-16 20:39] LABS: Glucose,Whole Blood 357 mg/dL (75-99)
[2018-08-16] MEDS: MIRTAZAPINE 15 MG TAB PO SCH (22:31)
[2018-08-16] MEDS: INSULIN DETEMIR 100 UNIT/ML 10 ML VIAL SQ SCH (22:34)
[2018-08-17 06:01] LABS: Glucose,Whole Blood 184 mg/dL (75-99)
[2018-08-17] MEDS: SODIUM CHLORIDE 0.9% 1,000 ML IV SCH (06:26)
[2018-08-17 06:29] LABS: Calcium 8.3 mg/dL (8.4-10.2)
[2018-08-17] MEDS: FUROSEMIDE 10 MG/ML 10 ML VIAL IV SCH ×2 (06:52→17:02)
[2018-08-17] MEDS: INSULIN ASPART 100 UNIT/ML 1 ML 10 ML VIAL SQ SCH ×4 (06:53→23:40)
[2018-08-17] MEDS: BUDESONIDE 0.5 MG/2 ML NEBU INHALATION SCH ×2 (08:18→19:41)
[2018-08-17] MEDS: IPRATROPIUM-ALBUTEROL 3 ML NEB INHALATION PRN (08:18)
[2018-08-17] MEDS: APIXABAN 2.5 MG TABLET PO SCH ×2 (08:36→23:39)
[2018-08-17] MEDS: guaiFENesin 600 MG TABLET.ER PO SCH ×2 (08:36→23:39)
[2018-08-17] MEDS: METOPROLOL TARTRATE 25 MG TAB PO SCH ×2 (08:36→23:41)
[2018-08-17] MEDS: ASPIRIN 81 MG PO SCH (08:36)
[2018-08-17] MEDS: methylPREDNISolone SOD SUCCI 40 MG/ML 1 ML VIAL IV SCH (08:36)
[2018-08-17] MEDS: AMIODARONE 200 MG TAB PO SCH (08:36)
[2018-08-17] MEDS: CARBIDOPA-LEVODOPA 25-100 MG 1 EACH TAB PO SCH ×2 (08:36→23:39)
[2018-08-17] MEDS: SPIRONOLACTONE 25 MG TAB PO SCH (08:36)
[2018-08-17] MEDS: NYSTATIN 100,000 UNIT/ML SUSP 500,000 UNIT/5 ML CUP PO SCH ×4 (08:36→23:50)
[2018-08-17] MEDS: NYSTATIN 100,000 UNIT/GM POWD 15 GM TOPICAL SCH ×3 (08:37→23:48)
[2018-08-17] MEDS: SACUBITRIL/VALSARTAN 24 MG-26 MG TABLET PO SCH ×2 (08:37→23:44)
[2018-08-17 11:58] LABS: Glucose,Whole Blood 109 mg/dL (75-99)
--- NOTE | 2018-08-17 13:13 | PN ---
PROGRESS NOTE CHIEF COMPLAINT: Congestive heart failure and renal failure. HISTORY OF PRESENT ILLNESS: This gentleman is slowly improving. Feels better. He is less short of breath. PHYSICAL EXAM: Chest is quite clear now. Cardiac exam is unchanged. Abdomen is soft and lower extremity edema is improving. IMPRESSION: 1. Congestive heart failure. 2. Cardiomyopathy. 3. Coronary artery disease. 4. Diabetes. 5. Anasarca. 6. Elevated blood sugars. PLAN: Stop steroids and continue to monitor blood sugars. MMODL / IJN: [id number] /
--- NOTE | 2018-08-17 14:11 | P.PN ---
Subjective Progress Note Date: 08/17/18 This is an 83-year-old gentleman who follows regularly with Dr. Jorge in the office. He has known history of persistent atrial fibrillation, hyperlipidemia, hypertension, diabetes, nonischemic cardiomyopathy, osteoarthritis, coronary artery disease with prior stent placement to the proximal OM in 2002, presented to the hospital a couple of weeks ago with symptoms of progressively worsening shortness of breath with associated productive cough and cough congestion. Patient had evidence of left lower lobe pneumonia and was being treated with antibiotic therapy. Patient persisted to be short of breath, sputum culture showed evidence of MRSA, infectious disease is also currently following. BNP level was obtained which came back to be elevated and for this reason a cardiology consultation was requested. Chest x- ray shows subsegmental atelectasis in the left lung base with no acute heart failure. Subsequent x-ray showed persistent right lower lobe infiltrate. EKG shows atrial fibrillation with rapid ventricular response. Chest x-ray repeated yesterday morning shows overall improved aeration from previous study. Blood pressure 103/50 with a heart rate in the 1 teens, 95% on room air. White blood cell count 8.4, hemoglobin 14.7, platelet count 109. Sodium 131, potassium 4.9, BUN 40, creatinine 0.9. BNP 2090. Total protein 5.0, albumin 2.7. We will discontinue the oral diuretics and start the patient on IV Lasix today. Obtain echocardiogram with Doppler study. Decrease aspirin to 81 mg daily. At the time of my examination this morning, patient still complaining of feeling short of breath, he has significant generalized edema throughout. 08/12/2018 Patient seen and examined this morning, diuresed well through the night last night, weight down 5 kg. We will continue current dose of IV Lasix drip, continue to monitor intake and output along with daily weights today. Sodium 131, potassium 4.5, BUN 37, creatinine 0.9. Blood pressure 86/60. 08/13/2018 Patient seen and examined today, continues to diurese significantly well. Weight is down another 2 kg today, BUN 38 and creatinine 0.9 today. 08/14/2008 Patient seen and examined today, continues to diurese well on IV Lasix drip. The weight today is down 5 kg, patient is feeling significantly better. We will discontinue the IV Lasix drip today and start the patient on IV push Lasix every 8 hourly. 08/16/2018 Patient seen and examined today, he continues to diurese well. Continues at this time to be on IV push Lasix. Sodium 131, potassium 4.2, BUN 34, creatinine 0.8. 08/17/2018: patient states he is feeling well today and feeling that he is getting better. He has had good urine output. heart rate is running in the low 100s, pulse ox 96% on room air.He continues to have lower extremity edema.repeat lab work shows a sodium of 1:30, potassium 5.0, chloride 85, CO2 39, BUN 36 and creatinine 0.9.he will be continued on Lasix 60 mg IV every 8 hours Objective - Vital Signs Vital signs: Vital Signs Temp 98.2 F 08/17/18 08:00 Pulse 124 H 08/17/18 12:00 Resp 20 08/17/18 12:00 BP 94/71 08/17/18 12:00 Pulse Ox 96 08/17/18 12:00 Intake & Output 08/16/18 08/17/18 08/17/18 18:59 06:59 18:59 Intake Total 760 500 240 Output Total 2700 3300 675 Balance -5280 -2800 -435 Weight 134 kg Intake: Intake, IV Titration 40 500 Amount Sodium Chloride 0.9% 1, 40 000 ml @ 20 mls/hr IV . Q24H MARIA C Rx#:[id number] Vancomycin 2,500 mg In 500 Sodium Chloride 0.9% 500 ml 500 ml @ 167 mls/hr IVPB Q24H MARIA C Rx#: [id number] Oral 720 240 Output: Urine 2700 3300 675 Other: Voiding Method Indwelling Catheter Indwelling Catheter Indwelling Catheter # Voids 1 # Bowel Movements 1 - Exam GENERAL:83-year-old gentleman in no acute distress at the time of my examination HEENT: Head is atraumatic, normocephalic. Pupils equal, round. Sclera anicteric. Conjunctiva are clear. Mucous membranes of the mouth are moist. Neck is supple. There is elevated jugular venous pressure. No carotid bruit is heard. HEART EXAMINATION: Heart S1 and S2 irregularly irregular a systolic ejection murmur is heard. CHEST EXAMINATION: Lungs reveal diminished air entry to bilateral bases. ABDOMEN: Soft, obese, nontender. Bowel sounds are heard. No organomegaly noted. EXTREMITIES: 2+ peripheral pulses with 2+ pedal edema. NEUROLOGIC patient is awake, alert and oriented 3 . - Labs CBC & Chem 7: 08/10/18 07:26 08/17/18 05:34 Labs: Abnormal Lab Results - Last 24 Hours (Table) 08/16/18 08/16/18 08/17/18 Range/Units 17:03 20:37 05:34 Sodium 130 L (137-145) mmol/L Chloride 85 L (98-107) mmol/L Carbon Dioxide 39 H (22-30) mmol/L BUN 36 H (9-20) mg/dL Glucose 123 H (74-99) mg/dL POC Glucose (mg/dL) 337 H 357 H (75-99) mg/dL Calcium 8.3 L (8.4-10.2) mg/dL 08/17/18 08/17/18 Range/Units 05:59 11:48 Sodium (137-145) mmol/L Chloride (98-107) mmol/L Carbon Dioxide (22-30) mmol/L BUN (9-20) mg/dL Glucose (74-99) mg/dL POC Glucose (mg/dL) 184 H 109 H (75-99) mg/dL Calcium (8.4-10.2) mg/dL Assessment and Plan Plan: #1 symptoms of progressively since shortness of breath with associated productive cough of Bilateral peripheral edema. Evidence of right lower lobe pneumonia, sputum cultures with evidence of MRSA. Combination of pneumonia and acute on chronic systolic heart failurec. #2 chronic persistent atrial fibrillation on Eliquis for anticoagulation #3 coronary artery disease with prior stent placement #4 hyperlipidemia #5 diabetes Plan From cardiology's perspective, we will continue the Lasix 60 mg IV every 8 hourly. Continue to monitor daily weights, daily lytes BUN and creatinine. Nurse Practitioner note has been reviewed, I agree with a documented findings and plan of care. Patient was seen and examined.
[2018-08-17 16:53] LABS: Glucose,Whole Blood 223 mg/dL (75-99)
[2018-08-17] MEDS: VANCOMYCIN 2,500 MG in SODIUM CHLORIDE 0.9% 500 ML 500 ML IVPB SCH (17:02)
[2018-08-17] MEDS: TAMSULOSIN 0.4 MG CAP.ER.24H PO SCH (18:11)
[2018-08-17 21:48] LABS: Glucose,Whole Blood 244 mg/dL (75-99)
[2018-08-17] MEDS: INSULIN DETEMIR 100 UNIT/ML 10 ML VIAL SQ SCH (23:41)
[2018-08-17] MEDS: MIRTAZAPINE 15 MG TAB PO SCH (23:44)
[2018-08-18] MEDS: FUROSEMIDE 10 MG/ML 10 ML VIAL IV SCH ×3 (00:15→17:15)
[2018-08-18 06:03] LABS: Glucose,Whole Blood 118 mg/dL (75-99)
[2018-08-18] MEDS: SODIUM CHLORIDE 0.9% 1,000 ML IV SCH ×2 (06:58→16:00)
[2018-08-18 07:33] LABS: Anion Gap 5 mmol/L; Blood Urea Nitrogen 42 mg/dL (9-20); Calcium 8.1 mg/dL (8.4-10.2); Carbon Dioxide 39 mmol/L (22-30); Chloride 86 mmol/L (98-107); Glucose 112 mg/dL (74-99); Potassium 4.3 mmol/L (3.5-5.1); Sodium 130 mmol/L (137-145)
[2018-08-18] MEDS: INSULIN ASPART 100 UNIT/ML 1 ML 10 ML VIAL SQ SCH ×4 (07:36→20:58)
[2018-08-18] MEDS: APIXABAN 2.5 MG TABLET PO SCH ×2 (08:07→21:05)
[2018-08-18] MEDS: METOPROLOL TARTRATE 25 MG TAB PO SCH ×2 (08:08→20:59)
[2018-08-18] MEDS: SPIRONOLACTONE 25 MG TAB PO SCH (08:08)
[2018-08-18] MEDS: ASPIRIN 81 MG PO SCH (08:08)
[2018-08-18] MEDS: CARBIDOPA-LEVODOPA 25-100 MG 1 EACH TAB PO SCH ×2 (08:08→21:05)
[2018-08-18] MEDS: AMIODARONE 200 MG TAB PO SCH (08:08)
[2018-08-18] MEDS: NYSTATIN 100,000 UNIT/ML SUSP 500,000 UNIT/5 ML CUP PO SCH ×4 (08:08→21:05)
[2018-08-18] MEDS: guaiFENesin 600 MG TABLET.ER PO SCH ×2 (08:08→21:05)
[2018-08-18] MEDS: NYSTATIN 100,000 UNIT/GM POWD 15 GM TOPICAL SCH ×3 (08:09→21:05)
[2018-08-18] MEDS: BUDESONIDE 0.5 MG/2 ML NEBU INHALATION SCH ×2 (09:54→20:01)
[2018-08-18] MEDS: IPRATROPIUM-ALBUTEROL 3 ML NEB INHALATION PRN ×2 (09:54→20:01)
[2018-08-18] MEDS: SACUBITRIL/VALSARTAN 24 MG-26 MG TABLET PO SCH ×2 (10:19→20:59)
[2018-08-18 11:12] LABS: Glucose,Whole Blood 141 mg/dL (75-99)
[2018-08-18] MEDS ORDERED: VANCOMYCIN TROUGH DUE 1 EACH MISC MISCELLANE ONE (15:00)
[2018-08-18] MEDS: VANCOMYCIN 2,500 MG in SODIUM CHLORIDE 0.9% 500 ML 500 ML IVPB SCH (15:50)
[2018-08-18 16:25] LABS: Glucose,Whole Blood 112 mg/dL (75-99)
[2018-08-18] MEDS: TAMSULOSIN 0.4 MG CAP.ER.24H PO SCH (17:15)
--- NOTE | 2018-08-18 17:47 | XR ---
EXAMINATION TYPE: XR chest 2V DATE OF EXAM: 08/18/2018 COMPARISON: 08/10/2018 HISTORY: Shortness of breath TECHNIQUE: Frontal and lateral views of the chest are obtained. FINDINGS: Scattered senescent parenchymal changes noted Patchy density right lower lobe may reflect developing infiltrate. Correlate clinically and progress studies are recommended. Heart size is stable. Mediastinal structures are stable and grossly unremarkable. No evidence for hilar prominence. Degenerative changes dorsal spine. IMPRESSION: 1. Patchy density right lower lobe may reflect developing infiltrate. Correlate clinically and progre ss studies are recommended.
[2018-08-18 20:47] LABS: Glucose,Whole Blood 120 mg/dL (75-99)
[2018-08-18] MEDS: INSULIN DETEMIR 100 UNIT/ML 10 ML VIAL SQ SCH (21:04)
[2018-08-18] MEDS: MIRTAZAPINE 15 MG TAB PO SCH (21:07)
--- NOTE | 2018-08-18 21:08 | PN ---
PROGRESS NOTE CHIEF COMPLAINT: Congestive heart failure and pneumonitis. HISTORY OF PRESENT ILLNESS: This gentleman is doing reasonably well, but he is still retaining a great deal of fluid. He is not short of breath and he has no chest pain. PHYSICAL EXAM: Chest is quite clear except for occasional rales. Cardiac exam is unremarkable except for his S3 and S4. The remainder of the exam demonstrates continued edema of the upper extremities with 4+ edema in the legs. IMPRESSION: 1. Chronic congestive heart failure. 2. Pneumonitis. PLAN: If and when he becomes stable, he could be transferred to a rehab facility. MMADAMARISL / IJN: [id number] /
[2018-08-19] MEDS: FUROSEMIDE 10 MG/ML 10 ML VIAL IV SCH ×2 (00:18→08:46)
[2018-08-19 06:17] LABS: Glucose,Whole Blood 88 mg/dL (75-99)
[2018-08-19] MEDS: INSULIN ASPART 100 UNIT/ML 1 ML 10 ML VIAL SQ SCH ×4 (06:19→21:30)
[2018-08-19 07:14] LABS: Potassium 4.5 mmol/L (3.5-5.1)
[2018-08-19] MEDS: IPRATROPIUM-ALBUTEROL 3 ML NEB INHALATION PRN ×2 (07:47→21:00)
[2018-08-19] MEDS: BUDESONIDE 0.5 MG/2 ML NEBU INHALATION SCH ×2 (07:48→20:59)
[2018-08-19] MEDS: FUROSEMIDE 250 MG in SODIUM CHLORIDE 0.9% 225 ML IVP SCH (09:24)
[2018-08-19] MEDS: CARBIDOPA-LEVODOPA 25-100 MG 1 EACH TAB PO SCH ×2 (09:24→21:30)
[2018-08-19] MEDS: SPIRONOLACTONE 25 MG TAB PO SCH (09:24)
[2018-08-19] MEDS: ASPIRIN 81 MG PO SCH (09:24)
[2018-08-19] MEDS: guaiFENesin 600 MG TABLET.ER PO SCH ×2 (09:24→21:30)
[2018-08-19] MEDS: AMIODARONE 200 MG TAB PO SCH (09:24)
[2018-08-19] MEDS: APIXABAN 2.5 MG TABLET PO SCH ×2 (09:24→21:30)
[2018-08-19] MEDS: SACUBITRIL/VALSARTAN 24 MG-26 MG TABLET PO SCH ×2 (09:25→23:46)
[2018-08-19] MEDS: METOPROLOL TARTRATE 25 MG TAB PO SCH ×2 (09:25→21:30)
[2018-08-19] MEDS: NYSTATIN 100,000 UNIT/ML SUSP 500,000 UNIT/5 ML CUP PO SCH ×4 (09:26→21:30)
[2018-08-19] MEDS: NYSTATIN 100,000 UNIT/GM POWD 15 GM TOPICAL SCH ×3 (09:26→21:19)
[2018-08-19 11:50] LABS: Glucose,Whole Blood 87 mg/dL (75-99)
--- NOTE | 2018-08-19 12:02 | P.CNPUL ---
History of Present Illness Consult date: 08/19/18 Requesting physician: Davey Riddle Reason for consult: other (Elevated bicarb level) Chief complaint: Shortness of breath History of present illness: This is a pleasant 83-year-old gentleman with a known history of a. fib fibrillation, coronary artery disease with stent placement, congestive heart failure, diabetes mellitus, hypertension, myocardial infarction, SVT, osteoarthritis area he is a lifelong nonsmoker. He was admitted way back on July 27 for shortness of breath and congestive heart failure. He had been on diuretics throughout most of his stay. Today his bicarb level was reported as 41 and we are consulted for the same. He has been initiated back on a Lasix drip at 10 mg per hour. His most recent chest x-ray does reveal density of the right lower lobe suspicious for developing infiltrate. Sputum on August 05 was positive for MRSA and he has been on vancomycin since. Blood cultures reveal no growth. Currently he is awake and alert in no acute distress. He is resting comfortably in bed. He is on room air and maintaining O2 saturations in the 90s, even up to 100%. He denies any worsening shortness of breath, cough or congestion. No chills or night sweats. Review of Systems 14 point review of system was conducted. All negative other than as mentioned in HPI. Past Medical History Past Medical History: Atrial Fibrillation, Coronary Artery Disease (CAD), Cancer , Chest Pain / Angina, Heart Failure, Diabetes Mellitus, Hypertension, Myocardial Infarction (DC), Osteoarthritis (OA), Skin Disorder, Supraventricular Tachycardia (SVT) Additional Past Medical History / Comment(s): hx gout, diet control diabetic(rx in past), hx kidney stones, skin cancer Last Myocardial Infarction Date:: 1992 History of Any Multi-Drug Resistant Organisms: MRSA Date of last positivie culture/infection: 08/05/18 MDRO Source:: mrsa sputum Past Surgical History: Appendectomy, Back Surgery, Heart Catheterization With Stent, Joint Replacement Additional Past Surgical History / Comment(s): bilateral knee replacement(left knee x 2), left hip replacement, two cardiac stents, spinal fusion, michael cataracts Past Anesthesia/Blood Transfusion Reactions: No Reported Reaction Date of Last Stent Placement:: unknown Additional Psychological History / Comment(s): Lifelong nonsmoker. Retired. Lives with his daughter Pily and her family. No recent travel. The experience. No animals in the home Smoking Status: Never smoker - Past Family History Brother(s) Family Medical History: Cancer Daughter(s) Family Medical History: Cancer Father Family Medical History: Cancer Medications and Allergies Home Medications Medication Instructions Recorded Confirmed Type Carvedilol [Coreg] 25 mg PO BID 08/03/16 07/28/18 History Amiodarone [Cordarone] 200 mg PO DAILY 03/26/18 07/28/18 History Apixaban [Eliquis] 2.5 mg PO BID 03/26/18 07/28/18 History Furosemide [Lasix] 40 mg PO DAILY 03/26/18 07/28/18 History Lisinopril [Zestril] 10 mg PO DAILY 03/26/18 07/28/18 History Aspirin EC [Ecotrin] 325 mg PO DAILY 07/28/18 07/28/18 History Atorvastatin [Lipitor] 40 mg PO DAILY 07/28/18 07/28/18 History Cholecalciferol [Vitamin D3] 5,000 unit PO DAILY 07/28/18 07/28/18 History Mirtazapine [Remeron] 15 mg PO HS 07/28/18 07/28/18 History Sacubitril/Valsartan [Entresto 24 1 tab PO BID 07/28/18 07/28/18 History mg-26 mg Tablet] Spironolactone [Aldactone] 25 mg PO DAILY 07/28/18 07/28/18 History traZODone HCL [Desyrel] 100 mg PO HS PRN 07/28/18 07/28/18 History Allergies Allergy/AdvReac Type Severity Reaction Status Date / Time No Known Allergies Allergy Verified 07/28/18 09:17 Physical Exam Vitals: Vital Signs Temp Pulse Pulse Resp BP BP Pulse Ox 08/19/18 08:40 98.1 F 70 18 78/42 100 08/19/18 07:49 104 H 08/19/18 04:00 97.4 F L 107 H 18 90/52 98 08/19/18 00:00 97.4 F L 122 H 18 103/63 97 08/18/18 20:15 100 08/18/18 20:01 102 H 08/18/18 20:00 97.6 F 112 H 16 85/51 99 08/18/18 17:14 105/60 08/18/18 16:00 98 F 100 17 90/50 99 08/18/18 15:42 113 H 18 08/18/18 12:00 113 H 18 Intake and Output 08/18/18 08/19/18 08/19/18 22:59 06:59 14:59 Intake Total 962 400 Output Total 500 800 Balance 462 -800 400 Intake: IV 240 Sodium Chloride 0.9% 1, 240 000 ml @ 20 mls/hr IV . Q24H [facility]IA C Rx#:[id number] Intake, IV Titration 500 160 Amount Sodium Chloride 0.9% 1, 160 000 ml @ 20 mls/hr IV . Q24H [facility] C Rx#:[id number] Vancomycin 2,500 mg In 500 Sodium Chloride 0.9% 500 ml 500 ml @ 167 mls/hr IVPB Q24H [facility]IA C Rx#: [id number] Oral 222 240 Output: Urine 500 800 Straight 500 Other: Voiding Method Indwelling Catheter Indwelling Catheter Indwelling Catheter # Bowel Movements 1 Weight 127 kg 127 kg GENERAL EXAM: Alert, obese, comfortable in no apparent distress. On room air. HEAD: Normocephalic. EYES: Normal reaction of pupils, equal size. NOSE: Clear with pink turbinates. THROAT: No erythema or exudates. NECK: No masses, no JVD. CHEST: No chest wall deformity. LUNGS: Equal air entry with crackles in the bases more so on the right. CVS: S1 and S2 normal with an audible murmur, irregular rhythm. ABDOMEN: No hepatosplenomegaly, normal bowel sounds, no guarding or rigidity. SPINE: No scoliosis or deformity SKIN: No rashes CENTRAL NERVOUS SYSTEM: No focal deficits, tone is normal in all 4 extremities. EXTREMITIES: There is 1-2+ peripheral edema. No clubbing, no cyanosis. Peripheral pulses are intact. Results - Laboratory Findings CBC and BMP: 08/10/18 07:26 08/19/18 06:14 PT/INR, D-dimer PT 12.2 sec (9.0-12.0) H 07/28/18 00:10 INR 1.3 (<1.2) H 07/28/18 00:10 Abnormal lab findings: Abnormal Labs 07/28/18 07/28/18 07/28/18 00:10 00:10 00:10 RBC MCV MCHC Plt Count 117 L Lymphocytes # 0.6 L Lymphocytes # (Manual) PT INR Sodium 136 L Chloride Carbon Dioxide BUN 32 H Glucose 183 H POC Glucose (mg/dL) Plasma Lactic Acid Otilio Calcium 8.3 L Total Bilirubin 2.0 H AST ALT 15 L Total Creatine Kinase <20 L Total Protein 5.8 L Albumin 3.2 L Urine Protein Urine Glucose (UA) Urine Bilirubin Hyaline Casts Urine Mucus 07/28/18 07/28/18 07/28/18 00:10 00:10 03:40 RBC MCV MCHC Plt Count Lymphocytes # Lymphocytes # (Manual) PT 12.2 H INR 1.3 H Sodium Chloride Carbon Dioxide BUN Glucose POC Glucose (mg/dL) Plasma Lactic Acid Otilio 2.8 H* 2.4 H* Calcium Total Bilirubin AST ALT Total Creatine Kinase Total Protein Albumin Urine Protein Urine Glucose (UA) Urine Bilirubin Hyaline Casts Urine Mucus 07/28/18 07/30/18 07/30/18 04:15 11:00 11:00 RBC 4.13 L MCV 100.3 H MCHC Plt Count 118 L Lymphocytes # Lymphocytes # (Manual) 0.82 L PT INR Sodium 135 L Chloride Carbon Dioxide BUN 31 H Glucose 162 H POC Glucose (mg/dL) Plasma Lactic Acid Otilio Calcium 8.0 L Total Bilirubin AST 13 L ALT 18 L Total Creatine Kinase Total Protein 5.5 L Albumin 3.0 L Urine Protein 2+ H Urine Glucose (UA) Trace H Urine Bilirubin 1+ H Hyaline Casts 13 H Urine Mucus Many H 07/30/18 07/30/18 07/30/18 12:07 17:41 19:41 RBC MCV MCHC Plt Count Lymphocytes # Lymphocytes # (Manual) PT INR Sodium Chloride Carbon Dioxide BUN Glucose POC Glucose (mg/dL) 164 H 111 H 165 H Plasma Lactic Acid Otilio Calcium Total Bilirubin AST ALT Total Creatine Kinase Total Protein Albumin Urine Protein Urine Glucose (UA) Urine Bilirubin Hyaline Casts Urine Mucus 07/31/18 07/31/18 07/31/18 07:32 12:05 17:22 RBC MCV MCHC Plt Count Lymphocytes # Lymphocytes # (Manual) PT INR Sodium Chloride Carbon Dioxide BUN Glucose POC Glucose (mg/dL) 107 H 145 H 153 H Plasma Lactic Acid Otilio Calcium Total Bilirubin AST ALT Total Creatine Kinase Total Protein Albumin Urine Protein Urine Glucose (UA) Urine Bilirubin Hyaline Casts Urine Mucus 07/31/18 07/31/1818 20:27 21:08 07:06 RBC MCV MCHC Plt Count Lymphocytes # Lymphocytes # (Manual) PT INR Sodium Chloride Carbon Dioxide BUN Glucose POC Glucose (mg/dL) 199 H 177 H 156 H Plasma Lactic Acid Otilio Calcium Total Bilirubin AST ALT Total Creatine Kinase Total Protein Albumin Urine Protein Urine Glucose (UA) Urine Bilirubin Hyaline Casts Urine Mucus 08/01/18 08/01/18 08/01/18 11:41 16:45 20:11 RBC MCV MCHC Plt Count Lymphocytes # Lymphocytes # (Manual) PT INR Sodium Chloride Carbon Dioxide BUN Glucose POC Glucose (mg/dL) 230 H 287 H 274 H Plasma Lactic Acid Otilio Calcium Total Bilirubin AST ALT Total Creatine Kinase Total Protein Albumin Urine Protein Urine Glucose (UA) Urine Bilirubin Hyaline Casts Urine Mucus 08/02/18 08/02/18 08/02/18 07:20 11:24 16:55 RBC MCV MCHC Plt Count Lymphocytes # Lymphocytes # (Manual) PT INR Sodium Chloride Carbon Dioxide BUN Glucose POC Glucose (mg/dL) 212 H 229 H 228 H Plasma Lactic Acid Otilio Calcium Total Bilirubin AST ALT Total Creatine Kinase Total Protein Albumin Urine Protein Urine Glucose (UA) Urine Bilirubin Hyaline Casts Urine Mucus 08/02/18 08/03/18 08/03/18 20:16 07:04 12:22 RBC MCV MCHC Plt Count Lymphocytes # Lymphocytes # (Manual) PT INR Sodium Chloride Carbon Dioxide BUN Glucose POC Glucose (mg/dL) 247 H 197 H 282 H Plasma Lactic Acid Otilio Calcium Total Bilirubin AST ALT Total Creatine Kinase Total Protein Albumin Urine Protein Urine Glucose (UA) Urine Bilirubin Hyaline Casts Urine Mucus 08/03/18 08/03/18 08/04/18 16:19 19:48 06:53 RBC MCV MCHC Plt Count Lymphocytes # Lymphocytes # (Manual) PT INR Sodium Chloride Carbon Dioxide BUN Glucose POC Glucose (mg/dL) 348 H 297 H 209 H Plasma Lactic Acid Otilio Calcium Total Bilirubin AST ALT Total Creatine Kinase Total Protein Albumin Urine Protein Urine Glucose (UA) Urine Bilirubin Hyaline Casts Urine Mucus 08/04/18 08/04/18 08/04/18 11:34 17:04 20:05 RBC MCV MCHC Plt Count Lymphocytes # Lymphocytes # (Manual) PT INR Sodium Chloride Carbon Dioxide BUN Glucose POC Glucose (mg/dL) 322 H 310 H 276 H Plasma Lactic Acid Otilio Calcium Total Bilirubin AST ALT Total Creatine Kinase Total Protein Albumin Urine Protein Urine Glucose (UA) Urine Bilirubin Hyaline Casts Urine Mucus 08/05/18 08/05/18 08/05/18 06:45 11:43 17:02 RBC MCV MCHC Plt Count Lymphocytes # Lymphocytes # (Manual) PT INR Sodium Chloride Carbon Dioxide BUN Glucose POC Glucose (mg/dL) 203 H 255 H 242 H Plasma Lactic Acid Otilio Calcium Total Bilirubin AST ALT Total Creatine Kinase Total Protein Albumin Urine Protein Urine Glucose (UA) Urine Bilirubin Hyaline Casts Urine Mucus 08/05/18 08/06/18 08/06/18 20:07 07:04 11:38 RBC MCV MCHC Plt Count Lymphocytes # Lymphocytes # (Manual) PT INR Sodium Chloride Carbon Dioxide BUN Glucose POC Glucose (mg/dL) 245 H 192 H 288 H Plasma Lactic Acid Otilio Calcium Total Bilirubin AST ALT Total Creatine Kinase Total Protein Albumin Urine Protein Urine Glucose (UA) Urine Bilirubin Hyaline Casts Urine Mucus 08/06/18 08/06/18 08/07/18 17:06 21:33 06:38 RBC MCV 100.4 H MCHC Plt Count 125 L Lymphocytes # 0.4 L Lymphocytes # (Manual) PT INR Sodium Chloride Carbon Dioxide BUN Glucose POC Glucose (mg/dL) 290 H 302 H Plasma Lactic Acid Otilio Calcium Total Bilirubin AST ALT Total Creatine Kinase Total Protein Albumin Urine Protein Urine Glucose (UA) Urine Bilirubin Hyaline Casts Urine Mucus 08/07/18 08/07/18 08/07/18 06:38 07:16 11:20 RBC MCV MCHC Plt Count Lymphocytes # Lymphocytes # (Manual) PT INR Sodium 132 L Chloride Carbon Dioxide BUN 34 H Glucose 227 H POC Glucose (mg/dL) 206 H 245 H Plasma Lactic Acid Otilio Calcium 7.9 L Total Bilirubin AST ALT Total Creatine Kinase Total Protein 5.2 L Albumin 2.7 L Urine Protein Urine Glucose (UA) Urine Bilirubin Hyaline Casts Urine Mucus 08/07/18 08/07/18 08/08/18 17:11 19:50 07:08 RBC MCV MCHC Plt Count Lymphocytes # Lymphocytes # (Manual) PT INR Sodium Chloride Carbon Dioxide BUN Glucose POC Glucose (mg/dL) 204 H 237 H 182 H Plasma Lactic Acid Otilio Calcium Total Bilirubin AST ALT Total Creatine Kinase Total Protein Albumin Urine Protein Urine Glucose (UA) Urine Bilirubin Hyaline Casts Urine Mucus 08/08/18 08/08/18 08/08/18 11:26 16:41 21:05 RBC MCV MCHC Plt Count Lymphocytes # Lymphocytes # (Manual) PT INR Sodium Chloride Carbon Dioxide BUN Glucose POC Glucose (mg/dL) 222 H 252 H 334 H Plasma Lactic Acid Otilio Calcium Total Bilirubin AST ALT Total Creatine Kinase Total Protein Albumin Urine Protein Urine Glucose (UA) Urine Bilirubin Hyaline Casts Urine Mucus 08/09/18 08/09/18 08/09/18 07:24 12:09 17:45 RBC MCV MCHC Plt Count Lymphocytes # Lymphocytes # (Manual) PT INR Sodium Chloride Carbon Dioxide BUN Glucose POC Glucose (mg/dL) 189 H 206 H 294 H Plasma Lactic Acid Otilio Calcium Total Bilirubin AST ALT Total Creatine Kinase Total Protein Albumin Urine Protein Urine Glucose (UA) Urine Bilirubin Hyaline Casts Urine Mucus 08/09/18 08/10/18 08/10/18 20:06 07:10 07:26 RBC MCV MCHC Plt Count Lymphocytes # Lymphocytes # (Manual) PT INR Sodium 131 L Chloride Carbon Dioxide BUN 40 H Glucose 228 H POC Glucose (mg/dL) 304 H 244 H Plasma Lactic Acid Otilio Calcium 7.9 L Total Bilirubin AST ALT Total Creatine Kinase Total Protein 5.0 L Albumin 2.7 L Urine Protein Urine Glucose (UA) Urine Bilirubin Hyaline Casts Urine Mucus 08/10/18 08/10/18 08/10/18 07:26 11:55 16:34 RBC MCV 103.8 H MCHC 30.6 L Plt Count 109 L Lymphocytes # 0.3 L Lymphocytes # (Manual) PT INR Sodium Chloride Carbon Dioxide BUN Glucose POC Glucose (mg/dL) 236 H 246 H Plasma Lactic Acid Otilio Calcium Total Bilirubin AST ALT Total Creatine Kinase Total Protein Albumin Urine Protein Urine Glucose (UA) Urine Bilirubin Hyaline Casts Urine Mucus 08/10/18 08/11/18 08/11/18 21:14 06:33 12:03 RBC MCV MCHC Plt Count Lymphocytes # Lymphocytes # (Manual) PT INR Sodium Chloride Carbon Dioxide BUN Glucose POC Glucose (mg/dL) 252 H 194 H 243 H Plasma Lactic Acid Otilio Calcium Total Bilirubin AST ALT Total Creatine Kinase Total Protein Albumin Urine Protein Urine Glucose (UA) Urine Bilirubin Hyaline Casts Urine Mucus 08/11/18 08/11/18 08/12/18 16:35 20:35 05:51 RBC MCV MCHC Plt Count Lymphocytes # Lymphocytes # (Manual) PT INR Sodium Chloride Carbon Dioxide BUN Glucose POC Glucose (mg/dL) 257 H 247 H 147 H Plasma Lactic Acid Otilio Calcium Total Bilirubin AST ALT Total Creatine Kinase Total Protein Albumin Urine Protein Urine Glucose (UA) Urine Bilirubin Hyaline Casts Urine Mucus 08/12/18 08/12/18 08/12/18 06:54 11:46 16:25 RBC MCV MCHC Plt Count Lymphocytes # Lymphocytes # (Manual) PT INR Sodium 131 L Chloride 90 L Carbon Dioxide 34 H BUN 37 H Glucose 139 H POC Glucose (mg/dL) 224 H 293 H Plasma Lactic Acid Otilio Calcium 7.4 L Total Bilirubin AST ALT Total Creatine Kinase Total Protein Albumin Urine Protein Urine Glucose (UA) Urine Bilirubin Hyaline Casts Urine Mucus 08/12/18 08/13/18 08/13/18 21:01 05:52 07:29 RBC MCV MCHC Plt Count Lymphocytes # Lymphocytes # (Manual) PT INR Sodium 131 L Chloride 89 L Carbon Dioxide 35 H BUN 38 H Glucose 109 H POC Glucose (mg/dL) 306 H 130 H Plasma Lactic Acid Otilio Calcium 7.8 L Total Bilirubin AST ALT Total Creatine Kinase Total Protein Albumin Urine Protein Urine Glucose (UA) Urine Bilirubin Hyaline Casts Urine Mucus 08/13/18 08/13/18 08/13/18 11:32 16:21 20:52 RBC MCV MCHC Plt Count Lymphocytes # Lymphocytes # (Manual) PT INR Sodium Chloride Carbon Dioxide BUN Glucose POC Glucose (mg/dL) 113 H 144 H 223 H Plasma Lactic Acid Otilio Calcium Total Bilirubin AST ALT Total Creatine Kinase Total Protein Albumin Urine Protein Urine Glucose (UA) Urine Bilirubin Hyaline Casts Urine Mucus 08/14/18 08/14/18 08/14/18 05:34 06:26 11:53 RBC MCV MCHC Plt Count Lymphocytes # Lymphocytes # (Manual) PT INR Sodium 131 L Chloride 86 L Carbon Dioxide 39 H BUN 35 H Glucose 100 H POC Glucose (mg/dL) 108 H 109 H Plasma Lactic Acid Otilio Calcium 7.8 L Total Bilirubin AST ALT Total Creatine Kinase Total Protein Albumin Urine Protein Urine Glucose (UA) Urine Bilirubin Hyaline Casts Urine Mucus 08/14/18 08/14/18 08/15/18 16:30 21:21 05:53 RBC MCV MCHC Plt Count Lymphocytes # Lymphocytes # (Manual) PT INR Sodium 128 L Chloride 84 L Carbon Dioxide 38 H BUN 36 H Glucose 131 H POC Glucose (mg/dL) 214 H 203 H Plasma Lactic Acid Otilio Calcium 7.9 L Total Bilirubin AST ALT Total Creatine Kinase Total Protein Albumin Urine Protein Urine Glucose (UA) Urine Bilirubin Hyaline Casts Urine Mucus 08/15/18 08/15/18 08/15/18 06:33 11:44 16:19 RBC MCV MCHC Plt Count Lymphocytes # Lymphocytes # (Manual) PT INR Sodium Chloride Carbon Dioxide BUN Glucose POC Glucose (mg/dL) 126 H 264 H 269 H Plasma Lactic Acid Otilio Calcium Total Bilirubin AST ALT Total Creatine Kinase Total Protein Albumin Urine Protein Urine Glucose (UA) Urine Bilirubin Hyaline Casts Urine Mucus 08/15/18 08/16/18 08/16/18 20:36 05:52 06:08 RBC MCV MCHC Plt Count Lymphocytes # Lymphocytes # (Manual) PT INR Sodium 131 L Chloride 86 L Carbon Dioxide 37 H BUN 34 H Glucose 149 H POC Glucose (mg/dL) 342 H 143 H Plasma Lactic Acid Otilio Calcium 8.0 L Total Bilirubin AST ALT Total Creatine Kinase Total Protein Albumin Urine Protein Urine Glucose (UA) Urine Bilirubin Hyaline Casts Urine Mucus 08/16/18 08/16/18 08/16/18 11:19 17:03 20:37 RBC MCV MCHC Plt Count Lymphocytes # Lymphocytes # (Manual) PT INR Sodium Chloride Carbon Dioxide BUN Glucose POC Glucose (mg/dL) 198 H 337 H 357 H Plasma Lactic Acid Otilio Calcium Total Bilirubin AST ALT Total Creatine Kinase Total Protein Albumin Urine Protein Urine Glucose (UA) Urine Bilirubin Hyaline Casts Urine Mucus 08/17/18 08/17/18 08/17/18 05:34 05:59 11:48 RBC MCV MCHC Plt Count Lymphocytes # Lymphocytes # (Manual) PT INR Sodium 130 L Chloride 85 L Carbon Dioxide 39 H BUN 36 H Glucose 123 H POC Glucose (mg/dL) 184 H 109 H Plasma Lactic Acid Otilio Calcium 8.3 L Total Bilirubin AST ALT Total Creatine Kinase Total Protein Albumin Urine Protein Urine Glucose (UA) Urine Bilirubin Hyaline Casts Urine Mucus 08/17/18 08/17/18 08/18/18 16:25 21:46 06:01 RBC MCV MCHC Plt Count Lymphocytes # Lymphocytes # (Manual) PT INR Sodium Chloride Carbon Dioxide BUN Glucose POC Glucose (mg/dL) 223 H 244 H 118 H Plasma Lactic Acid Otilio Calcium Total Bilirubin AST ALT Total Creatine Kinase Total Protein Albumin Urine Protein Urine Glucose (UA) Urine Bilirubin Hyaline Casts Urine Mucus 08/18/18 08/18/18 08/18/18 06:44 11:10 16:22 RBC MCV MCHC Plt Count Lymphocytes # Lymphocytes # (Manual) PT INR Sodium 130 L Chloride 86 L Carbon Dioxide 39 H BUN 42 H Glucose 112 H POC Glucose (mg/dL) 141 H 112 H Plasma Lactic Acid Otilio Calcium 8.1 L Total Bilirubin AST ALT Total Creatine Kinase Total Protein Albumin Urine Protein Urine Glucose (UA) Urine Bilirubin Hyaline Casts Urine Mucus 08/18/18 08/19/18 20:46 06:14 RBC MCV MCHC Plt Count Lymphocytes # Lymphocytes # (Manual) PT INR Sodium 131 L Chloride 86 L Carbon Dioxide 41 H* BUN 49 H Glucose POC Glucose (mg/dL) 120 H Plasma Lactic Acid Otilio Calcium 8.0 L Total Bilirubin AST ALT Total Creatine Kinase Total Protein Albumin Urine Protein Urine Glucose (UA) Urine Bilirubin Hyaline Casts Urine Mucus - Diagnostic Findings Chest x-ray: image reviewed Assessment and Plan Assessment: Impression: #1 Acute exacerbation of chronic systolic congestive heart failure with ejection fraction 30-35%. Currently on a Lasix drip at 10 mg per hour. #2 Methicillin-resistant Staphylococcus aureus positive which could represent purulent tracheobronchitis. No clear evidence of pneumonia.. #3 Volume contraction alkalosis secondary to diuretics. Bicarb 41. #4 Atrial fibrillation anticoagulated with Eliquis. #5 History of coronary artery disease with previous stent placement. #6 Obesity. #7 Diabetes mellitus. #8 Hypertension. #9 Osteoarthritis. #10 History of SVT. Plan: The patient was seen and evaluated by Dr. Elkins. Chest x-ray and labs were reviewed. We do suspect volume contraction alkalosis. The patient does have evidence of fluid volume overload and is currently on a Lasix drip again at 10 mg per hour. He remains on vancomycin for the MRSA pneumonia. Continue with his current medications. We will increase his activity as tolerated. We'll continue to follow and make further recommendations based on his clinical status. I, the cosigning physician, performed a history & physical examination of the patient. Lungs sounds with basilar crackles. Maintaining good O2 saturations in the 90s on room air. I discussed the assessment and plan of care with my nurse practitioner, Leatha Cook. I attest to the above consultation as dictated by her. Time with Patient: Greater than 30
--- NOTE | 2018-08-19 13:22 | P.PN ---
Subjective Progress Note Date: 08/19/18 This is a 83-year-old gentleman with history of chronic atrial fibrillation, coronary artery disease with stent placement and congestive heart failure who was admitted with complaints of increasing shortness of breath and congestive heart failure. Patient has been on diuretic therapy since admission. Patient still has significant fluid overload. Patient is back on IV Lasix drip. Patient is also being treated for possible pneumonia. Denies any chest pain. Harpooner also is consulted because of her alkalosis. They recommended continuation of IV Lasix drip at this time. Patient is also on amiodarone, aspirin, anticoagulation therapy and Entresto along with Aldactone. Lab values showed potassium 4.5. Creatinine is 1.15, BUN and is 49, carbon dioxide is 41. His proBNP is more than 2000. We'll continue current medical therapy Objective - Vital Signs Vital signs: Vital Signs Temp 98.1 F 08/19/18 08:40 Pulse 86 08/19/18 08:40 Resp 18 08/19/18 08:40 BP 78/42 08/19/18 08:40 Pulse Ox 100 08/19/18 08:40 Intake & Output 08/18/18 08/19/18 08/19/18 18:59 06:59 18:59 Intake Total 1664 400 Output Total 1900 800 Balance -236 -800 400 Weight 127 kg 127 kg Intake: IV 240 Sodium Chloride 0.9% 1, 240 000 ml @ 20 mls/hr IV . Q24H [facility] C Rx#:[id number] Intake, IV Titration 500 160 Amount Sodium Chloride 0.9% 1, 160 000 ml @ 20 mls/hr IV . Q24H [facility] C Rx#:[id number] Vancomycin 2,500 mg In 500 Sodium Chloride 0.9% 500 ml 500 ml @ 167 mls/hr IVPB Q24H [facility] C Rx#: [id number] Oral 924 240 Output: Urine 1900 800 Straight 700 Other: Voiding Method Indwelling Catheter Indwelling Catheter Indwelling Catheter # Bowel Movements 1 - Exam GENERAL EXAM: Patient is alert and oriented and doesn't appear to be in any acute distress HEENT: Normocephalic. Normal reaction of pupils, equal size, normal range of extraocular motion. No erythema or exudates in the throat. NECK: No masses, no nuchal rigidity. CHEST: No chest wall deformity. LUNGS: Diminished air entry. HEART: S1 and S2 normal . Irregular heart rhythm ABDOMEN: No hepatosplenomegaly, normal bowel sounds, no guarding or rigidity. SKIN: No rashes CENTRAL NERVOUS SYSTEM: No focal deficits. EXTREMITIES: 2-3+ edema - Labs CBC & Chem 7: 08/10/18 07:26 08/19/18 06:14 Labs: Abnormal Lab Results - Last 24 Hours (Table) 08/18/18 08/18/18 08/19/18 Range/Units 16:22 20:46 06:14 Sodium 131 L (137-145) mmol/L Chloride 86 L (98-107) mmol/L Carbon Dioxide 41 H* (22-30) mmol/L BUN 49 H (9-20) mg/dL POC Glucose (mg/dL) 112 H 120 H (75-99) mg/dL Calcium 8.0 L (8.4-10.2) mg/dL Assessment and Plan (1) Cardiomyopathy Current Visit: Yes Status: Acute Code(s): I42.9 - CARDIOMYOPATHY, UNSPECIFIED SNOMED Code(s): 82613761 (2) Atrial fibrillation with RVR Current Visit: Yes Status: Acute Code(s): I48.91 - UNSPECIFIED ATRIAL FIBRILLATION SNOMED Code(s): 645031886109188 (3) CHF exacerbation Current Visit: Yes Status: Acute Code(s): I50.9 - HEART FAILURE, UNSPECIFIED SNOMED Code(s): 69917940 (4) Pneumonia Current Visit: Yes Status: Acute Code(s): J18.9 - PNEUMONIA, UNSPECIFIED ORGANISM SNOMED Code(s): 574586660 (5) Acute on chronic systolic CHF (congestive heart failure) Current Visit: Yes Status: Acute Code(s): I50.23 - ACUTE ON CHRONIC SYSTOLIC (CONGESTIVE) HEART FAILURE SNOMED Code(s): 960385012 Plan: Continue current medical therapy including IV Lasix drip. Patient is also an antibiotic. Prognosis is guarded
[2018-08-19 16:47] LABS: Glucose,Whole Blood 112 mg/dL (75-99)
[2018-08-19] MEDS: TAMSULOSIN 0.4 MG CAP.ER.24H PO SCH (18:10)
[2018-08-19 20:20] LABS: Glucose,Whole Blood 155 mg/dL (75-99)
[2018-08-19] MEDS: SODIUM CHLORIDE 0.9% 1,000 ML IV SCH (20:36)
[2018-08-19] MEDS: INSULIN DETEMIR 100 UNIT/ML 10 ML VIAL SQ SCH (21:11)
[2018-08-19] MEDS: MIRTAZAPINE 15 MG TAB PO SCH (21:30)
[2018-08-19] MEDS: VANCOMYCIN 2,000 MG in SODIUM CHLORIDE 0.9% 500 ML 500 ML IVPB SCH (21:31)
[2018-08-20 05:58] LABS: Glucose,Whole Blood 133 mg/dL (75-99)
[2018-08-20] MEDS: INSULIN ASPART 100 UNIT/ML 1 ML 10 ML VIAL SQ SCH ×4 (06:30→23:13)
[2018-08-20 07:10] LABS: Calcium 8.1 mg/dL (8.4-10.2); Potassium 4.4 mmol/L (3.5-5.1)
[2018-08-20 07:24] LABS: HCT 42.3 % (39.0-53.0); HGB 13.7 gm/dL (13.0-17.5); MCH 32.6 pg (25.0-35.0); MCHC 32.5 g/dL (31.0-37.0); MCV 100.3 fL (80.0-100.0); Macrocytosis Slight; Mean Platelet Volume 6.2; RBC 4.22 m/uL (4.30-5.90); RDW 14.8 % (11.5-15.5)
[2018-08-20] MEDS: BUDESONIDE 0.5 MG/2 ML NEBU INHALATION SCH ×2 (07:43→20:53)
[2018-08-20 08:49] LABS: Platelet Count 75 k/uL (150-450)
[2018-08-20] MEDS: FUROSEMIDE 250 MG in SODIUM CHLORIDE 0.9% 225 ML IVP SCH (09:31)
[2018-08-20] MEDS: guaiFENesin 600 MG TABLET.ER PO SCH ×2 (09:32→19:52)
[2018-08-20] MEDS: AMIODARONE 200 MG TAB PO SCH (09:32)
[2018-08-20] MEDS: SPIRONOLACTONE 25 MG TAB PO SCH (09:32)
[2018-08-20] MEDS: ASPIRIN 81 MG PO SCH (09:32)
[2018-08-20] MEDS: SACUBITRIL/VALSARTAN 24 MG-26 MG TABLET PO SCH ×2 (09:32→19:44)
[2018-08-20] MEDS: CARBIDOPA-LEVODOPA 25-100 MG 1 EACH TAB PO SCH ×2 (09:32→19:52)
[2018-08-20] MEDS: APIXABAN 2.5 MG TABLET PO SCH ×2 (09:32→19:52)
[2018-08-20] MEDS: SODIUM CHLORIDE 0.9% 1,000 ML IV SCH (09:32)
[2018-08-20] MEDS: NYSTATIN 100,000 UNIT/GM POWD 15 GM TOPICAL SCH ×3 (09:33→19:53)
--- NOTE | 2018-08-20 09:48 | ECHOF ---
Referral Reason:repeat echo MEASUREMENTS -------- HEIGHT: 162.6 cm WEIGHT: 125.6 kg BP: 82/56 FINDINGS -------- Undetermined rhythm. Limited Study Echo done 08/06/1708/11/2018. Overall left ventricular systolic function is severely impaired with, an EF between 25 - 30 %. Sept al Hypokinesis [place] Hypokinesis. T here is global hypokinesia with atypical motion of septum 5.0mg OF Lumason UTLIZED: 2 OR MORE WALL SEGMENTS NOT VISUALIZED. There is no pericardial effusion. CONCLUSIONS -------- 1. Limited Study Echo done 08/06/1708/11/2018. 2. Overall left ventricular systolic function is severely impaired with, an EF between 25 - 30 %. 3. Septal Hypokinesis 4. [place] Hypokinesis. 5. There is global hypokinesia with atypical motion of septum 6. 5.0mg OF Lumason UTLIZED: 2 OR MORE WALL SEGMENTS NOT VISUALIZED. 7. There is no pericardial effusion. [employer] SALES CONSULTANT: Pily Ramires RDCS
--- NOTE | 2018-08-20 10:46 | P.PN ---
Progress Note - Text Patient is doing better. He is less short of breath now. He was admitted with congestive heart failure and is being treated for pneumonia and was an IV Lasix drip His blood pressure is low in the 80s and today I held ENTRESTO for a blood pressure of less than 100 mmHg I spoke to the nurse and recommended continuing beta blockers instead of ENTRESTO for rate control of atrial fibrillation He is taking A than 2.5 g twice daily for stroke prevention Blood pressure 70-50 mg mercury, pulse rate 104/m irregular, afebrile Breath sounds are reduced bilaterally with some crackles at the bases Heart sounds irregular no murmurs or gallops Abdomen soft Mild bilateral lower symmetry edema extremities are warm Echo shows severe LV systolic dysfunction ejection fraction 25-30% no pericardial effusion Impression Congestive heart failure systolic acute and chronic Pneumonitis Suggest Continue IV Lasix hold ENTRESTO since blood pressure is quite low continue IV antibiotics continue beta blockers, check TSH
[2018-08-20 11:53] LABS: Glucose,Whole Blood 199 mg/dL (75-99)
--- NOTE | 2018-08-20 11:53 | P.PN ---
Subjective Progress Note Date: 08/20/18 Principal diagnosis: Acute exacerbation of chronic systolic congestive heart failure with ejection fraction of 30-35%, MRSA tracheobronchitis This is a pleasant 83-year-old gentleman with a known history of a. fib fibrillation, coronary artery disease with stent placement, congestive heart failure, diabetes mellitus, hypertension, myocardial infarction, SVT, osteoarthritis area he is a lifelong nonsmoker. He was admitted way back on July 27 for shortness of breath and congestive heart failure. He had been on diuretics throughout most of his stay. Today his bicarb level was reported as 41 and we are consulted for the same. He has been initiated back on a Lasix drip at 10 mg per hour. His most recent chest x-ray does reveal density of the right lower lobe suspicious for developing infiltrate. Sputum on August 05 was positive for MRSA and he has been on vancomycin since. Blood cultures reveal no growth. Currently he is awake and alert in no acute distress. He is resting comfortably in bed. He is on room air and maintaining O2 saturations in the 90s, even up to 100%. He denies any worsening shortness of breath, cough or congestion. No chills or night sweats. On 08/20/2018 patient seen in follow-up on selective care unit. Resting comfortably in bed, in no acute distress, he is on room air with a pulse ox of 93%. [place] dyspnea, denies any chest pain, afebrile, no chills, blood pressure is 77/50, patient is asymptomatic, patient is on Lasix drip at 10 mg per hour, he is on Entresto, cardiology is following, and interestingly will be put on hold. Sputum culture was positive for MRSA, and Xi, blood cultures were negative, patient is on antibiotic coverage including vancomycin. No pulmonary complaints, no chest congestion, no cough, no chest wall tenderness. No clear evidence of pneumonia was noted on the chest x-ray, patient has purulent tracheobronchitis with cultures positive for MRSA. Objective - Vital Signs Vital signs: Vital Signs Temp 97.7 F 08/20/18 08:40 Pulse 120 H 08/20/18 09:05 Resp 18 08/20/18 08:40 BP 76/52 08/20/18 09:05 Pulse Ox 98 08/20/18 08:40 Intake & Output 12/08/20/18 08/20/18 18:59 06:59 18:59 Intake Total 880 Output Total 2475 2400 Balance -1595 -2400 Weight 127 kg 126 kg Intake: Intake, IV Titration 160 Amount Sodium Chloride 0.9% 1, 160 000 ml @ 20 mls/hr IV . Q24H [facility] Rx#:[id number] Oral 720 Output: Urine 2475 2400 Other: Voiding Method Indwelling Catheter Indwelling Catheter Indwelling Catheter - Exam GENERAL EXAM: Alert, obese, 83-year-old white male comfortable in no apparent distress. HEAD: Normocephalic/atraumatic. EYES: Normal reaction of pupils, equal size. Conjunctiva pink, sclera white. NOSE: Clear with pink turbinates. THROAT: No erythema or exudates. NECK: No masses, no JVD, no thyroid enlargement, no adenopathy. CHEST: No chest wall deformity. Symmetrical expansion. LUNGS: Equal air entry with no crackles, wheeze, rhonchi or dullness. CVS: Regular rate and rhythm, normal S1 and S2, no gallops, no murmurs, no rubs ABDOMEN: Soft, nontender. No hepatosplenomegaly, normal bowel sounds, no guarding or rigidity. EXTREMITIES: No clubbing, no edema, no cyanosis, 2+ pulses and upper and lower extremities. Bilateral upper extremities are swollen, bruised MUSCULOSKELETAL: Muscle strength and tone normal. SPINE: No scoliosis or deformity SKIN: No rashes CENTRAL NERVOUS SYSTEM: Alert and oriented -3. No focal deficits, tone is normal in all 4 extremities. PSYCHIATRIC: Alert and oriented -3. Appropriate affect. Intact judgment and insight. - Labs CBC & Chem 7: 08/20/18 06:16 08/20/18 06:16 Labs: Abnormal Lab Results - Last 24 Hours (Table) 08/19/18 08/19/18 08/20/18 Range/Units 16:13 20:17 05:56 RBC (4.30-5.90) m/uL MCV (80.0-100.0) fL Plt Count (150-450) k/uL Sodium (137-145) mmol/L Chloride (98-107) mmol/L Carbon Dioxide (22-30) mmol/L BUN (9-20) mg/dL Glucose (74-99) mg/dL POC Glucose (mg/dL) 112 H 155 H 133 H (75-99) mg/dL Calcium (8.4-10.2) mg/dL 08/20/18 08/20/18 Range/Units 06:16 06:16 RBC 4.22 L (4.30-5.90) m/uL MCV 100.3 H (80.0-100.0) fL Plt Count 75 L (150-450) k/uL Sodium 129 L (137-145) mmol/L Chloride 88 L (98-107) mmol/L Carbon Dioxide 34 H (22-30) mmol/L BUN 47 H (9-20) mg/dL Glucose 125 H (74-99) mg/dL POC Glucose (mg/dL) (75-99) mg/dL Calcium 8.1 L (8.4-10.2) mg/dL Assessment and Plan Plan: Assessment: #1 Acute exacerbation of chronic systolic congestive heart failure with ejection fraction 30-35%. Currently on a Lasix drip at 10 mg per hour. #2 Methicillin-resistant Staphylococcus aureus positive which could represent purulent tracheobronchitis. No clear evidence of pneumonia.. #3 Volume contraction alkalosis secondary to diuretics. Bicarb 41. #4 Atrial fibrillation anticoagulated with Eliquis. #5 History of coronary artery disease with previous stent placement. #6 Obesity. #7 Diabetes mellitus. #8 Hypertension. #9 Osteoarthritis. #10 History of SVT. Plan: Patient denies any dyspnea, denies any chest congestion, no pulmonary complaints , no clear evidence of pneumonia was seen on the chest x-ray, no fever or chills , patient is already on vancomycin coverage. From pulmonary perspective patient is stable, we will follow on as-needed basis. I performed a history & physical examination of the patient and discussed their management with my nurse practitioner, Bree Andrew. I reviewed the nurse practitioner's note and agree with the documented findings and plan of care. Lung sounds are positive for clear lung sounds. The findings and the impression was discussed with the patient. I attest to the documentation by the nurse practitioner. Time with Patient: Less than 30
[2018-08-20] MEDS: METOPROLOL TARTRATE 25 MG TAB PO SCH ×2 (12:09→19:52)
[2018-08-20] MEDS: NYSTATIN 100,000 UNIT/ML SUSP 500,000 UNIT/5 ML CUP PO SCH ×4 (12:09→19:52)
[2018-08-20 16:28] LABS: Glucose,Whole Blood 160 mg/dL (75-99)
--- NOTE | 2018-08-20 17:22 | PN ---
PROGRESS NOTE DATE OF SERVICE: 08/20/2018. CHIEF COMPLAINT: CHF. HISTORY OF PRESENT ILLNESS: This gentleman continues to do poorly. He still is very edematous. He is not particularly short of breath. PHYSICAL EXAMINATION: Breath sounds are fairly clear with only rales at the bases. Cardiac exam is normal. He has a lot of upper extremity edema and 4+ lower. IMPRESSION: 1. Chronic congestive heart failure. 2. Acute congestive heart failure. 3. Atherosclerotic cardiomyopathy. 4. Renal failure. 5. Diabetes. PLAN: Continue supportive care, but outlook is poor, given his recurrent episodes of heart failure. MMODL / IJN: [id number] /
[2018-08-20] MEDS: TAMSULOSIN 0.4 MG CAP.ER.24H PO SCH (17:44)
--- NOTE | 2018-08-20 17:55 | PN ---
PROGRESS NOTE DATE OF SERVICE: 08/19/2018. CHIEF COMPLAINT: Chronic congestive heart failure. HISTORY OF PRESENT ILLNESS: This gentleman continues to regress. He is back on an IV Lasix drip. REVIEW OF SYSTEMS: He denies any chest pain or significant shortness of breath. PHYSICAL EXAM: His chest is fairly clear, but he has significant anasarca. Cardiac exam sounds normal. Abdomen is protuberant and soft. IMPRESSION: 1. Chronic congestive heart failure. 2. Acute congestive heart failure. 3. Atherosclerotic cardiomyopathy. 4. Type 2 diabetes. 5. Renal failure. PLAN: Continue efforts to control his heart failure. MMODL / IJN: [id number] /
[2018-08-20] MEDS: VANCOMYCIN 2,000 MG in SODIUM CHLORIDE 0.9% 500 ML 500 ML IVPB SCH (19:52)
[2018-08-20] MEDS: MIRTAZAPINE 15 MG TAB PO SCH (19:52)
[2018-08-20] MEDS: IPRATROPIUM-ALBUTEROL 3 ML NEB INHALATION PRN (20:54)
[2018-08-20 21:16] LABS: Glucose,Whole Blood 185 mg/dL (75-99)
[2018-08-20] MEDS: INSULIN DETEMIR 100 UNIT/ML 10 ML VIAL SQ SCH (21:53)
[2018-08-21 05:47] LABS: Glucose,Whole Blood 136 mg/dL (75-99)
[2018-08-21] MEDS: INSULIN ASPART 100 UNIT/ML 1 ML 10 ML VIAL SQ SCH ×4 (06:18→21:46)
[2018-08-21] MEDS: SODIUM CHLORIDE 0.9% 1,000 ML IV SCH (06:18)
[2018-08-21 07:14] LABS: Calcium 8.5 mg/dL (8.4-10.2)
[2018-08-21] MEDS: IPRATROPIUM-ALBUTEROL 3 ML NEB INHALATION PRN ×2 (08:48→20:13)
[2018-08-21] MEDS: BUDESONIDE 0.5 MG/2 ML NEBU INHALATION SCH ×2 (08:48→20:13)
[2018-08-21] MEDS: FUROSEMIDE 250 MG in SODIUM CHLORIDE 0.9% 225 ML IVP SCH (10:44)
[2018-08-21] MEDS: guaiFENesin 600 MG TABLET.ER PO SCH ×2 (10:45→19:53)
[2018-08-21] MEDS: CARBIDOPA-LEVODOPA 25-100 MG 1 EACH TAB PO SCH ×2 (10:45→19:53)
[2018-08-21] MEDS: ASPIRIN 81 MG PO SCH (10:45)
[2018-08-21] MEDS: AMIODARONE 200 MG TAB PO SCH (10:45)
[2018-08-21] MEDS: METOPROLOL TARTRATE 25 MG TAB PO SCH ×2 (10:45→19:53)
[2018-08-21] MEDS: APIXABAN 2.5 MG TABLET PO SCH ×2 (10:45→19:53)
[2018-08-21] MEDS: SPIRONOLACTONE 25 MG TAB PO SCH (10:46)
[2018-08-21] MEDS: NYSTATIN 100,000 UNIT/ML SUSP 500,000 UNIT/5 ML CUP PO SCH ×4 (10:46→19:54)
[2018-08-21] MEDS: SACUBITRIL/VALSARTAN 24 MG-26 MG TABLET PO SCH ×2 (10:46→19:54)
[2018-08-21] MEDS: NYSTATIN 100,000 UNIT/GM POWD 15 GM TOPICAL SCH ×3 (10:46→19:54)
[2018-08-21 11:53] LABS: Glucose,Whole Blood 175 mg/dL (75-99)
--- NOTE | 2018-08-21 14:53 | P.PN ---
Subjective Progress Note Date: 08/21/18 This is an 83-year-old gentleman who follows regularly with Dr. Jorge in the office. He has known history of persistent atrial fibrillation, hyperlipidemia, hypertension, diabetes, nonischemic cardiomyopathy, osteoarthritis, coronary artery disease with prior stent placement to the proximal OM in 2002, presented to the hospital a couple of weeks ago with symptoms of progressively worsening shortness of breath with associated productive cough and cough congestion. Patient had evidence of left lower lobe pneumonia and was being treated with antibiotic therapy. Patient persisted to be short of breath, sputum culture showed evidence of MRSA, infectious disease is also currently following. BNP level was obtained which came back to be elevated and for this reason a cardiology consultation was requested. Chest x- ray shows subsegmental atelectasis in the left lung base with no acute heart failure. Subsequent x-ray showed persistent right lower lobe infiltrate. EKG shows atrial fibrillation with rapid ventricular response. Chest x-ray repeated yesterday morning shows overall improved aeration from previous study. Blood pressure 103/50 with a heart rate in the 1 teens, 95% on room air. White blood cell count 8.4, hemoglobin 14.7, platelet count 109. Sodium 131, potassium 4.9, BUN 40, creatinine 0.9. BNP 2090. Total protein 5.0, albumin 2.7. We will discontinue the oral diuretics and start the patient on IV Lasix today. Obtain echocardiogram with Doppler study. Decrease aspirin to 81 mg daily. At the time of my examination this morning, patient still complaining of feeling short of breath, he has significant generalized edema throughout. 08/12/2018 Patient seen and examined this morning, diuresed well through the night last night, weight down 5 kg. We will continue current dose of IV Lasix drip, continue to monitor intake and output along with daily weights today. Sodium 131, potassium 4.5, BUN 37, creatinine 0.9. Blood pressure 86/60. 08/13/2018 Patient seen and examined today, continues to diurese significantly well. Weight is down another 2 kg today, BUN 38 and creatinine 0.9 today. 08/14/2008 Patient seen and examined today, continues to diurese well on IV Lasix drip. The weight today is down 5 kg, patient is feeling significantly better. We will discontinue the IV Lasix drip today and start the patient on IV push Lasix every 8 hourly. 08/16/2018 Patient seen and examined today, he continues to diurese well. Continues at this time to be on IV push Lasix. Sodium 131, potassium 4.2, BUN 34, creatinine 0.8. 2017 Patient seen and examined this morning, continues to diurese well overall. Blood pressure remains on the low side at 86/50 with a heart rate of 90 to low 100s. 100% on room air. Sodium 129, potassium 4.0, BUN 14, creatinine 1.0. Objective - Vital Signs Vital signs: Vital Signs Temp 97.8 F 08/21/18 08:55 Pulse 98 08/21/18 09:09 Resp 18 08/21/18 08:55 BP 86/57 08/21/18 08:55 Pulse Ox 100 08/21/18 08:55 Intake & Output 08/20/18 08/21/18 08/21/18 18:59 06:59 18:59 Intake Total 774 933 Output Total 1999 2900 1250 Balance -1226 -2900 -317 Weight 125 kg Intake: Intake, IV Titration 330 Amount Furosemide 250 mg In 330 Sodium Chloride 0.9% 225 ml @ 10 MG/HR 10 mls/hr IVP .Q24H [facility] Rx#: [id number] Oral 444 933 Output: Urine 1999 2900 1250 Other: Voiding Method Indwelling Catheter Indwelling Catheter Indwelling Catheter # Bowel Movements 1 0 - Exam PHYSICAL EXAMINATION: GENERAL:83-year-old gentleman in no acute distress at the time of my examination HEENT: Head is atraumatic, normocephalic. Pupils equal, round. Sclera anicteric. Conjunctiva are clear. Mucous membranes of the mouth are moist. Neck is supple. There is elevated jugular venous pressure. No carotid bruit is heard. HEART EXAMINATION: Heart S1 and S2 irregularly irregular a systolic ejection murmur is heard. CHEST EXAMINATION: Lungs reveal diminished air entry to bilateral bases. ABDOMEN: Soft, obese, nontender. Bowel sounds are heard. No organomegaly noted. EXTREMITIES: 2+ peripheral pulses with 1-2+ evidence of peripheral edema, bilateral Payam wraps to arms with significant drainage noted. NEUROLOGIC patient is awake, alert and oriented 3 . . - Labs CBC & Chem 7: 08/20/18 06:16 08/21/18 05:43 Labs: Abnormal Lab Results - Last 24 Hours (Table) 08/20/18 08/20/18 08/21/18 Range/Units 16:26 21:14 05:43 Sodium 129 L (137-145) mmol/L Chloride 87 L (98-107) mmol/L Carbon Dioxide 34 H (22-30) mmol/L BUN 42 H (9-20) mg/dL Glucose 136 H (74-99) mg/dL POC Glucose (mg/dL) 160 H 185 H (75-99) mg/dL 08/21/18 08/21/18 Range/Units 05:46 11:51 Sodium (137-145) mmol/L Chloride (98-107) mmol/L Carbon Dioxide (22-30) mmol/L BUN (9-20) mg/dL Glucose (74-99) mg/dL POC Glucose (mg/dL) 136 H 175 H (75-99) mg/dL Assessment and Plan Plan: Assessment and plan #1 symptoms of progressively since shortness of breath with associated productive cough of Bilateral peripheral edema. Evidence of right lower lobe pneumonia, sputum cultures with evidence of MRSA. Combination of pneumonia and congestive cardiac failure, systolic acute on chronic. #2 chronic persistent atrial fibrillation on Eliquis for anticoagulation #3 coronary artery disease with prior stent placement #4 hyperlipidemia #5 diabetes Plan From cardiology's perspective, we will continue the Lasix drip for 24 hours, check lytes BUN and creatinine in the morning. DNP note has been reviewed, I agree with a documented findings and plan of care. Patient was seen and examined.
[2018-08-21 16:42] LABS: Glucose,Whole Blood 266 mg/dL (75-99)
[2018-08-21] MEDS: TAMSULOSIN 0.4 MG CAP.ER.24H PO SCH (17:57)
--- NOTE | 2018-08-21 18:56 | PN ---
PROGRESS NOTE CHIEF COMPLAINT: Congestive heart failure and pneumonia. HISTORY OF PRESENT ILLNESS: This gentleman remains more or less stable. His breathing seems to be just about the same. He still has a significant amount of swelling. His renal function actually is fairly good. It would appear that most of his difficulty is due to poor cardiac output. PHYSICAL EXAMINATION: Breath sounds are diminished at the bases with occasional rales. Cardiac exam is unchanged. Abdomen is soft and nontender. He still has significant extremity edema. IMPRESSION: Chronic congestive heart failure. PLAN: Continue to follow and start talking about discharge plan because he seems to be fairly stable at this point. MMODL / IJN: [id number] /
[2018-08-21] MEDS: VANCOMYCIN 2,000 MG in SODIUM CHLORIDE 0.9% 500 ML 500 ML IVPB SCH (19:53)
[2018-08-21] MEDS: MIRTAZAPINE 15 MG TAB PO SCH (19:53)
[2018-08-21 21:02] LABS: Glucose,Whole Blood 168 mg/dL (75-99)
[2018-08-21] MEDS: INSULIN DETEMIR 100 UNIT/ML 10 ML VIAL SQ SCH (21:16)
[2018-08-22] MEDS: SODIUM CHLORIDE 0.9% 1,000 ML IV SCH ×2 (03:13→21:52)
[2018-08-22 06:16] LABS: Glucose,Whole Blood 126 mg/dL (75-99)
[2018-08-22] MEDS: INSULIN ASPART 100 UNIT/ML 1 ML 10 ML VIAL SQ SCH ×4 (06:16→21:50)
[2018-08-22] MEDS: BUDESONIDE 0.5 MG/2 ML NEBU INHALATION SCH ×2 (08:19→20:29)
[2018-08-22] MEDS: FUROSEMIDE 250 MG in SODIUM CHLORIDE 0.9% 225 ML IVP SCH (08:39)
[2018-08-22] MEDS: CARBIDOPA-LEVODOPA 25-100 MG 1 EACH TAB PO SCH ×2 (10:33→21:50)
[2018-08-22] MEDS: guaiFENesin 600 MG TABLET.ER PO SCH ×2 (10:33→21:50)
[2018-08-22] MEDS: METOPROLOL TARTRATE 25 MG TAB PO SCH ×2 (10:33→21:51)
[2018-08-22] MEDS: NYSTATIN 100,000 UNIT/ML SUSP 500,000 UNIT/5 ML CUP PO SCH ×4 (10:33→21:51)
[2018-08-22] MEDS: APIXABAN 2.5 MG TABLET PO SCH ×2 (10:34→21:50)
[2018-08-22] MEDS: ASPIRIN 81 MG PO SCH (10:34)
[2018-08-22] MEDS: SPIRONOLACTONE 25 MG TAB PO SCH (10:35)
[2018-08-22] MEDS: AMIODARONE 200 MG TAB PO SCH (10:40)
[2018-08-22] MEDS: NYSTATIN 100,000 UNIT/GM POWD 15 GM TOPICAL SCH ×3 (10:40→21:51)
[2018-08-22] MEDS: SACUBITRIL/VALSARTAN 24 MG-26 MG TABLET PO SCH ×2 (10:41→21:29)
[2018-08-22] MEDS ORDERED: ACETAMINOPHEN TAB 325 MG TAB PO PRN (11:47)
[2018-08-22 11:56] LABS: Glucose,Whole Blood 166 mg/dL (75-99)
--- NOTE | 2018-08-22 12:06 | P.PN ---
Subjective Progress Note Date: 08/22/18 This is an 83-year-old gentleman who follows regularly with Dr. Jorge in the office. He has known history of persistent atrial fibrillation, hyperlipidemia, hypertension, diabetes, nonischemic cardiomyopathy, osteoarthritis, coronary artery disease with prior stent placement to the proximal OM in 2002, presented to the hospital a couple of weeks ago with symptoms of progressively worsening shortness of breath with associated productive cough and cough congestion. Patient had evidence of left lower lobe pneumonia and was being treated with antibiotic therapy. Patient persisted to be short of breath, sputum culture showed evidence of MRSA, infectious disease is also currently following. BNP level was obtained which came back to be elevated and for this reason a cardiology consultation was requested. Chest x- ray shows subsegmental atelectasis in the left lung base with no acute heart failure. Subsequent x-ray showed persistent right lower lobe infiltrate. EKG shows atrial fibrillation with rapid ventricular response. Chest x-ray repeated yesterday morning shows overall improved aeration from previous study. Blood pressure 103/50 with a heart rate in the 1 teens, 95% on room air. White blood cell count 8.4, hemoglobin 14.7, platelet count 109. Sodium 131, potassium 4.9, BUN 40, creatinine 0.9. BNP 2090. Total protein 5.0, albumin 2.7. We will discontinue the oral diuretics and start the patient on IV Lasix today. Obtain echocardiogram with Doppler study. Decrease aspirin to 81 mg daily. At the time of my examination this morning, patient still complaining of feeling short of breath, he has significant generalized edema throughout. 08/12/2018 Patient seen and examined this morning, diuresed well through the night last night, weight down 5 kg. We will continue current dose of IV Lasix drip, continue to monitor intake and output along with daily weights today. Sodium 131, potassium 4.5, BUN 37, creatinine 0.9. Blood pressure 86/60. 08/13/2018 Patient seen and examined today, continues to diurese significantly well. Weight is down another 2 kg today, BUN 38 and creatinine 0.9 today. 08/14/2008 Patient seen and examined today, continues to diurese well on IV Lasix drip. The weight today is down 5 kg, patient is feeling significantly better. We will discontinue the IV Lasix drip today and start the patient on IV push Lasix every 8 hourly. 08/16/2018 Patient seen and examined today, he continues to diurese well. Continues at this time to be on IV push Lasix. Sodium 131, potassium 4.2, BUN 34, creatinine 0.8. 2017 Patient seen and examined this morning, continues to diurese well overall. Blood pressure remains on the low side at 86/50 with a heart rate of 90 to low 100s. 100% on room air. Sodium 129, potassium 4.0, BUN 14, creatinine 1.0. 08/22/2018 Patient was seen and examined this morning, continued through the night to diurese well. Weight is down 3 kg today. Lytes BUN and creatinine remain pending. Patient is feeling significantly better overall. Objective - Vital Signs Vital signs: Vital Signs Temp 97.6 F 08/22/18 08:40 Pulse 118 H 08/22/18 08:40 Resp 18 08/22/18 08:40 BP 86/54 08/22/18 08:40 Pulse Ox 98 08/22/18 08:40 Intake & Output 08/21/18 08/22/18 08/22/18 18:59 06:59 18:59 Intake Total 1413 459.167 Output Total 2250 2700 Balance -837 -2700 459.167 Weight 122.5 kg Intake: Intake, IV Titration 219.167 Amount Furosemide 250 mg In 219.167 Sodium Chloride 0.9% 225 ml @ 10 MG/HR 10 mls/hr IVP .Q24H [facility] Rx#: [id number] Oral 1413 240 Output: Urine 2250 2700 Other: Voiding Method Indwelling Catheter Indwelling Catheter Indwelling Catheter # Bowel Movements 0 - Exam PHYSICAL EXAMINATION: GENERAL:83-year-old gentleman in no acute distress at the time of my examination HEENT: Head is atraumatic, normocephalic. Pupils equal, round. Sclera anicteric. Conjunctiva are clear. Mucous membranes of the mouth are moist. Neck is supple. There is elevated jugular venous pressure. No carotid bruit is heard. HEART EXAMINATION: Heart S1 and S2 irregularly irregular a systolic ejection murmur is heard. CHEST EXAMINATION: Lungs reveal diminished air entry to bilateral bases. ABDOMEN: Soft, obese, nontender. Bowel sounds are heard. No organomegaly noted. EXTREMITIES: 2+ peripheral pulses with 1+ evidence of peripheral edema, bilateral Payam wraps to arms with significant drainage noted. NEUROLOGIC patient is awake, alert and oriented 3 . . - Labs CBC & Chem 7: 08/20/18 06:16 08/21/18 05:43 Labs: Abnormal Lab Results - Last 24 Hours (Table) 08/21/18 08/21/18 08/22/18 Range/Units 16:40 21:00 06:14 POC Glucose (mg/dL) 266 H 168 H 126 H (75-99) mg/dL 08/22/18 Range/Units 11:51 POC Glucose (mg/dL) 166 H (75-99) mg/dL Assessment and Plan Plan: Assessment and plan #1 symptoms of progressively since shortness of breath with associated productive cough of Bilateral peripheral edema. Evidence of right lower lobe pneumonia, sputum cultures with evidence of MRSA. Combination of pneumonia and congestive cardiac failure, systolic acute on chronic. #2 chronic persistent atrial fibrillation on Eliquis for anticoagulation #3 coronary artery disease with prior stent placement #4 hyperlipidemia #5 diabetes Plan From cardiology's perspective, we will discontinue the Lasix drip give the patient IV Lasix for 24 hours. Check lytes BUN and creatinine in the morning. DNP note has been reviewed, I agree with a documented findings and plan of care. Patient was seen and examined.
[2018-08-22 16:36] LABS: Glucose,Whole Blood 170 mg/dL (75-99)
[2018-08-22] MEDS: TAMSULOSIN 0.4 MG CAP.ER.24H PO SCH (18:22)
[2018-08-22] MEDS: IPRATROPIUM-ALBUTEROL 3 ML NEB INHALATION PRN (20:29)
[2018-08-22 21:39] LABS: Glucose,Whole Blood 210 mg/dL (75-99)
[2018-08-22] MEDS: FUROSEMIDE 10 MG/ML 4 ML VIAL IV SCH (21:50)
[2018-08-22] MEDS: INSULIN DETEMIR 100 UNIT/ML 10 ML VIAL SQ SCH (21:51)
[2018-08-22] MEDS: VANCOMYCIN 2,000 MG in SODIUM CHLORIDE 0.9% 500 ML 500 ML IVPB SCH (21:51)
[2018-08-22] MEDS: MIRTAZAPINE 15 MG TAB PO SCH (21:51)
[2018-08-23 05:59] LABS: Glucose,Whole Blood 120 mg/dL (75-99)
[2018-08-23] MEDS: INSULIN ASPART 100 UNIT/ML 1 ML 10 ML VIAL SQ SCH ×4 (06:02→21:47)
[2018-08-23 06:51] LABS: Calcium 8.5 mg/dL (8.4-10.2); Potassium 3.8 mmol/L (3.5-5.1)
[2018-08-23] MEDS: IPRATROPIUM-ALBUTEROL 3 ML NEB INHALATION PRN ×2 (09:01→20:31)
[2018-08-23] MEDS: BUDESONIDE 0.5 MG/2 ML NEBU INHALATION SCH ×2 (09:01→20:31)
[2018-08-23] MEDS: METOPROLOL TARTRATE 25 MG TAB PO SCH ×2 (09:44→21:01)
[2018-08-23] MEDS: APIXABAN 2.5 MG TABLET PO SCH ×2 (09:44→21:00)
[2018-08-23] MEDS: ASPIRIN 81 MG PO SCH (09:44)
[2018-08-23] MEDS: AMIODARONE 200 MG TAB PO SCH (09:44)
[2018-08-23] MEDS: NYSTATIN 100,000 UNIT/ML SUSP 500,000 UNIT/5 ML CUP PO SCH ×4 (09:44→21:01)
[2018-08-23] MEDS: guaiFENesin 600 MG TABLET.ER PO SCH ×2 (09:44→21:01)
[2018-08-23] MEDS: CARBIDOPA-LEVODOPA 25-100 MG 1 EACH TAB PO SCH ×2 (09:44→21:00)
[2018-08-23] MEDS: FUROSEMIDE 10 MG/ML 4 ML VIAL IV SCH ×2 (09:45→21:01)
[2018-08-23] MEDS: SACUBITRIL/VALSARTAN 24 MG-26 MG TABLET PO SCH ×2 (09:48→20:54)
[2018-08-23] MEDS: SPIRONOLACTONE 25 MG TAB PO SCH (10:01)
[2018-08-23] MEDS: NYSTATIN 100,000 UNIT/GM POWD 15 GM TOPICAL SCH ×3 (10:01→21:01)
[2018-08-23 11:04] LABS: Glucose,Whole Blood 257 mg/dL (75-99)
--- NOTE | 2018-08-23 13:17 | P.PN ---
Subjective Patient is lying comfortably in bed. He continues to have lower extremity bilateral edema but it looks comfortable no respiratory distress Vitals are stable pulse rate is 116 beats a minute afebrile blood pressure 100/ 59 mmHg Breath sounds are reduced bilaterally with no crackles no rhonchi Heart sounds are irregular Impression Congestive heart failure Being treated for infection Suggest Tomorrow I will switch to by mouth Lasix this gentleman is diuresing very well but will take a long time for him to be euvolemic Low blood pressure noted he is on ENTRESTO low-dose Objective - Vital Signs Vital signs: Vital Signs Temp 98.0 F 08/23/18 08:00 Pulse 100 08/23/18 09:08 Resp 18 08/23/18 08:00 BP 100/59 08/23/18 08:00 Pulse Ox 98 08/23/18 08:00 Intake & Output 08/22/18 08/23/18 08/23/18 18:59 06:59 18:59 Intake Total 909.167 684 Output Total 3400 2600 800 Balance -2490.833 -2600 -116 Weight 122 kg Intake: Intake, IV Titration 219.167 Amount Furosemide 250 mg In 219.167 Sodium Chloride 0.9% 225 ml @ 10 MG/HR 10 mls/hr IVP .Q24H [facility] Rx#: [id number] Oral 690 684 Output: Urine 3400 2600 800 Other: Voiding Method Indwelling Catheter Indwelling Catheter Indwelling Catheter # Voids 1 2 # Bowel Movements 0 - Labs CBC & Chem 7: 08/20/18 06:16 08/23/18 05:40 Labs: Abnormal Lab Results - Last 24 Hours (Table) 08/22/18 08/22/18 08/23/18 Range/Units 16:33 21:34 05:40 Sodium 131 L (137-145) mmol/L Chloride 90 L (98-107) mmol/L Carbon Dioxide 36 H (22-30) mmol/L BUN 36 H (9-20) mg/dL Glucose 105 H (74-99) mg/dL POC Glucose (mg/dL) 170 H 210 H (75-99) mg/dL 08/23/18 08/23/18 Range/Units 05:57 11:00 Sodium (137-145) mmol/L Chloride (98-107) mmol/L Carbon Dioxide (22-30) mmol/L BUN (9-20) mg/dL Glucose (74-99) mg/dL POC Glucose (mg/dL) 120 H 257 H (75-99) mg/dL
--- NOTE | 2018-08-23 15:13 | PN ---
PROGRESS NOTE DATE OF SERVICE: 08/22/2018 CHIEF COMPLAINT: Congestive heart failure. HISTORY OF PRESENT ILLNESS: This gentleman continues to struggle. As long as there is IV insulin drip, he does well. This is being stopped. Does have an area of pressure soreness on the back of the right heel. PHYSICAL EXAM: Chest demonstrates occasional rales throughout. Cardiac exam is unchanged. Abdomen is soft, nontender. IMPRESSION: 1. Chronic congestive heart failure with acute component. 2. Diabetes mellitus. 3. Hepatorenal syndrome. PLAN: Continue with current management in hopes that he can be managed off of IV Lasix. MMODL / IJN: [id number] /
--- NOTE | 2018-08-23 16:34 | PN ---
PROGRESS NOTE CHIEF COMPLAINT: CHF. HISTORY OF PRESENT ILLNESS: This gentleman is doing quite well today and is comfortable. He is back on oral Lasix. We will also add Zaroxolyn to see if this helps control his heart failure. PHYSICAL EXAM: Chest is quite clear today. There are very few rales and rhonchi. Cardiac exam is unchanged. IMPRESSION: 1. Chronic congestive heart failure with acute component. 2. Diabetes. 3. Cardiorenal syndrome. PLAN: Try increasing oral diuretics to see if he can avoid fluid accumulation off the Lasix drip. MMODL / IJN: [id number] /
[2018-08-23 16:41] LABS: Glucose,Whole Blood 179 mg/dL (75-99)
[2018-08-23] MEDS: TAMSULOSIN 0.4 MG CAP.ER.24H PO SCH (17:27)
[2018-08-23] MEDS: SODIUM CHLORIDE 0.9% 1,000 ML IV SCH (17:35)
[2018-08-23] MEDS ORDERED: VANCOMYCIN TROUGH DUE 1 EACH MISC MISCELLANE ONE (20:00)
[2018-08-23] MEDS: METOLAZONE 5 MG TAB PO SCH (21:00)
[2018-08-23] MEDS: MIRTAZAPINE 15 MG TAB PO SCH (21:01)
[2018-08-23] MEDS: VANCOMYCIN 2,000 MG in SODIUM CHLORIDE 0.9% 500 ML 500 ML IVPB SCH (21:09)
[2018-08-23 21:25] LABS: Glucose,Whole Blood 142 mg/dL (75-99)
[2018-08-23] MEDS: INSULIN DETEMIR 100 UNIT/ML 10 ML VIAL SQ SCH (21:47)
[2018-08-24 06:27] LABS: Glucose,Whole Blood 63 mg/dL (75-99)
[2018-08-24] MEDS: INSULIN ASPART 100 UNIT/ML 1 ML 10 ML VIAL SQ SCH ×4 (06:29→21:21)
[2018-08-24 06:50] LABS: Glucose,Whole Blood 77 mg/dL (75-99)
[2018-08-24] MEDS: BUDESONIDE 0.5 MG/2 ML NEBU INHALATION SCH (07:14)
[2018-08-24] MEDS: IPRATROPIUM-ALBUTEROL 3 ML NEB INHALATION PRN (07:14)
[2018-08-24] MEDS: SPIRONOLACTONE 25 MG TAB PO SCH (09:02)
[2018-08-24] MEDS: CARBIDOPA-LEVODOPA 25-100 MG 1 EACH TAB PO SCH ×2 (09:02→20:15)
[2018-08-24] MEDS: ASPIRIN 81 MG PO SCH (09:03)
[2018-08-24] MEDS: FUROSEMIDE 10 MG/ML 4 ML VIAL IV SCH ×2 (09:03→20:15)
[2018-08-24] MEDS: APIXABAN 2.5 MG TABLET PO SCH ×2 (09:03→20:16)
[2018-08-24] MEDS: guaiFENesin 600 MG TABLET.ER PO SCH ×2 (09:03→20:15)
[2018-08-24] MEDS: NYSTATIN 100,000 UNIT/ML SUSP 500,000 UNIT/5 ML CUP PO SCH ×4 (09:03→20:16)
[2018-08-24] MEDS: METOLAZONE 5 MG TAB PO SCH (09:03)
[2018-08-24] MEDS: AMIODARONE 200 MG TAB PO SCH (09:03)
[2018-08-24] MEDS: METOPROLOL TARTRATE 25 MG TAB PO SCH ×2 (09:03→20:15)
[2018-08-24] MEDS: NYSTATIN 100,000 UNIT/GM POWD 15 GM TOPICAL SCH ×3 (09:03→20:15)
[2018-08-24 11:14] LABS: Glucose,Whole Blood 114 mg/dL (75-99)
[2018-08-24] MEDS: SACUBITRIL/VALSARTAN 24 MG-26 MG TABLET PO SCH ×2 (12:17→20:16)
--- NOTE | 2018-08-24 13:54 | P.PN ---
Subjective Patient is doing better. He has no lower extremity edema today. He's been making an adequate amount of urine output on IV Lasix He appears comfortable lying in bed no chest discomfort dizziness lightheadedness Blood pressure 90/56 mmHg pulse rate 108 beats a minute Breath sounds are reduced bilaterally occasional crackles at the bases heart sounds irregular Abdomen soft No lower extremity edema today for the first time Suggest Switched to oral Lasix 40 mg twice daily Increase Aldactone to 50 g by mouth daily Reduce metolazone 2.5 mg daily and later as an outpatient this should be changed to 2.5 mg twice a week otherwise he'll become prerenal So far his BUN is recently stable and creatinine is stable Twelve-lead ECG tomorrow Reassess need for amiodarone Objective - Vital Signs Vital signs: Vital Signs Temp 97.8 F 08/24/18 08:00 Pulse 108 H 08/24/18 08:00 Resp 18 08/24/18 08:00 BP 91/56 08/24/18 08:00 Pulse Ox 98 08/24/18 08:00 Intake & Output 08/23/18 08/24/18 08/24/18 18:59 06:59 18:59 Intake Total 906 120 Output Total 1900 1500 800 Balance -994 -1380 -800 Weight 120 kg Intake: Oral 906 120 Output: Urine 1900 1500 800 Other: Voiding Method Indwelling Catheter Indwelling Catheter Indwelling Catheter # Voids 1 - Labs CBC & Chem 7: 08/20/18 06:16 08/23/18 05:40 Labs: Abnormal Lab Results - Last 24 Hours (Table) 08/23/18 08/23/18 08/24/18 Range/Units 16:40 21:24 06:26 POC Glucose (mg/dL) 179 H 142 H 63 L (75-99) mg/dL 08/24/18 Range/Units 11:11 POC Glucose (mg/dL) 114 H (75-99) mg/dL
[2018-08-24 16:15] LABS: Glucose,Whole Blood 181 mg/dL (75-99)
[2018-08-24] MEDS: TAMSULOSIN 0.4 MG CAP.ER.24H PO SCH (18:06)
[2018-08-24] MEDS: DOXYCYCLINE 100 MG CAP PO SCH (20:16)
[2018-08-24] MEDS: MIRTAZAPINE 15 MG TAB PO SCH (20:16)
[2018-08-24 20:27] LABS: Glucose,Whole Blood 187 mg/dL (75-99)
[2018-08-24] MEDS: INSULIN DETEMIR 100 UNIT/ML 10 ML VIAL SQ SCH (21:12)
[2018-08-25] MEDS: BUDESONIDE 0.5 MG/2 ML NEBU INHALATION SCH ×3 (01:24→21:23)
[2018-08-25 06:08] LABS: Glucose,Whole Blood 108 mg/dL (75-99)
[2018-08-25] MEDS: INSULIN ASPART 100 UNIT/ML 1 ML 10 ML VIAL SQ SCH ×4 (06:18→21:31)
[2018-08-25 06:36] LABS: HCT 35.5 % (39.0-53.0); HGB 12.2 gm/dL (13.0-17.5); MCH 33.4 pg (25.0-35.0); MCHC 34.3 g/dL (31.0-37.0); MCV 97.3 fL (80.0-100.0); Mean Platelet Volume 7.3; RBC 3.65 m/uL (4.30-5.90); RDW 14.3 % (11.5-15.5); WBC 4.4 k/uL (3.8-10.6)
[2018-08-25 06:43] LABS: Platelet Count 75 k/uL (150-450)
[2018-08-25 07:03] LABS: Calcium 8.5 mg/dL (8.4-10.2); Potassium 3.9 mmol/L (3.5-5.1)
[2018-08-25] MEDS: DOXYCYCLINE 100 MG CAP PO SCH ×2 (09:56→20:39)
[2018-08-25] MEDS: AMIODARONE 200 MG TAB PO SCH (09:57)
[2018-08-25] MEDS: NYSTATIN 100,000 UNIT/ML SUSP 500,000 UNIT/5 ML CUP PO SCH ×3 (09:57→17:59)
[2018-08-25] MEDS: CARBIDOPA-LEVODOPA 25-100 MG 1 EACH TAB PO SCH ×2 (09:57→20:39)
[2018-08-25] MEDS: guaiFENesin 600 MG TABLET.ER PO SCH ×2 (09:57→20:39)
[2018-08-25] MEDS: SPIRONOLACTONE 25 MG TAB PO SCH (09:57)
[2018-08-25] MEDS: APIXABAN 2.5 MG TABLET PO SCH ×2 (09:57→20:39)
[2018-08-25] MEDS: ASPIRIN 81 MG PO SCH (09:57)
[2018-08-25] MEDS: METOPROLOL TARTRATE 25 MG TAB PO SCH ×2 (09:57→20:39)
[2018-08-25] MEDS: NYSTATIN 100,000 UNIT/GM POWD 15 GM TOPICAL SCH ×3 (09:58→20:39)
[2018-08-25] MEDS: SACUBITRIL/VALSARTAN 24 MG-26 MG TABLET PO SCH ×2 (10:00→20:33)
[2018-08-25 11:59] LABS: Glucose,Whole Blood 143 mg/dL (75-99)
--- NOTE | 2018-08-25 12:16 | P.PN ---
Subjective Progress Note Date: 08/25/18 This is an 83-year-old gentleman who follows regularly with Dr. Jorge in the office. He has known history of persistent atrial fibrillation, hyperlipidemia, hypertension, diabetes, nonischemic cardiomyopathy, osteoarthritis, coronary artery disease with prior stent placement to the proximal OM in 2002, presented to the hospital a couple of weeks ago with symptoms of progressively worsening shortness of breath with associated productive cough and cough congestion. Patient had evidence of left lower lobe pneumonia and was being treated with antibiotic therapy. Patient persisted to be short of breath, sputum culture showed evidence of MRSA, infectious disease is also currently following. BNP level was obtained which came back to be elevated and for this reason a cardiology consultation was requested. Chest x- ray shows subsegmental atelectasis in the left lung base with no acute heart failure. Subsequent x-ray showed persistent right lower lobe infiltrate. EKG shows atrial fibrillation with rapid ventricular response. Chest x-ray repeated yesterday morning shows overall improved aeration from previous study. Blood pressure 103/50 with a heart rate in the 1 teens, 95% on room air. White blood cell count 8.4, hemoglobin 14.7, platelet count 109. Sodium 131, potassium 4.9, BUN 40, creatinine 0.9. BNP 2090. Total protein 5.0, albumin 2.7. We will discontinue the oral diuretics and start the patient on IV Lasix today. Obtain echocardiogram with Doppler study. Decrease aspirin to 81 mg daily. At the time of my examination this morning, patient still complaining of feeling short of breath, he has significant generalized edema throughout. 08/12/2018 Patient seen and examined this morning, diuresed well through the night last night, weight down 5 kg. We will continue current dose of IV Lasix drip, continue to monitor intake and output along with daily weights today. Sodium 131, potassium 4.5, BUN 37, creatinine 0.9. Blood pressure 86/60. 08/13/2018 Patient seen and examined today, continues to diurese significantly well. Weight is down another 2 kg today, BUN 38 and creatinine 0.9 today. 08/14/2008 Patient seen and examined today, continues to diurese well on IV Lasix drip. The weight today is down 5 kg, patient is feeling significantly better. We will discontinue the IV Lasix drip today and start the patient on IV push Lasix every 8 hourly. 08/16/2018 Patient seen and examined today, he continues to diurese well. Continues at this time to be on IV push Lasix. Sodium 131, potassium 4.2, BUN 34, creatinine 0.8. 2017 Patient seen and examined this morning, continues to diurese well overall. Blood pressure remains on the low side at 86/50 with a heart rate of 90 to low 100s. 100% on room air. Sodium 129, potassium 4.0, BUN 14, creatinine 1.0. 08/22/2018 Patient was seen and examined this morning, continued through the night to diurese well. Weight is down 3 kg today. Lytes BUN and creatinine remain pending. Patient is feeling significantly better overall. 08/25/2018 Patient was seen and examined this morning, sitting up in the chair at bedside. Overall continues to feel significantly better. I pressure 80/50 with a heart rate in the 90s. 98% on room air. Weight is down 2 kg today. White blood cell count 4.4, hemoglobin 12.2, platelet count 75. Sodium 128, potassium 3.9, BUN 34, creatinine 0.9. Objective - Vital Signs Vital signs: Vital Signs Temp 98.0 F 08/25/18 08:00 Pulse 108 H 08/25/18 12:00 Resp 18 08/25/18 12:00 BP 79/50 08/25/18 08:00 Pulse Ox 98 08/25/18 08:00 Intake & Output 08/24/18 08/25/18 08/25/18 18:59 06:59 18:59 Intake Total 240 200 Output Total 800 2024 Balance - -2024 200 Weight 118 kg Intake: Oral 240 200 Output: Urine 800 2024 Other: Voiding Method Indwelling Catheter Indwelling Catheter Indwelling Catheter - Exam PHYSICAL EXAMINATION: GENERAL:83-year-old gentleman in no acute distress at the time of my examination HEENT: Head is atraumatic, normocephalic. Pupils equal, round. Sclera anicteric. Conjunctiva are clear. Mucous membranes of the mouth are moist. Neck is supple. There is elevated jugular venous pressure. No carotid bruit is heard. HEART EXAMINATION: Heart S1 and S2 irregularly irregular a systolic ejection murmur is heard. CHEST EXAMINATION: Lungs reveal improvement in air entry to bilateral bases. ABDOMEN: Soft, obese, nontender. Bowel sounds are heard. No organomegaly noted. EXTREMITIES: 2+ peripheral pulses with no evidence of peripheral edema, bilateral Payam wraps to arms with significant drainage noted. NEUROLOGIC patient is awake, alert and oriented 3 . . - Labs CBC & Chem 7: 08/25/18 05:56 08/25/18 05:56 Labs: Abnormal Lab Results - Last 24 Hours (Table) 08/24/18 08/24/18 08/25/18 Range/Units 16:14 20:25 05:56 RBC (4.30-5.90) m/uL Hgb (13.0-17.5) gm/dL Hct (39.0-53.0) % Plt Count (150-450) k/uL Sodium 128 L (137-145) mmol/L Chloride 87 L (98-107) mmol/L Carbon Dioxide 34 H (22-30) mmol/L BUN 34 H (9-20) mg/dL Glucose 104 H (74-99) mg/dL POC Glucose (mg/dL) 181 H 187 H (75-99) mg/dL 08/25/18 08/25/18 08/25/18 Range/Units 05:56 06:05 11:20 RBC 3.65 L (4.30-5.90) m/uL Hgb 12.2 L (13.0-17.5) gm/dL Hct 35.5 L (39.0-53.0) % Plt Count 75 L (150-450) k/uL Sodium (137-145) mmol/L Chloride (98-107) mmol/L Carbon Dioxide (22-30) mmol/L BUN (9-20) mg/dL Glucose (74-99) mg/dL POC Glucose (mg/dL) 108 H 143 H (75-99) mg/dL Assessment and Plan Plan: Assessment and plan #1 symptoms of progressively since shortness of breath with associated productive cough of Bilateral peripheral edema. Evidence of right lower lobe pneumonia, sputum cultures with evidence of MRSA. Combination of pneumonia and congestive cardiac failure, systolic acute on chronic. #2 chronic persistent atrial fibrillation on Eliquis for anticoagulation #3 coronary artery disease with prior stent placement #4 hyperlipidemia #5 diabetes Plan From cardiology's perspective, we'll continue the patient on his current medications. We will continue to follow DNP note has been reviewed, I agree with a documented findings and plan of care. Patient was seen and examined.
[2018-08-25 13:13] LABS: Hemoglobin A1C 7.6 % (4.0-6.0)
[2018-08-25 15:53] VITALS: BMI 37.3
[2018-08-25 17:04] LABS: Glucose,Whole Blood 216 mg/dL (75-99)
[2018-08-25] MEDS: METOLAZONE 2.5 MG TAB PO SCH (17:53)
[2018-08-25] MEDS: TAMSULOSIN 0.4 MG CAP.ER.24H PO SCH (17:59)
[2018-08-25] MEDS: MIRTAZAPINE 15 MG TAB PO SCH (20:39)
[2018-08-25] MEDS: INSULIN DETEMIR 100 UNIT/ML 10 ML VIAL SQ SCH (21:14)
[2018-08-25 21:23] LABS: Glucose,Whole Blood 164 mg/dL (75-99)
[2018-08-25] MEDS: IPRATROPIUM-ALBUTEROL 3 ML NEB INHALATION PRN (21:23)
[2018-08-26] MEDS: INSULIN ASPART 100 UNIT/ML 1 ML 10 ML VIAL SQ SCH ×4 (06:26→21:24)
[2018-08-26 06:27] LABS: Glucose,Whole Blood 122 mg/dL (75-99)
[2018-08-26] MEDS: BUDESONIDE 0.5 MG/2 ML NEBU INHALATION SCH ×2 (09:01→20:02)
[2018-08-26] MEDS: IPRATROPIUM-ALBUTEROL 3 ML NEB INHALATION PRN ×2 (09:01→20:02)
[2018-08-26] MEDS: SACUBITRIL/VALSARTAN 24 MG-26 MG TABLET PO SCH ×2 (10:03→21:24)
[2018-08-26] MEDS: METOPROLOL TARTRATE 25 MG TAB PO SCH ×2 (10:03→21:24)
[2018-08-26] MEDS: CARBIDOPA-LEVODOPA 25-100 MG 1 EACH TAB PO SCH ×2 (10:03→21:24)
[2018-08-26] MEDS: SPIRONOLACTONE 25 MG TAB PO SCH (10:03)
[2018-08-26] MEDS: DOXYCYCLINE 100 MG CAP PO SCH ×2 (10:03→21:24)
[2018-08-26] MEDS: APIXABAN 2.5 MG TABLET PO SCH ×2 (10:04→21:24)
[2018-08-26] MEDS: guaiFENesin 600 MG TABLET.ER PO SCH ×2 (10:04→21:24)
[2018-08-26] MEDS: METOLAZONE 2.5 MG TAB PO SCH (10:04)
[2018-08-26] MEDS: AMIODARONE 200 MG TAB PO SCH (10:04)
[2018-08-26] MEDS: ASPIRIN 81 MG PO SCH (10:04)
[2018-08-26 12:00] LABS: Glucose,Whole Blood 169 mg/dL (75-99)
--- NOTE | 2018-08-26 14:36 | P.PN ---
Subjective Patient is doing better. He has no lower extremity edema no dizziness no shortness of breath lying comfortably in bed Breath sounds are reduced bilaterally Heart sounds are soft systolic murmur Abdomen is soft No lower extremity edema Suggest Restart oral Lasix 40 mg by mouth twice a day (I don't see any Lasix order on his current list) Objective - Vital Signs Vital signs: Vital Signs Temp 97.5 F L 08/26/18 08:00 Pulse 94 08/26/18 09:17 Resp 18 08/26/18 08:00 BP 119/79 08/26/18 08:00 Pulse Ox 96 08/26/18 08:00 Intake & Output 08/25/18 08/26/18 08/26/18 18:59 06:59 18:59 Intake Total 722 180 Output Total 2350 Balance 722 -2350 180 Weight 118 kg 117 kg Intake: Oral 722 180 Output: Urine 2350 Other: Voiding Method Indwelling Catheter Indwelling Catheter Indwelling Catheter # Bowel Movements 1 - Labs CBC & Chem 7: 08/25/18 05:56 08/25/18 05:56 Labs: Abnormal Lab Results - Last 24 Hours (Table) 08/25/18 08/25/18 08/26/18 Range/Units 16:33 21:12 06:25 POC Glucose (mg/dL) 216 H 164 H 122 H (75-99) mg/dL 08/26/18 Range/Units 11:58 POC Glucose (mg/dL) 169 H (75-99) mg/dL
--- NOTE | 2018-08-26 16:44 | PN ---
PROGRESS NOTE DATE OF SERVICE: 08/25/2018. CHIEF COMPLAINT: Acute on chronic congestive heart failure with renal failure and diabetes. HISTORY OF PRESENT ILLNESS: This gentleman continues to do fairly well. He is off of IV Lasix and is staying quite dry. He has had no shortness of breath, chest pain, etc. PHYSICAL EXAM: Vital signs are normal and his chest is quite clear. Only scattered rales at the bases. Cardiac exam is unchanged. Abdomen is soft, nontender. Extremities are not edematous. IMPRESSION: 1. Acute on chronic congestive heart failure. 2. Atherosclerotic cardiomyopathy. 3. Diabetes. 4. History of coronary artery disease. PLAN: If he continues to do this well, we will try to get him to a fci after the holidays. MMQIANA / TRISHA: [id number] /
--- NOTE | 2018-08-26 17:08 | PN ---
PROGRESS NOTE DATE OF SERVICE: 08/26/2018 CHIEF COMPLAINT: Congestive heart failure. HISTORY OF PRESENT ILLNESS: This gentleman continues to do well without redeveloping edema. He is not short of breath. He has had no pain. PHYSICAL EXAM: Breath sounds are quite clear. Cardiac exam sounds normal. The abdomen is soft. There is no significant peripheral edema. IMPRESSION: 1. Acute and chronic congestive heart failure. 2. Atherosclerotic cardiomyopathy. 3. Diabetes. 4. Mild renal failure. PLAN: Start working this week to find a location for rehab. MMODL / IJN: [id number] /
[2018-08-26] MEDS: NYSTATIN 100,000 UNIT/GM POWD 15 GM TOPICAL SCH ×3 (17:32→21:23)
[2018-08-26] MEDS: TAMSULOSIN 0.4 MG CAP.ER.24H PO SCH (17:34)
[2018-08-26] MEDS: SODIUM CHLORIDE 0.9% 1,000 ML IV SCH (17:39)
[2018-08-26 17:54] LABS: Glucose,Whole Blood 155 mg/dL (75-99)
[2018-08-26 21:14] LABS: Glucose,Whole Blood 156 mg/dL (75-99)
[2018-08-26] MEDS: MIRTAZAPINE 15 MG TAB PO SCH (21:24)
[2018-08-26] MEDS: INSULIN DETEMIR 100 UNIT/ML 10 ML VIAL SQ SCH (21:24)
[2018-08-27 06:12] LABS: Glucose,Whole Blood 88 mg/dL (75-99)
[2018-08-27] MEDS: INSULIN ASPART 100 UNIT/ML 1 ML 10 ML VIAL SQ SCH ×2 (06:33→12:27)
[2018-08-27] MEDS ORDERED: DOCUSATE 100 MG CAP PO PRN (07:47)
[2018-08-27] MEDS: BUDESONIDE 0.5 MG/2 ML NEBU INHALATION SCH (08:27)
[2018-08-27] MEDS: IPRATROPIUM-ALBUTEROL 3 ML NEB INHALATION PRN (08:27)
[2018-08-27] MEDS: NYSTATIN 100,000 UNIT/GM POWD 15 GM TOPICAL SCH (09:00)
[2018-08-27] MEDS: METOPROLOL TARTRATE 25 MG TAB PO SCH (09:00)
[2018-08-27] MEDS ORDERED: FUROSEMIDE 40 MG TAB PO SCH (09:00)
[2018-08-27] MEDS: ASPIRIN 81 MG PO SCH (09:00)
[2018-08-27] MEDS: CARBIDOPA-LEVODOPA 25-100 MG 1 EACH TAB PO SCH (09:00)
[2018-08-27] MEDS: DOXYCYCLINE 100 MG CAP PO SCH (09:01)
[2018-08-27] MEDS: SPIRONOLACTONE 25 MG TAB PO SCH (09:01)
[2018-08-27] MEDS: METOLAZONE 2.5 MG TAB PO SCH (09:01)
[2018-08-27] MEDS: AMIODARONE 200 MG TAB PO SCH (09:01)
[2018-08-27] MEDS: guaiFENesin 600 MG TABLET.ER PO SCH (09:01)
[2018-08-27] MEDS: APIXABAN 2.5 MG TABLET PO SCH (09:01)
[2018-08-27] MEDS: SACUBITRIL/VALSARTAN 24 MG-26 MG TABLET PO SCH (09:04)
[2018-08-27 11:52] LABS: Glucose,Whole Blood 134 mg/dL (75-99)
--- NOTE | 2018-08-27 12:45 | P.PN ---
Subjective Progress Note Date: 08/27/18 This is an 83-year-old gentleman who follows regularly with Dr. Jorge in the office. He has known history of persistent atrial fibrillation, hyperlipidemia, hypertension, diabetes, nonischemic cardiomyopathy, osteoarthritis, coronary artery disease with prior stent placement to the proximal OM in 2002, presented to the hospital a couple of weeks ago with symptoms of progressively worsening shortness of breath with associated productive cough and cough congestion. Patient had evidence of left lower lobe pneumonia and was being treated with antibiotic therapy. Patient persisted to be short of breath, sputum culture showed evidence of MRSA, infectious disease is also currently following. BNP level was obtained which came back to be elevated and for this reason a cardiology consultation was requested. Chest x- ray shows subsegmental atelectasis in the left lung base with no acute heart failure. Subsequent x-ray showed persistent right lower lobe infiltrate. EKG shows atrial fibrillation with rapid ventricular response. Chest x-ray repeated yesterday morning shows overall improved aeration from previous study. Blood pressure 103/50 with a heart rate in the 1 teens, 95% on room air. White blood cell count 8.4, hemoglobin 14.7, platelet count 109. Sodium 131, potassium 4.9, BUN 40, creatinine 0.9. BNP 2090. Total protein 5.0, albumin 2.7. We will discontinue the oral diuretics and start the patient on IV Lasix today. Obtain echocardiogram with Doppler study. Decrease aspirin to 81 mg daily. At the time of my examination this morning, patient still complaining of feeling short of breath, he has significant generalized edema throughout. 08/12/2018 Patient seen and examined this morning, diuresed well through the night last night, weight down 5 kg. We will continue current dose of IV Lasix drip, continue to monitor intake and output along with daily weights today. Sodium 131, potassium 4.5, BUN 37, creatinine 0.9. Blood pressure 86/60. 08/13/2018 Patient seen and examined today, continues to diurese significantly well. Weight is down another 2 kg today, BUN 38 and creatinine 0.9 today. 08/14/2008 Patient seen and examined today, continues to diurese well on IV Lasix drip. The weight today is down 5 kg, patient is feeling significantly better. We will discontinue the IV Lasix drip today and start the patient on IV push Lasix every 8 hourly. 08/16/2018 Patient seen and examined today, he continues to diurese well. Continues at this time to be on IV push Lasix. Sodium 131, potassium 4.2, BUN 34, creatinine 0.8. 2017 Patient seen and examined this morning, continues to diurese well overall. Blood pressure remains on the low side at 86/50 with a heart rate of 90 to low 100s. 100% on room air. Sodium 129, potassium 4.0, BUN 14, creatinine 1.0. 08/22/2018 Patient was seen and examined this morning, continued through the night to diurese well. Weight is down 3 kg today. Lytes BUN and creatinine remain pending. Patient is feeling significantly better overall. 08/25/2018 Patient was seen and examined this morning, sitting up in the chair at bedside. Overall continues to feel significantly better. Blood pressure 80/50 with a heart rate in the 90s. 98% on room air. Weight is down 2 kg today. White blood cell count 4.4, hemoglobin 12.2, platelet count 75. Sodium 128, potassium 3.9, BUN 34, creatinine 0.9. 08/27/2018 Patient seen and examined this morning, anticipating transferred to ECF today. Blood pressure 98/60 with a heart rate in the 80s, 94% on room air. Objective - Vital Signs Vital signs: Vital Signs Temp 97.9 F 08/27/18 08:00 Pulse 90 08/27/18 08:41 Resp 16 08/27/18 08:00 BP 81/52 08/27/18 08:00 Pulse Ox 100 08/27/18 08:00 Intake & Output 08/26/18 08/27/18 08/27/18 18:59 06:59 18:59 Intake Total 410 50 Output Total 1500 700 Balance -1090 -650 Weight 116 kg Intake: Oral 410 50 Output: Urine 1500 700 Other: Voiding Method Indwelling Catheter Indwelling Catheter Indwelling Catheter # Voids 1 0 # Bowel Movements 1 - Exam PHYSICAL EXAMINATION: GENERAL:83-year-old gentleman in no acute distress at the time of my examination HEENT: Head is atraumatic, normocephalic. Pupils equal, round. Sclera anicteric. Conjunctiva are clear. Mucous membranes of the mouth are moist. Neck is supple. There is elevated jugular venous pressure. No carotid bruit is heard. HEART EXAMINATION: Heart S1 and S2 irregularly irregular a systolic ejection murmur is heard. CHEST EXAMINATION: Lungs reveal improvement in air entry to bilateral bases. ABDOMEN: Soft, obese, nontender. Bowel sounds are heard. No organomegaly noted. EXTREMITIES: 2+ peripheral pulses with no evidence of peripheral edema, bilateral Payam wraps to arms with significant drainage noted. NEUROLOGIC patient is awake, alert and oriented 3 . . - Labs CBC & Chem 7: 08/25/18 05:56 08/25/18 05:56 Labs: Abnormal Lab Results - Last 24 Hours (Table) 08/26/18 08/26/18 08/27/18 Range/Units 17:05 21:13 11:46 POC Glucose (mg/dL) 155 H 156 H 134 H (75-99) mg/dL Assessment and Plan Plan: Assessment and plan #1 symptoms of progressively since shortness of breath with associated productive cough of Bilateral peripheral edema. Evidence of right lower lobe pneumonia, sputum cultures with evidence of MRSA. Combination of pneumonia and congestive cardiac failure, systolic acute on chronic. #2 chronic persistent atrial fibrillation on Eliquis for anticoagulation #3 coronary artery disease with prior stent placement #4 hyperlipidemia #5 diabetes Plan From cardiology's perspective, we'll continue the patient on his current medications. Anticipating transferred to [facility] today. We will make a follow-up appointment in the office post discharge. DNP note has been reviewed, I agree with a documented findings and plan of care. Patient was seen and examined.
--- NOTE | 2018-08-27 13:03 | DS ---
DISCHARGE SUMMARY CHIEF COMPLAINT: Shortness of breath. HISTORY OF PRESENT ILLNESS AND PHYSICAL EXAM: Details of this man's history and physical can be found in the initial workup. LABORATORY STUDIES: While he was in the hospital, he had laboratory studies, details of which can be found in the laboratory section of chart. COURSE IN HOSPITAL: After admission, he was placed on bedrest, started on intravenous fluids and was started on diuretics, updrafts and antibiotics because x-ray suggests the possibility of left lower lobe pneumonitis. He started to improve and did fairly well and then he started to go into congestive heart failure with development of significant generalized anasarca. He was seen and followed by Cardiology. He had to be placed on a Lasix drip and then he started to improve but he also had difficulty with urinary retention. Efforts to take Leyva out were not successful. He started to reaccumulate fluid once again and had to be placed back on a Lasix drip. However, when it was stopped this time, he retained a good fluid balance. He was getting a little bit stronger and eating and doing well, enough to go to a group home which was arranged on 08/27. He will go to [facility]. FINAL DIAGNOSES: 1. Acute congestive heart failure. 2. Chronic congestive heart failure. 3. Left lower lobe pneumonitis. 4. Atherosclerotic cardiomyopathy. 5. Insulin-dependent diabetes mellitus. 6. Urinary retention. OPERATIONS: None. CONSULTATIONS: Cardiology, Urology, Infectious Disease and Pulmonology. He is improved. MMODL / IJN: [id number] /
[2018-08-27 14:53] VITALS: BP 89/62; PULSE 90; RESP 18; TEMP 97.8
== END 2018-08-27 15:16 | DRG 177 ==
LOC: EC 23:46 → 4SSUR 07-28 02:32 → 3SCARD 08-10 18:20
PROVIDERS: ADMIT Family Medicine; ATTEND Family Medicine
DX: J15.212 Pneumonia due to Methicillin resistant Staphylococcus aureus (principal); I50.43 Acute on chronic combined systolic (congestive) and diastolic (congestive) heart failure; K76.7 Hepatorenal syndrome; J98.11 Atelectasis; E87.3 Alkalosis; I13.0 Hypertensive heart and chronic kidney disease with heart failure and stage 1 through stage 4 chronic kidney disease, or unspecified chronic kidney disease; I42.9 Cardiomyopathy, unspecified; I48.1 Persistent atrial fibrillation; N39.0 Urinary tract infection, site not specified; I47.1 Supraventricular tachycardia; N18.9 Chronic kidney disease, unspecified; E11.22 Type 2 diabetes mellitus with diabetic chronic kidney disease; E11.65 Type 2 diabetes mellitus with hyperglycemia; E66.9 Obesity, unspecified; Z68.36 Body mass index [BMI] 36.0-36.9, adult; E78.5 Hyperlipidemia, unspecified; I25.10 Atherosclerotic heart disease of native coronary artery without angina pectoris; I25.2 Old myocardial infarction; I48.2 Chronic atrial fibrillation; J40 Bronchitis, not specified as acute or chronic; J98.01 Acute bronchospasm; L30.4 Erythema intertrigo; M19.90 Unspecified osteoarthritis, unspecified site; N50.89 Other specified disorders of the male genital organs; T50.2X5A Adverse effect of carbonic-anhydrase inhibitors, benzothiadiazides and other diuretics, initial encounter; Z79.01 Long term (current) use of anticoagulants; Z79.4 Long term (current) use of insulin; Z79.82 Long term (current) use of aspirin; Z79.899 Other long term (current) drug therapy; Z85.828 Personal history of other malignant neoplasm of skin; Z87.442 Personal history of urinary calculi; Z95.5 Presence of coronary angioplasty implant and graft; Z96.642 Presence of left artificial hip joint; Z96.653 Presence of artificial knee joint, bilateral; Z98.1 Arthrodesis status; Z98.42 Cataract extraction status, left eye; Z98.41 Cataract extraction status, right eye; R23.3 Spontaneous ecchymoses; M10.9 Gout, unspecified; R33.9 Retention of urine, unspecified
CPT/HCPCS: 36415; 71046; 80048; 80053; 80202; 81001; 82550; 82553; 83036; 83605; 83880; 84443; 84484; 85025; 85027; 85610; 85730; 87040; 87070; 87077; 87186; 87205; 87502; 93005; 93306; 93308; 94640; 94760; 96361; 96365; 96366; 96367; 99285

== ENCOUNTER 2018-08-31 16:16 | Inpatient (IN) | payer MEDICARE, BC ==
--- NOTE | 2018-08-31 16:55 | ED ---
General Adult HPI - General Chief complaint: Recheck/Abnormal Lab/Rx Stated complaint: hypotension Time Seen by Provider: 08/31/18 16:37 Source: patient, EMS Mode of arrival: EMS Limitations: physical limitation - History of Present Illness Initial comments: Patient is an 83-year-old male presenting for generalized weakness and seizure- like activity. The patient states that he was admitted here for approximately 30 days for pneumonia and was discharged to rehab facility. Earlier this afternoon, he had a seizure-like activity while in the wheelchair. He did not fall and hit his head but they said afterwards, his blood pressure was low. He denies any infectious type symptoms such as abdominal pain, fever/chills, nausea /vomiting/diarrhea or coughing. He also denies any chest pain or shortness of breath. - Related Data Home Medications Medication Instructions Recorded Confirmed Amiodarone [Cordarone] 100 mg PO DAILY 03/26/18 08/31/18 Apixaban [Eliquis] 2.5 mg PO BID 03/26/18 08/31/18 Atorvastatin [Lipitor] 40 mg PO HS 07/28/18 08/31/18 Cholecalciferol [Vitamin D3] 5,000 unit PO DAILY@1700 07/28/18 08/31/18 Mirtazapine [Remeron] 15 mg PO HS 07/28/18 08/31/18 Spironolactone [Aldactone] 25 mg PO DAILY 07/28/18 08/31/18 traZODone HCL [Desyrel] 100 mg PO HS PRN 07/28/18 08/31/18 Acetaminophen Tab [Tylenol Tab] 650 mg PO Q4H PRN 08/31/18 08/31/18 Bisacodyl [Dulcolax] 10 mg RECTAL DAILY PRN 08/31/18 08/31/18 Metolazone [Zaroxolyn] 2.5 mg PO DAILY@1700 08/31/18 08/31/18 Tamsulosin [Flomax] 0.8 mg PO DAILY@1700 08/31/18 08/31/18 Previous Rx's Medication Instructions Recorded Doxycycline [Vibramycin] 100 mg PO BID #20 cap 08/27/18 Furosemide [Lasix] 40 mg PO DAILY #30 tab 08/27/18 Insulin Aspart [NovoLOG 4 unit SQ ACHS #1 vial 08/27/18 (formulary)] Insulin Detemir [Levemir] 50 unit SQ HS 30 Days #1 vial 08/27/18 Ipratropium-Albuterol Nebulize 3 ml INHALATION RT-Q4H PRN #120 08/27/18 [Duoneb 0.5 mg-3 mg/3 ml Soln] ampul.neb Metoprolol Tartrate [Lopressor] 25 mg PO BID #60 tab 08/27/18 Nystatin 100,000 Unit/gm Powd 1 applic TOPICAL TID 60 Days #1 08/27/18 [Mycostatin Powder] pack Allergies Allergy/AdvReac Type Severity Reaction Status Date / Time No Known Allergies Allergy Verified 08/31/18 16:51 Review of Systems ROS Statement: Those systems with pertinent positive or pertinent negative responses have been documented in the HPI. Constitutional: Negative for chills, and fever. Positive for generalized fatigue HENT: Negative for congestion. Respiratory: Negative for chest tightness, shortness of breath and wheezing. Negative for cough Cardiovascular: Negative for chest pain and palpitations. Gastrointestinal: Negative for abdominal pain. Negative for abdominal distention , diarrhea, nausea and vomiting. Genitourinary: Negative for dysuria. Musculoskeletal: Negative for back pain, neck pain and neck stiffness. Skin: Negative for color change. Neurological: Negative for dizziness, speech difficulty, weakness and light- headedness. Positive for seizure-like activity Psychiatric/Behavioral: Negative for agitation and confusion. Negative for anxiety ROS Other: All systems not noted in ROS Statement are negative. Past Medical History Past Medical History: Atrial Fibrillation, Coronary Artery Disease (CAD), Cancer , Chest Pain / Angina, Heart Failure, Diabetes Mellitus, Hypertension, Myocardial Infarction (CO), Osteoarthritis (OA), Skin Disorder, Supraventricular Tachycardia (SVT) Additional Past Medical History / Comment(s): hx gout, diet control diabetic(rx in past), hx kidney stones, skin cancer Last Myocardial Infarction Date:: 1992 History of Any Multi-Drug Resistant Organisms: MRSA Date of last positivie culture/infection: 08/05/18 MDRO Source:: mrsa sputum Past Surgical History: Appendectomy, Back Surgery, Heart Catheterization With Stent, Joint Replacement Additional Past Surgical History / Comment(s): bilateral knee replacement(left knee x 2), left hip replacement, two cardiac stents, spinal fusion, michael cataracts Past Anesthesia/Blood Transfusion Reactions: No Reported Reaction Date of Last Stent Placement:: unknown Past Psychological History: No Psychological Hx Reported Smoking Status: Never smoker - Past Family History Brother(s) Family Medical History: Cancer Daughter(s) Family Medical History: Cancer Father Family Medical History: Cancer General Exam - General Exam Comments Initial Comments: Constitutional: Pt is oriented to person, place, and time. Pt appears well- developed and well-nourished. No distress. HENT: Head: Normocephalic and atraumatic. Eyes: EOM are normal. Neck: Normal range of motion. Neck supple. Cardiovascular: Tachycardia, irregular rhythm, S1 normal, S2 normal and normal heart sounds. Exam reveals no gallop and no friction rub. No murmur heard. 2-3 + pitting edema of the lower extremities. Pulmonary/Chest: Effort normal and breath sounds normal. No tachypnea and no bradypnea. No respiratory distress. No wheezes or rales noted. Abdominal: Soft. Bowel sounds are normal. Pt exhibits no shifting dullness, no distension, no pulsatile liver, no fluid wave, no abdominal bruit and no ascites. There is no tenderness. There is no rigidity, no rebound, no guarding, no tenderness at McBurney's point and negative Chen's sign. Musculoskeletal: Normal range of motion. Neurological: Pt is alert and oriented to person, place, and time. No cranial nerve deficit. Skin: There is skin breakdown of the bilateral calcaneus which appears infected. Psychiatric: Pt has a normal mood and affect. Pt behavior is normal. Thought content normal. Limitations: physical limitation Course Vital Signs 08/31/18 08/31/18 08/31/18 16:19 16:45 17:50 Temperature 97.1 F L Pulse Rate 102 H 102 H 108 H Respiratory 18 Rate Blood Pressure 89/63 73/38 88/62 O2 Sat by Pulse 99 Oximetry 08/31/18 08/31/18 08/31/18 17:55 18:14 19:03 Temperature Pulse Rate 108 H 105 H 105 H Respiratory 16 Rate Blood Pressure 88/62 103/68 81/66 O2 Sat by Pulse 98 Oximetry - Reevaluation(s) Reevaluation #1: 08/31/18 18:59 - chart review, patient has extensive CHF with an EF of approximately 30%. Therefore patient could not be given extensive amount of fluids. Patient was given 1 L fluids and continued to remain hypotensive. Etiology of the hypotension is unclear but is suspected that this is secondary to infection. Urinalysis is not overtly positive for infection and chest x-ray showed no infiltrate. However, it is thought that it may be secondary to soft tissue breakdown. Therefore the patient was started on vancomycin. Additionally, the patient continued to remain hypotensive after fluids and therefore central line was placed. Pt Was started on Levophed as well. Procedures - Central Line Placement Right IJ Consent Obtained: written consent Time Out Performed: Yes Patient Placed on Monitor/Pulse Ox: Yes Prep: mask, gown, gloves Central Line Prep: Chlorhexidine scrub, sterile drapes applied Local Anesthesia Used: Lidocaine 1% Amount of Anesthesia Used (mls): 5 Ultrasound Used for Placement: Yes Central Line Lumen Inserted: triple Bloods Obtained for Lab: No Central Line Position: good blood return, all ports aspirated, flushed, capped, sutured in place with 3-0 nylon Dressing Applied: Tegaderm Post Procedure X-Ray: tip of catheter in good position Patient Tolerated Procedure: well Complications: none Medical Decision Making - Medical Decision Making As noted in the course section of this note, patient had to be put on pressors as patient was given a liter fluid and blood pressure did not respond. There is concern about overloading the patient as he already had lower extremity edema and there is no evidence that the patient is in cardiogenic shock and it is suspected that the A. fib with RVR which is intermittent is secondary to underlying infection. Because of this, Cardizem was not initiated and it was hoped that heart rate would improve after antibiotic treatment and fluid resuscitation. Case is discussed with Dr. villalobos and Dr. Ratliff both of whom agree with admission to ICU. - Lab Data Result diagrams: 08/31/18 16:19 08/31/18 16:19 Lab Results 08/31/18 08/31/18 08/31/18 Range/Units 16:19 16:19 16:19 WBC 2.5 L (3.8-10.6) k/uL RBC 3.76 L (4.30-5.90) m/uL Hgb 12.3 L (13.0-17.5) gm/dL Hct 36.3 L (39.0-53.0) % MCV 96.6 (80.0-100.0) fL MCH 32.7 (25.0-35.0) pg MCHC 33.8 (31.0-37.0) g/dL RDW 14.7 (11.5-15.5) % Plt Count 142 L (150-450) k/uL Neutrophils % (Manual) 55 % Lymphocytes % (Manual) 33 % Monocytes % (Manual) 10 % Eosinophils % (Manual) 2 % Neutrophils # (Manual) 1.38 (1.3-7.7) k/uL Lymphocytes # (Manual) 0.83 L (1.0-4.8) k/uL Monocytes # (Manual) 0.25 (0-1.0) k/uL Eosinophils # (Manual) 0.05 (0-0.7) k/uL Nucleated RBCs 0 (0-0) /100 WBC Manual Slide Review Performed Toxic Granulation Present Hypochromasia (manual) Present PT 11.1 (9.0-12.0) sec INR 1.1 (<1.2) APTT 26.4 (22.0-30.0) sec Sodium 128 L (137-145) mmol/L Potassium 3.9 (3.5-5.1) mmol/L Chloride 91 L (98-107) mmol/L Carbon Dioxide 28 (22-30) mmol/L Anion Gap 9 mmol/L BUN 37 H (9-20) mg/dL Creatinine 1.84 H (0.66-1.25) mg/dL Est GFR (CKD-EPI)AfAm 38 (>60 ml/min/1.73 sqM) Est GFR (CKD-EPI)NonAf 33 (>60 ml/min/1.73 sqM) Glucose 74 (74-99) mg/dL Plasma Lactic Acid Otilio (0.7-2.0) mmol/L Calcium 8.3 L (8.4-10.2) mg/dL Magnesium 1.5 L (1.6-2.3) mg/dL Total Bilirubin 1.1 (0.2-1.3) mg/dL AST 31 (17-59) U/L ALT 56 (21-72) U/L Alkaline Phosphatase 124 (38-126) U/L Troponin I (0.000-0.034) ng/mL NT-Pro-B Natriuret Pep pg/mL Total Protein 5.4 L (6.3-8.2) g/dL Albumin 3.0 L (3.5-5.0) g/dL Urine Color Urine Appearance (Clear) Urine pH (5.0-8.0) Ur Specific [place] (1.001-1.035) Urine Protein (Negative) Urine Glucose (UA) (Negative) Urine Ketones (Negative) Urine Blood (Negative) Urine Nitrite (Negative) Urine Bilirubin (Negative) Urine Urobilinogen (<2.0) mg/dL Ur Leukocyte Esterase (Negative) Urine RBC (0-5) /hpf Urine WBC (0-5) /hpf Influenza Type A RNA (Not Detectd) Influenza Type B (PCR) (Not Detectd) 08/31/18 08/31/18 08/31/18 Range/Units 16:19 16:19 17:29 WBC (3.8-10.6) k/uL RBC (4.30-5.90) m/uL Hgb (13.0-17.5) gm/dL Hct (39.0-53.0) % MCV (80.0-100.0) fL MCH (25.0-35.0) pg MCHC (31.0-37.0) g/dL RDW (11.5-15.5) % Plt Count (150-450) k/uL Neutrophils % (Manual) % Lymphocytes % (Manual) % Monocytes % (Manual) % Eosinophils % (Manual) % Neutrophils # (Manual) (1.3-7.7) k/uL Lymphocytes # (Manual) (1.0-4.8) k/uL Monocytes # (Manual) (0-1.0) k/uL Eosinophils # (Manual) (0-0.7) k/uL Nucleated RBCs (0-0) /100 WBC Manual Slide Review Toxic Granulation Hypochromasia (manual) PT (9.0-12.0) sec INR (<1.2) APTT (22.0-30.0) sec Sodium (137-145) mmol/L Potassium (3.5-5.1) mmol/L Chloride (98-107) mmol/L Carbon Dioxide (22-30) mmol/L Anion Gap mmol/L BUN (9-20) mg/dL Creatinine (0.66-1.25) mg/dL Est GFR (CKD-EPI)AfAm (>60 ml/min/1.73 sqM) Est GFR (CKD-EPI)NonAf (>60 ml/min/1.73 sqM) Glucose (74-99) mg/dL Plasma Lactic Acid Otilio 1.9 (0.7-2.0) mmol/L Calcium (8.4-10.2) mg/dL Magnesium (1.6-2.3) mg/dL Total Bilirubin (0.2-1.3) mg/dL AST (17-59) U/L ALT (21-72) U/L Alkaline Phosphatase (38-126) U/L Troponin I 0.014 (0.000-0.034) ng/mL NT-Pro-B Natriuret Pep 1910 pg/mL Total Protein (6.3-8.2) g/dL Albumin (3.5-5.0) g/dL Urine Color Urine Appearance (Clear) Urine pH (5.0-8.0) Ur Specific [place] (1.001-1.035) Urine Protein (Negative) Urine Glucose (UA) (Negative) Urine Ketones (Negative) Urine Blood (Negative) Urine Nitrite (Negative) Urine Bilirubin (Negative) Urine Urobilinogen (<2.0) mg/dL Ur Leukocyte Esterase (Negative) Urine RBC (0-5) /hpf Urine WBC (0-5) /hpf Influenza Type A RNA (Not Detectd) Influenza Type B (PCR) (Not Detectd) 08/31/18 08/31/18 Range/Units 17:30 17:30 WBC (3.8-10.6) k/uL RBC (4.30-5.90) m/uL Hgb (13.0-17.5) gm/dL Hct (39.0-53.0) % MCV (80.0-100.0) fL MCH (25.0-35.0) pg MCHC (31.0-37.0) g/dL RDW (11.5-15.5) % Plt Count (150-450) k/uL Neutrophils % (Manual) % Lymphocytes % (Manual) % Monocytes % (Manual) % Eosinophils % (Manual) % Neutrophils # (Manual) (1.3-7.7) k/uL Lymphocytes # (Manual) (1.0-4.8) k/uL Monocytes # (Manual) (0-1.0) k/uL Eosinophils # (Manual) (0-0.7) k/uL Nucleated RBCs (0-0) /100 WBC Manual Slide Review Toxic Granulation Hypochromasia (manual) PT (9.0-12.0) sec INR (<1.2) APTT (22.0-30.0) sec Sodium (137-145) mmol/L Potassium (3.5-5.1) mmol/L Chloride (98-107) mmol/L Carbon Dioxide (22-30) mmol/L Anion Gap mmol/L BUN (9-20) mg/dL Creatinine (0.66-1.25) mg/dL Est GFR (CKD-EPI)AfAm (>60 ml/min/1.73 sqM) Est GFR (CKD-EPI)NonAf (>60 ml/min/1.73 sqM) Glucose (74-99) mg/dL Plasma Lactic Acid Otilio (0.7-2.0) mmol/L Calcium (8.4-10.2) mg/dL Magnesium (1.6-2.3) mg/dL Total Bilirubin (0.2-1.3) mg/dL AST (17-59) U/L ALT (21-72) U/L Alkaline Phosphatase (38-126) U/L Troponin I (0.000-0.034) ng/mL NT-Pro-B Natriuret Pep pg/mL Total Protein (6.3-8.2) g/dL Albumin (3.5-5.0) g/dL Urine Color Light Yellow Urine Appearance Clear (Clear) Urine pH 6.0 (5.0-8.0) Ur Specific [place] 1.004 (1.001-1.035) Urine Protein Negative (Negative) Urine Glucose (UA) Negative (Negative) Urine Ketones Negative (Negative) Urine Blood Moderate H (Negative) Urine Nitrite Negative (Negative) Urine Bilirubin Negative (Negative) Urine Urobilinogen <2.0 (<2.0) mg/dL Ur Leukocyte Esterase Large H (Negative) Urine RBC 4 (0-5) /hpf Urine WBC 40 H (0-5) /hpf Influenza Type A RNA Not Detected (Not Detectd) Influenza Type B (PCR) Not Detected (Not Detectd) - EKG Data EKG Comments: EKG shows left bundle-branch block with rapid ventricular response. There are no significant ST depressions or elevations. Rate is 104 bpm, QRS 152, QTC 547. Critical Care Time Critical Care Time: Yes Total Critical Care Time: 45 Critical Care Time: 45 minutes of critical care time was spent including central line placement. Discussion was had with both admitting physician and environmental monitoring specialist for management of A. fib with RVR as well as hypotension. Disposition Clinical Impression: Septic shock, Elevated brain natriuretic peptide (BNP) level, Atrial fibrillation with RVR, Cellulitis Disposition: ADMITTED IP TO THIS [facility] Condition: Critical Referrals: Davey Villalobos MD [Primary Care Provider] - 1-2 days Decision to Admit Reason: Admit from EC Decision Date: 08/31/18 Decision Time: 19:28
[2018-08-31] MEDS ORDERED: SODIUM CHLORIDE 0.9% 500 ML 500 ML IV SCH (17:00)
[2018-08-31 17:23] LABS: HCT 36.3 % (39.0-53.0); HGB 12.3 gm/dL (13.0-17.5); MCH 32.7 pg (25.0-35.0); MCHC 33.8 g/dL (31.0-37.0); MCV 96.6 fL (80.0-100.0); Platelet Count 142 k/uL (150-450); RBC 3.76 m/uL (4.30-5.90); RDW 14.7 % (11.5-15.5); WBC 2.5 k/uL (3.8-10.6)
--- NOTE | 2018-08-31 17:28 | CT ---
EXAMINATION TYPE: CT brain wo con DATE OF EXAM: 08/31/2018 COMPARISON: 08/03/2016 HISTORY: Hypotensive. Weakness CT DLP: 1130.4 mGycm Automated exposure control for dose reduction was used. FINDINGS: There is cerebral cortical atrophy. There is no mass effect nor midline shift. There is no sign of in tracranial hemorrhage. There is mild hypodensity in the periventricular white matter. Calvarium is in tact. Impression Cerebral atrophy. No acute intracranial abnormality. No change.
--- NOTE | 2018-08-31 17:30 | XR ---
EXAMINATION TYPE: XR chest 1V portable DATE OF EXAM: 08/31/2018 COMPARISON: 08/18/2018 HISTORY: Fever TECHNIQUE: Single frontal view of the chest is obtained. FINDINGS: There is no heart failure. There is linear density in the lower lung lynne. Costophrenic angles are clear. Heart is probably enlarged. IMPRESSION: There is mild atelectasis at the lung bases similar to old exam. No heart failure.
[2018-08-31 17:32] LABS: Calcium 8.3 mg/dL (8.4-10.2); Magnesium 1.5 mg/dL (1.6-2.3); Potassium 3.9 mmol/L (3.5-5.1); Total Bilirubin 1.1 mg/dL (0.2-1.3); Total Protein 5.4 g/dL (6.3-8.2)
[2018-08-31] MEDS ORDERED: VANCOMYCIN IV PER PHARMACY 1 EACH MISC MISCELLANE PRN ×2 (17:38→22:35)
[2018-08-31 17:43] LABS: INR 1.1 (<1.2); Partial Thromboplastin Time 26.4 sec (22.0-30.0); Prothrombin Time 11.1 sec (9.0-12.0)
[2018-08-31 17:54] LABS: Appearance,Urine Clear (Clear); Bilirubin,Urine Negative (Negative); Blood,Urine Moderate (Negative); Color,Urine Light Yellow; Glucose,Urine (UA) Negative (Negative); Ketones,Urine Negative (Negative); Leukocyte Esterase,Urine Large (Negative); Nitrite,Urine Negative (Negative); Protein,Urine Negative (Negative); RBC,Urine 4 /hpf (0-5); Specific Gravity,Urine 1.004 (1.001-1.035); Urobilinogen,Urine <2.0 mg/dL (<2.0); WBC,Urine 40 /hpf (0-5)
[2018-08-31 18:07] LABS: Eosinophils # (M) 0.05 k/uL (0-0.7); Hypochromasia (M) Present; Lymphocytes # (M) 0.83 k/uL (1.0-4.8); Monocytes # (M) 0.25 k/uL (0-1.0); Neutrophils # (M) 1.38 k/uL (1.3-7.7); Neutrophils % (M) 55 %; Nucleated Red Blood Cells 0 /100 WBC (0-0); Total Cells Counted 100; Toxic Granulation Present
[2018-08-31] MEDS ORDERED: SODIUM CHLORIDE 0.9% 500 ML 500 ML IV ONE (18:15)
[2018-08-31] MEDS ORDERED: VANCOMYCIN 2,000 MG in SODIUM CHLORIDE 0.9% 500 ML 500 ML IVPB STA (18:33)
[2018-08-31] MEDS: NOREPINEPHRINE 16 MG in SODIUM CHLORIDE 0.9% 250 ML IV SCH (18:56)
[2018-08-31] MEDS ORDERED: CEFEPIME 1 GM in SODIUM CHLORIDE 0.9% 50 ML IVPB STA (19:10)
[2018-08-31] MEDS ORDERED: NALOXONE 0.4 MG/ML 1 ML VIAL IV PRN (19:12)
[2018-08-31] MEDS ORDERED: ACETAMINOPHEN TAB 325 MG TAB PO PRN (19:12)
--- NOTE | 2018-08-31 19:14 | XR ---
EXAMINATION TYPE: XR chest 1V confirm line [facility] DATE OF EXAM: 08/31/2018 COMPARISON: Today HISTORY: Central line placement TECHNIQUE: Single frontal view of the chest is obtained. FINDINGS: There is right jugular catheter with the tip in the superior vena cava. There is no pneumo thorax. There is slight coarsening of the lung markings. There is no heart failure. There are chest l bill. IMPRESSION: Minimal subsegmental atelectasis unchanged. Catheter in good position.
[2018-08-31 21:05] LABS: Glucose,Whole Blood 58 mg/dL (75-99)
[2018-08-31 21:05] LABS: Glucose,Whole Blood 60 mg/dL (75-99)
[2018-08-31 21:20] LABS: Glucose,Whole Blood 62 mg/dL (75-99)
[2018-08-31] MEDS: APIXABAN 2.5 MG TABLET PO SCH (21:23)
[2018-08-31] MEDS: PANTOPRAZOLE 40 MG/10 ML VIAL IVP SCH (21:25)
[2018-08-31 21:59] LABS: Glucose,Whole Blood 71 mg/dL (75-99)
[2018-08-31 23:23] LABS: Magnesium 1.5 mg/dL (1.6-2.3); Phosphorus 4.2 mg/dL (2.5-4.5)
[2018-09-01] MEDS ORDERED: Magnesium Replacement Protocol 1 EACH MISC MISCELLANE PRN (00:06)
[2018-09-01] MEDS: MAGNESIUM SULFATE-D5W PMX 1 GM in DEXTROSE/WATER 1 100ML.BAG IVPB SCH ×4 (00:13→11:15)
[2018-09-01 00:38] LABS: Glucose,Whole Blood 101 mg/dL (75-99)
[2018-09-01 06:15] LABS: Glucose,Whole Blood 99 mg/dL (75-99)
[2018-09-01 07:06] LABS: Glucose,Whole Blood 118 mg/dL (75-99)
--- NOTE | 2018-09-01 07:39 | XR ---
EXAMINATION TYPE: XR chest 1V DATE OF EXAM: 09/01/2018 CLINICAL HISTORY: Difficulty breathing progress study. TECHNIQUE: Single AP portable upright view of the chest is obtained. COMPARISON: Chest x-ray from one day earlier and older studies. FINDINGS: There is stable right internal jugular central venous catheter. Cardiac silhouette size is stable and enlarged with atherosclerotic thoracic aorta. There is central vascular congestion redemo nstrated. Low lung volumes are again seen. There is left basilar linear scarring and/or atelectasis r edemonstrated. Anterior fusion plate lower cervical spine is redemonstrated. Multilevel spurring in t horacic spine is again seen. IMPRESSION: Overall stable findings, low lung volumes and cardiomegaly with mild central vascular c ongestion but no suspicious focal infiltrate.
[2018-09-01] MEDS ORDERED: LACTATED RINGERS 1,000 ML IV ONE (08:00)
[2018-09-01 08:13] LABS: Calcium 8.5 mg/dL (8.4-10.2); Magnesium 1.8 mg/dL (1.6-2.3); Phosphorus 3.6 mg/dL (2.5-4.5); Potassium 4.2 mmol/L (3.5-5.1)
[2018-09-01] MEDS: PANTOPRAZOLE 40 MG/10 ML VIAL IVP SCH (08:32)
[2018-09-01] MEDS: APIXABAN 2.5 MG TABLET PO SCH ×2 (08:32→21:00)
[2018-09-01 08:39] LABS: HCT 39.4 % (39.0-53.0); HGB 13.1 gm/dL (13.0-17.5); MCH 32.4 pg (25.0-35.0); MCHC 33.3 g/dL (31.0-37.0); MCV 97.5 fL (80.0-100.0); Mean Platelet Volume 6.4; Platelet Count 195 k/uL (150-450); RBC 4.04 m/uL (4.30-5.90); WBC 2.9 k/uL (3.8-10.6)
[2018-09-01] MEDS ORDERED: LEVOFLOXACIN 500MG-D5W PMX 500 MG in DEXTROSE/WATER 1 100ML.BAG IVPB SCH (09:00)
[2018-09-01] MEDS ORDERED: FUROSEMIDE 40 MG TAB PO SCH (09:00)
[2018-09-01 10:24] LABS: Band Neutrophils % 7 %; Eosinophils # (M) 0.06 k/uL (0-0.7); Lymphocytes # (M) 0.46 k/uL (1.0-4.8); Metamyelocytes # (M) 0.03 k/uL (0); Metamyelocytes % 1 %; Monocytes # (M) 0.41 k/uL (0-1.0); Myelocytes # (M) 0.09 k/uL (0); Myelocytes % 3 %; Neutrophils % (M) 57 %; Nucleated Red Blood Cells 0 /100 WBC (0-0); Total Cells Counted 100
[2018-09-01 10:25] LABS: Anisocytosis (M) Present; Poikilocytosis (M) Present
[2018-09-01 10:27] LABS: Toxic Granulation Present
[2018-09-01] MEDS: HYDROCORTISONE SUCCINATE 100 MG/2 ML VIAL IV SCH ×2 (10:32→16:17)
[2018-09-01] MEDS ORDERED: traZODone HCL 100 MG TAB PO PRN (11:26)
[2018-09-01] MEDS ORDERED: BISACODYL 10 MG SUPP RECTAL PRN (11:26)
[2018-09-01] MEDS ORDERED: ACETAMINOPHEN TAB 325 MG TAB PO PRN (11:26)
[2018-09-01] MEDS ORDERED: IPRATROPIUM-ALBUTEROL 3 ML NEB INHALATION PRN (11:26)
[2018-09-01 11:40] LABS: Hemoglobin A1C 7.2 % (4.0-6.0)
[2018-09-01 11:42] LABS: Glucose,Whole Blood 246 mg/dL (75-99)
[2018-09-01] MEDS: AMIODARONE 100 MG TAB PO SCH (11:54)
[2018-09-01] MEDS: INSULIN ASPART 100 UNIT/ML 1 ML 10 ML VIAL SQ SCH ×6 (12:35→21:00)
--- NOTE | 2018-09-01 14:58 | CONS ---
CONSULTATION This is a pulmonary critical care consultation dated September 01, 2018 This is an 83-year-old male who presented to the emergency room from one of the nursing homes with generalized weakness, low blood pressure, and possible seizure activity. The patient apparently had been there for a number of days for possible pneumonia. We saw him last early in July, right around July 28 for an episode of methicillin- resistant Staph aureus purulent tracheobronchitis. He does have a history of heart failure with an ejection fraction of 30-35%. Anyway, he came with significant hypotension. He only received a L of fluid in the emergency room and has not been receiving any fluids here because of concerns of heart failure. Yet, despite that, he is on norepinephrine at 16 mcg/minute. He only received 1 L of fluid in the emergency room. His IV currently is 0.9 at 30 mL an hour. He is denying any respiratory difficulty. He is only on room air oxygen. I asked the nurses to go ahead and give him another liter of fluid, some lactated Ringer's. We stopped the Lasix. We added some oral Levaquin to his regimen and asked for stat random cortisol. He was on a bunch of different antibiotics and those were discontinued in favor of the oral Levaquin. He did have methicillin-resistant Staph aureus back in his sputum in early July. That was treated. HOME MEDICATIONS: Include amiodarone, Eliquis, Lipitor, vitamin D3, Remeron, Aldactone, Desyrel, Tylenol, Dulcolax, Zaroxolyn, and Flomax. He previously was also on nystatin, metoprolol, DuoNeb insulin, Lasix, and Vibramycin. ALLERGIES: Denied. MEDICAL HISTORY: Reviewed. Includes chronic atrial fibrillation, coronary artery disease, chest pain, heart failure, angina, diabetes, hypertension, myocardial infarction, osteoarthritis, and SVT. He also has a history of skin cancer, nephrolithiasis, and history of gout. He does have a previous history as mentioned earlier in July of methicillin- resistant Staph aureus in his sputum. SURGICAL HISTORY: Includes appendectomy, back surgery, heart catheterization with stent and joint replacement, that includes both knee replacements, left and right as well as left hip replacement; cardiac stents, spinal fusion, bilateral cataract surgery. SOCIAL HISTORY: Negative for tobacco. He is a lifelong nonsmoker. Doubt underlying COPD. No illicit drug use. No significant alcohol use. FAMILY HISTORY: Positive for significant cancer. REVIEW OF SYSTEMS: Is difficult to obtain because he is a bit somnolent and lethargic. Nonetheless, his biggest issue was just weakness and not feeling well. Current vital signs include a temperature of 99 degrees, a heart rate of 118 and irregular, respiratory rate 14, blood pressure 113/70, mean of 84 and room air saturation between 94 and 98%. The patient does arouse and does answer questions appropriately. Just does not feel well. HEENT examination is grossly unremarkable. Mucous membranes are dry. Neck is supple. Full range of motion. No adenopathy or thyromegaly. Neck veins are flat. Cardiovascular examination reveals tachycardia. He is in atrial fibrillation. Heart rate about 115. S1, S2 normal. No distinct murmur. Lungs reveal mostly clear breath sounds. A few scattered mild rhonchi. No wheezes or crackles. Abdomen soft. Extremities are intact. No cyanosis, clubbing, or edema. Skin without rash. Neurologic examination is brief but nonfocal. LAB DATA: Reviewed. White count 2.9, hemoglobin 13.1, hematocrit 39.4, platelet count 195,000. Sodium 136, potassium 4.2, chloride 99, CO2 of 29, anion gap is 8, BUN and creatinine is 25 and 1.23. Lactic acid is 1.9. Cortisol level is very low at 9. He may have a component of adrenal insufficiency. Urine shows moderate blood, large leukocyte esterase, and 40 WBCs. There also may be a bladder infection. PT/INR is normal. PTT is normal. Microbiologic studies are thus far negative. Medications are reviewed. He is currently on Tylenol, Eliquis, Levaquin, magnesium replacement, Narcan, norepinephrine, and Protonix. Vancomycin was discontinued. ASSESSMENT: 1. Weakness and hypotension of unclear etiology. This could relate to simple dehydration from medications and poor oral intake or could be something more ominous such as infection. 2. Rule out urinary tract infection. 3. Previous history of methicillin-resistant Staphylococcus aureus purulent tracheobronchitis. 4. History of chronic atrial fibrillation. 5. History of kidney stones. 6. History of gout. 7. History of coronary artery disease with previous myocardial infarction. 8. History of angina pectoris. 9. Diabetes mellitus. 10.Benign essential hypertension. 11.Coronary artery disease. 12.Skin cancer. 13.History of supraventricular tachycardia. 14.Multiple surgical procedures. PLAN: The patient appears to be somewhat volume deplete. The patient will get a liter of lactated Ringer's. We consolidated his antibiotics, discontinuing the cefepime and the vancomycin and putting him on just Levaquin. Random cortisol was low. We will end up giving him some hydrocortisone. His chest x-ray is reviewed. Labs are reviewed. He has been cultured. Additional recommendations and suggestions are forthcoming. His diuretics have been discontinued. We will continue to follow. Prognosis is guarded. Critical care time is 32 minutes. MMODL / IJN: [id number] /
--- NOTE | 2018-09-01 15:50 | CONS ---
CONSULTATION CHIEF COMPLAINT: Hypotension. HISTORY OF PRESENT ILLNESS: Julius is an 83-year-old gentleman who was in the intensive care unit for a long time with pneumonia and respiratory failure. Also has persistent atrial fibrillation, hypertension, diabetes, dyslipidemia, coronary artery disease, status post prior stent placement and nonischemic cardiomyopathy. He was in the halfway and became somewhat short of breath and was hypotensive due to which he was readmitted to the ICU. At the time of my evaluation, he appears comfortable at rest and is currently on Levophed. The patient's predominant symptom on coming in was he had generalized weakness. He did not have any chest pain. Breathing was stable. Cardiology had been consulted because of the hypotension. PAST MEDICAL HISTORY: Significant for coronary artery disease, congestive heart failure, atrial fibrillation, and COPD. MEDICATIONS: At home include DuoNeb, Desyrel, doxycycline, Lopressor, Flomax, Aldactone, Eliquis, Zaroxolyn, Lasix, Lipitor and amiodarone. ALLERGIES: There are no known drug allergies. FAMILY HISTORY: Negative for premature coronary artery disease. SOCIAL HISTORY: Denies current smoking, ETOH abuse, or drug abuse. REVIEW OF SYSTEMS: HEENT is unremarkable. CONSTITUTIONAL: Significant for fatigue, tiredness. CARDIAC: As described above. RESPIRATORY: As described above. GI negative. GENITOURINARY: Negative. MUSCULOSKELETAL: Significant for arthritis. PSYCHOSOCIAL: Negative. ENDOCRINE: Negative. CONSTITUTIONAL as described above. Rest of the system review is not relevant. EXAM: Heart rate is 98 beats per minute. Blood pressure is 101/77. Respirations rate is 22. Chest exam reveals diminished air entry at the bases. I do not hear any crackles or rhonchi. Heart exam reveals first and second heart sounds. No gallop. Exam of extremities reveals chronic stasis changes. Foot pulses are intact. LAB: Show a potassium of 4.2, creatinine of 1.2, hemoglobin is 13.1. ASSESSMENT: 1. Hypotension. 2. History of chronic systolic heart failure. There is no evidence of acute exacerbation. 3. History of paroxysmal atrial fibrillation. PLAN: Hypotension could be related to adrenal insufficiency in a patient who has had prolonged hospitalization and received steroids. The patient is currently on hydrocortisone. I will continue the Levophed. I reviewed a previous echo done 3 weeks ago that showed an ejection fraction of 35%. MMODL / IJN: [id number] /
[2018-09-01] MEDS: NYSTATIN 100,000 UNIT/GM POWD 15 GM TOPICAL SCH ×2 (16:17→21:01)
[2018-09-01] MEDS ORDERED: METOLAZONE 2.5 MG TAB PO SCH (17:00)
[2018-09-01 17:03] LABS: Glucose,Whole Blood 187 mg/dL (75-99)
[2018-09-01] MEDS: TAMSULOSIN 0.4 MG CAP.ER.24H PO SCH (17:29)
[2018-09-01 20:57] LABS: Glucose,Whole Blood 212 mg/dL (75-99)
[2018-09-01] MEDS: ATORVASTATIN 40 MG TAB PO SCH (21:00)
[2018-09-01] MEDS ORDERED: METOPROLOL TARTRATE 25 MG TAB PO SCH (21:00)
[2018-09-01] MEDS: INSULIN DETEMIR 100 UNIT/ML 10 ML VIAL SQ SCH (21:00)
[2018-09-01] MEDS ORDERED: APIXABAN 2.5 MG TABLET PO SCH (21:00)
--- NOTE | 2018-09-01 22:23 | HP ---
HISTORY AND PHYSICAL DATE OF SERVICE: 08/31/2018. CHIEF COMPLAINT: Lethargy, hypotension. HISTORY OF PRESENT ILLNESS: This 83-year-old white male with chronic congestive heart failure was just discharged to [facility]. He became more lethargic and blood pressure dropped to around 70 and he was returned to the hospital. There was a concern that he might be septic. He does have an indwelling Leyva catheter and some open areas on his legs and over the sacrum. REVIEW OF SYSTEMS: He is awake and alert. Denies any headache, change in vision hearing, chest pain, cough, shortness of breath, abdominal pain, nausea, vomiting, chills, fever, etc. PAST MEDICAL HISTORY, FAMILY HISTORY, SOCIAL HISTORY, PERSONAL HISTORY: Can all be found in his recent admitting and discharge summaries and are unchanged. IMPRESSION: 1. Hypotension. 2. Possible septicemia, source unknown. 3. Congestive heart failure. 4. Cardiomyopathy. 5. Hypertension. 6. Diabetes. 7. Urinary retention. 8. Venostasis changes in both the arms and the legs. PLAN: 1. Bedrest. 2. Cultures. 3. ICU care. 4. Pressure support. 5. Consult with Intensive Medicine and Cardiology. MMODL / IJN: [id number] /
--- NOTE | 2018-09-01 22:26 | PN ---
PROGRESS NOTE DATE OF SERVICE: 09/01/2018. CHIEF COMPLAINT: Sepsis. HISTORY OF PRESENT ILLNESS: This gentleman is a little bit better. Pressure has elevated on pressors. He has no discomfort or shortness of breath. PHYSICAL EXAM: Chest is quite clear. Cardiac exam is normal. The abdomen is soft and nontender. Extremities are normal. IMPRESSION: 1. Possible septicemia, source unknown. 2. Congestive heart failure. 3. Diabetes. 4. Renal failure. PLAN: Continue with IV fluids, blood pressure support and antibiotics. MMODL / IJN: [id number] /
[2018-09-02] MEDS: HYDROCORTISONE SUCCINATE 100 MG/2 ML VIAL IV SCH ×3 (00:20→16:49)
[2018-09-02] MEDS: NOREPINEPHRINE 16 MG in SODIUM CHLORIDE 0.9% 250 ML IV SCH (02:31)
[2018-09-02 05:36] LABS: Basophils % (A) 0 %; Eosinophils % (A) 1 %; HCT 34.1 % (39.0-53.0); HGB 11.7 gm/dL (13.0-17.5); Lymphocytes # (A) 0.3 k/uL (1.0-4.8); Lymphocytes % (A) 11 %; MCH 33.1 pg (25.0-35.0); MCHC 34.4 g/dL (31.0-37.0); MCV 96.1 fL (80.0-100.0); Mean Platelet Volume 6.8; Monocytes # (A) 0.2 k/uL (0-1.0); Monocytes % (A) 7 %; Neutrophils # (A) 2.3 k/uL (1.3-7.7); Neutrophils % (A) 78 %; Platelet Count 163 k/uL (150-450); RBC 3.54 m/uL (4.30-5.90); RDW 14.5 % (11.5-15.5); WBC 2.9 k/uL (3.8-10.6)
[2018-09-02 05:51] LABS: Calcium 8.2 mg/dL (8.4-10.2); Magnesium 1.7 mg/dL (1.6-2.3); Phosphorus 2.9 mg/dL (2.5-4.5); Potassium 3.9 mmol/L (3.5-5.1)
[2018-09-02] MEDS ORDERED: Potassium Replacement Protocol 1 EACH MISC MISCELLANE PRN (06:26)
[2018-09-02] MEDS: MAGNESIUM SULFATE-D5W PMX 1 GM in DEXTROSE/WATER 1 100ML.BAG IVPB SCH ×2 (06:43→08:06)
[2018-09-02] MEDS ORDERED: POTASSIUM CHLORIDE ER 20 MEQ TAB.ER PO SCH (07:00)
[2018-09-02 07:09] LABS: Glucose,Whole Blood 131 mg/dL (75-99)
[2018-09-02] MEDS: INSULIN ASPART 100 UNIT/ML 1 ML 10 ML VIAL SQ SCH ×9 (07:44→21:17)
--- NOTE | 2018-09-02 08:15 | XR ---
EXAMINATION TYPE: XR chest 1V DATE OF EXAM: 09/02/2018 COMPARISON: 09/01/2018 HISTORY: 83-year-old male CHF TECHNIQUE: Single frontal view of the chest is obtained. FINDINGS: Right IJ CVC tip at the lower SVC level. Heart mildly enlarged. Mild diffuse interstitial prominence is unchanged. Slightly low lung volumes and cardiovascular markings. Some focal at the right mid lung may be a superimposition shadow. Patchy peripheral left basilar opacity remains. IMPRESSION: 1. Hypoventilatory changes. 2. Mild cardiomegaly and interstitial changes, possible mild CHF, not significantly changed 3. Patchy peripheral left basilar opacity persists and could represent a small effusion or atelectasi s/infiltrate. 4. Some focal nodular density at the right midlung probably corresponds to prominent rib end. Attenti on on follow-up.
--- NOTE | 2018-09-02 08:24 | PN ---
PROGRESS NOTE DATE OF SERVICE: September 02, 2018 An 83-year-old male seen in consultation yesterday. He presented to the emergency room from one of the nursing homes with generalized weakness and hypotension and possible seizure activity. The patient is doing a bit better. The patient did receive some fluid resuscitation. The patient was on norepinephrine. We have been able to wean that down nicely down to 3 mcg/minute. I thought the patient likely had some relative adrenal insufficiency. His cortisol level was relatively low and he did respond very nicely to hydrocortisone 100 mg q.8. We were concerned about a possible urinary tract infection. Thus far microbiology is negative. Chest x-ray shows some mild fluid overload changes. He is on hydrocortisone 100 mg q.8. He is not requiring any supplemental oxygen. His IV is 0.9 at 30 mL an hour. Levophed is down to 3 mcg per minute. We will see if we cannot get the Levophed off today. The patient does have a previous history of methicillin-resistant Staph aureus purulent tracheobronchitis. Other medical problems include chronic atrial fibrillation, nephrolithiasis, gout, CAD with previous myocardial infarction, diabetes, benign essential hypertension and SVT. The patient appears relatively comfortable today. Current vital signs are reviewed. His temperature is 98.5, heart rate 117 and irregular, respiratory rate 21, blood pressure 106/74, mean of 84 and saturations 96%. Appears in no acute distress, lying flat in bed. No respiratory distress. No use of accessory muscles. No audible wheezing. HEENT examination is grossly unremarkable. No supplemental oxygen noted. Mucous membranes are moist. NECK: Supple. Full range of motion. No adenopathy. Cardiovascular examination reveals tachycardia. There is some irregularity in the rhythm. Lungs reveal relatively clear breath sounds. A few scattered rhonchi. No wheezes or crackles. Abdomen is soft. Bowel sounds are heard. Extremities are intact. No cyanosis, clubbing, or edema. LABS: Labs are reviewed. White count 2.9, hemoglobin 11.7, hematocrit 34.1, platelet count 163,000. Sodium 130, potassium 3.9, chloride 96, CO2 is 26, anion gap 8. BUN and creatinine were 26 and 0.91. Microbiologic studies thus far are all negative including urine and blood. Chest x-ray shows no acute changes. There is some very mild central vascular congestion noted on yesterday's chest x-ray. Microbiologic studies as mentioned are negative. Medications are reviewed. ASSESSMENT: 1. Weakness and hypotension of unclear etiology. This could relate to simple dehydration from medications and poor oral intake or could be something more ominous such as infection, rule out urinary tract infection. 2. Previous history of methicillin-resistant Staphylococcus aureus purulent tracheobronchitis, not thought to be active at this time. 3. History of chronic atrial fibrillation. 4. History of kidney stones. 5. History of gout. 6. History of coronary artery disease with previous myocardial infarction. 7. History of angina pectoris. 8. Diabetes mellitus. 9. Benign essential hypertension. 10.Coronary artery disease. 11.History of skin cancer. 12.History of supraventricular tachycardia. 13.Multiple previous surgical procedures. PLAN: The patient's labs, x-rays and medications are all reviewed. The patient remains on Levaquin as an antibiotic for potential urinary tract infection. The patient is remaining on hydrocortisone 100 mg q.8 and Levophed dose has been weaned down to 3 mcg/minute. Overall prognosis remains guarded. We will continue to follow. Additional recommendations and suggestions will be forthcoming. CRITICAL CARE TIME: 32 minutes. MMODL / IJN: [id number] /
[2018-09-02] MEDS: PANTOPRAZOLE 40 MG/10 ML VIAL IVP SCH (08:45)
[2018-09-02] MEDS: NYSTATIN 100,000 UNIT/GM POWD 15 GM TOPICAL SCH ×3 (08:45→20:29)
[2018-09-02] MEDS: AMIODARONE 100 MG TAB PO SCH (08:46)
[2018-09-02] MEDS: APIXABAN 2.5 MG TABLET PO SCH ×2 (08:46→20:29)
[2018-09-02] MEDS ORDERED: SPIRONOLACTONE 25 MG TAB PO SCH (09:00)
[2018-09-02] MEDS ORDERED: LEVOFLOXACIN 250MG-D5W PMX 250 MG in DEXTROSE/WATER 1 50ML.BAG IVPB SCH (09:00)
[2018-09-02] MEDS ORDERED: FUROSEMIDE 40 MG TAB PO SCH (09:00)
[2018-09-02 12:33] LABS: Glucose,Whole Blood 196 mg/dL (75-99)
[2018-09-02] MEDS ORDERED: AMIODARONE 100 MG TAB PO STA (13:34)
--- NOTE | 2018-09-02 14:35 | P.PN ---
Subjective Progress Note Date: 09/02/18 This is an 83-year-old gentleman who was just recently in the hospital with pneumonia and respiratory failure, he has history of persistent atrial fibrillation, hypertension, diabetes, hyperlipidemia, coronary artery disease with prior stent placement, nonischemic cardiomyopathy. He was discharged here from the hospital to a [facility] facility. He became quite short of breath and hypotensive while he was there and was readmitted to the hospital, to the intensive care unit. A cardiology consultation was initially requested because of hypotension. His blood pressure today is 97/60, patient continues to be in atrial fibrillation, his heart rate in the 120 range. Patient was given a dose of amiodarone yesterday, today he was started on 200 mg daily. He had been on 100 mg daily at home. He is on Eliquis for anticoagulation. Patient is also currently on levophed. Objective - Vital Signs Vital signs: Vital Signs Temp 98.3 F 09/02/18 12:00 Pulse 124 H 09/02/18 14:00 Resp 19 09/02/18 14:00 BP 97/66 09/02/18 14:00 Pulse Ox 97 09/02/18 14:00 Intake & Output 09/01/18 09/02/18 09/02/18 18:59 06:59 18:59 Intake Total 2775.853 876.938 660 Output Total 2270 720 304 Balance 505.853 156.938 356 Weight 112 kg 115 kg Intake: IV 1620 360 460 KVO 320 360 210 Levofloxacin 500Mg-D5w 100 50 Pmx 500 mg In Dextrose/ Water 1 100ml.bag @ 100 mls/hr IVPB Q24HR [facility] Rx# :[id number] Magnesium Sulfate-D5w Pmx 200 1 gm In Dextrose/Water 1 100ml.bag @ 100 mls/hr IVPB Q1H [facility] Rx#: [id number] Magnesium Sulfate-D5w Pmx 200 1 gm In Dextrose/Water 1 100ml.bag @ 100 mls/hr IVPB Q1H [facility] Rx#: [id number] Sodium Chloride 0.9% 500 1000 ml 500 ml @ 999 mls/hr IV .Q31M ONE Rx#:[id number] Intake, IV Titration 125.853 16.938 Amount Norepinephrine 16 mg In 125.853 16.938 Sodium Chloride 0.9% 250 ml @ Titrate IV .Q0M [facility] Rx#:[id number] Oral 1030 500 200 Output: Urine 2270 720 304 Other: Voiding Method Indwelling Catheter Indwelling Catheter Indwelling Catheter - Exam PHYSICAL EXAMINATION: GENERAL: 83-year-old gentleman in no acute distress at the time of my examination HEENT: Head is atraumatic, normocephalic. Pupils equal, round. Sclera anicteric. Conjunctiva are clear. Mucous membranes of the mouth are moist. Neck is supple. There is no elevated jugular venous pressure.] bruit is heard. HEART EXAMINATION: Heart S1 and S2 irregularly irregular CHEST EXAMINATION: Lungs reveal a few scattered rhonchi throughout ABDOMEN: Soft, nontender. Bowel sounds are heard. No organomegaly noted. EXTREMITIES: 2+ peripheral pulses with no evidence of peripheral edema and no calf tenderness noted. NEUROLOGIC patient is awake, alert and oriented 3 . . - Labs CBC & Chem 7: 09/02/18 05:00 09/02/18 05:00 Labs: Abnormal Lab Results - Last 24 Hours (Table) 09/01/18 09/01/18 09/02/18 Range/Units 17:01 20:55 05:00 WBC 2.9 L (3.8-10.6) k/uL RBC 3.54 L (4.30-5.90) m/uL Hgb 11.7 L (13.0-17.5) gm/dL Hct 34.1 L (39.0-53.0) % Lymphocytes # 0.3 L (1.0-4.8) k/uL Sodium (137-145) mmol/L Chloride (98-107) mmol/L BUN (9-20) mg/dL Glucose (74-99) mg/dL POC Glucose (mg/dL) 187 H 212 H (75-99) mg/dL Calcium (8.4-10.2) mg/dL 09/02/18 09/02/18 09/02/18 Range/Units 05:00 07:07 12:22 WBC (3.8-10.6) k/uL RBC (4.30-5.90) m/uL Hgb (13.0-17.5) gm/dL Hct (39.0-53.0) % Lymphocytes # (1.0-4.8) k/uL Sodium 130 L (137-145) mmol/L Chloride 96 L (98-107) mmol/L BUN 26 H (9-20) mg/dL Glucose 127 H (74-99) mg/dL POC Glucose (mg/dL) 131 H 196 H (75-99) mg/dL Calcium 8.2 L (8.4-10.2) mg/dL Microbiology - Last 24 Hours (Table) 08/31/18 17:29 Blood Culture - Preliminary Blood No Growth after 24 hours Assessment and Plan Plan: Assessment and plan #1 weakness and hypotension of unclear etiology, #2 history of chronic systolic congestive heart failure with no acute exacerbation at this time #3 paroxysmal atrial fibrillation #4 known history of coronary artery disease with prior stent placement #5 nonischemic cardiomyopathy #6 COPD #7 recent sepsis with pneumonia and respiratory failure Plan Hypotension could be secondary to adrenal insufficiency in a patient who has had prolonged hospitalization and received steroids. He is currently on hydrocortisone, he is still also on levophed drip which we will continue. recently had an echo performed 3 weeks ago which revealed an ejection fraction of 35%. We will continue to follow. DNP note has been reviewed, I agree with a documented findings and plan of care. Patient was seen and examined.
[2018-09-02] MEDS: TAMSULOSIN 0.4 MG CAP.ER.24H PO SCH (16:49)
[2018-09-02 17:14] LABS: Glucose,Whole Blood 189 mg/dL (75-99)
--- NOTE | 2018-09-02 17:45 | PN ---
PROGRESS NOTE CHIEF COMPLAINT: 1. Septicemia. 2. Hypotension. 3. Congestive heart failure. 4. Diabetes. 5. Renal failure. HISTORY OF PRESENT ILLNESS: The patient is feeling well. He has no complaints and he is not having any confusion, abdominal pain, chest pain, etc. PHYSICAL EXAM: He continues with tachycardia with atrial fibrillation. His pulse ox 96. His chest is fairly clear. Color is good. He is awake and alert. Cardiac exam is unchanged. Abdomen is soft, nontender. IMPRESSION: 1. Septicemia, source unknown. 2. Possible urinary tract infection. 3. Congestive heart failure. 4. Cardiomyopathy. 5. Renal failure. 6. Diabetes. PLAN: No change in program. We will continue with ICU care with IV fluids and antibiotics. Blood pressure is stabilized without pressors. MMODL / IJN: [id number] /
[2018-09-02 20:22] LABS: Glucose,Whole Blood 193 mg/dL (75-99)
[2018-09-02] MEDS: ATORVASTATIN 40 MG TAB PO SCH (20:29)
[2018-09-02] MEDS: POTASSIUM CHLORIDE ER 20 MEQ TAB.ER PO SCH ×2 (21:13→22:03)
[2018-09-02] MEDS: INSULIN DETEMIR 100 UNIT/ML 10 ML VIAL SQ SCH (21:16)
[2018-09-02 21:17] LABS: Glucose,Whole Blood 175 mg/dL (75-99)
[2018-09-02] MEDS ORDERED: HYDROCORTISONE SUCCINATE 100 MG/2 ML VIAL ONE (23:27)
[2018-09-03] MEDS: HYDROCORTISONE SUCCINATE 100 MG/2 ML VIAL IV SCH ×4 (05:25→23:58)
[2018-09-03 05:37] LABS: Basophils % (A) 0 %; Eosinophils % (A) 1 %; HCT 31.9 % (39.0-53.0); HGB 10.8 gm/dL (13.0-17.5); Lymphocytes # (A) 0.5 k/uL (1.0-4.8); Lymphocytes % (A) 14 %; MCH 32.8 pg (25.0-35.0); MCV 96.4 fL (80.0-100.0); Mean Platelet Volume 6.8; Monocytes # (A) 0.3 k/uL (0-1.0); Monocytes % (A) 9 %; Neutrophils # (A) 2.4 k/uL (1.3-7.7); Neutrophils % (A) 72 %; Platelet Count 155 k/uL (150-450); RBC 3.31 m/uL (4.30-5.90); RDW 14.3 % (11.5-15.5); WBC 3.3 k/uL (3.8-10.6)
[2018-09-03 06:00] LABS: Magnesium 1.8 mg/dL (1.6-2.3); Phosphorus 2.7 mg/dL (2.5-4.5); Potassium 4.1 mmol/L (3.5-5.1)
[2018-09-03] MEDS ORDERED: Magnesium Replacement Protocol 1 EACH MISC MISCELLANE PRN (06:26)
[2018-09-03] MEDS: MAGNESIUM SULFATE-D5W PMX 1 GM in DEXTROSE/WATER 1 100ML.BAG IVPB SCH ×2 (06:47→09:55)
[2018-09-03] MEDS: INSULIN ASPART 100 UNIT/ML 1 ML 10 ML VIAL SQ SCH ×8 (06:54→20:56)
[2018-09-03 06:55] LABS: Glucose,Whole Blood 113 mg/dL (75-99)
--- NOTE | 2018-09-03 07:20 | XR ---
EXAMINATION TYPE: XR chest 1V DATE OF EXAM: 09/03/2018 COMPARISON: 09/02/2018 HISTORY: Congestive heart failure. Follow-up exam. TECHNIQUE: Single frontal view of the chest is obtained. FINDINGS: Again the lungs are hypoventilatory with slight right hemidiaphragm elevation. Cardia medi astinal fluid is enlarged. Right internal jugular central venous catheter is unchanged in position. M inimal pulmonary vascular prominence likely relates to very minimal pulmonary vascular congestion and accentuation by low lung volumes. Trace left pleural effusion appears improved with residual minimal left platelike basilar atelectasis. The previously seen nodular density within the right midlung aga in likely relates to the anterior margin of the right rib. IMPRESSION: Resolved left trace pleural effusion with residual minimal left basilar atelectasis. Jonathan y minimal pulmonary vascular congestion is accentuated by low lung volumes.
[2018-09-03] MEDS ORDERED: AMIODARONE 200 MG TAB PO SCH (09:00)
[2018-09-03] MEDS ORDERED: LEVOFLOXACIN 500MG-D5W PMX 500 MG in DEXTROSE/WATER 1 100ML.BAG IVPB SCH (09:00)
[2018-09-03] MEDS: PANTOPRAZOLE 40 MG/10 ML VIAL IVP SCH (09:06)
[2018-09-03] MEDS: APIXABAN 2.5 MG TABLET PO SCH ×2 (09:06→20:55)
[2018-09-03] MEDS: NYSTATIN 100,000 UNIT/GM POWD 15 GM TOPICAL SCH ×3 (09:07→20:57)
[2018-09-03] MEDS: DIGOXIN 250 MCG/ML 2 ML AMP IVP SCH ×2 (09:55→15:41)
--- NOTE | 2018-09-03 11:16 | PN ---
PROGRESS NOTE DATE OF SERVICE: September 03, 2018 An 83-year-old male who was seen in consultation a couple days ago. He came to the emergency room from a assisted complaining of generalized weakness and was found to have hypotension and possible seizure activity. The patient has improved each day. The patient is currently not receiving any supplemental oxygen. The patient still is getting saline at 30 mL an hour and Levophed which was off and now is back to 3 mcg/minute. His chest x-ray is negative and microbiologic studies have thus far been negative. His cortisol level was relatively low and the patient was given hydrocortisone 100 mg q.8. I believe he probably has relative adrenal insufficiency. It did allow us to bring his norepinephrine dose down significantly. The patient does have a history of multiple other medical problems including methicillin- resistant Staph aureus purulent tracheobronchitis, chronic atrial fibrillation, which he is still having with RVR, nephrolithiasis, gout, CAD with previous myocardial infarction, diabetes, benign essential hypertension, and SVT. The patient remains in the ICU. His mental status is about the same. He is never fully awake, but he does respond appropriately. Current vital signs are reviewed. Temperature is 97.5, heart rate 123 and irregular, respiratory rate 20, blood pressure 110/72 mean 84, saturations are 97%. Appears in no acute distress. He is a bit lethargic but does arouse appropriately. No supplemental oxygen noted. HEENT examination is grossly unremarkable. Mucous membranes are moist. NECK: Supple. Full range of motion. No adenopathy. Cardiovascular examination reveals irregular rhythm and rate. Heart rate about 125 beats per minute. S1, S2 normal. He is clearly in atrial fibrillation. No clear-cut murmur. Lungs reveal some coarse rhonchi. Breath sounds are diminished. No wheezes or crackles. Breath sounds are equal bilaterally. Abdomen is soft. Bowel sounds are heard. Extremities are intact. Minimal edema. Skin is revealing some areas of ecchymoses. Neurologic examination is difficult to assess, but the patient does move all 4 extremities and does seem oriented. Microbiological studies are thus far negative. Chest x-ray from the shows minimal basilar atelectasis. Medications are reviewed. ASSESSMENT: 1. Weakness with hypotension, of unclear etiology. This could relate to simple dehydration from medications and in addition, poor oral intake or could relate to something more ominous such as infection. 2. Rule out urinary tract infection. 3. Previous history of methicillin-resistant Staphylococcus aureus purulent tracheobronchitis, not active at this time. 4. History of chronic atrial fibrillation. 5. History of kidney stones. 6. Gout. 7. Coronary artery disease with previous myocardial infarction. 8. History of angina pectoris. 9. Diabetes mellitus. 10.Benign essential hypertension. 11.History of coronary artery disease. 12.Skin cancer. 13.Supraventricular tachycardia. 14.Multiple previous surgical procedures. PLAN: Overall, the patient is still not out of the chang. He remains on Levophed at 3 mcg per minute. We will see if we cannot wean that off. Additional recommendations and suggestions are forthcoming. He was receiving hydrocortisone 100 mg q.8 for relative adrenal insufficiency. This seems to have reversed shock more rapidly. Additional recommendations and suggestions are forthcoming. Microbiologic studies are negative. Medications are reviewed. Chest x-ray is essentially negative save for some minimal atelectasis. CRITICAL CARE TIME: 32 minutes. BILLL / CHUCHON: [id number] / MTDPatricio
--- NOTE | 2018-09-03 11:46 | PN ---
PROGRESS NOTE An 83-year-old gentleman admitted to hospital with pneumonia, respiratory failure, atrial fibrillation, hypertension, diabetes, coronary artery disease and cardiomyopathy with congestive heart failure. He had been hypotensive and required Levophed. Levophed had just been stopped. This morning his heart rate is elevated. The patient is on Eliquis for anticoagulation. I am adding digoxin for better rate control and I am going to go up on the dose of amiodarone. PHYSICAL EXAM: Heart rate is around 115 beats per minute, irregularly irregular. Blood pressure is 110/70, respiratory rate is 18. Chest exam reveals diminished air entry at the bases. Heart exam reveals first and second heart sounds, irregular rhythm. Abdomen is soft, nontender. Exam of extremities revealed bilateral pitting edema and discoloration of the skin. LABS: Show that the hemoglobin is 10.8, platelet count is 155. Potassium is 4.1, creatinine is 0.93. ASSESSMENT: 1. Chronic atrial fibrillation with poorly controlled ventricular rate. 2. Chronic systolic heart failure. 3. History of pneumonia. 4. Hypotension. 5. Coronary artery disease. PLAN: I will increase the dose of amiodarone, start the patient on digoxin. Will put him back on Lasix that the patient was on at home at 40 mg daily. MMODL / IJN: [id number] /
[2018-09-03 11:55] LABS: Glucose,Whole Blood 215 mg/dL (75-99)
--- NOTE | 2018-09-03 16:10 | PN ---
PROGRESS NOTE CHIEF COMPLAINT: Septic shock. HISTORY OF PRESENT ILLNESS: This gentleman is doing better. He is fully awake and alert. He is having no chest pain, shortness of breath, chills, abdominal pain, etc. PHYSICAL EXAM: Anasarca is under good control. Head, ears, eyes, nose, mouth, and throat are normal. Chest is clear. There are very few rales at the bases. Cardiac exam is normal. Abdomen is soft and nontender. Extremities are normal. IMPRESSION: 1. Septic shock. 2. Sepsis. 3. Congestive heart failure. 4. Diabetes. PLAN: Continue to follow with ICU. He continues to do surprisingly well. MMODL / IJN: [id number] /
[2018-09-03 16:50] LABS: Glucose,Whole Blood 139 mg/dL (75-99)
[2018-09-03 20:45] LABS: Glucose,Whole Blood 162 mg/dL (75-99)
[2018-09-03] MEDS: ATORVASTATIN 40 MG TAB PO SCH (20:55)
[2018-09-03] MEDS: AMIODARONE 200 MG TAB PO SCH (20:55)
[2018-09-03] MEDS: INSULIN DETEMIR 100 UNIT/ML 10 ML VIAL SQ SCH (20:57)
[2018-09-04 05:41] LABS: HCT 32.9 % (39.0-53.0); HGB 11.3 gm/dL (13.0-17.5); MCH 32.7 pg (25.0-35.0); MCHC 34.3 g/dL (31.0-37.0); MCV 95.2 fL (80.0-100.0); Mean Platelet Volume 7.3; Platelet Count 159 k/uL (150-450); RBC 3.46 m/uL (4.30-5.90); RDW 14.2 % (11.5-15.5); WBC 3.9 k/uL (3.8-10.6)
[2018-09-04 05:58] LABS: Anion Gap 6 mmol/L; Blood Urea Nitrogen 33 mg/dL (9-20); Carbon Dioxide 29 mmol/L (22-30); Chloride 94 mmol/L (98-107); Glucose 76 mg/dL (74-99); Phosphorus 2.6 mg/dL (2.5-4.5); Potassium 3.9 mmol/L (3.5-5.1); Sodium 129 mmol/L (137-145)
[2018-09-04 06:03] LABS: Band Neutrophils % 4 %; Lymphocytes # (M) 0.62 k/uL (1.0-4.8); Metamyelocytes # (M) 0.35 k/uL (0); Metamyelocytes % 9 %; Monocytes # (M) 0.51 k/uL (0-1.0); Myelocytes # (M) 0.04 k/uL (0); Myelocytes % 1 %; Neutrophils % (M) 57 %; Nucleated Red Blood Cells 0 /100 WBC (0-0); Total Cells Counted 200
[2018-09-04 07:06] LABS: Glucose,Whole Blood 75 mg/dL (75-99)
[2018-09-04] MEDS: INSULIN ASPART 100 UNIT/ML 1 ML 10 ML VIAL SQ SCH ×8 (07:10→20:52)
[2018-09-04] MEDS ORDERED: POTASSIUM CHLORIDE ER 20 MEQ TAB.ER PO SCH (08:00)
--- NOTE | 2018-09-04 08:34 | PN ---
PROGRESS NOTE DATE OF SERVICE: 09/04/2018 This is an 83-year-old male who we saw in consultation a few days ago. He came into the emergency room from a alf complaining of generalized weakness and was found to have hypotension and possible seizure activity. In retrospect, we do not think he had a seizure. The patient has continued to improve. He still has atrial fibrillation with some rapid ventricular response. His heart rate is typically in the low 100s. The patient was initially on Levophed. That has been turned off. The patient otherwise is doing reasonably well. His cortisol level is relatively low and the patient was given hydrocortisone. This is helped him come off of the norepinephrine. The patient does have a history of methicillin-resistant Staph aureus purulent tracheobronchitis on a recent admission, chronic atrial fibrillation, nephrolithiasis, gout, CAD with previous myocardial infarction, diabetes, benign essential hypertension, and SVT. The patient remains in the ICU. The patient's triple- lumen will probably be removed today. The nurse will start a peripheral IV. His medications and labs will be reviewed. Clinically, he is doing well. He is lying flat in bed. Not requiring any supplemental oxygen. He has no particular complaints today. He is much more awake and alert today than he has been. Current vital signs include a temperature of 97.5, heart rate anywhere from 93 beats per minute up to 124 beats per minute, respiratory rate 20, blood pressure 108/89, mean 95, saturations are 98% on room air. Appears in no acute distress HEENT examination is grossly unremarkable. Mucous membranes are moist. Not requiring any supplemental oxygen. Neck is supple. Full range of motion. No adenopathy, thyromegaly or neck vein distention. Cardiovascular examination reveals a regular rhythm and rate. Heart rate right around 100. He is clearly in atrial fibrillation. S1, S2 normal. Lungs are relatively clear. A few scattered rhonchi. No wheezes or crackles. Abdomen is obese. Bowel sounds are heard. Extremities are intact. No cyanosis, clubbing, or edema. Skin is without rash. Neurologic examination is brief but nonfocal. White count 3.9, hemoglobin 11.3, hematocrit 32.9, platelet count 159,000. Sodium 129, potassium 3.9, chloride 94, CO2 is 29, anion gap 6, BUN and creatinine were 33 and 0.81. Microbiologic studies are essentially negative. There is some Candiduria. Medications are reviewed. The patient's hydrocortisone will be discontinued in favor of Cortef. His hydrocortisone will be discontinued in favor of prednisone. Additional recommendations and suggestions are forthcoming. ASSESSMENT: 1. Weakness with hypotension, of unclear etiology. This seems to be related primarily to dehydration from medication effect rather than infection which has not been proven. 2. Possible urinary tract infection, although sampling has been negative. 3. Previous history of methicillin-resistant Staphylococcus aureus purulent tracheobronchitis, not active at this time. 4. Chronic atrial fibrillation with occasional rapid ventricular response. 5. History of kidney stones. 6. Gout. 7. Coronary artery disease with previous myocardial infarction. 8. History of angina pectoris. 9. Diabetes mellitus. 10.Benign essential hypertension. 11.History of coronary artery disease. 12.Skin cancer. 13.Supraventricular tachycardia. 14.Multiple previous surgical procedures. PLAN: The patient's triple-lumen will be removed if a peripheral line can be started. Will switch his hydrocortisone to prednisone. Will taper that over the next couple of days. The patient's medications are reviewed. Labs are reviewed. The patient could be discharged out of the unit. The patient's overall clinical status has improved. Will continue to follow. Prognosis is guarded, though. The plan will be to send him back to the alf. AMY / TRISHA: [id number] /
[2018-09-04] MEDS: AMIODARONE 200 MG TAB PO SCH ×2 (09:04→20:51)
[2018-09-04] MEDS: APIXABAN 2.5 MG TABLET PO SCH ×2 (09:04→20:51)
[2018-09-04] MEDS: DIGOXIN 250 MCG TAB PO SCH (09:04)
[2018-09-04] MEDS: predniSONE 10 MG TAB PO SCH (09:04)
[2018-09-04] MEDS: NYSTATIN 100,000 UNIT/GM POWD 15 GM TOPICAL SCH ×3 (09:05→20:52)
[2018-09-04 11:50] LABS: Glucose,Whole Blood 123 mg/dL (75-99)
[2018-09-04] MEDS: FUROSEMIDE 40 MG TAB PO SCH (12:13)
--- NOTE | 2018-09-04 12:28 | PN ---
PROGRESS NOTE Julius is an 83-year-old gentleman that is admitted to hospital with hypotension, congestive heart failure and atrial fibrillation with poorly controlled ventricular rate. He has had prolonged hospitalization recently. He is currently on digoxin, Eliquis 2.5 b.i.d., amiodarone 200 b.i.d., Lasix 40 mg daily. This morning he remains in atrial fibrillation with heart rates in the 100, blood pressure is marginal at 90/60. The rest of his exam is unchanged. PLAN: The plan is to move him to selective care. Continue all his medications. MMODL / IJN: [id number] /
[2018-09-04 17:00] LABS: Glucose,Whole Blood 135 mg/dL (75-99)
[2018-09-04 20:40] LABS: Glucose,Whole Blood 154 mg/dL (75-99)
[2018-09-04] MEDS: ATORVASTATIN 40 MG TAB PO SCH (20:51)
[2018-09-04] MEDS: INSULIN DETEMIR 100 UNIT/ML 10 ML VIAL SQ SCH (20:51)
[2018-09-05 05:00] LABS: HCT 32.1 % (39.0-53.0); MCH 32.6 pg (25.0-35.0); MCHC 34.3 g/dL (31.0-37.0); Mean Platelet Volume 6.9; Platelet Count 183 k/uL (150-450); RBC 3.38 m/uL (4.30-5.90); WBC 4.6 k/uL (3.8-10.6)
[2018-09-05 05:11] LABS: Anion Gap 6 mmol/L; Blood Urea Nitrogen 38 mg/dL (9-20); Carbon Dioxide 28 mmol/L (22-30); Chloride 95 mmol/L (98-107); Glucose 78 mg/dL (74-99); Magnesium 1.9 mg/dL (1.6-2.3); Phosphorus 2.6 mg/dL (2.5-4.5); Potassium 3.7 mmol/L (3.5-5.1); Sodium 129 mmol/L (137-145)
[2018-09-05] MEDS ORDERED: POTASSIUM CHLORIDE ER 20 MEQ TAB.ER PO SCH (06:00)
[2018-09-05] MEDS: MAGNESIUM SULFATE-D5W PMX 1 GM in DEXTROSE/WATER 1 100ML.BAG IVPB SCH ×2 (06:28→08:40)
[2018-09-05] MEDS: PANTOPRAZOLE 40 MG TABLET PO SCH (06:32)
[2018-09-05 06:44] LABS: Glucose,Whole Blood 64 mg/dL (75-99)
[2018-09-05] MEDS: INSULIN ASPART 100 UNIT/ML 1 ML 10 ML VIAL SQ SCH ×8 (06:50→21:00)
[2018-09-05 07:11] LABS: Glucose,Whole Blood 90 mg/dL (75-99)
[2018-09-05 07:14] LABS: Anisocytosis (M) Present; Band Neutrophils % 6 %; Metamyelocytes # (M) 0.23 k/uL (0); Metamyelocytes % 5 %; Monocytes # (M) 0.92 k/uL (0-1.0); Myelocytes # (M) 0.09 k/uL (0); Myelocytes % 2 %; Neutrophils % (M) 43 %; Nucleated Red Blood Cells 0 /100 WBC (0-0); Total Cells Counted 200
[2018-09-05 07:15] LABS: Large Platelets Present; Poikilocytosis (M) Present; Polychromasia Present
[2018-09-05] MEDS: FUROSEMIDE 40 MG TAB PO SCH (08:41)
[2018-09-05] MEDS: APIXABAN 2.5 MG TABLET PO SCH ×2 (08:41→20:59)
[2018-09-05] MEDS: AMIODARONE 200 MG TAB PO SCH ×2 (08:41→20:59)
[2018-09-05] MEDS: predniSONE 10 MG TAB PO SCH (08:42)
[2018-09-05] MEDS: DIGOXIN 250 MCG TAB PO SCH (08:42)
[2018-09-05] MEDS: NYSTATIN 100,000 UNIT/GM POWD 15 GM TOPICAL SCH ×3 (08:42→21:01)
--- NOTE | 2018-09-05 08:47 | PN ---
PROGRESS NOTE DATE OF SERVICE: 09/05/2018 This is an 83-year-old male who we saw in consultation 3 or 4 days ago. He came into [facility] emergency room [facility] complaining of generalized weakness and was found to have hypotension and possible seizure activity, although, in retrospect, he likely was not seizing. He does have atrial fibrillation with intermittent episodes of rapid ventricular response. Previously, he was on Levophed. He also was found to have relative adrenal insufficiency and was placed on hydrocortisone and that seemed to improve his blood pressure and allowed us to wean his norepinephrine off. He does have previous history of methicillin-resistant Staph aureus tracheobronchitis, chronic atrial fibrillation, kidney stones, gout, CAD with previous myocardial infarction, diabetes, benign essential hypertension, and SVT. The patient is not receiving any supplemental oxygen. His IV is 0.9 at KVO. Current vital signs are reviewed they include a temperature 97.6 heart rate 73 and irregular, respiratory rate 15, blood pressure 101/77, mean 85, saturations are 95%. Appears no acute distress HEENT examination is grossly unremarkable. Mucous membranes are moist. No oral lesions. Neck is supple. Full range of motion. No adenopathy or thyromegaly. Neck veins are flat. Cardiovascular examination reveals a regular rhythm and rate. Heart rate in mid 70s. S1, S2 normal. He is in atrial fibrillation. Lungs reveal mostly clear breath sounds. A few scattered mild rhonchi. No wheezes or crackles. Breath sounds are equal. Abdomen is soft. Bowel sounds are heard. Extremities are intact. No cyanosis, clubbing, or edema. Skin without rash. Neurologic examination is brief but nonfocal. LABORATORY STUDIES: White count 4.6, hemoglobin 11, hematocrit 32.1, platelet count normal. Sodium 129, potassium 3.7, chloride 95, CO2 of 28. BUN is 38, creatinine is 0.87. Anion gap is 6. Magnesium 1.9. Microbiologic studies are all negative thus far. There is no recent chest x-ray to report. ASSESSMENT: 1. Weakness with hypotension, of unclear etiology, resolved. This could relate to dehydration from medication effect or rather infection, which is not yet been proven. Nonetheless, he is much improved on both fronts. 2. Possible urinary tract infection, although sampling has been negative. 3. Hypotension, possibly related to underlying adrenal insufficiency. Patient improved on hydrocortisone. 4. Previous history of methicillin-resistant Staphylococcus aureus, purulent tracheobronchitis, not active at this time. 5. Chronic atrial fibrillation with occasional episodes of rapid ventricular response. 6. History of kidney stones. 7. Gout. 8. Coronary artery disease with previous myocardial infarction. 9. History of angina pectoris. 10.Diabetes mellitus. 11.Benign essential hypertension. 12.History of coronary artery disease. 13.Skin cancer. 14.Supraventricular tachycardia. PLAN: The patient could be transferred out of the ICU. His medications are reviewed. We DC'd the hydrocortisone in favor of prednisone 30 mg a day. Blood pressures remain stable. Well continue to taper that down. Currently, for his atrial fibrillation, he is on Cordarone 200 mg twice a day. He is on Eliquis as his anticoagulant. Everything else appears to be in order. No additional recommendations are made. We will continue to follow. Prognosis is guarded. MMODL / IJN: [id number] /
[2018-09-05 10:55] VITALS: BMI 37.3
[2018-09-05 12:00] LABS: Glucose,Whole Blood 103 mg/dL (75-99)
--- NOTE | 2018-09-05 12:44 | PN ---
PROGRESS NOTE An 83-year-old gentleman who is in the ICU with hypotension, congestive heart failure and atrial fibrillation. Today heart rate is better controlled. Still his blood pressures are marginal. He is on Eliquis, Lipitor, Lanoxin, Lasix. Heart rate is better controlled today. PHYSICAL EXAMINATION: On exam, heart rate is 70 beats per minute, blood pressure is 97/78, respiratory rate is 18. Chest exam reveals diminished air entry at the bases. Heart exam reveals first and second heart sounds, irregular rhythm. Examination of the extremities reveals bilateral pitting edema. LABS: Labs show a hemoglobin of 11, potassium is 3.7 creatinine is 0.8. ASSESSMENT: 1. Chronic atrial fibrillation with better controlled ventricular rate. 2. Congestive heart failure. 3. Hypotension. The patient is feeling better. He is stable to be transferred to Med/Surg. AMY / TRISHA: [id number] /
[2018-09-05 16:55] LABS: Glucose,Whole Blood 114 mg/dL (75-99)
--- NOTE | 2018-09-05 17:56 | PN ---
PROGRESS NOTE DATE OF SERVICE: 09/04/2018 CHIEF COMPLAINT: Sepsis. HISTORY OF PRESENT ILLNESS: This gentleman is doing well. He remains awake and alert and he is not short of breath. He is off of pressors and his activity is being increased. He is doing well. PHYSICAL EXAMINATION: He is awake and alert. Vital signs are normal. His chest is quite clear. Cardiac exam is unchanged with atrial fibrillation. The abdomen is soft and non-tender. IMPRESSION: 1. Septicemia. 2. Possible urinary tract infection. 3. Congestive heart failure. 4. Diabetes. PLAN: Continue to progress activity and work toward being able to be discharged back to the alf for rehab soon. MMODL / IJN: [id number] /
--- NOTE | 2018-09-05 18:05 | PN ---
PROGRESS NOTE DATE OF SERVICE: 09/05/2018 CHIEF COMPLAINT: Sepsis, pneumonitis, urinary tract infection, CHF and diabetes. HISTORY OF PRESENT ILLNESS: This gentleman is improving. He is working with Physical Therapy. He is awaiting a step-down bed. PHYSICAL EXAMINATION: His chest is quite clear. Cardiac exam is unchanged with atrial fibrillation. IMPRESSION: 1. Sepsis. 2. Congestive heart failure. 3. Cardiomyopathy. 4. Diabetes. PLAN: Await transfer to a step-down telemetry bed. AMY / CHUCHON: [id number] /
[2018-09-05 20:47] LABS: Glucose,Whole Blood 145 mg/dL (75-99)
[2018-09-05] MEDS: INSULIN DETEMIR 100 UNIT/ML 10 ML VIAL SQ SCH (20:59)
[2018-09-05] MEDS: ATORVASTATIN 40 MG TAB PO SCH (20:59)
[2018-09-06 06:17] LABS: HCT 32.9 % (39.0-53.0); HGB 11.3 gm/dL (13.0-17.5); MCH 32.7 pg (25.0-35.0); MCHC 34.2 g/dL (31.0-37.0); MCV 95.6 fL (80.0-100.0); Mean Platelet Volume 6.9; Platelet Count 191 k/uL (150-450); RBC 3.45 m/uL (4.30-5.90); RDW 14.5 % (11.5-15.5)
[2018-09-06 06:36] LABS: ALT 56 U/L (21-72); AST 37 U/L (17-59); Albumin 2.4 g/dL (3.5-5.0); Alkaline Phosphatase 80 U/L (38-126); Anion Gap 3 mmol/L; Blood Urea Nitrogen 38 mg/dL (9-20); Calcium 7.8 mg/dL (8.4-10.2); Carbon Dioxide 30 mmol/L (22-30); Chloride 97 mmol/L (98-107); Glucose 64 mg/dL (74-99); Magnesium 1.8 mg/dL (1.6-2.3); Sodium 130 mmol/L (137-145); Total Bilirubin 0.8 mg/dL (0.2-1.3); Total Protein 4.5 g/dL (6.3-8.2)
[2018-09-06 06:43] LABS: Band Neutrophils % 8 %; Lymphocytes # (M) 1.65 k/uL (1.0-4.8); Metamyelocytes # (M) 0.29 k/uL (0); Metamyelocytes % 5 %; Monocytes # (M) 0.74 k/uL (0-1.0); Neutrophils % (M) 45 %; Nucleated Red Blood Cells 3 /100 WBC (0-0); Total Cells Counted 200; WBC 5.7 k/uL (3.8-10.6)
[2018-09-06 07:05] LABS: Glucose,Whole Blood 56 mg/dL (75-99)
[2018-09-06 07:21] LABS: Glucose,Whole Blood 65 mg/dL (75-99)
[2018-09-06 07:36] LABS: Glucose,Whole Blood 63 mg/dL (75-99)
[2018-09-06 08:08] LABS: Glucose,Whole Blood 84 mg/dL (75-99)
[2018-09-06] MEDS: INSULIN ASPART 100 UNIT/ML 1 ML 10 ML VIAL SQ SCH ×8 (09:07→21:25)
[2018-09-06] MEDS: predniSONE 10 MG TAB PO SCH (09:11)
[2018-09-06] MEDS: PANTOPRAZOLE 40 MG TABLET PO SCH (09:11)
[2018-09-06] MEDS: APIXABAN 2.5 MG TABLET PO SCH ×2 (09:11→21:24)
[2018-09-06] MEDS: NYSTATIN 100,000 UNIT/GM POWD 15 GM TOPICAL SCH ×3 (09:11→22:15)
[2018-09-06] MEDS: FUROSEMIDE 40 MG TAB PO SCH (09:11)
[2018-09-06] MEDS: AMIODARONE 200 MG TAB PO SCH ×2 (09:11→21:24)
[2018-09-06] MEDS: DIGOXIN 250 MCG TAB PO SCH (09:11)
[2018-09-06 11:54] LABS: Glucose,Whole Blood 154 mg/dL (75-99)
--- NOTE | 2018-09-06 12:33 | PN ---
PROGRESS NOTE An 83-year-old gentleman was admitted to hospital with atrial fibrillation with poorly- controlled ventricular rate and congestive heart failure. Feeling much better now. Heart rate is well controlled, stable hemodynamically and leg edema has resolved. PHYSICAL EXAM: Patient is comfortable at rest. Vital signs are stable. There is no jugular venous distention. Chest exam reveals diminished air entry at the bases. Heart exam reveals first and second heart sounds. No gallop. Exam of extremities did not reveal any edema. Peripheral pulses are felt. LABS: Show that the creatinine is 0.8. Current medications include aspirin, Cordarone 200 b.i.d., Eliquis 2.5 b.i.d., Lipitor, Lasix 40 mg daily. ASSESSMENT AND PLAN: 1. Chronic atrial fibrillation with well-controlled ventricular rate. 2. Chronic congestive heart failure. 3. Recent pneumonia. PLAN: Patient is currently on amiodarone 200 t.i.d., will have follow up with Cardiology in the outpatient setting and the dose will be decreased. MMODL / IJN: [id number] /
[2018-09-06 17:07] LABS: Glucose,Whole Blood 156 mg/dL (75-99)
[2018-09-06 20:48] LABS: Glucose,Whole Blood 177 mg/dL (75-99)
--- NOTE | 2018-09-06 21:15 | PN ---
PROGRESS NOTE DATE OF SERVICE: 09/06/2018 CHIEF COMPLAINT: Congestive heart failure, sepsis, and renal failure, urinary retention and diabetes. HISTORY OF PRESENT ILLNESS: This gentleman is doing well and he is cleared to go back to the retirement. PHYSICAL EXAM: Chest is clear. Cardiac exam is unchanged. Abdomen is soft and nontender without any masses. Extremities are unremarkable. IMPRESSION: 1. Sepsis, definite source unknown. 2. Possible pneumonitis. 3. Urinary tract infection. 4. Acute on chronic systolic and diastolic heart failure. 5. Atherosclerotic cardiomyopathy. 6. Insulin-dependent diabetes mellitus. 7. Urinary retention. PLAN: Make arrangements for him to return to [facility] as soon as they can take him. MMODL / IJN: [id number] /
[2018-09-06] MEDS: ATORVASTATIN 40 MG TAB PO SCH (21:24)
[2018-09-06] MEDS: INSULIN DETEMIR 100 UNIT/ML 10 ML VIAL SQ SCH (21:24)
--- NOTE | 2018-09-06 21:33 | DS ---
DISCHARGE SUMMARY CHIEF COMPLAINT: Hypotension and sepsis. HISTORY OF PRESENT ILLNESS AND PHYSICAL EXAM: Details of this man's history and physical can be found in the initial workup. LABORATORY STUDIES: While he was in a hospital, he had laboratory studies, details of which can be found in the laboratory section of chart. COURSE IN HOSPITAL: After admission he was placed on bedrest, started on intravenous fluids and IV antibiotics. He is placed in ICU. He has been followed and attended to by intensive medicine. He is also seen by Cardiology. In was on pressors initially and then was able to be tapered off. He gradually improved and it was felt [facility] could [facility]. He will go there when bed is available. FINAL DIAGNOSES: 1. Septicemia, source unknown. 2. Possible urinary tract infection. 3. Possible pneumonitis. 4. Septic shock. 5. Acute and chronic congestive heart failure, systolic and diastolic. 6. Atherosclerotic cardiomyopathy. 7. Coronary disease. 8. Renal failure. 9. Urinary retention. OPERATIONS: None. CONSULTATIONS: Cardiology and intensive medicine. He is improved. MMODL / IJN: [id number] /
[2018-09-07 06:55] LABS: Glucose,Whole Blood 73 mg/dL (75-99)
[2018-09-07] MEDS: INSULIN ASPART 100 UNIT/ML 1 ML 10 ML VIAL SQ SCH ×8 (08:19→21:14)
[2018-09-07] MEDS: PANTOPRAZOLE 40 MG TABLET PO SCH (08:24)
[2018-09-07] MEDS: DIGOXIN 250 MCG TAB PO SCH (08:24)
[2018-09-07] MEDS: FUROSEMIDE 40 MG TAB PO SCH (08:24)
[2018-09-07] MEDS: APIXABAN 2.5 MG TABLET PO SCH ×2 (08:24→21:13)
[2018-09-07] MEDS: predniSONE 10 MG TAB PO SCH (08:24)
[2018-09-07] MEDS: AMIODARONE 200 MG TAB PO SCH ×2 (08:24→21:13)
--- NOTE | 2018-09-07 12:37 | PN ---
PROGRESS NOTE Julius is an 83-year-old gentleman who was admitted to hospital with congestive heart failure, atrial fibrillation with poorly controlled ventricular rate. He is doing better. Heart rate is better controlled. His blood pressure is stable. He is awaiting placement in a residential. On exam, heart rate is 76, blood pressure is 93/67, respiratory rate 18. Chest exam reveals diminished air entry at the bases. Heart exam reveals first and second heart sounds. No gallop. Exam of extremities reveals that the pulses are palpable. He has mild edema. The patient is on Cordarone 200 b.i.d., Eliquis 2.5 b.i.d., Lipitor 40 daily, Lanoxin, Lasix, insulin. ASSESSMENT: 1. Chronic atrial fibrillation with controlled ventricular rate. 2. Chronic congestive heart failure. PLAN: The patient is awaiting placement. AMY / CHUCHON: [id number] /
[2018-09-07 12:40] LABS: Glucose,Whole Blood 112 mg/dL (75-99)
[2018-09-07] MEDS: NYSTATIN 100,000 UNIT/GM POWD 15 GM TOPICAL SCH ×3 (12:47→21:14)
[2018-09-07] MEDS: METOPROLOL SUCCINATE (ER) 25 MG TAB.ER.24H PO SCH (16:48)
[2018-09-07] MEDS: HYDROCORTISONE SUCCINATE 100 MG/2 ML VIAL IV SCH (17:08)
[2018-09-07 17:39] LABS: Glucose,Whole Blood 151 mg/dL (75-99)
[2018-09-07 21:04] LABS: Glucose,Whole Blood 133 mg/dL (75-99)
[2018-09-07] MEDS: INSULIN DETEMIR 100 UNIT/ML 10 ML VIAL SQ SCH (21:13)
[2018-09-07] MEDS: ATORVASTATIN 40 MG TAB PO SCH (21:13)
[2018-09-08 03:25] LABS: Glucose,Whole Blood 87 mg/dL (75-99)
[2018-09-08 05:33] LABS: Glucose,Whole Blood 70 mg/dL (75-99)
[2018-09-08 06:37] LABS: Glucose,Whole Blood 98 mg/dL (75-99)
[2018-09-08 07:14] LABS: Glucose,Whole Blood 95 mg/dL (75-99)
[2018-09-08] MEDS: METOPROLOL SUCCINATE (ER) 25 MG TAB.ER.24H PO SCH (07:36)
[2018-09-08] MEDS: PANTOPRAZOLE 40 MG TABLET PO SCH (07:36)
[2018-09-08] MEDS: AMIODARONE 200 MG TAB PO SCH (07:36)
[2018-09-08] MEDS: INSULIN ASPART 100 UNIT/ML 1 ML 10 ML VIAL SQ SCH ×4 (07:37→13:23)
[2018-09-08] MEDS: NYSTATIN 100,000 UNIT/GM POWD 15 GM TOPICAL SCH (07:37)
[2018-09-08] MEDS: APIXABAN 2.5 MG TABLET PO SCH (07:37)
[2018-09-08] MEDS: predniSONE 10 MG TAB PO SCH (07:37)
[2018-09-08] MEDS: FUROSEMIDE 40 MG TAB PO SCH (07:37)
[2018-09-08] MEDS: DIGOXIN 250 MCG TAB PO SCH (07:38)
--- NOTE | 2018-09-08 08:51 | P.PN ---
Subjective This is an 83-year-old male admitted to the hospital with pneumonia, hypoxic respiratory failure, acute exacerbation of chronic systolic heart failure, coronary artery disease status post prior stent placement, ischemic cardiomyopathy, hypertension, dyslipidemia, diabetes mellitus and paroxysmal atrial fibrillation with poor ventricular rate. Ejection fraction 25-30% with global hypokinesia. He is seen and examined on the medical floor currently awaiting placement to [facility]. He is currently maintained on amiodarone 200 mg twice a day, Eliquis 2.5 mg twice a day, atorvastatin 40 mg daily, digoxin 250 g daily, Lasix 40 mg daily and Toprol 25 mg daily. Blood pressure 139/51 heart rate 67 afebrile maintaining oxygen saturation on room air. He denies chest pain , shortness of breath, palpitations or dizziness. GENERAL: Well-appearing, well-nourished and in no acute distress. NECK: Supple without JVD or thyromegaly. LUNGS: Breath sounds clear to auscultation bilaterally. Respiration equal and unlabored. No wheezes, rales or rhonchi. Diminished bilaterally. HEART: Irregular rate and rhythm without murmurs, rubs or gallops. S1 and S2 heard. EXTREMITIES: Normal range of motion, trace non-pitting edema. No clubbing or cyanosis. Peripheral pulses intact. ASSESSMENT Hypotension with weakness on admission Paroxysmal atrial fibrillation with poorly controlled ventricular rate Chronic systolic heart failure History of coronary artery disease s/p angioplasty Hypertension, admitted with hypotension Diabetes mellitus Dyslipidemia PLAN Increase lasix to 40 mg BID. Home medications have been reviewed and updated appropriately. He is to go home on Amiodarone 200 mg BID and continue that dose until he sees Dr. Jorge in the office in 2 weeks. Stable from a cardiac perspective. Nurse Practitioner note has been reviewed, I agree with a documented findings and plan of care. Patient was seen and examined. Objective - Vital Signs Vital signs: Vital Signs Temp 98.1 F 09/08/18 05:44 Pulse 67 09/08/18 05:44 Resp 20 09/08/18 05:44 BP 139/51 09/08/18 05:44 Pulse Ox 96 09/08/18 05:44 Intake & Output 09/07/18 09/08/18 09/08/18 18:59 06:59 18:59 Intake Total 600 Output Total 1500 800 Balance -900 -800 Intake: Oral 600 Output: Urine 1500 800 Other: Voiding Method Indwelling Catheter Indwelling Catheter - Labs CBC & Chem 7: 09/06/18 05:44 09/06/18 10:44 Labs: Abnormal Lab Results - Last 24 Hours (Table) 09/07/18 09/07/18 09/07/18 Range/Units 12:38 17:20 21:02 POC Glucose (mg/dL) 112 H 151 H 133 H (75-99) mg/dL 09/08/18 Range/Units 05:32 POC Glucose (mg/dL) 70 L (75-99) mg/dL
[2018-09-08 12:17] LABS: Glucose,Whole Blood 109 mg/dL (75-99)
[2018-09-08 15:26] VITALS: BP 108/65; PULSE 71; RESP 16; TEMP 97.6
[2018-09-08] MEDS ORDERED: FUROSEMIDE 40 MG TAB PO SCH (16:00)
--- NOTE | 2018-09-09 14:29 | CDI ---
Documentation Clarification Form Date: 09/09/2018 2:24:00 PM From: Zaira Michael Abril Castellon, Staff Certified Nurse Midwife Hours-8:30 am & 5 pm Marcelo Admit Date: 08/31/2018 7:29:00 PM Patient Name: Julius Murphy Visit Number: [id number] Discharge Date: 09/08/2018 3:10:00 PM ATTENTION: The Clinical Documentation Specialists (CDI) and [facility] Coding Staff appreciate your assistance in clarifying documentation. Please respond to the clarification below the line at the bottom and electronically sign. The CDI & [facility] Coding staff will review the response and follow-up if needed. Please note: Queries are made part of the Legal Health Record. If you have any questions, please contact the author of this message via ITS. Dr. Davey Riddle Renal failure was documented in the PNs 09/01, 09/02, & 09/06 and DS. History/Risk Factors: sepsis/pneumonia/AECOPD/AE CHF Patients baseline BUN/CR/GFR: unknown Current BUN/Cr/GFR: 37/1.84/33 Transplant status, Hemodialysis status: no IVF In order to capture the severity of condition, please clarify if the condition signifies: Acute renal failure, Please specify etiology (if known): Tubular Necrosis Acute kidney injury Acute on chronic renal failure CKD Stage 1 GFR >90 CKD Stage 2 GFR 60-89 CKD Stage 3 GFR 30-59 CKD Stage 4 GFR 15-29 CKD Stage 5 GFR <15 Chronic renal failure/Chronic Kidney disease (CKD) please stage (if known): CKD Stage 1 GFR >90 CKD Stage 2 GFR 60-89 CKD Stage 3 GFR 30-59 CKD Stage 4 GFR 15-29 CKD Stage 5 GFR <15 ESRD Other, please specify Unable to determine MTDD
--- NOTE | 2018-09-09 14:39 | PN ---
PROGRESS NOTE DATE OF SERVICE: 09/07/2018. CHIEF COMPLAINT: Congestive heart failure and septic shock. HISTORY OF PRESENT ILLNESS: This gentleman is doing well. He has been approved for discharge to [facility], but probably will not go until tomorrow. PHYSICAL EXAM: Chest is clear and cardiac exam is unchanged. Abdomen is soft, nontender and he is doing well. IMPRESSION: 1. Septic shock. 2. Urinary tract infection. 3. Acute on chronic congestive heart failure. 4. Diabetes. PLAN: Probably go to [facility] tomorrow. MMODL / IJN: [id number] /
--- NOTE | 2018-09-09 15:20 | PN ---
PROGRESS NOTE DATE OF SERVICE: 09/08/2018 Patient is doing well and is stable. He is probably going to [facility] later today. PHYSICAL EXAM: Unchanged. MMODL / IJN: [id number] /
--- NOTE | 2018-09-10 11:55 | MISC ---
MISCELLANOUS REPORT QUERY: Stage IIIB chronic renal failure. MMODL / IJN: [id number] /
== END 2018-09-08 15:10 | DRG 871 ==
LOC: EC 16:16 → 2SICU 19:29 → 4MS4W 09-07 15:36
PROVIDERS: ADMIT Family Medicine; ATTEND Family Medicine
PROC: 02HV33Z Insertion of Infusion Device into Superior Vena Cava, Percutaneous Approach (ICD-10-PCS; principal; 2018-08-31)
DX: A41.9 Sepsis, unspecified organism (principal); R65.21 Severe sepsis with septic shock; J18.9 Pneumonia, unspecified organism; I50.43 Acute on chronic combined systolic (congestive) and diastolic (congestive) heart failure; J96.91 Respiratory failure, unspecified with hypoxia; E27.40 Unspecified adrenocortical insufficiency; J44.0 Chronic obstructive pulmonary disease with (acute) lower respiratory infection; B37.49 Other urogenital candidiasis; I48.2 Chronic atrial fibrillation; E11.9 Type 2 diabetes mellitus without complications; N18.3 Chronic kidney disease, stage 3 (moderate); I13.10 Hypertensive heart and chronic kidney disease without heart failure, with stage 1 through stage 4 chronic kidney disease, or unspecified chronic kidney disease; E86.0 Dehydration; R56.9 Unspecified convulsions; I25.5 Ischemic cardiomyopathy; I44.7 Left bundle-branch block, unspecified; I25.10 Atherosclerotic heart disease of native coronary artery without angina pectoris; I25.2 Old myocardial infarction; E78.5 Hyperlipidemia, unspecified; M19.90 Unspecified osteoarthritis, unspecified site; Z87.39 Personal history of other diseases of the musculoskeletal system and connective tissue; Z79.01 Long term (current) use of anticoagulants; Z79.4 Long term (current) use of insulin; Z79.899 Other long term (current) drug therapy; Z87.442 Personal history of urinary calculi; Z87.01 Personal history of pneumonia (recurrent); Z86.14 Personal history of Methicillin resistant Staphylococcus aureus infection; Z95.5 Presence of coronary angioplasty implant and graft; Z96.642 Presence of left artificial hip joint; Z96.653 Presence of artificial knee joint, bilateral; Z90.49 Acquired absence of other specified parts of digestive tract; Z85.828 Personal history of other malignant neoplasm of skin; Z98.1 Arthrodesis status; Z98.42 Cataract extraction status, left eye; Z98.41 Cataract extraction status, right eye; Z80.9 Family history of malignant neoplasm, unspecified
CPT/HCPCS: 36415; 36556; 70450; 71045; 80048; 80053; 81001; 82533; 83036; 83605; 83735; 83880; 84100; 84132; 84484; 85025; 85610; 85730; 87040; 87086; 87502; 93005; 96360; 96365; 96366; 96368; 99291

== ENCOUNTER 2018-09-12 13:20 | Emergency (ER) | payer MEDICARE, BC ==
[2018-09-12] MEDS ORDERED: SODIUM CHLORIDE 0.9% 500 ML 500 ML IV STA (13:27)
[2018-09-12] MEDS ORDERED: SODIUM CHLORIDE 0.9% 1,000 ML IV STA (13:27)
[2018-09-12 13:37] VITALS: TEMP 99.3
--- NOTE | 2018-09-12 13:50 | ED ---
Recheck HPI - General Chief Complaint: Recheck/Abnormal Lab/Rx Stated Complaint: Cardiac issues Time Seen by Provider: 09/12/18 13:24 Source: EMS, RN notes reviewed, old records reviewed Mode of arrival: EMS Limitations: no limitations - History of Present Illness Initial Comments: This is an 83-year-old male the ER for evaluation, patient's coming in for evaluation of recheck recheck of abnormal lab, patient is on digoxin facial fibrillation and has had elevated digoxin level. Patient denies chest pain or shortness of breath no evidence or weakness, no symptoms of syncope or near- syncope MD Complaint: abnormal lab -: unknown Returns Today for: Called Because of Abnormal Lab/Test Symptoms Since Prior Visit: no new symptoms Context: called for abnormal lab result Associated Symptoms: none - Related Data Home Medications Medication Instructions Recorded Confirmed Apixaban [Eliquis] 2.5 mg PO BID 03/26/18 09/12/18 Atorvastatin [Lipitor] 40 mg PO HS 07/28/18 09/12/18 Cholecalciferol [Vitamin D3] 5,000 unit PO DAILY@1700 07/28/18 09/12/18 Mirtazapine [Remeron] 15 mg PO HS 07/28/18 09/12/18 traZODone HCL [Desyrel] 100 mg PO HS PRN 07/28/18 09/12/18 Acetaminophen Tab [Tylenol] 650 mg PO Q4H PRN 08/31/18 09/12/18 Bisacodyl [Dulcolax] 10 mg RECTAL DAILY PRN 08/31/18 09/12/18 Tamsulosin [Flomax] 0.8 mg PO DAILY@1700 08/31/18 09/12/18 Allopurinol [Zyloprim] 100 mg PO DAILY 09/12/18 09/12/18 Amiodarone [Cordarone] 100 mg PO DAILY 09/12/18 09/12/18 Clotrimazole Cream [Lotrimin Cream] 1 applic TOPICAL TID 09/12/18 09/12/18 Digoxin [Lanoxin] 250 mcg PO DAILY@0600 09/12/18 09/12/18 Furosemide [Lasix] 40 mg PO BID@0800,1700 09/12/18 09/12/18 Insulin Aspart [NovoLOG 2 unit SQ ACHS 09/12/18 09/12/18 (formulary)] Insulin Detemir [Levemir] 5 unit SQ HS 09/12/18 09/12/18 Magnesium Hydroxide [Milk of 2,400 mg PO DAILY PRN 09/12/18 09/12/18 Magnesia] Metoprolol Tartrate [Lopressor] 12.5 mg PO BID 09/12/18 09/12/18 Na Phos,M-B/Na Phos,Di-Ba [Fleet 133 ml RECTAL DAILY PRN 09/12/18 09/12/18 Adult] Pantoprazole [Protonix] 40 mg PO DAILY@0600 09/12/18 09/12/18 Previous Rx's Medication Instructions Recorded Ipratropium-Albuterol Nebulize 3 ml INHALATION RT-Q4H PRN #120 08/27/18 [Duoneb 0.5 mg-3 mg/3 ml Soln] ampul.neb Nystatin 100,000 Unit/gm Powd 1 applic TOPICAL TID 60 Days #1 08/27/18 [Mycostatin Powder] pack Allergies Allergy/AdvReac Type Severity Reaction Status Date / Time No Known Allergies Allergy Verified 09/12/18 13:41 Review of Systems ROS Statement: Those systems with pertinent positive or pertinent negative responses have been documented in the HPI. ROS Other: All systems not noted in ROS Statement are negative. Past Medical History Past Medical History: Atrial Fibrillation, Coronary Artery Disease (CAD), Cancer , Chest Pain / Angina, Heart Failure, Diabetes Mellitus, Hypertension, Myocardial Infarction ([place]), Osteoarthritis (OA), Skin Disorder, Supraventricular Tachycardia (SVT) Additional Past Medical History / Comment(s): hx gout, diet control diabetic(rx in past), hx kidney stones, skin cancer Last Myocardial Infarction Date:: 1992 History of Any Multi-Drug Resistant Organisms: MRSA Date of last positivie culture/infection: 08/05/18 MDRO Source:: mrsa sputum Past Surgical History: Appendectomy, Back Surgery, Heart Catheterization With Stent, Joint Replacement Additional Past Surgical History / Comment(s): bilateral knee replacement(left knee x 2), left hip replacement, two cardiac stents, spinal fusion, michael cataracts Past Anesthesia/Blood Transfusion Reactions: No Reported Reaction Date of Last Stent Placement:: unknown Past Psychological History: No Psychological Hx Reported Smoking Status: Never smoker - Past Family History Brother(s) Family Medical History: Cancer Additional Family Medical History / Comment(s): Spleen removed Daughter(s) Family Medical History: Cancer Additional Family Medical History / Comment(s): Lymphoma Father Family Medical History: Cancer Additional Family Medical History / Comment(s): Somach Ca General Exam Limitations: no limitations General appearance: alert, in no apparent distress Head exam: Present: atraumatic, normocephalic, normal inspection Eye exam: Present: normal appearance, PERRL, EOMI. Absent: scleral icterus, conjunctival injection, periorbital swelling ENT exam: Present: normal exam, mucous membranes moist Neck exam: Present: normal inspection. Absent: tenderness, meningismus, lymphadenopathy Respiratory exam: Present: normal lung sounds bilaterally. Absent: respiratory distress, wheezes, rales, rhonchi, stridor Cardiovascular Exam: Present: regular rate, normal rhythm, normal heart sounds. Absent: systolic murmur, diastolic murmur, rubs, gallop, clicks GI/Abdominal exam: Present: soft, normal bowel sounds. Absent: distended, tenderness, guarding, rebound, rigid Extremities exam: Present: normal inspection, full ROM, normal capillary refill. Absent: tenderness, pedal edema, joint swelling, calf tenderness Back exam: Present: normal inspection Neurological exam: Present: alert, oriented X3, CN II-XII intact Psychiatric exam: Present: normal affect, normal mood Skin exam: Present: warm, dry, intact, normal color. Absent: rash Course Vital Signs 09/12/18 09/12/18 09/12/18 13:22 13:55 14:00 Temperature 99.3 F Pulse Rate 88 103 H Respiratory 16 18 Rate Blood Pressure 146/109 126/69 126/69 O2 Sat by Pulse 97 98 Oximetry 09/12/18 14:30 Temperature Pulse Rate 85 Respiratory 18 Rate Blood Pressure 103/67 O2 Sat by Pulse 98 Oximetry Medical Decision Making - Medical Decision Making 83-year-old male the ER for evasive possible suspected digoxin toxicity elevated digoxin level, patient's digoxin level is normal here today we'll continue to hold tomorrow and patient can be discharged home. Patient is asymptomatic - Lab Data Result diagrams: 09/12/18 13:35 09/12/18 13:35 Lab Results 01/18/19 01/18/19 01/18/19 Range/Units 13:35 13:35 13:35 WBC 14.6 H (3.8-10.6) k/uL RBC 4.32 (4.30-5.90) m/uL Hgb 14.1 (13.0-17.5) gm/dL Hct 42.7 (39.0-53.0) % MCV 98.8 (80.0-100.0) fL MCH 32.6 (25.0-35.0) pg MCHC 33.0 (31.0-37.0) g/dL RDW 15.1 (11.5-15.5) % Plt Count 157 (150-450) k/uL Neutrophils % 86 % Lymphocytes % 6 % Monocytes % 6 % Eosinophils % 1 % Basophils % 0 % Neutrophils # 12.5 H (1.3-7.7) k/uL Lymphocytes # 0.8 L (1.0-4.8) k/uL Monocytes # 0.9 (0-1.0) k/uL Eosinophils # 0.1 (0-0.7) k/uL Basophils # 0.0 (0-0.2) k/uL Poikilocytosis Slight Macrocytosis Slight PT (9.0-12.0) sec INR (<1.2) APTT (22.0-30.0) sec Sodium 130 L (137-145) mmol/L Potassium 4.4 (3.5-5.1) mmol/L Chloride 90 L (98-107) mmol/L Carbon Dioxide 30 (22-30) mmol/L Anion Gap 10 mmol/L BUN 16 (9-20) mg/dL Creatinine 0.98 (0.66-1.25) mg/dL Est GFR (CKD-EPI)AfAm 82 (>60 ml/min/1.73 sqM) Est GFR (CKD-EPI)NonAf 71 (>60 ml/min/1.73 sqM) Glucose 154 H (74-99) mg/dL Calcium 8.5 (8.4-10.2) mg/dL Phosphorus 3.2 (2.5-4.5) mg/dL Magnesium 1.3 L (1.6-2.3) mg/dL Total Bilirubin 2.7 H (0.2-1.3) mg/dL AST 30 (17-59) U/L ALT 44 (21-72) U/L Alkaline Phosphatase 128 H (38-126) U/L Total Creatine Kinase <20 L (55-170) U/L CK-MB (CK-2) 1.5 (0.0-2.4) ng/mL CK-MB (CK-2) Rel Index Troponin I 0.033 (0.000-0.034) ng/mL NT-Pro-B Natriuret Pep pg/mL Total Protein 6.0 L (6.3-8.2) g/dL Albumin 3.5 (3.5-5.0) g/dL Digoxin 2.0 ng/mL 09/12/18 09/12/18 Range/Units 13:35 13:35 WBC (3.8-10.6) k/uL RBC (4.30-5.90) m/uL Hgb (13.0-17.5) gm/dL Hct (39.0-53.0) % MCV (80.0-100.0) fL MCH (25.0-35.0) pg MCHC (31.0-37.0) g/dL RDW (11.5-15.5) % Plt Count (150-450) k/uL Neutrophils % % Lymphocytes % % Monocytes % % Eosinophils % % Basophils % % Neutrophils # (1.3-7.7) k/uL Lymphocytes # (1.0-4.8) k/uL Monocytes # (0-1.0) k/uL Eosinophils # (0-0.7) k/uL Basophils # (0-0.2) k/uL Poikilocytosis Macrocytosis PT 11.7 (9.0-12.0) sec INR 1.1 (<1.2) APTT 26.2 (22.0-30.0) sec Sodium (137-145) mmol/L Potassium (3.5-5.1) mmol/L Chloride (98-107) mmol/L Carbon Dioxide (22-30) mmol/L Anion Gap mmol/L BUN (9-20) mg/dL Creatinine (0.66-1.25) mg/dL Est GFR (CKD-EPI)AfAm (>60 ml/min/1.73 sqM) Est GFR (CKD-EPI)NonAf (>60 ml/min/1.73 sqM) Glucose (74-99) mg/dL Calcium (8.4-10.2) mg/dL Phosphorus (2.5-4.5) mg/dL Magnesium (1.6-2.3) mg/dL Total Bilirubin (0.2-1.3) mg/dL AST (17-59) U/L ALT (21-72) U/L Alkaline Phosphatase (38-126) U/L Total Creatine Kinase (55-170) U/L CK-MB (CK-2) (0.0-2.4) ng/mL CK-MB (CK-2) Rel Index Troponin I (0.000-0.034) ng/mL NT-Pro-B Natriuret Pep 2630 pg/mL Total Protein (6.3-8.2) g/dL Albumin (3.5-5.0) g/dL Digoxin ng/mL - EKG Data -: EKG Interpreted by Me (EKG shows A. fib rate of 60, QRS 146, QTc 452) Disposition Clinical Impression: Elevated digoxin level, Normal exam Disposition: HOME SELF-CARE Condition: Good Instructions: Digoxin Toxicity (ED) Is patient prescribed a controlled substance at d/c from ED?: No Referrals: Davey Riddle MD [Primary Care Provider] - 1-2 days
[2018-09-12 13:53] LABS: Basophils % (A) 0 %; Eosinophils # (A) 0.1 k/uL (0-0.7); Eosinophils % (A) 1 %; HCT 42.7 % (39.0-53.0); HGB 14.1 gm/dL (13.0-17.5); Lymphocytes # (A) 0.8 k/uL (1.0-4.8); Lymphocytes % (A) 6 %; MCH 32.6 pg (25.0-35.0); MCV 98.8 fL (80.0-100.0); Macrocytosis Slight; Monocytes # (A) 0.9 k/uL (0-1.0); Monocytes % (A) 6 %; Neutrophils # (A) 12.5 k/uL (1.3-7.7); Neutrophils % (A) 86 %; Platelet Count 157 k/uL (150-450); Poikilocytosis Slight; RBC 4.32 m/uL (4.30-5.90); RDW 15.1 % (11.5-15.5); WBC 14.6 k/uL (3.8-10.6)
[2018-09-12 14:02] LABS: INR 1.1 (<1.2); Partial Thromboplastin Time 26.2 sec (22.0-30.0); Prothrombin Time 11.7 sec (9.0-12.0)
[2018-09-12 14:05] LABS: Albumin 3.5 g/dL (3.5-5.0); Calcium 8.5 mg/dL (8.4-10.2); Magnesium 1.3 mg/dL (1.6-2.3); Phosphorus 3.2 mg/dL (2.5-4.5); Potassium 4.4 mmol/L (3.5-5.1); Total Bilirubin 2.7 mg/dL (0.2-1.3)
[2018-09-12 14:12] LABS: Creatine Kinase <20 U/L (55-170)
[2018-09-12 14:26] LABS: Creatine Kinase MB 1.5 ng/mL (0.0-2.4); Troponin I 0.033 ng/mL (0.000-0.034)
[2018-09-12 16:51] VITALS: BP 97/52; PULSE 89; RESP 14
== END 2018-09-12 17:08 | disposition home or self-care (01) ==
LOC: EC 13:20
DX: R79.89 Other specified abnormal findings of blood chemistry (principal); I48.91 Unspecified atrial fibrillation; I25.119 Atherosclerotic heart disease of native coronary artery with unspecified angina pectoris; I11.0 Hypertensive heart disease with heart failure; I50.9 Heart failure, unspecified; I25.2 Old myocardial infarction; M19.90 Unspecified osteoarthritis, unspecified site; M10.9 Gout, unspecified; E11.9 Type 2 diabetes mellitus without complications; Z85.828 Personal history of other malignant neoplasm of skin; Z86.14 Personal history of Methicillin resistant Staphylococcus aureus infection; Z87.442 Personal history of urinary calculi; Z79.01 Long term (current) use of anticoagulants; Z79.4 Long term (current) use of insulin; Z79.899 Other long term (current) drug therapy; Z95.5 Presence of coronary angioplasty implant and graft; Z96.653 Presence of artificial knee joint, bilateral; Z96.642 Presence of left artificial hip joint; Z53.8 Procedure and treatment not carried out for other reasons
CPT/HCPCS: 36415; 80053; 80162; 82550; 82553; 83735; 83880; 84100; 84484; 85025; 85610; 85730; 93005; 99284

== ENCOUNTER 2018-10-06 17:28 | Inpatient (IN) | payer MEDICARE, BC ==
[2018-10-06] MEDS: SODIUM CHLORIDE 0.9% 500 ML 500 ML IV SCH ×2 (18:16→18:17)
[2018-10-06] MEDS: SODIUM CHLORIDE 0.9% 1,000 ML IV SCH (18:17)
[2018-10-06 18:26] LABS: Basophils % (A) 0 %; Eosinophils # (A) 0.1 k/uL (0-0.7); Eosinophils % (A) 2 %; HGB 11.7 gm/dL (13.0-17.5); Lymphocytes # (A) 0.8 k/uL (1.0-4.8); Lymphocytes % (A) 14 %; MCH 31.9 pg (25.0-35.0); MCHC 34.3 g/dL (31.0-37.0); MCV 93.2 fL (80.0-100.0); Mean Platelet Volume 6.7; Monocytes # (A) 0.5 k/uL (0-1.0); Monocytes % (A) 8 %; Neutrophils # (A) 4.6 k/uL (1.3-7.7); Neutrophils % (A) 75 %; Platelet Count 150 k/uL (150-450); Poikilocytosis Moderate; RBC 3.65 m/uL (4.30-5.90); WBC 6.2 k/uL (3.8-10.6)
[2018-10-06 18:35] LABS: Albumin 2.3 g/dL (3.5-5.0); Calcium 6.8 mg/dL (8.4-10.2); Potassium 2.9 mmol/L (3.5-5.1); Total Bilirubin 1.8 mg/dL (0.2-1.3); Total Protein 4.7 g/dL (6.3-8.2)
[2018-10-06 18:37] LABS: INR 1.2 (<1.2); Partial Thromboplastin Time 29.4 sec (22.0-30.0); Prothrombin Time 12.7 sec (9.0-12.0)
[2018-10-06 18:54] LABS: Appearance,Urine Turbid (Clear); Bilirubin,Urine Negative (Negative); Blood,Urine Small (Negative); Color,Urine Yellow; Glucose,Urine (UA) Negative (Negative); Ketones,Urine Negative (Negative); Leukocyte Esterase,Urine Large (Negative); Mucus,Urine Few /hpf; Nitrite,Urine Positive (Negative); Protein,Urine 2+ (Negative); RBC,Urine 21 /hpf (0-5); Specific Gravity,Urine 1.017 (1.001-1.035)
--- NOTE | 2018-10-06 19:14 | XR ---
EXAMINATION: XR chest 1V portable DATE AND TIME: 10/06/2018 6:50 PM CLINICAL INDICATION: PHH; Fever TECHNIQUE: AP portable upright COMPARISON: 09/03/2018 FINDINGS: Cardiac silhouette is moderately enlarged, unchanged. Elevated hemidiaphragms consistent with low lung inflation at the moment of x-ray exposure. The visua lized lungs are clear and well-expanded. The pleural spaces are negative. No acute bone or soft tissu e findings are evident. IMPRESSION: No acute process.
[2018-10-06] MEDS ORDERED: SODIUM CHLORIDE 0.9% 1,000 ML IV STA (19:28)
--- NOTE | 2018-10-06 19:42 | ED ---
General Adult HPI - General Chief complaint: Shortness of Breath Stated complaint: Abn labs Source: patient, EMS Mode of arrival: EMS Limitations: physical limitation - History of Present Illness Initial comments: This 83-year-old white male presents with some difficulty in breathing. He apparently is currently at the [facility]. He has been back and forth from our [facility] and [facility] over the past couple of months. He apparently has had problems with sepsis, pneumonia, and urinary tract infections. The F relates that they are worried about him being septic once again. The patient does complain of some slight shortness of breath but denies any chest pain or fevers. He denies any significant cough. He is not a very good historian. Much of his history is obtained per old records as well as the records from [facility]. They apparently did do some laboratory at [facility] which did show some hyponatremia and hypochloremia. No other complaints or modifying factors. - Related Data Home Medications Medication Instructions Recorded Confirmed Apixaban [Eliquis] 2.5 mg PO BID@0800,209903/26/18 10/06/18 Atorvastatin [Lipitor] 40 mg PO HS@209907/28/18 10/06/18 Cholecalciferol [Vitamin D3] 5,000 unit PO DAILY@1700 07/28/18 10/06/18 Mirtazapine [Remeron] 15 mg PO HS@209907/28/18 10/06/18 traZODone HCL [Desyrel] 100 mg PO HS PRN 07/28/18 10/06/18 Acetaminophen Tab [Tylenol] 650 mg PO Q4H PRN 08/31/18 10/06/18 Bisacodyl [Dulcolax] 10 mg RECTAL DAILY PRN 08/31/18 10/06/18 Tamsulosin [Flomax] 0.8 mg PO DAILY@1700 08/31/18 10/06/18 Allopurinol [Zyloprim] 100 mg PO DAILY@0800 09/12/18 10/06/18 Amiodarone [Cordarone] 100 mg PO DAILY@0800 09/12/18 10/06/18 Clotrimazole Cream [Lotrimin Cream] 1 applic TOPICAL TID@0600,1400,209910/06/18 Digoxin [Lanoxin] 250 mcg PO DAILY@0600 09/12/18 10/06/18 Furosemide [Lasix] 40 mg PO BID@0800,1700 09/12/18 10/06/18 Insulin Aspart [NovoLOG 2 unit SQ AC-TID 09/12/18 10/06/18 (formulary)] Insulin Detemir [Levemir] 5 unit SQ HS@2100 09/12/18 10/06/18 Magnesium Hydroxide [Milk of 2,400 mg PO DAILY PRN 09/12/18 10/06/18 Magnesia] Metoprolol Tartrate [Lopressor] 12.5 mg PO BID@0800,2100 09/12/18 10/06/18 Na Phos,M-B/Na Phos,Di-Ba [Fleet 133 ml RECTAL DAILY PRN 09/12/18 10/06/18 Adult] Pantoprazole [Protonix] 40 mg PO DAILY@0600 09/12/18 10/06/18 Colchicine 0.6 mg PO Q2H PRN MDD 10 TABS 10/06/18 10/06/18 Ipratropium-Albuterol Nebulize 3 ml INHALATION RT-Q4H 10/06/18 10/06/18 [Duoneb 0.5 mg-3 mg/3 ml Soln] Ipratropium-Albuterol Nebulize 3 ml INHALATION RT-Q4H PRN 10/06/18 10/06/18 [Duoneb 0.5 mg-3 mg/3 ml Soln] Ondansetron [Zofran] 4 mg PO Q4H PRN 10/06/18 10/06/18 Prostat 1 dose PO BID@0800,1700 10/06/18 10/06/18 Previous Rx's Medication Instructions Recorded Nystatin 100,000 Unit/gm Powd 1 applic TOPICAL TID 60 Days #1 08/27/18 [Mycostatin Powder] pack Allergies Allergy/AdvReac Type Severity Reaction Status Date / Time No Known Allergies Allergy Verified 10/06/18 18:34 Review of Systems ROS Statement: Those systems with pertinent positive or pertinent negative responses have been documented in the HPI. ROS Other: All systems not noted in ROS Statement are negative. Past Medical History Past Medical History: Atrial Fibrillation, Coronary Artery Disease (CAD), Cancer , Chest Pain / Angina, Heart Failure, Diabetes Mellitus, Hypertension, Myocardial Infarction ([place]), Osteoarthritis (OA), Skin Disorder, Supraventricular Tachycardia (SVT) Additional Past Medical History / Comment(s): hx gout, diet control diabetic(rx in past), hx kidney stones, skin cancer Last Myocardial Infarction Date:: 1992 History of Any Multi-Drug Resistant Organisms: MRSA Date of last positivie culture/infection: 08/05/18 MDRO Source:: mrsa sputum Past Surgical History: Appendectomy, Back Surgery, Heart Catheterization With Stent, Joint Replacement Additional Past Surgical History / Comment(s): bilateral knee replacement(left knee x 2), left hip replacement, two cardiac stents, spinal fusion, michael cataracts Past Anesthesia/Blood Transfusion Reactions: No Reported Reaction Date of Last Stent Placement:: unknown Past Psychological History: No Psychological Hx Reported Smoking Status: Never smoker Past Alcohol Use History: Occasional Past Drug Use History: None Reported - Past Family History Brother(s) Family Medical History: Cancer Additional Family Medical History / Comment(s): Spleen removed Daughter(s) Family Medical History: Cancer Additional Family Medical History / Comment(s): Lymphoma Father Family Medical History: Cancer Additional Family Medical History / Comment(s): Somach Ca General Exam - General Exam Comments Initial Comments: GENERAL: The patient is well nourished and well hydrated. VITAL SIGNS: Heart rate, blood pressure, respiratory rate reviewed as recorded in nurse's notes. EYES: Pupils are round and reactive. Extraocular movements are intact. No conjunctival / lid redness or swelling. ENT: No external evidence of injury, swelling, or ecchymosis. Airway is patent. Throat is clear. NECK: Nontender. No swelling or evidence of injury. No subcutaneous emphysema. Trachea is midline. No thyroid mass. HEART: Regular rate and rhythm. Good peripheral pulses. LUNGS/CHEST: Breath sounds clear and equal bilaterally. No rales, rhonchi, or wheezes. No ecchymosis, subcutaneous emphysema, or tenderness. ABDOMEN: Abdomen soft without tenderness. No palpable masses or organomegaly. No peritoneal signs. No abdominal wall swelling or ecchymosis. EXTREMITIES: No extremity tenderness. Normal muscle tone and function. No thoracolumbar tenderness. NEUROLOGIC: Sensation is grossly intact. Cranial nerve exam reveals face is symmetrical, tongue is midline, speech is clear. SKIN: No abrasions or ecchymosis is noted. No induration or masses noted. PSYCHIATRIC: Alert and oriented. Appropriate behavior and judgment. Limitations: physical limitation Course Vital Signs 10/06/18 17:39 Temperature 98.7 F Pulse Rate 74 Respiratory 19 Rate Blood Pressure 88/53 O2 Sat by Pulse 96 Oximetry Medical Decision Making - Medical Decision Making The patient was seen and examined. All diagnostics were reviewed. The patient was placed on a air sampling and monitoring and this does show a irregular rhythm with a normal rate. His EKG shows a atrial fibrillation at a rate of 67. There is a widened QRS and possible left bundle branch block. The QTC is 475. The patient also had a chest x-ray which does not show any acute abnormalities. His laboratory does show significant hyponatremia, hypo-chloremia, and hypokalemia. The urine does show significant evidence of infection. He does present hypotensive and is given ample IV fluids. He also was administered some Rocephin. The case is discussed with Dr. Riddle and he is agreeable to admission. The patient and daughter are updated. A recheck was done approximately one hour after fluid administration and the patient is doing well. His blood pressure has improved and he is in no distress. - Lab Data Result diagrams: 10/06/18 17:51 10/06/18 17:51 Lab Results 10/06/18 10/06/18 10/06/18 Range/Units 17:51 17:51 17:51 WBC 6.2 (3.8-10.6) k/uL RBC 3.65 L (4.30-5.90) m/uL Hgb 11.7 L (13.0-17.5) gm/dL Hct 34.0 L (39.0-53.0) % MCV 93.2 (80.0-100.0) fL MCH 31.9 (25.0-35.0) pg MCHC 34.3 (31.0-37.0) g/dL RDW 15.0 (11.5-15.5) % Plt Count 150 (150-450) k/uL Neutrophils % 75 % Lymphocytes % 14 % Monocytes % 8 % Eosinophils % 2 % Basophils % 0 % Neutrophils # 4.6 (1.3-7.7) k/uL Lymphocytes # 0.8 L (1.0-4.8) k/uL Monocytes # 0.5 (0-1.0) k/uL Eosinophils # 0.1 (0-0.7) k/uL Basophils # 0.0 (0-0.2) k/uL Poikilocytosis Moderate PT (9.0-12.0) sec INR (<1.2) APTT (22.0-30.0) sec Sodium 129 L (137-145) mmol/L Potassium 2.9 L (3.5-5.1) mmol/L Chloride 88 L (98-107) mmol/L Carbon Dioxide 34 H (22-30) mmol/L Anion Gap 7 mmol/L BUN 12 (9-20) mg/dL Creatinine 0.95 (0.66-1.25) mg/dL Est GFR (CKD-EPI)AfAm 85 (>60 ml/min/1.73 sqM) Est GFR (CKD-EPI)NonAf 73 (>60 ml/min/1.73 sqM) Glucose 112 H (74-99) mg/dL Plasma Lactic Acid Otilio (0.7-2.0) mmol/L Calcium 6.8 L (8.4-10.2) mg/dL Total Bilirubin 1.8 H (0.2-1.3) mg/dL AST 34 (17-59) U/L ALT 36 (21-72) U/L Alkaline Phosphatase 96 (38-126) U/L Total Creatine Kinase 37 L (55-170) U/L Total Protein 4.7 L (6.3-8.2) g/dL Albumin 2.3 L (3.5-5.0) g/dL Urine Color Urine Appearance (Clear) Urine pH (5.0-8.0) Ur Specific [place] (1.001-1.035) Urine Protein (Negative) Urine Glucose (UA) (Negative) Urine Ketones (Negative) Urine Blood (Negative) Urine Nitrite (Negative) Urine Bilirubin (Negative) Urine Urobilinogen (<2.0) mg/dL Ur Leukocyte Esterase (Negative) Urine RBC (0-5) /hpf Urine WBC (0-5) /hpf Urine WBC Clumps (None) /hpf Urine Mucus (None) /hpf Influenza Type A RNA (Not Detectd) Influenza Type B (PCR) (Not Detectd) 10/06/18 10/06/18 10/06/18 Range/Units 17:51 17:51 17:51 WBC (3.8-10.6) k/uL RBC (4.30-5.90) m/uL Hgb (13.0-17.5) gm/dL Hct (39.0-53.0) % MCV (80.0-100.0) fL MCH (25.0-35.0) pg MCHC (31.0-37.0) g/dL RDW (11.5-15.5) % Plt Count (150-450) k/uL Neutrophils % % Lymphocytes % % Monocytes % % Eosinophils % % Basophils % % Neutrophils # (1.3-7.7) k/uL Lymphocytes # (1.0-4.8) k/uL Monocytes # (0-1.0) k/uL Eosinophils # (0-0.7) k/uL Basophils # (0-0.2) k/uL Poikilocytosis PT 12.7 H (9.0-12.0) sec INR 1.2 H (<1.2) APTT 29.4 (22.0-30.0) sec Sodium (137-145) mmol/L Potassium (3.5-5.1) mmol/L Chloride (98-107) mmol/L Carbon Dioxide (22-30) mmol/L Anion Gap mmol/L BUN (9-20) mg/dL Creatinine (0.66-1.25) mg/dL Est GFR (CKD-EPI)AfAm (>60 ml/min/1.73 sqM) Est GFR (CKD-EPI)NonAf (>60 ml/min/1.73 sqM) Glucose (74-99) mg/dL Plasma Lactic Acid Otilio 2.2 H* (0.7-2.0) mmol/L Calcium (8.4-10.2) mg/dL Total Bilirubin (0.2-1.3) mg/dL AST (17-59) U/L ALT (21-72) U/L Alkaline Phosphatase (38-126) U/L Total Creatine Kinase (55-170) U/L Total Protein (6.3-8.2) g/dL Albumin (3.5-5.0) g/dL Urine Color Urine Appearance (Clear) Urine pH (5.0-8.0) Ur Specific [place] (1.001-1.035) Urine Protein (Negative) Urine Glucose (UA) (Negative) Urine Ketones (Negative) Urine Blood (Negative) Urine Nitrite (Negative) Urine Bilirubin (Negative) Urine Urobilinogen (<2.0) mg/dL Ur Leukocyte Esterase (Negative) Urine RBC (0-5) /hpf Urine WBC (0-5) /hpf Urine WBC Clumps (None) /hpf Urine Mucus (None) /hpf Influenza Type A RNA Not Detected (Not Detectd) Influenza Type B (PCR) Not Detected (Not Detectd) 10/06/18 Range/Units 18:26 WBC (3.8-10.6) k/uL RBC (4.30-5.90) m/uL Hgb (13.0-17.5) gm/dL Hct (39.0-53.0) % MCV (80.0-100.0) fL MCH (25.0-35.0) pg MCHC (31.0-37.0) g/dL RDW (11.5-15.5) % Plt Count (150-450) k/uL Neutrophils % % Lymphocytes % % Monocytes % % Eosinophils % % Basophils % % Neutrophils # (1.3-7.7) k/uL Lymphocytes # (1.0-4.8) k/uL Monocytes # (0-1.0) k/uL Eosinophils # (0-0.7) k/uL Basophils # (0-0.2) k/uL Poikilocytosis PT (9.0-12.0) sec INR (<1.2) APTT (22.0-30.0) sec Sodium (137-145) mmol/L Potassium (3.5-5.1) mmol/L Chloride (98-107) mmol/L Carbon Dioxide (22-30) mmol/L Anion Gap mmol/L BUN (9-20) mg/dL Creatinine (0.66-1.25) mg/dL Est GFR (CKD-EPI)AfAm (>60 ml/min/1.73 sqM) Est GFR (CKD-EPI)NonAf (>60 ml/min/1.73 sqM) Glucose (74-99) mg/dL Plasma Lactic Acid Otilio (0.7-2.0) mmol/L Calcium (8.4-10.2) mg/dL Total Bilirubin (0.2-1.3) mg/dL AST (17-59) U/L ALT (21-72) U/L Alkaline Phosphatase (38-126) U/L Total Creatine Kinase (55-170) U/L Total Protein (6.3-8.2) g/dL Albumin (3.5-5.0) g/dL Urine Color Yellow Urine Appearance Turbid (Clear) Urine pH 6.0 (5.0-8.0) Ur Specific [place] 1.017 (1.001-1.035) Urine Protein 2+ H (Negative) Urine Glucose (UA) Negative (Negative) Urine Ketones Negative (Negative) Urine Blood Small H (Negative) Urine Nitrite Positive (Negative) Urine Bilirubin Negative (Negative) Urine Urobilinogen 2.0 (<2.0) mg/dL Ur Leukocyte Esterase Large H (Negative) Urine RBC 21 H (0-5) /hpf Urine WBC >182 H (0-5) /hpf Urine WBC Clumps Many H (None) /hpf Urine Mucus Few H (None) /hpf Influenza Type A RNA (Not Detectd) Influenza Type B (PCR) (Not Detectd) Disposition Clinical Impression: Urinary tract infection, Hypotension, Sepsis, Hyponatremia, Hypochloremia, Hypokalemia, Anemia, Dyspnea Disposition: ADMITTED IP TO THIS HOSP Condition: Fair Is patient prescribed a controlled substance at d/c from ED?: No Time of Disposition: 19:49 Decision Date: 10/06/18 Decision Time: 19:49
[2018-10-06 19:50] LABS: Creatine Kinase MB 0.6 ng/mL (0.0-2.4); Troponin I 0.033 ng/mL (0.000-0.034)
[2018-10-06] MEDS ORDERED: IPRATROPIUM-ALBUTEROL 3 ML NEB INHALATION PRN (19:54)
[2018-10-06] MEDS ORDERED: BISACODYL 10 MG SUPP RECTAL PRN (19:54)
[2018-10-06] MEDS ORDERED: ACETAMINOPHEN TAB 325 MG TAB PO PRN (19:54)
[2018-10-06] MEDS ORDERED: NA PHOS,M-B/NA PHOS,DI-BA 133 ML ENEMA RECTAL PRN (19:54)
[2018-10-06] MEDS ORDERED: MAGNESIUM HYDROXIDE 2,400 MG/10 ML CUP PO PRN (19:54)
[2018-10-06] MEDS ORDERED: traZODone HCL 50 MG TAB PO PRN (19:54)
[2018-10-06] MEDS ORDERED: COLCHICINE 0.6 MG EACH PO PRN (19:54)
[2018-10-06] MEDS ORDERED: POTASSIUM CHLORIDE ER 20 MEQ TAB.ER PO STA (19:58)
[2018-10-06] MEDS ORDERED: POTASSIUM CHLORIDE 20 MEQ in WATER FOR INJECTION 1 100ML.BAG IVPB STA (20:00)
[2018-10-06] MEDS ORDERED: POTASSIUM BICARBONATE/CIT AC 20 MEQ TABLET.EFF PO ONE (20:30)
[2018-10-06] MEDS ORDERED: INSULIN DETEMIR (LEVEMIR) 100 UNIT/ML SYR SQ SCH (21:30)
[2018-10-06] MEDS: CLOTRIMAZOLE 1% CREAM 15 GM TUBE TOPICAL SCH (22:51)
[2018-10-06] MEDS: NYSTATIN 100,000 UNIT/GM POWD 15 GM TOPICAL SCH (22:51)
[2018-10-06 23:02] LABS: Glucose,Whole Blood 114 mg/dL (75-99)
[2018-10-06 23:10] LABS: Creatine Kinase MB 0.6 ng/mL (0.0-2.4)
[2018-10-06] MEDS: APIXABAN 2.5 MG TABLET PO SCH (23:24)
[2018-10-06] MEDS: ATORVASTATIN 40 MG TAB PO SCH (23:24)
[2018-10-06] MEDS: MIRTAZAPINE 15 MG TAB PO SCH (23:24)
[2018-10-06] MEDS: METOPROLOL TARTRATE 12.5 MG TAB PO SCH (23:24)
[2018-10-06 23:29] LABS: Troponin I 0.035 ng/mL (0.000-0.034)
[2018-10-07] MEDS: SODIUM CHLORIDE 0.9% 1,000 ML IV SCH ×3 (00:03→22:54)
[2018-10-07 05:35] LABS: Glucose,Whole Blood 85 mg/dL (75-99)
[2018-10-07] MEDS: CLOTRIMAZOLE 1% CREAM 15 GM TUBE TOPICAL SCH ×3 (05:58→20:16)
[2018-10-07] MEDS: DIGOXIN 250 MCG TAB PO SCH (06:12)
[2018-10-07 06:43] LABS: Basophils % (A) 0 %; Eosinophils # (A) 0.1 k/uL (0-0.7); Eosinophils % (A) 2 %; HCT 30.5 % (39.0-53.0); HGB 10.5 gm/dL (13.0-17.5); Lymphocytes # (A) 0.7 k/uL (1.0-4.8); Lymphocytes % (A) 11 %; MCH 32.5 pg (25.0-35.0); MCHC 34.3 g/dL (31.0-37.0); MCV 94.6 fL (80.0-100.0); Mean Platelet Volume 6.9; Monocytes # (A) 0.6 k/uL (0-1.0); Monocytes % (A) 9 %; Neutrophils # (A) 4.5 k/uL (1.3-7.7); Neutrophils % (A) 76 %; Platelet Count 160 k/uL (150-450); Poikilocytosis Moderate; RBC 3.22 m/uL (4.30-5.90); RDW 15.4 % (11.5-15.5); WBC 5.9 k/uL (3.8-10.6)
[2018-10-07] MEDS: INSULIN ASPART (NovoLOG) 100 UNIT/ML VIAL SQ SCH ×2 (06:51→13:17)
[2018-10-07 06:58] LABS: Anion Gap 3 mmol/L; Blood Urea Nitrogen 9 mg/dL (9-20); Carbon Dioxide 32 mmol/L (22-30); Chloride 96 mmol/L (98-107); Glucose 79 mg/dL (74-99); Magnesium 1.1 mg/dL (1.6-2.3); Potassium 3.1 mmol/L (3.5-5.1); Sodium 131 mmol/L (137-145)
[2018-10-07 07:13] LABS: Creatine Kinase MB 0.6 ng/mL (0.0-2.4)
[2018-10-07 07:15] LABS: Calcium 6.2 mg/dL (8.4-10.2)
[2018-10-07 07:18] LABS: Troponin I 0.035 ng/mL (0.000-0.034)
[2018-10-07] MEDS ORDERED: PROSTAT PO SCH (08:00)
[2018-10-07] MEDS ORDERED: Potassium Replacement Protocol 1 EACH MISC MISCELLANE PRN (08:21)
[2018-10-07] MEDS ORDERED: Magnesium Replacement Protocol 1 EACH MISC MISCELLANE PRN (08:21)
[2018-10-07] MEDS: METOPROLOL TARTRATE 12.5 MG TAB PO SCH ×2 (08:36→20:17)
[2018-10-07] MEDS: FUROSEMIDE 40 MG TAB PO SCH ×2 (08:37→15:22)
[2018-10-07] MEDS: ALLOPURINOL 100 MG TAB PO SCH (08:37)
[2018-10-07] MEDS: PANTOPRAZOLE 40 MG/10 ML VIAL IV SCH (08:37)
[2018-10-07] MEDS: APIXABAN 2.5 MG TABLET PO SCH ×2 (08:37→20:16)
[2018-10-07] MEDS: CALCIUM CARBONATE 500 MG CHEWABLE PO SCH ×2 (08:38→20:16)
[2018-10-07] MEDS: NYSTATIN 100,000 UNIT/GM POWD 15 GM TOPICAL SCH ×3 (08:38→20:17)
[2018-10-07] MEDS: AMIODARONE 100 MG TAB PO SCH (08:38)
[2018-10-07] MEDS: MAGNESIUM SULFATE-D5W PMX 1 GM in DEXTROSE/WATER 1 100ML.BAG IVPB SCH ×3 (09:36→13:18)
[2018-10-07 12:11] LABS: Glucose,Whole Blood 90 mg/dL (75-99)
[2018-10-07] MEDS: POTASSIUM CHLORIDE 10 MEQ in WATER FOR INJECTION 1 100ML.BAG IVPB SCH ×4 (15:13→20:16)
[2018-10-07] MEDS: TAMSULOSIN 0.4 MG CAP.ER.24H PO SCH (15:22)
[2018-10-07] MEDS: CHOLECALCIFEROL 1,000 UNIT TAB PO SCH (15:22)
[2018-10-07 17:25] LABS: Glucose,Whole Blood 91 mg/dL (75-99)
--- NOTE | 2018-10-07 19:30 | HP ---
HISTORY AND PHYSICAL CHIEF COMPLAINT: Vomiting, dehydration, possible sepsis and urinary tract infection. HISTORY OF PRESENT ILLNESS: This is another recent admission for this 83-year-old white male who has been recovering at [facility] for congestive heart failure and general debility. He has been doing fairly well. Apparently he started to have some nausea and vomiting and came to the emergency room, where he was found to be dehydrated and possibly septic with a urinary tract infection. He also had hypocalcemia and hypokalemia. Magnesium was also low. REVIEW OF SYSTEMS: He is awake, alert and oriented. He denies any chest pain, abdominal pain, melena, hematochezia, urinary complaints, etc. Past medical history, family history, and personal and social histories are all otherwise unremarkable and noncontributory and unchanged otherwise. PHYSICAL EXAMINATION: Blood pressure is 119/68 with a pulse of 83 and regular, respirations of 32. He is afebrile. In general he appeared to be slightly dehydrated. Face was flushed. Head, ears, eyes, nose, mouth and throat were normal except for subconjunctival hematoma, OD. Neck veins were not distended. The chest was clear with scattered rales. Cardiac exam demonstrated what sounded like sinus rhythm, with no murmurs or extra sounds. The abdomen was slightly protuberant, soft and nontender. Extremities were normal. There was 1+ edema. IMPRESSION: 1. Possible sepsis. 2. Urinary tract infection. 3. Dehydration. 4. Congestive heart failure. 5. Hypokalemia. 6. Hypocalcemia. 7. Hypomagnesemia. 8. Hyponatremia. 9. Subconjunctival hematoma, OD. PLAN: 1. Bed rest. 2. IV fluids. 3. IV antibiotics. MMODL / IJN: [id number] /
[2018-10-07] MEDS: ATORVASTATIN 40 MG TAB PO SCH (20:16)
[2018-10-07] MEDS: MIRTAZAPINE 15 MG TAB PO SCH (20:17)
[2018-10-08 06:05] LABS: Anion Gap 5 mmol/L; Blood Urea Nitrogen 9 mg/dL (9-20); Carbon Dioxide 30 mmol/L (22-30); Chloride 95 mmol/L (98-107); Glucose 89 mg/dL (74-99); Magnesium 1.7 mg/dL (1.6-2.3); Potassium 3.3 mmol/L (3.5-5.1); Sodium 130 mmol/L (137-145)
[2018-10-08 06:15] LABS: Calcium 6.3 mg/dL (8.4-10.2)
[2018-10-08] MEDS: CLOTRIMAZOLE 1% CREAM 15 GM TUBE TOPICAL SCH ×3 (06:27→21:36)
[2018-10-08] MEDS: DIGOXIN 250 MCG TAB PO SCH (06:27)
[2018-10-08] MEDS: APIXABAN 2.5 MG TABLET PO SCH ×2 (09:18→21:36)
[2018-10-08] MEDS: ALLOPURINOL 100 MG TAB PO SCH (09:18)
[2018-10-08] MEDS: METOPROLOL TARTRATE 12.5 MG TAB PO SCH ×2 (09:18→21:36)
[2018-10-08] MEDS: POTASSIUM CHLORIDE ER 20 MEQ TAB.ER PO SCH ×2 (09:18→11:05)
[2018-10-08] MEDS: CALCIUM CARBONATE 500 MG CHEWABLE PO SCH ×2 (09:18→21:36)
[2018-10-08] MEDS: FUROSEMIDE 40 MG TAB PO SCH ×2 (09:18→17:30)
[2018-10-08] MEDS: PANTOPRAZOLE 40 MG/10 ML VIAL IV SCH (09:19)
[2018-10-08] MEDS: NYSTATIN 100,000 UNIT/GM POWD 15 GM TOPICAL SCH ×3 (09:19→21:36)
[2018-10-08] MEDS: ONDANSETRON 4 MG TAB PO PRN ×2 (11:05→17:30)
[2018-10-08] MEDS: AMIODARONE 100 MG TAB PO SCH (11:05)
[2018-10-08] MEDS: SODIUM CHLORIDE 0.9% 1,000 ML IV SCH ×2 (11:14→22:30)
[2018-10-08] MEDS ORDERED: PROCHLORPERAZINE 10 MG TAB PO PRN (12:14)
[2018-10-08] MEDS: MAGNESIUM SULFATE-D5W PMX 1 GM in DEXTROSE/WATER 1 100ML.BAG IVPB SCH ×2 (12:42→14:06)
[2018-10-08] MEDS: IOPAMIDOL-300 CONTRAST 30 ML VIAL (ORAL USE) PO PRN ×2 (13:00→14:06)
--- NOTE | 2018-10-08 13:07 | PN ---
PROGRESS NOTE DATE OF SERVICE: 10/07/2018 CHIEF COMPLAINT: Urinary tract infection and possible sepsis. HISTORY OF PRESENT ILLNESS: This gentleman is not vomiting. He states he is still slightly nauseated. Potassium was low as well as his calcium, magnesium and sodium. PHYSICAL EXAM: He has a right subconjunctival hematoma. Neck veins are not distended. Chest demonstrates occasional rales. The cardiac exam is unremarkable. The abdomen is soft, nontender. Extremities demonstrated minimal edema. IMPRESSION: 1. Urinary tract infection with sepsis. 2. Diabetes. 3. Congestive heart failure. 4. Hypokalemia. 5. Hypocalcemia. 6. Hypomagnesemia. 7. Hyponatremia. 8. Subconjunctival hematoma, left eye. PLAN: 1. Correct electrolyte imbalance. 2. continue IV fluids and antibiotics. MMODL / IJN: [id number] /
--- NOTE | 2018-10-08 14:52 | PN ---
PROGRESS NOTE DATE OF SERVICE: 10/08/2018. CHIEF COMPLAINT: Urinary tract infection, sepsis, dehydration. HISTORY OF PRESENT ILLNESS: This gentleman has been having quite a bit of difficulty with nausea. He has not been vomiting. His abnormal electrolytes are slowly being corrected. REVIEW OF SYSTEMS: He is not complaining area of any abdominal pain, chest pain or shortness of breath. PHYSICAL EXAM: Head, ears, eyes, nose, mouth, and throat are unchanged with the subconjunctival hemorrhage on the right. Neck is supple and chest is clear but cardiac exam is normal and the abdomen is soft and nontender. Extremities are normal. IMPRESSION: 1. Urinary tract infection. 2. Septicemia. 3. Electrolyte imbalance. 4. Hypocalcemia. 5. Hypomagnesemia. 6. Nausea. PLAN: 1. Try Compazine in that Zofran is not working. 2. Continue with electrolyte replacement. 3. Slow IV rate. MMODL / IJN: [id number] /
--- NOTE | 2018-10-08 15:25 | CT ---
EXAMINATION TYPE: CT abdomen pelvis w con DATE OF EXAM: 10/08/2018 COMPARISON: NONE HISTORY: 83-year-old male with abdominal pain. TECHNIQUE: Contiguous axial scanning of the abdomen and pelvis following administration of 100 ml Iso lori 300 IV contrast. Delayed images through the kidneys and coronal/sagittal reconstructions perform ed. CT DLP: 1921.5 mGycm Automated exposure control for dose reduction was used. FINDINGS: Heart normal size without pericardial effusion. Extensive coronary vessel calcifications are present. Reticular changes in the lower lungs represent scarring. There is a small left and trace right effus ion. Breathing motion artifacts are present throughout the scan. Bilateral flank edema. Somewhat low density of the hepatic parenchyma may represent underlying fatty infiltration. Subcentim eter hypodensity near the gallbladder fossa is nonspecific and could represent a cyst. Some tiny laye ring gallstones are present. Portal venous system is patent. No biliary ductal dilatation. Adrenal glands and pancreas within normal limits. Small inferior splenule. Spleen is upper limits of normal in size measuring 13.3 cm measured on coronal series. Hypodense lesions in both kidneys, some of which are too small for accurate CT characterization, all of which likely represent cysts. There is a large exophytic cyst from the anterior midpole of the lef t kidney measuring 8.4 cm. There is a focal irregular area of fluid density measuring 3.7 cm wide and up to 7.4 cm craniocaudal extending from the lateral aspect of the kidney extending out to the lateral pararenal space. This ar ea shows fluid density without appreciable enhancement when comparing with the delayed kidney images. Oral contrast progressed to the lower descending colon. No pericolonic inflammatory changes. Mild sca ttered stool. Moderate atherosclerotic calcifications infrarenal abdominal aorta and iliac arteries. No dilated small bowel, free fluid, or free air. Larios catheter is in place. The bladder is collapsed but shows severe wall thickening. Small amount o f intraluminal bladder air is present. The prostate gland itself is mildly enlarged at 4.5 cm wide. N o abnormal fluid collection in the pelvis or pelvic lymphadenopathy seen. Mildly patulous left inguin al canal. Atrophic left iliopsoas and left gluteal musculature. Left total hip arthroplasty, moderate degenerative changes right hip, degenerative bony ankylosis of the SI joints, marked osteopenia, suspected DISH, and posterior and interbody fusion from L3 through S1 levels. IMPRESSION: 1. BILATERAL FLANK EDEMA, MILD ANASARCA-TYPE CHANGE, AND SMALL LEFT AND TRACE RIGHT PLEURAL EFFUSIONS . CORRELATE FOR MILD FLUID OVERLOAD STATE. 2. SMALL LAYERING GALLSTONES. 3. LARIOS CATHETER IN PLACE WITH SEVERE BLADDER WALL THICKENING. THIS COULD REPRESENT CHRONIC BLADDER WALL HYPERTROPHY OR CYSTITIS. CLINICALLY CORRELATE. 4. LARGE 8.4 CM EXOPHYTIC CYST FROM THE ANTERIOR ASPECT OF THE LEFT KIDNEY. 5. AN IRREGULAR AREA OF FOCAL FLUID DENSITY ALONG THE LATERAL ASPECT OF THE RIGHT KIDNEY EXTENDING IN TO THE PARARENAL SPACE MEASURING 7.4 X 3.7 CM. THE POSSIBILITY OF A RUPTURED AND COLLAPSING CYST IS C ONSIDERED.
[2018-10-08] MEDS: CHOLECALCIFEROL 1,000 UNIT TAB PO SCH (17:30)
[2018-10-08] MEDS: TAMSULOSIN 0.4 MG CAP.ER.24H PO SCH (17:30)
[2018-10-08 20:01] LABS: Glucose,Whole Blood 146 mg/dL (75-99)
[2018-10-08] MEDS: MIRTAZAPINE 15 MG TAB PO SCH (21:36)
[2018-10-08] MEDS: ATORVASTATIN 40 MG TAB PO SCH (21:36)
[2018-10-09 05:50] LABS: Glucose,Whole Blood 109 mg/dL (75-99)
[2018-10-09] MEDS: CLOTRIMAZOLE 1% CREAM 15 GM TUBE TOPICAL SCH ×3 (06:54→20:51)
[2018-10-09 07:01] LABS: Anion Gap 3 mmol/L; Blood Urea Nitrogen 8 mg/dL (9-20); Calcium 6.5 mg/dL (8.4-10.2); Carbon Dioxide 30 mmol/L (22-30); Chloride 98 mmol/L (98-107); Glucose 95 mg/dL (74-99); Magnesium 1.8 mg/dL (1.6-2.3); Potassium 3.6 mmol/L (3.5-5.1); Sodium 131 mmol/L (137-145)
[2018-10-09] MEDS ORDERED: POTASSIUM CHLORIDE ER 20 MEQ TAB.ER PO SCH (08:00)
[2018-10-09] MEDS ORDERED: METOCLOPRAMIDE 10 MG TAB PO PRN (09:01)
[2018-10-09] MEDS: ALLOPURINOL 100 MG TAB PO SCH (09:38)
[2018-10-09] MEDS: DIGOXIN 250 MCG TAB PO SCH (09:38)
[2018-10-09] MEDS: METOPROLOL TARTRATE 12.5 MG TAB PO SCH ×2 (09:39→20:51)
[2018-10-09] MEDS: APIXABAN 2.5 MG TABLET PO SCH ×2 (09:39→20:51)
[2018-10-09] MEDS: AMIODARONE 100 MG TAB PO SCH (09:39)
[2018-10-09] MEDS: FUROSEMIDE 40 MG TAB PO SCH ×2 (09:39→16:35)
[2018-10-09] MEDS: PANTOPRAZOLE 40 MG/10 ML VIAL IV SCH (09:40)
[2018-10-09] MEDS: CALCIUM CARBONATE 500 MG CHEWABLE PO SCH ×2 (09:40→20:51)
[2018-10-09] MEDS: NYSTATIN 100,000 UNIT/GM POWD 15 GM TOPICAL SCH ×3 (09:41→21:49)
[2018-10-09] MEDS: MAGNESIUM SULFATE-D5W PMX 1 GM in DEXTROSE/WATER 1 100ML.BAG IVPB SCH ×2 (12:00→14:35)
[2018-10-09] MEDS: SODIUM CHLORIDE 0.9% 1,000 ML IV SCH (13:12)
[2018-10-09] MEDS: CHOLECALCIFEROL 1,000 UNIT TAB PO SCH (16:35)
[2018-10-09] MEDS: TAMSULOSIN 0.4 MG CAP.ER.24H PO SCH (16:35)
--- NOTE | 2018-10-09 18:17 | PN ---
PROGRESS NOTE DATE OF SERVICE: 10/09/2018 CHIEF COMPLAINT: Urinary tract infection with sepsis, congestive heart failure and electrolyte abnormalities. HISTORY OF PRESENT ILLNESS: This gentleman still is somewhat nauseated. He still seems a little bit weak and lethargic. He is not eating well. Nausea continues and he will be tried on Reglan. He has grown pseudomonas from the urine. PHYSICAL EXAMINATION: Chest is fairly clear except for occasional rales at the bases. Cardiac exam is the same with atrial fibrillation. Abdomen is soft and nontender. IMPRESSION: 1. Urinary tract infection with pseudomonas. 2. Congestive heart failure. 3. Electrolyte imbalance. PLAN: 1. Continue efforts to replace magnesium, calcium and potassium. 2. Continue physical therapy. 3. Reglan 10 mg q.i.d. 4. Infectious disease consult. MMODL / IJN: [id number] /
[2018-10-09] MEDS: ATORVASTATIN 40 MG TAB PO SCH (20:51)
[2018-10-09] MEDS: MIRTAZAPINE 15 MG TAB PO SCH (21:47)
[2018-10-10] MEDS: DIGOXIN 250 MCG TAB PO SCH (05:36)
[2018-10-10] MEDS: CLOTRIMAZOLE 1% CREAM 15 GM TUBE TOPICAL SCH ×3 (05:36→21:10)
[2018-10-10] MEDS: SODIUM CHLORIDE 0.9% 1,000 ML IV SCH (05:37)
--- NOTE | 2018-10-10 06:28 | P.CONS ---
History of Present Illness - Reason for Consult Consult date: 10/09/18 nausea Requesting physician: Davey Riddle - Chief Complaint Shortness of breath - History of Present Illness The patient is a pleasant 83-year-old with a medical history significant for atrial fibrillation, coronary artery disease, congestive heart failure, diabetes mellitus, hypertension and osteoarthritis who presented to the hospital with shortness of breath. At that time the patient had complained of shortness of breath without any cough, sputum production, fevers or chills. The patient is currently being treated for a Pseudomonas UTI. He has been reporting significant nausea. He did not feel that Zofran was helping with his symptoms and has been switched to Compazine and Reglan. He denies any vomiting today. He denies any change in his bowel habits, hematochezia or melena. On presentation he was found to have a hemoglobin of 11.7 which is 10.5 today. The patient had multiple findings on computed tomography scan including small layering gallstones. Liver enzymes are significant for a total bilirubin 1.8, alkaline phosphatase 96, AST 34 and ALT 36. Review of Systems REVIEW OF SYSTEMS: CONSTITUTIONAL: Denies any fevers, chills, weight change but does report fatigue. CARDIOVASCULAR: Denies any chest pain, palpitations high or low blood pressures RESPIRATORY: Denies any hemoptysis or cough but did report shortness of breath on presentation which is improved. GENITOURINARY: No dysuria or hematuria, currently being treated for a Pseudomonas urinary tract infection. MUSCULOSKELETAL: No weakness reported. SKIN: Denies any new rashes or lesions, jaundice or pallor. PSYCHIATRIC: Denies any depression or anxiety. NEUROLOGY: Denies headache, denies any new focal deficits. EARS/NOSE/THROAT: No recent hearing change, congestion, nasal discharge or sore throat. EYES: No pain in eyes, discharge or change in vision. GASTROINTESTINAL: As per HPI. Past Medical History Past Medical History: Atrial Fibrillation, Coronary Artery Disease (CAD), Cancer , Chest Pain / Angina, Heart Failure, Diabetes Mellitus, Hypertension, Myocardial Infarction ([place]), Osteoarthritis (OA), Skin Disorder, Supraventricular Tachycardia (SVT) Additional Past Medical History / Comment(s): hx gout, diet control diabetic(rx in past), hx kidney stones, skin cancer Last Myocardial Infarction Date:: 1992 History of Any Multi-Drug Resistant Organisms: MRSA Year Discovered:: 08/05/18 MDRO Source:: mrsa sputum Past Surgical History: Appendectomy, Back Surgery, Heart Catheterization With Stent, Joint Replacement Additional Past Surgical History / Comment(s): bilateral knee replacement(left knee x 2), left hip replacement, two cardiac stents, spinal fusion, michael cataracts Past Anesthesia/Blood Transfusion Reactions: No Reported Reaction Date of Last Stent Placement:: unknown Past Psychological History: No Psychological Hx Reported Additional Psychological History / Comment(s): Lifelong nonsmoker. Retired. Lives with his daughter Pily and her family. No recent travel. The experience. No animals in the home Smoking Status: Never smoker Past Alcohol Use History: Occasional Past Drug Use History: None Reported - Past Family History Brother(s) Family Medical History: Cancer Additional Family Medical History / Comment(s): Spleen removed Daughter(s) Family Medical History: Cancer Additional Family Medical History / Comment(s): Multiple Myeloma Father Family Medical History: Cancer Additional Family Medical History / Comment(s): Somach Ca Medications and Allergies Home Medications Medication Instructions Recorded Confirmed Type Apixaban [Eliquis] 2.5 mg PO BID@0800,2100 03/26/18 10/06/18 History Atorvastatin [Lipitor] 40 mg PO HS@2100 07/28/18 10/06/18 History Cholecalciferol [Vitamin D3] 5,000 unit PO DAILY@1700 07/28/18 10/06/18 History Mirtazapine [Remeron] 15 mg PO HS@2100 07/28/18 10/06/18 History traZODone HCL [Desyrel] 100 mg PO HS PRN 07/28/18 10/06/18 History Nystatin 100,000 Unit/gm Powd 1 applic TOPICAL TID 60 Days #1 08/27/18 10/06/18 Rx [Mycostatin Powder] pack Acetaminophen Tab [Tylenol] 650 mg PO Q4H PRN 08/31/18 10/06/18 History Bisacodyl [Dulcolax] 10 mg RECTAL DAILY PRN 08/31/18 10/06/18 History Tamsulosin [Flomax] 0.8 mg PO DAILY@1700 08/31/18 10/06/18 History Allopurinol [Zyloprim] 100 mg PO DAILY@0800 09/12/18 10/06/18 History Amiodarone [Cordarone] 100 mg PO DAILY@0800 09/12/18 10/06/18 History Clotrimazole Cream [Lotrimin Cream] 1 applic TOPICAL TID@0600,1400,2100 10/06/18 History Digoxin [Lanoxin] 250 mcg PO DAILY@0600 09/12/18 10/06/18 History Furosemide [Lasix] 40 mg PO BID@0800,1700 09/12/18 10/06/18 History INSULIN ASPART (NovoLOG) [NovoLOG 2 unit SQ AC-TID 09/12/18 10/06/18 History (formulary)] Insulin Detemir (Levemir) [Levemir] 5 unit SQ HS@209909/12/18 10/06/18 History Magnesium Hydroxide [Milk of 2,400 mg PO DAILY PRN 09/12/18 10/06/18 History Magnesia] Metoprolol Tartrate [Lopressor] 12.5 mg PO BID@0800,2100 09/12/18 10/06/18 History Na Phos,M-B/Na Phos,Di-Ba [Fleet 133 ml RECTAL DAILY PRN 09/12/18 10/06/18 History Adult] Pantoprazole [Protonix] 40 mg PO DAILY@0600 09/12/18 10/06/18 History Colchicine 0.6 mg PO Q2H PRN MDD 10 TABS 10/06/18 10/06/18 History Ipratropium-Albuterol Nebulize 3 ml INHALATION RT-Q4H 10/06/18 10/06/18 History [Duoneb 0.5 mg-3 mg/3 ml Soln] Ipratropium-Albuterol Nebulize 3 ml INHALATION RT-Q4H PRN 10/06/18 10/06/18 History [Duoneb 0.5 mg-3 mg/3 ml Soln] Ondansetron [Zofran] 4 mg PO Q4H PRN 10/06/18 10/06/18 History Prostat 1 dose PO BID@0800,1700 10/06/18 10/06/18 History Allergies Allergy/AdvReac Type Severity Reaction Status Date / Time No Known Allergies Allergy Verified 10/06/18 18:34 Physical Exam Vitals: Vital Signs Temp Pulse Resp BP BP Pulse Ox 10/09/18 11:55 97.5 F L 80 16 133/97 95 10/09/18 09:00 60 18 10/09/18 08:00 97.9 F 56 L 16 112/56 10/09/18 04:00 63 16 105/52 96 10/09/18 00:08 65 15 108/51 93 L Intake and Output 10/09/18 10/09/18 10/09/18 06:59 14:59 22:59 Intake Total 300 Output Total 700 300 500 Balance -700 0 -500 Intake: Intake, IV Titration 300 Amount Magnesium Sulfate-D5w Pmx 200 1 gm In Dextrose/Water 1 100ml.bag @ 100 mls/hr IVPB Q1H MARIA C Rx#: [id number] cefTAZidime 2 gm In 100 Sodium Chloride 0.9% 100 ml @ 100 mls/hr IVPB Q12HR MARIA C Rx#:[id number] Output: Urine 700 300 500 Other: Voiding Method Urinal Indwelling Catheter # Voids 1 1 Weight 116.5 kg On physical examination, patient appears comfortable in no apparent distress. HEAD: Normocephalic, atraumatic. EYES: No scleral icterus. No conjunctival injection. MOUTH: No lesions, tongue midline. NECK: Trachea midline, no gross abnormalities. CHEST: Decreased air entry in all lung lynne. HEART: Irregularly irregular. ABDOMEN: Soft, obese. Bowel sounds are positive. No organomegaly. No guarding or rigidity. EXTREMITIES: No pedal edema. SKIN: No rashes, no jaundice. NEUROLOGIC: Alert and oriented x3. No focal deficits. Results CBC & Chem 7: 10/07/18 06:14 10/09/18 06:23 Labs: Abnormal Lab Results - Last 24 Hours (Table) 10/09/18 10/09/18 Range/Units 05:49 06:23 Sodium 131 L (137-145) mmol/L BUN 8 L (9-20) mg/dL POC Glucose (mg/dL) 109 H (75-99) mg/dL Calcium 6.5 L (8.4-10.2) mg/dL Microbiology - Last 24 Hours (Table) 10/06/18 17:51 Blood Culture - Preliminary Blood No Growth after 72 hours 10/06/18 18:26 Urine Culture - Final Urine,Catheterized Pseudomonas aeruginosa CT scan - abdomen: report reviewed (multiple findings on computed tomography scan including small layering gallstones) Assessment and Plan (1) Nausea Narrative/Plan: Patient reporting intractable nausea and the setting of urinary tract infection , this likely represents sequelae of underlying infection, with differential also included in GERD, esophagitis gastritis, gastroparesis in the setting of diabetes mellitus or other process. Current Visit: Yes Status: Acute Code(s): R11.0 - NAUSEA SNOMED Code(s): 831545941 (2) Anemia Narrative/Plan: Macrocytic anemia with no signs or symptoms of GI bleeding, likely multifactorial in the setting of nutritional deficiencies and anemia of chronic disease. Current Visit: Yes Status: Acute Code(s): D64.9 - ANEMIA, UNSPECIFIED SNOMED Code(s): 951555277 Plan: Supportive care Okay for diet Continue to monitor her symptomatically We'll change Compazine to [id number] We'll change Protonix to twice daily Continue other antiemetic therapy as needed No plan for endoscopic evaluation at this time, however if symptoms continue we' ll consider further evaluation Continue treatment of underlying urinary tract infection, with infectious disease service consult the Thank you for allowing us to participate in the care of the patient we will continue to follow
[2018-10-10] MEDS: PROCHLORPERAZINE 10 MG TAB PO SCH ×4 (08:37→22:54)
[2018-10-10] MEDS: CALCIUM CARBONATE 500 MG CHEWABLE PO SCH ×2 (08:37→20:59)
[2018-10-10] MEDS: FUROSEMIDE 40 MG TAB PO SCH ×2 (08:37→15:55)
[2018-10-10] MEDS: AMIODARONE 100 MG TAB PO SCH (08:37)
[2018-10-10] MEDS: APIXABAN 2.5 MG TABLET PO SCH ×2 (08:37→20:59)
[2018-10-10] MEDS: ALLOPURINOL 100 MG TAB PO SCH (08:37)
[2018-10-10] MEDS: METOPROLOL TARTRATE 12.5 MG TAB PO SCH ×2 (08:37→20:59)
[2018-10-10] MEDS: PANTOPRAZOLE 40 MG/10 ML VIAL IV SCH ×2 (08:39→21:02)
[2018-10-10] MEDS: NYSTATIN 100,000 UNIT/GM POWD 15 GM TOPICAL SCH ×3 (08:40→21:10)
--- NOTE | 2018-10-10 10:09 | CONS ---
CONSULTATION DATE OF SERVICE: 10/09/2018 REASON FOR CONSULTATION: Pseudomonas urinary tract infection. HISTORY OF PRESENT ILLNESS: The patient is an 83-year-old male who is currently a resident of [facility]. The patient has been sent to the ER at [facility] with chief complaint of difficulty in breathing. The patient's symptoms apparently has been going on for day or two before the patient was brought to the hospital in this patient who did have a chronic indwelling Leyva catheter. The patient on arrival to the ER at [facility] did not have any fever. The patient's white count was not significantly elevated. The patient's UA was positive; however, that has been obtained from the Leyva catheter. Influenza serology was negative. Urine culture finalized with Pseudomonas aeruginosa that was resistant to quinolone. Infectious Disease was consulted for further recommendation regarding antibiotic therapy. The patient himself is not a very good historian. He was unable to tell me exactly for how long he did have his Leyva catheter and whether it was changed this admission or not. REVIEW OF SYSTEMS: Could not be reliably obtained though the positive points have been mentioned in HPI. PAST MEDICAL HISTORY: Coronary artery disease. atrial fibrillation, hypertension, diabetes mellitus, myocardial infarction, osteoarthritis, angina, heart failure. PAST SURGICAL HISTORY: Appendectomy and back surgery, PTCA with stent, bilateral knee replacement, left hip replacement, spinal fusion, bilateral cataract surgery. SOCIAL HISTORY: No history of smoking. Occasionally drinks. No drug use. Currently a [facility] resident. FAMILY HISTORY: Brother with history of cancer of spleen removed. Daughter with history of lymphoma. Father history of stomach cancer. ALLERGIES: No known drug allergies. MEDICATION: Medications include the patient is currently on Tylenol, DuoNeb, Zyloprim, amiodarone, Eliquis, Lipitor, Dulcolax, Rocephin, vitamin D3, colchicine, Lanoxin, Lasix, milk of magnesia, Reglan, Lopressor, Remeron, Mycostatin powder, Zofran, Protonix, Compazine, Flomax, and Desyrel. PHYSICAL EXAMINATION: On examination, blood pressure is 97/59 with a pulse of 66, temperature 97.9. He is 94% on room air. General description is an elderly male up in the chair in no distress. No tachypnea or accessory muscle of respiration use. HEENT examination shows pallor, no scleral icterus. Oral mucous membrane is dry. NECK: Trachea is central. No thyromegaly. LUNGS: Unlabored breathing, decreased breath sounds in the bases. No wheeze. HEART: S1, S2. Regular rate and rhythm. ABDOMEN: Soft, no tenderness. No guarding or rigidity. EXTREMITIES: No edema of feet. SKIN EXAMINATION: No rash or mass palpable. NEUROLOGICAL: Patient is awake, alert, oriented x2. Mood and affect normal. LABS: Hemoglobin is 10.5, white count 5.9 with a BUN of 8, creatinine 0.80. Electrolytes have been normal. UA was positive. Influenza serology was negative. The patient did have a CT of abdomen and pelvis completed today which did raise possibility of an irregular area of focal fluid density along the lateral aspect of the right kidney with concern for a ruptured and collapsed cyst. DIAGNOSTIC IMPRESSION AND PLAN: Patient with a positive urine culture, Pseudomonas aeruginosa in this patient who did have chronic indwelling Leyva catheter, now with an abnormal CT concern for possible ruptured cysts and infected ruptured cyst could be consideration. However, in that case, the patient would have been more toxic with fever and elevated white count, which are currently missing in this patient. PLAN: 1. Will recommend change of his Leyva catheter. Obtain urine culture from new Leyva. 2. Will discontinue Rocephin, start the patient on Fortaz 2 g q.12. 3. We will follow up on clinical condition and culture to further adjust medication if needed. Thank you for this consultation. Will follow this patient along with you. MMODL / IJN: [id number] /
--- NOTE | 2018-10-10 12:31 | CDI ---
Documentation Clarification Form Date: 10/10/2018 12:10:05 PM From: Senia Cade RN, CCDS Admit Date: 10/06/2018 7:50:00 PM Patient Name: Julius Murphy Visit Number: [id number] Discharge Date: ATTENTION: The Clinical Documentation Specialists (CDI) and [facility] Coding Staff appreciate your assistance in clarifying documentation. Please respond to the clarification below the line at the bottom and electronically sign. The CDI & [facility] Coding staff will review the response and follow-up if needed. Please note: Queries are made part of the Legal Health Record. If you have any questions, please contact the author of this message via ITS. Dr. Davey Riddle CHF is documented in the H&P, and ongoing progress notes. History/Risk Factors: Atrial Fibrillation, Heart Failure, Diabetes Mellitus, Coronary Artery Disease Clinical Indicators: Present with some difficulty in breathing. Breath sounds are clear and equal bilaterally. No rales, rhonchi, or wheezes. VS/Pulse OX: 88/53 74 19 98.7 96 % RA Echocardiogram Results: 08/11/18 EF 30-35 % Chest X Ray: No acute abnormalities. Treatment: Lasix PO, Digoxin PO In your professional opinion, can you please clarify the acuity and type of CHF if known? Chronic Systolic Heart failure: Other, please specify Unable to Determine (Last Revision: November 2017) MTDD
[2018-10-10 12:35] LABS: Appearance,Urine Clear (Clear); Bacteria,Urine Rare /hpf; Bilirubin,Urine Negative (Negative); Blood,Urine Small (Negative); Color,Urine Yellow; Glucose,Urine (UA) Negative (Negative); Ketones,Urine Negative (Negative); Leukocyte Esterase,Urine Large (Negative); Mucus,Urine Rare /hpf; Nitrite,Urine Negative (Negative); Protein,Urine 1+ (Negative); RBC,Urine 5 /hpf (0-5); Squamous Epithelial Cell,Urine <1 /hpf (0-4); Urobilinogen,Urine <2.0 mg/dL (<2.0); WBC,Urine 23 /hpf (0-5)
--- NOTE | 2018-10-10 12:42 | CDI ---
Documentation Clarification Form Date: 10/10/2018 12:31:50 PM From: Senia Cade RN, CCDS Admit Date: 10/06/2018 7:50:00 PM Patient Name: Julius Murphy Visit Number: [id number] Discharge Date: ATTENTION: The Clinical Documentation Specialists (CDI) and [facility] Coding Staff appreciate your assistance in clarifying documentation. Please respond to the clarification below the line at the bottom and electronically sign. The CDI & [facility] Coding staff will review the response and follow-up if needed. Please note: Queries are made part of the Legal Health Record. If you have any questions, please contact the author of this message via ITS. Dr. Davey Riddle Atrial Fibrillation is documented in the history of present illness with ongoing treatment. History/Risk Factors: Atrial Fibrillation, Congestive Heart Failure, Clinical Indicators: 10/09/18 Cardiac exam is the same with atrial fibrillation per progress notes. EKG/telemetry: Atrial Fibrillation 67 bpm Treatment: Cordarone PO, Eliquis PO Digoxin PO Monitor PT/INR In your professional opinion, can you please clarify the type of Atrial Fibrillation, if known? Chronic/Permanent Atrial Fibrillation Paroxysmal Atrial Fibrillation Persistent Atrial Fibrillation Other, please specify Unable to determine (Last Revision: November 2017) MTDD
[2018-10-10] MEDS ORDERED: Magnesium Replacement Protocol 1 EACH MISC MISCELLANE PRN (13:20)
[2018-10-10] MEDS: MAGNESIUM SULFATE-D5W PMX 1 GM in DEXTROSE/WATER 1 100ML.BAG IVPB SCH ×2 (14:39→15:55)
--- NOTE | 2018-10-10 15:15 | PN ---
PROGRESS NOTE DATE OF SERVICE: 10/10/2018 CHIEF COMPLAINT: Urinary tract infection and septicemia with urinary retention. HISTORY OF PRESENT ILLNESS: This gentleman is doing just about the same. There has been no significant interval change. Still remains weak. He is oriented and alert. He has not had a fever, chills, chest pain, abdominal pain, etc. Leyva catheter still in place. PHYSICAL EXAMINATION: Face is slightly flushed. Chest is clear. Cardiac exam demonstrates atrial fibrillation. Abdomen is soft, nontender. Leyva catheter is in place. Extremities are unremarkable except for some edema and ecchymoses. IMPRESSION: 1. Urinary tract urinary tract infection. 2. Urinary retention. 3. Septicemia. 4. Congestive heart failure. 5. Type 2 diabetes. PLAN: Catheter is to be changed. He will be continued on IV antibiotics for another day or 2 before returning to the skilled nursing. MMODL / CHUCHON: [id number] /
[2018-10-10] MEDS: TAMSULOSIN 0.4 MG CAP.ER.24H PO SCH (15:55)
[2018-10-10] MEDS: CHOLECALCIFEROL 1,000 UNIT TAB PO SCH (15:56)
[2018-10-10] MEDS: ATORVASTATIN 40 MG TAB PO SCH (20:59)
--- NOTE | 2018-10-10 21:00 | P.PN ---
Subjective Progress Note Date: 10/10/18 Principal diagnosis: Nausea and vomiting Patient reporting that he was able to tolerate (morning. He subsequently had some nausea. He reports continued decreased oral intake. Objective - Vital Signs Vital signs: Vital Signs Temp 97.9 F 10/10/18 20:29 Pulse 58 L 10/10/18 20:29 Resp 18 10/10/18 20:29 BP 123/50 10/10/18 20:29 Pulse Ox 97 10/10/18 20:29 Intake & Output 10/10/18 10/10/18 10/11/18 06:59 18:59 06:59 Intake Total 380 100 Output Total 500 600 200 Balance -120 -500 -200 Weight 113.5 kg 113.5 kg Intake: Intake, IV Titration 260 100 Amount Sodium Chloride 0.9% 1, 160 000 ml @ 60 mls/hr IV . [id number] [facility] Rx#:[id number] cefTAZidime 2 gm In 100 100 Sodium Chloride 0.9% 100 ml @ 100 mls/hr IVPB Q12HR [facility] Rx#:[id number] Oral 120 Output: Urine 500 600 200 Uretheral (Leyva) 500 Other: Voiding Method Indwelling Catheter Indwelling Catheter - Exam On physical examination, patient appears comfortable in no apparent distress. HEAD: Normocephalic, atraumatic. EYES: No scleral icterus. No conjunctival injection. MOUTH: No lesions, tongue midline. NECK: Trachea midline, no gross abnormalities. CHEST: Decreased air entry in all lung lynne. ABDOMEN: Soft, obese. Bowel sounds are positive. No organomegaly. No guarding or rigidity. SKIN: No rashes, no jaundice. NEUROLOGIC: Alert and oriented x3. No focal deficits. - Labs CBC & Chem 7: 10/07/18 06:14 10/09/18 06:23 Labs: Abnormal Lab Results - Last 24 Hours (Table) 10/10/18 Range/Units 12:15 Urine Protein 1+ H (Negative) Urine Blood Small H (Negative) Ur Leukocyte Esterase Large H (Negative) Urine WBC 23 H (0-5) /hpf Urine Bacteria Rare H (None) /hpf Urine Mucus Rare H (None) /hpf Microbiology - Last 24 Hours (Table) 10/06/18 17:51 Blood Culture - Preliminary Blood No Growth after 96 hours 10/10/18 12:15 Urine Culture - Preliminary Urine,Catheterized Assessment and Plan (1) Nausea Narrative/Plan: Patient reporting intractable nausea and the setting of urinary tract infection , this likely represents sequelae of underlying infection, with differential also included in GERD, esophagitis gastritis, gastroparesis in the setting of diabetes mellitus or other process. Current Visit: Yes Status: Acute Code(s): R11.0 - NAUSEA SNOMED Code(s): 407279327 (2) Anemia Narrative/Plan: Macrocytic anemia with no signs or symptoms of GI bleeding, likely multifactorial in the setting of nutritional deficiencies and anemia of chronic disease. Current Visit: Yes Status: Acute Code(s): D64.9 - ANEMIA, UNSPECIFIED SNOMED Code(s): 064204310 Plan: Supportive care Okay for diet Continue to monitor her symptomatically Continue Compazine to [id number] Continue Protonix to twice daily Continue other antiemetic therapy as needed No plan for endoscopic evaluation at this time, however if symptoms continue we' ll consider further evaluation Continue treatment of underlying urinary tract infection, with infectious disease service consult the Thank you for allowing us to participate in the care of the patient we will continue to follow
[2018-10-10] MEDS: MIRTAZAPINE 15 MG TAB PO SCH (22:53)
[2018-10-10] MEDS: POTASSIUM CHLORIDE 10 MEQ in WATER FOR INJECTION 1 100ML.BAG IVPB SCH (23:36)
[2018-10-11] MEDS: POTASSIUM CHLORIDE 10 MEQ in WATER FOR INJECTION 1 100ML.BAG IVPB SCH ×5 (01:02→23:30)
[2018-10-11] MEDS: DIGOXIN 250 MCG TAB PO SCH (05:53)
[2018-10-11] MEDS: PROCHLORPERAZINE 10 MG TAB PO SCH ×4 (05:53→23:34)
[2018-10-11] MEDS: SODIUM CHLORIDE 0.9% 1,000 ML IV SCH ×2 (05:53→15:46)
[2018-10-11] MEDS: CLOTRIMAZOLE 1% CREAM 15 GM TUBE TOPICAL SCH ×3 (05:54→20:20)
[2018-10-11 07:57] LABS: Basophils % (A) 0 %; Eosinophils # (A) 0.2 k/uL (0-0.7); Eosinophils % (A) 4 %; HCT 31.3 % (39.0-53.0); HGB 10.6 gm/dL (13.0-17.5); Lymphocytes # (A) 0.9 k/uL (1.0-4.8); Lymphocytes % (A) 17 %; MCH 32.2 pg (25.0-35.0); MCHC 33.7 g/dL (31.0-37.0); MCV 95.5 fL (80.0-100.0); Mean Platelet Volume 6.7; Monocytes # (A) 0.4 k/uL (0-1.0); Monocytes % (A) 7 %; Neutrophils # (A) 3.4 k/uL (1.3-7.7); Neutrophils % (A) 69 %; Platelet Count 129 k/uL (150-450); Poikilocytosis Moderate; RBC 3.28 m/uL (4.30-5.90); RDW 15.5 % (11.5-15.5); WBC 4.9 k/uL (3.8-10.6)
[2018-10-11 08:07] LABS: Albumin 1.9 g/dL (3.5-5.0); Anion Gap 3 mmol/L; Blood Urea Nitrogen 5 mg/dL (9-20); Calcium 6.7 mg/dL (8.4-10.2); Carbon Dioxide 30 mmol/L (22-30); Chloride 97 mmol/L (98-107); Glucose 90 mg/dL (74-99); Sodium 130 mmol/L (137-145)
--- NOTE | 2018-10-11 08:09 | PN ---
PROGRESS NOTE DATE OF SERVICE: 10/10/2018. REASON FOR FOLLOW UP: Pseudomonas aeruginosa catheter associated urinary tract infection. INTERVAL HISTORY: The patient is afebrile, has been breathing comfortably. Denies having any chest pain or any cough. No abdominal pain. His Leyva catheter was changed this afternoon without any difficulty and no diarrhea. PHYSICAL EXAMINATION: Blood pressure 123/50 with a pulse of 58, temperature 97.9. He is 97% on room air. General description is an elderly male up in the bed in no distress. Respiratory system: Unlabored breathing. Clear to auscultation anteriorly. Heart S1, S2. Regular rate and rhythm. Abdomen soft. Extremities: No edema of the feet. LABS: His BUN of 8, creatinine 0.80. Urine is positive after change of his Leyva catheter. DIAGNOSTIC IMPRESSION AND PLAN: Patient with Pseudomonas aeruginosa catheter associated urinary tract infection. Leyva has been changed. Keep the patient on Fortaz at this point while waiting for his condition to stabilize. Continue supportive care. present at bedside. Questions were answered. MMODL / IJN: [id number] /
[2018-10-11 08:19] LABS: ALT 30 U/L (21-72); AST 30 U/L (17-59); Alkaline Phosphatase 79 U/L (38-126); Magnesium 1.7 mg/dL (1.6-2.3); Potassium 3.7 mmol/L (3.5-5.1)
[2018-10-11] MEDS: APIXABAN 2.5 MG TABLET PO SCH ×2 (08:29→20:19)
[2018-10-11] MEDS: PANTOPRAZOLE 40 MG/10 ML VIAL IV SCH ×2 (08:29→20:19)
[2018-10-11] MEDS: ALLOPURINOL 100 MG TAB PO SCH (08:29)
[2018-10-11] MEDS: CALCIUM CARBONATE 500 MG CHEWABLE PO SCH ×2 (08:29→20:19)
[2018-10-11] MEDS: NYSTATIN 100,000 UNIT/GM POWD 15 GM TOPICAL SCH ×3 (08:30→20:19)
[2018-10-11] MEDS: AMIODARONE 100 MG TAB PO SCH (08:30)
[2018-10-11] MEDS: FUROSEMIDE 40 MG TAB PO SCH ×2 (09:02→17:29)
[2018-10-11] MEDS: METOPROLOL TARTRATE 12.5 MG TAB PO SCH (09:03)
--- NOTE | 2018-10-11 10:00 | MISC ---
MISCELLANOUS REPORT Chronic systolic and diastolic heart failure. Chronic and permanent atrial fibrillation. MMODL / IJN: [id number] /
--- NOTE | 2018-10-11 14:07 | PN ---
PROGRESS NOTE CHIEF COMPLAINT: Congestive heart failure, urinary tract infection with sepsis. HISTORY OF PRESENT ILLNESS: This gentleman is doing fairly well, but he seems to be a little bit more lethargic than normal and his blood pressure did go down to around 80. He is still in atrial fib. He denies any complaints such as chest pain, dizziness, shortness of breath, etc. PHYSICAL EXAM: Chest remains about the same. Scattered rales. Cardiac exam is unremarkable except for his atrial fib. Abdomen is soft, nontender. Extremities are normal. IMPRESSION: 1. Urinary tract infection with septicemia. 2. Episode of hypotension. 3. Congestive heart failure. 4. Cardiomyopathy. 5. Atrial fibrillation. PLAN: Repeat laboratory studies and watch blood pressure closely. MMODL / IJN: [id number] /
--- NOTE | 2018-10-11 14:13 | PN ---
PROGRESS NOTE This is a second note on Julius Murphy at 12:49 pm. Apparently, the patient did drop his pulse into the 30s. He denies chest pain. He is not diaphoretic. Lanoxin, Lopressor and amiodarone will stopped and he will continue to be monitored. MMODL / IJN: [id number] /
[2018-10-11] MEDS: MAGNESIUM SULFATE-D5W PMX 1 GM in DEXTROSE/WATER 1 100ML.BAG IVPB SCH ×2 (14:41→15:47)
[2018-10-11] MEDS: PIPERACILLIN-TAZOBACTAM 3.375 GM in SODIUM CHLORIDE 0.9% 100 ML IVPB SCH (15:48)
[2018-10-11] MEDS: CHOLECALCIFEROL 1,000 UNIT TAB PO SCH (17:29)
[2018-10-11] MEDS: TAMSULOSIN 0.4 MG CAP.ER.24H PO SCH (17:29)
[2018-10-11] MEDS: ATORVASTATIN 40 MG TAB PO SCH (20:19)
[2018-10-11] MEDS: MIRTAZAPINE 15 MG TAB PO SCH (20:19)
[2018-10-12] MEDS: PIPERACILLIN-TAZOBACTAM 3.375 GM in SODIUM CHLORIDE 0.9% 100 ML IVPB SCH ×4 (00:33→23:36)
[2018-10-12] MEDS: CLOTRIMAZOLE 1% CREAM 15 GM TUBE TOPICAL SCH ×3 (06:24→21:07)
[2018-10-12] MEDS: PROCHLORPERAZINE 10 MG TAB PO SCH ×4 (06:24→23:36)
[2018-10-12 07:55] LABS: ALT 35 U/L (21-72); AST 26 U/L (17-59); Albumin 1.8 g/dL (3.5-5.0); Alkaline Phosphatase 94 U/L (38-126); Anion Gap 4 mmol/L; Blood Urea Nitrogen 4 mg/dL (9-20); Calcium 6.9 mg/dL (8.4-10.2); Carbon Dioxide 29 mmol/L (22-30); Chloride 96 mmol/L (98-107); Glucose 97 mg/dL (74-99); Magnesium 1.7 mg/dL (1.6-2.3); Potassium 3.1 mmol/L (3.5-5.1); Sodium 129 mmol/L (137-145); Total Protein 3.9 g/dL (6.3-8.2)
[2018-10-12 07:57] LABS: Basophils % (A) 0 %; Eosinophils # (A) 0.2 k/uL (0-0.7); Eosinophils % (A) 4 %; HCT 30.8 % (39.0-53.0); HGB 10.5 gm/dL (13.0-17.5); Lymphocytes # (A) 0.8 k/uL (1.0-4.8); Lymphocytes % (A) 17 %; MCH 32.4 pg (25.0-35.0); MCV 95.3 fL (80.0-100.0); Mean Platelet Volume 6.3; Monocytes # (A) 0.3 k/uL (0-1.0); Monocytes % (A) 7 %; Neutrophils # (A) 3.3 k/uL (1.3-7.7); Neutrophils % (A) 69 %; Platelet Count 120 k/uL (150-450); Poikilocytosis Moderate; RBC 3.23 m/uL (4.30-5.90); RDW 15.3 % (11.5-15.5); WBC 4.7 k/uL (3.8-10.6)
[2018-10-12] MEDS: APIXABAN 2.5 MG TABLET PO SCH ×2 (09:08→21:06)
[2018-10-12] MEDS: CALCIUM CARBONATE 500 MG CHEWABLE PO SCH ×2 (09:08→21:06)
[2018-10-12] MEDS: ALLOPURINOL 100 MG TAB PO SCH (09:08)
[2018-10-12] MEDS: FUROSEMIDE 40 MG TAB PO SCH ×2 (09:08→17:23)
[2018-10-12] MEDS: PANTOPRAZOLE 40 MG/10 ML VIAL IV SCH ×2 (09:09→21:06)
[2018-10-12] MEDS: NYSTATIN 100,000 UNIT/GM POWD 15 GM TOPICAL SCH ×3 (09:09→21:07)
--- NOTE | 2018-10-12 10:23 | PN ---
PROGRESS NOTE DATE OF SERVICE: 10/11/2018. REASON FOR FOLLOWUP: Catheter-associated urinary tract infection. INTERVAL HISTORY: The patient is afebrile. He has been breathing comfortably. Denies having any chest pain or any cough. No abdominal pain, no diarrhea. PHYSICAL EXAMINATION: Blood pressure 113/42 with a pulse of 48, temperature 98.5. He is 96% on room air. GENERAL DESCRIPTION: An elderly male lying in bed in no distress. RESPIRATORY SYSTEM: Unlabored breathing. Clear to auscultation anteriorly. HEART: S1, S2. Regular rate and rhythm. LABS: BUN of 5, creatinine 0.77. White count normal at 4.9. Repeat urine culture after change of Leyva catheter now showed group D Enterococcus. DIAGNOSTIC IMPRESSION AND PLAN: Patient admitted to the hospital with generalized weakness, which is likely multifactorial in this patient who did have a component of urinary tract infection and initial urine with Pseudomonas, repeat not showing Enterococcus. Antibiotic therapy to Zosyn while waiting for the sensitivity to finalize. present at bedside. Questions were answered. MMODL / IJN: [id number] / MTDD
[2018-10-12] MEDS: POTASSIUM CHLORIDE ER 20 MEQ TAB.ER PO SCH ×4 (11:02→21:06)
[2018-10-12] MEDS: SODIUM CHLORIDE 0.9% 1,000 ML IV SCH (12:50)
[2018-10-12] MEDS: SPIRONOLACTONE 25 MG TAB PO SCH (12:50)
--- NOTE | 2018-10-12 13:14 | PN ---
PROGRESS NOTE DATE OF SERVICE: 10/12/2018 CHIEF COMPLAINT: Urinary tract infection, sepsis, congestive heart failure, atrial fibrillation and episodes of bradycardia and hypotension. HISTORY OF PRESENT ILLNESS: This gentleman is doing a bit better today. Blood pressure and pulse have been more steady. His potassium is still low. Other parameters are back to normal. PHYSICAL EXAM: He is awake and alert. Blood pressure is 122/76. Pulse is 71 with atrial fibrillation. Head, ears, eyes, nose, mouth, and throat were unremarkable. His chest is fairly clear. Cardiac exam is unchanged. Abdomen is soft, nontender. Extremities are normal. IMPRESSION: 1. Urinary tract infection. 2. Urinary retention. 3. Congestive heart failure. 4. Atrial fibrillation. 5. Diabetes. 6. Hypokalemia. PLAN: Try adding Aldactone and 20 mEq KCl twice a day. He may be able to go back to the [facility] soon. MMODL / IJN: [id number] /
[2018-10-12] MEDS: CHOLECALCIFEROL 1,000 UNIT TAB PO SCH (17:23)
[2018-10-12] MEDS: TAMSULOSIN 0.4 MG CAP.ER.24H PO SCH (17:23)
[2018-10-12] MEDS: MIRTAZAPINE 15 MG TAB PO SCH (21:06)
[2018-10-12] MEDS: ATORVASTATIN 40 MG TAB PO SCH (21:06)
--- NOTE | 2018-10-12 21:51 | P.PN ---
Progress Note - Text Progress Note Date: 10/12/18 PROGRESS NOTE DATE OF SERVICE: 10/12/2018. REASON FOR FOLLOWUP: Catheter-associated urinary tract infection. INTERVAL HISTORY: The patient is afebrile. He is breathing comfortably. The pt denies having any chest pain or any cough. No abdominal pain, no diarrhea. PHYSICAL EXAMINATION: Blood pressure 110/40 with a pulse of 60, temperature 98.5. He is 96% on room air. GENERAL DESCRIPTION: An elderly male lying in bed in no distress. RESPIRATORY SYSTEM: Unlabored breathing. Clear to auscultation anteriorly. HEART: S1, S2. Regular rate and rhythm. LABS: Repeat urine culture after change of Leyva catheter now with Enterococcus fecalis that is PCN sensitive. DIAGNOSTIC IMPRESSION AND PLAN: Patient admitted to the hospital with generalized weakness, which is likely multifactorial in this patient who did have a component of urinary tract infection and initial urine with Pseudomonas, repeat not showing Enterococcus fecalis. pt is covered with Zosyn that will be continued for now , while waiting for condition to stabilize.
[2018-10-13] MEDS: SODIUM CHLORIDE 0.9% 1,000 ML IV SCH ×2 (03:50→05:38)
[2018-10-13] MEDS: CLOTRIMAZOLE 1% CREAM 15 GM TUBE TOPICAL SCH ×3 (05:32→20:31)
[2018-10-13] MEDS: PROCHLORPERAZINE 10 MG TAB PO SCH ×4 (05:32→23:12)
[2018-10-13] MEDS: PANTOPRAZOLE 40 MG/10 ML VIAL IV SCH (08:38)
[2018-10-13] MEDS: PIPERACILLIN-TAZOBACTAM 3.375 GM in SODIUM CHLORIDE 0.9% 100 ML IVPB SCH ×3 (08:38→23:12)
[2018-10-13] MEDS: CALCIUM CARBONATE 500 MG CHEWABLE PO SCH ×2 (08:39→20:31)
[2018-10-13] MEDS: FUROSEMIDE 40 MG TAB PO SCH ×2 (08:39→17:10)
[2018-10-13] MEDS: APIXABAN 2.5 MG TABLET PO SCH ×2 (08:39→20:31)
[2018-10-13] MEDS: POTASSIUM CHLORIDE ER 20 MEQ TAB.ER PO SCH ×2 (08:39→20:31)
[2018-10-13] MEDS: ALLOPURINOL 100 MG TAB PO SCH (08:39)
[2018-10-13] MEDS: SPIRONOLACTONE 25 MG TAB PO SCH (08:39)
[2018-10-13] MEDS: NYSTATIN 100,000 UNIT/GM POWD 15 GM TOPICAL SCH ×3 (08:40→23:12)
--- NOTE | 2018-10-13 08:59 | P.PN ---
Subjective Progress Note Date: 10/13/18 Principal diagnosis: Nausea vomiting 83-year-old admitted with UTI nausea vomiting; improved. Tolerating diet. Afebrile. Flat affect but appropriate. Objective - Vital Signs Vital signs: Vital Signs Temp 98.3 F 10/13/18 05:00 Pulse 85 10/13/18 05:00 Resp 16 10/13/18 05:00 BP 102/53 10/13/18 05:00 Pulse Ox 99 10/13/18 05:00 Intake & Output 10/12/18 10/13/18 10/13/18 18:59 06:59 18:59 Intake Total 200 440 Balance 200 440 Weight 114.5 kg Intake: Intake, IV Titration 200 440 Amount Magnesium Sulfate-D5w Pmx 100 1 gm In Dextrose/Water 1 100ml.bag @ 100 mls/hr IVPB Q1H [facility] Rx#: [id number] Piperacillin-Tazobactam 3 100 200 .375 gm In Sodium Chloride 0.9% 100 ml @ 25 mls/hr IVPB Q8HR [facility] Rx# :[id number] Sodium Chloride 0.9% 1, 240 000 ml @ 60 mls/hr IV . [id number] [facility] Rx#:[id number] Other: Voiding Method Indwelling Catheter Indwelling Catheter # Bowel Movements 2 - Exam General appearance: The patient is alert, oriented, in no acute distress. Flat affect. HET: Head is normocephalic and atraumatic. Pupils are equal and reactive. Oropharynx is clear without lesions. Neck: Supple without lymphadenopathy. Trachea midline. Heart: S1 S2. Regular rate and rhythm. Lungs: No crackles or wheezes are heard. Abdomen: Soft, nontender, nondistended with bowel sounds. No peritoneal signs. No palpable organomegaly or masses. Extremities: Normal skin color and turgor. No cyanosis, rash, ulceration, clubbing, or edema. Radial and pedal pulses are 2/4 bilaterally. Leyva with clear judith urine. Neurological: No focal deficits. Strength and sensation are grossly intact. - Labs CBC & Chem 7: 10/12/18 07:26 10/12/18 07:26 Labs: Abnormal Lab Results - Last 24 Hours (Table) 10/12/18 10/12/18 Range/Units 07:26 07:26 RBC 3.23 L (4.30-5.90) m/uL Hgb 10.5 L (13.0-17.5) gm/dL Hct 30.8 L (39.0-53.0) % Plt Count 120 L (150-450) k/uL Lymphocytes # 0.8 L (1.0-4.8) k/uL Sodium 129 L (137-145) mmol/L Potassium 3.1 L (3.5-5.1) mmol/L Chloride 96 L (98-107) mmol/L BUN 4 L (9-20) mg/dL Calcium 6.9 L (8.4-10.2) mg/dL Total Protein 3.9 L (6.3-8.2) g/dL Albumin 1.8 L (3.5-5.0) g/dL Microbiology - Last 24 Hours (Table) 10/06/18 17:51 Blood Culture - Final Blood No Growth after 144 hours 10/10/18 12:15 Urine Culture - Final Urine,Catheterized Enterococcus faecalis Assessment and Plan (1) Nausea & vomiting Narrative/Plan: Improved Current Visit: Yes Status: Acute Code(s): R11.2 - NAUSEA WITH VOMITING, UNSPECIFIED SNOMED Code(s): 40184152 (2) UTI (urinary tract infection) Current Visit: Yes Status: Acute Code(s): N39.0 - URINARY TRACT INFECTION, SITE NOT SPECIFIED SNOMED Code(s): 25964471 Plan: 1. Supportive measures. GI prophylaxis. Antibiotics per ID. Inpatient endoscopy not advised at this time. We'll follow as needed. Assessment and plan a care discussed with Dr. Alfred
[2018-10-13] MEDS: TAMSULOSIN 0.4 MG CAP.ER.24H PO SCH (17:10)
[2018-10-13] MEDS: CHOLECALCIFEROL 1,000 UNIT TAB PO SCH (17:10)
--- NOTE | 2018-10-13 19:57 | PN ---
PROGRESS NOTE DATE OF SERVICE: 10/13/2018 CHIEF COMPLAINT: Urinary tract infection, sepsis, congestive heart failure, cardiomyopathy and hypokalemia. HISTORY OF PRESENT ILLNESS: This gentleman is doing just about the same. We will reevaluate his electrolytes. We are getting to the point where he can probably return to the skilled nursing. He seems to be doing well. Vital signs are normal. PHYSICAL EXAM: Chest is fairly clear. Cardiac exam is unchanged with atrial fibrillation. The abdomen is soft, nontender. Leyva catheter still in place. IMPRESSION: 1. Urinary tract infection. 2. Urinary retention. 3. Sepsis. 4. Cardiomyopathy. 5. Congestive heart failure. 6. Diabetes. 7. Hypokalemia and hypocalcemia. PLAN: Repeat potassium and try to progress activity. He could probably go back to the skilled nursing soon. MMODL / IJN: [id number] /
--- NOTE | 2018-10-13 20:26 | PN ---
PROGRESS NOTE DATE OF SERVICE: 10/13/2018 REASON FOR FOLLOWUP: Pseudomonas and enterococcus urinary tract infection. INTERVAL HISTORY: The patient is currently afebrile, has been breathing comfortably. The patient is complaining of feeling nauseated and throwing up. The patient, though, denies having any chest pain, and no abdominal pain. PHYSICAL EXAMINATION: Blood pressure is 109/64 with a pulse of 53, temperature 97.9. He is 98% on room air. General description is an elderly male lying in bed in no distress. RESPIRATORY SYSTEM: Unlabored breathing. Clear to auscultation anteriorly. HEART: S1, S2. Regular rate and rhythm. ABDOMEN: Soft. No tenderness. LABS: Hemoglobin 10.5, white count 4.7 with a BUN of 4, creatinine 0.78. Repeat urine with Enterococcus faecalis. Initial one was Pseudomonas aeruginosa. DIAGNOSTIC IMPRESSION AND PLAN: Patient with a catheter-associated urinary tract infection. Leyva catheter has been changed. Repeat now showing Enterococcus faecalis. Patient is currently on Zosyn. Transition to oral antibiotic on discharge. Continue with supportive care. MMODL / IJN: [id number] /
[2018-10-13] MEDS: ATORVASTATIN 40 MG TAB PO SCH (20:31)
[2018-10-13] MEDS: PANTOPRAZOLE 40 MG TABLET PO SCH (20:31)
[2018-10-13] MEDS: MIRTAZAPINE 15 MG TAB PO SCH (20:31)
[2018-10-14] MEDS: PROCHLORPERAZINE 10 MG TAB PO SCH ×4 (04:50→22:59)
[2018-10-14] MEDS: CLOTRIMAZOLE 1% CREAM 15 GM TUBE TOPICAL SCH ×3 (04:50→20:44)
[2018-10-14 08:24] LABS: Magnesium 1.3 mg/dL (1.6-2.3); Potassium 3.6 mmol/L (3.5-5.1)
[2018-10-14] MEDS: MAGNESIUM SULFATE-D5W PMX 1 GM in DEXTROSE/WATER 1 100ML.BAG IVPB SCH ×3 (09:14→12:33)
[2018-10-14] MEDS: PIPERACILLIN-TAZOBACTAM 3.375 GM in SODIUM CHLORIDE 0.9% 100 ML IVPB SCH ×3 (09:22→22:59)
[2018-10-14] MEDS: ALLOPURINOL 100 MG TAB PO SCH (10:10)
[2018-10-14] MEDS: APIXABAN 2.5 MG TABLET PO SCH ×2 (10:11→20:45)
[2018-10-14] MEDS: FUROSEMIDE 40 MG TAB PO SCH ×2 (10:11→17:24)
[2018-10-14] MEDS: CALCIUM CARBONATE 500 MG CHEWABLE PO SCH ×2 (10:11→20:44)
[2018-10-14] MEDS: PANTOPRAZOLE 40 MG TABLET PO SCH ×2 (10:11→20:45)
[2018-10-14] MEDS: POTASSIUM CHLORIDE ER 20 MEQ TAB.ER PO SCH ×2 (10:12→20:44)
[2018-10-14] MEDS: NYSTATIN 100,000 UNIT/GM POWD 15 GM TOPICAL SCH ×3 (10:12→20:44)
[2018-10-14] MEDS: SPIRONOLACTONE 25 MG TAB PO SCH (10:12)
--- NOTE | 2018-10-14 10:20 | CDI ---
Documentation Clarification Form Date: 10/14/2018 9:03:23 AM From: Senia Cade RN, CCDS Admit Date: 10/06/2018 7:50:00 PM Patient Name: Julius Murphy Visit Number: [id number] Discharge Date: ATTENTION: The Clinical Documentation Specialists (CDI) and [facility] Coding Staff appreciate your assistance in clarifying documentation. Please respond to the clarification below the line at the bottom and electronically sign. The CDI & [facility] Coding staff will review the response and follow-up if needed. Please note: Queries are made part of the Legal Health Record. If you have any questions, please contact the author of this message via ITS. Dr. Davey Riddle The patient presented with a urinary tract infection with a history or chronic Leyva is documented per Dr. Williamson. Nursing has stated no Leyva on admission. ECF documentation has patient was straight cath PRN for post-void over 300 mls 10/08/18 Leyva catheter insertion History/Risk Factors: Congestive heart failure, Atrial Fibrillation, Diabetes Mellitus, Hypertension, Clinical Indicators: 83 year old male who present from ECF with complaints of shortness of breath. UA Culture: 10/06/18 Catheralized specimen: Pseudomonas aeruginosa (Present on admission) 10/10/18 urine culture: Enterococcus Faecalis CXR: no acute process Labs: WBC 6.2, NA+ 129, K+ 2.9, Vital Signs: 88/53 74 19 98.7 Treatment: Zosan IV Monitor Labs Consults: Dr. Williamson; the patient did have a chronic indwelling Leyva catheter. The patient was unable to tell how long he did have his Leyva catheter and whether it was changed this admission or not. In your professional opinion, can you please clarify if you are treating is this a: Catheter related UTI UTI not catheter related Other, please specify Unable to determine (Last Revision: November 2017) MTDD
[2018-10-14] MEDS: SODIUM CHLORIDE 0.9% 1,000 ML IV SCH ×2 (10:52→17:23)
[2018-10-14] MEDS ORDERED: RX INFO: IV CONTRAST WAS GIVEN 1 EACH MISC MISCELLANE PRN (14:43)
--- NOTE | 2018-10-14 14:57 | PN ---
PROGRESS NOTE DATE OF SERVICE: 10/14/2018. CHIEF COMPLAINT: Urinary tract infection and septicemia. HISTORY OF PRESENT ILLNESS: This gentleman seems to be deteriorating. He is a little bit more sluggish and lethargic. He has no specific complaints, just shortness of breath, abdominal pain, chest pain, nausea, etc. Potassium is up to 3.6. PHYSICAL EXAMINATION: Chest is fairly clear. The cardiac exam is unchanged with atrial fibrillation. The abdomen is soft and nontender and extremities seem the same. IMPRESSION: Increased lethargy, etiology unknown. PLAN: 1. Further studies to see if there is a reason for his mental status changes. 2. Review medications. 3. He is currently a DNR, but if this continues, I will have a discussion with he and the family regarding hospice. MMQIANA / CHUCHON: [id number] /
--- NOTE | 2018-10-14 16:13 | US ---
EXAMINATION TYPE: US carotid duplex BILAT DATE OF EXAM: 10/14/2018 COMPARISON: NONE CLINICAL HISTORY: MS changes. MS changes Large pt body habitus, difficult exam EXAM MEASUREMENTS: RIGHT: Peak Systolic Velocity (PSV) cm/sec ----- Right CCA: 96.9 ----- Right ICA: 90.0 ----- Right ECA: 111.2 ICA/CCA ratio: 0.9 RIGHT: End Diastole cm/sec ----- Right CCA: 14.1 ----- Right ICA: 19.7 ----- Right ECA: 7.6 LEFT: Peak Systolic Velocity (PSV) cm/sec ----- Left CCA: 114.5 ----- Left ICA: 147.6 ----- Left ECA: 91.8 ICA/CCA ratio: 1.3 LEFT: End Diastole cm/sec ----- Left CCA: 11.1 ----- Left ICA: 33.3 ----- Left ECA: 7.6 VERTEBRALS (direction of flow): Right Vertebral: Antegrade Left Vertebral: Antegrade Rhythm: Arrhythmia Elevated velocities left ICA, otherwise no evidence of significant stenosis IMPRESSION: 1. Elevated velocity within the left internal carotid artery is seen and although there is no elevate d internal carotid artery to common carotid artery ratio stenosis of approximately 50% is suspected f ocally having grayscale imaging. 2. Cardiac arrhythmia is noted. Correlate with EKG. Criteria for Assigning % of Stenosis / Diameter reduction (Estimation based on the indirect measurements of the internal carotid artery velocities (ICA PSV). 1. Normal (no stenosis)=ICA PSV < 125 cm/s: ratio < 2.0: ICA EDV<40 cm/s. 2. Less than 50% stenosis=ICA PSV < 125 cm/s: ratio < 2.0: ICA EDV<40 cm/s. 3. 50 to 69% stenosis=ICA PSV of 125 to 230 cm/s: ration 2.0 ? 4.0: ICA EDV 40-100 cm/s. 4. Greater than 70% stenosis to near occlusion= ICA PSV > 230 cm/s: ratio > 4.0: ICA EDV > 100 cm/s. 5. Near occlusion= ICA PSV velocities may be low or undetectable: variable ratio and ICA EDV. 6. Total occlusion=unable to detect flow.
--- NOTE | 2018-10-14 16:39 | CT ---
EXAMINATION TYPE: CT brain wo/w con DATE OF EXAM: 10/14/2018 COMPARISON: 08/31/2018 and 08/03/2016 HISTORY: 83-year-old male Lethargic. TECHNIQUE: Examination was done in axial plane before and after intravenous contrast. 100 mL Isovue 300 IV contrast was administered. Coronal and sagittal reconstructions performed. CT DLP: 2285 mGycm Automated exposure control for dose reduction was used. FINDINGS: There is no evidence of acute intracranial hemorrhage, acute ischemic changes, mass, mass-effect, or extra-axial fluid collection. There is no effacement of cerebral sulci or basal subarachnoid cister ns. There is no hydrocephalus. There is no midline shift. Luke-white matter distinction is preserv ed. Redemonstrated moderate generalized supratentorial volume loss with moderate patchy white matter hypo densities. There is secondary mild ventriculomegaly, unchanged from prior exam. José's ratio is calcu lated at 0.34. Moderate emphysematous chronic calcifications within the carotid siphons. No abnormal intracranial enhancement is identified. Dural venous sinuses are patent. Trace mucosal thickening in the lateral maxillary sinuses. Small amount trapped fluid in the inferior right mastoid air cells. Mild mucosal thickening right ethmoid air cells. Stable round sclerotic foc us in the lateral anterior right frontal bone, axial image 23 is compared to 2016 suggesting benign b [place]. IMPRESSION: 1. Similar moderate generalized atrophy. There is mild ventriculomegaly which is also unchanged likel y secondary to central cerebral volume loss. 2. No acute intracranial abnormality seen. No enhancing intracranial lesions. 3. Small amount of trapped fluid in the inferior right mastoid air cells. Questionable clinical signi ficance. Correlate for any mastoid pain to exclude mastoiditis.
[2018-10-14] MEDS: TAMSULOSIN 0.4 MG CAP.ER.24H PO SCH (17:24)
[2018-10-14] MEDS: CHOLECALCIFEROL 1,000 UNIT TAB PO SCH (17:24)
[2018-10-14 17:25] LABS: Basophils % (A) 0 %; Eosinophils # (A) 0.2 k/uL (0-0.7); Eosinophils % (A) 3 %; HCT 34.5 % (39.0-53.0); HGB 11.2 gm/dL (13.0-17.5); Lymphocytes # (A) 0.7 k/uL (1.0-4.8); Lymphocytes % (A) 11 %; MCH 31.4 pg (25.0-35.0); MCHC 32.6 g/dL (31.0-37.0); MCV 96.4 fL (80.0-100.0); Mean Platelet Volume 6.3; Monocytes # (A) 0.4 k/uL (0-1.0); Monocytes % (A) 6 %; Neutrophils # (A) 4.9 k/uL (1.3-7.7); Neutrophils % (A) 78 %; Platelet Count 157 k/uL (150-450); Poikilocytosis Slight; RBC 3.57 m/uL (4.30-5.90); RDW 15.5 % (11.5-15.5); WBC 6.3 k/uL (3.8-10.6)
[2018-10-14 17:33] LABS: ALT 32 U/L (21-72); AST 29 U/L (17-59); Alkaline Phosphatase 111 U/L (38-126); Anion Gap 6 mmol/L; Blood Urea Nitrogen 4 mg/dL (9-20); Carbon Dioxide 29 mmol/L (22-30); Chloride 95 mmol/L (98-107); Glucose 126 mg/dL (74-99); Potassium 3.6 mmol/L (3.5-5.1); Sodium 130 mmol/L (137-145); Total Bilirubin 1.2 mg/dL (0.2-1.3); Total Protein 4.3 g/dL (6.3-8.2)
[2018-10-14 18:48] LABS: T4, Free (Free Thyroxine) 1.38 ng/dL (0.78-2.19)
[2018-10-14] MEDS: MIRTAZAPINE 15 MG TAB PO SCH (20:44)
[2018-10-14] MEDS: ATORVASTATIN 40 MG TAB PO SCH (20:45)
[2018-10-15] MEDS: PROCHLORPERAZINE 10 MG TAB PO SCH ×4 (05:23→23:43)
[2018-10-15] MEDS: CLOTRIMAZOLE 1% CREAM 15 GM TUBE TOPICAL SCH ×3 (05:23→21:02)
--- NOTE | 2018-10-15 06:08 | PN ---
PROGRESS NOTE DATE OF SERVICE: 10/14/2018. REASON FOR FOLLOWUP VISIT: Pseudomonas and enterococcus urinary tract infection. INTERVAL HISTORY: The patient is currently afebrile. He is breathing comfortably. Denies having any chest pain or any cough. No further nausea, vomiting, abdominal pain and no diarrhea. PHYSICAL EXAMINATION: Blood pressure 106/64 with a pulse of 106, temperature 97.6. He is 97% on room air. General description is an elderly male lying in bed in no distress. Respiratory system: Unlabored breathing. Clear to auscultation anteriorly. Heart S1, S2. Regular rate and rhythm. ABDOMEN: Soft. EXTREMITIES: No edema of the feet. LABS: Hemoglobin 11.2 with white count 6.3, BUN of 4, creatinine 0.74. DIAGNOSTIC IMPRESSION AND PLAN: Patient admitted to the hospital with diffuse weakness in this patient who did have a initial urine positive for Pseudomonas with enterococcus after the change of his Leyva catheter. The patient is currently covered with Zosyn to continue for now and continue supportive care. MMODL / IJN: [id number] /
[2018-10-15 08:12] LABS: Magnesium 1.6 mg/dL (1.6-2.3); Potassium 3.6 mmol/L (3.5-5.1)
--- NOTE | 2018-10-15 08:14 | MISC ---
MISCELLANOUS REPORT Catheter related UTI. MMODL / IJN: [id number] /
[2018-10-15] MEDS: PIPERACILLIN-TAZOBACTAM 3.375 GM in SODIUM CHLORIDE 0.9% 100 ML IVPB SCH ×3 (08:57→23:43)
[2018-10-15] MEDS: ALLOPURINOL 100 MG TAB PO SCH (09:04)
[2018-10-15] MEDS: FUROSEMIDE 40 MG TAB PO SCH ×2 (09:04→18:00)
[2018-10-15] MEDS: APIXABAN 2.5 MG TABLET PO SCH ×2 (09:04→21:00)
[2018-10-15] MEDS: PANTOPRAZOLE 40 MG TABLET PO SCH ×2 (09:05→21:00)
[2018-10-15] MEDS: SPIRONOLACTONE 25 MG TAB PO SCH (09:05)
[2018-10-15] MEDS: POTASSIUM CHLORIDE ER 20 MEQ TAB.ER PO SCH ×4 (09:05→21:00)
[2018-10-15] MEDS: CALCIUM CARBONATE 500 MG CHEWABLE PO SCH (09:05)
[2018-10-15] MEDS: NYSTATIN 100,000 UNIT/GM POWD 15 GM TOPICAL SCH ×3 (09:05→21:01)
[2018-10-15] MEDS ORDERED: Potassium Replacement Protocol 1 EACH MISC MISCELLANE PRN (10:57)
[2018-10-15] MEDS ORDERED: Magnesium Replacement Protocol 1 EACH MISC MISCELLANE PRN (10:58)
[2018-10-15] MEDS ORDERED: POTASSIUM CHLORIDE ER 20 MEQ TAB.ER PO SCH (11:00)
[2018-10-15] MEDS ORDERED: CALCIUM CARBONATE 500 MG CHEWABLE PO PRN (12:42)
[2018-10-15] MEDS: MAGNESIUM SULFATE-D5W PMX 1 GM in DEXTROSE/WATER 1 100ML.BAG IVPB SCH ×2 (13:19→14:28)
--- NOTE | 2018-10-15 14:10 | PN ---
PROGRESS NOTE DATE OF SERVICE: 10/15/2018. CHIEF COMPLAINT: Congestive heart failure, urinary tract infection and sepsis. HISTORY OF PRESENT ILLNESS: This gentleman seems to be doing about the same. He seems a little bit more lethargic than normal. However, he is oriented and oriented when he is awakened. He continues to have low calcium, low potassium, and these issues will be addressed once again. He also would like to be placed on a regular diet. PHYSICAL EXAM: His edema is under control. Chest is fairly clear and the cardiac exam is unchanged with atrial fibrillation. Abdomen is soft and nontender. IMPRESSION: 1. Urinary tract infection with septicemia. 2. Obstructive uropathy. 3. 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 4. Diabetes mellitus. 5. Hypocalcemia and hypokalemia. PLAN: 1. Address calcium and potassium deficiencies. 2. Switch to a regular diet. 3. Try to get him back to [facility] for rehab fairly soon considering that he is getting a little bit weaker each day. MMODL / IJN: [id number] /
[2018-10-15] MEDS: SODIUM CHLORIDE 0.9% 1,000 ML IV SCH (17:09)
[2018-10-15] MEDS: TAMSULOSIN 0.4 MG CAP.ER.24H PO SCH (17:56)
[2018-10-15] MEDS: CHOLECALCIFEROL 1,000 UNIT TAB PO SCH (17:58)
--- NOTE | 2018-10-15 20:23 | PN ---
PROGRESS NOTE DATE OF SERVICE: 10/15/2018 REASON FOR FOLLOWUP: Catheter-associated urinary tract infection. INTERVAL HISTORY: The patient is afebrile. He is feeling slightly weak and tired with no energy. Denies having any chest pain or any cough. No abdominal pain or any diarrhea. PHYSICAL EXAMINATION: Blood pressure 114/62 with a pulse of 67, temperature 98. He is 99% on room air. General description is an elderly male lying in bed in no distress. RESPIRATORY SYSTEM: Unlabored breathing. Clear to auscultation anteriorly. HEART: S1, S2. Regular rate and rhythm. ABDOMEN: Soft. No tenderness. LABS: Hemoglobin 11.2, white count 6.3 with a BUN of 4, creatinine 0.74. DIAGNOSTIC IMPRESSION AND PLAN: Patient with a catheter-associated urinary tract infection, initially with pseudomonas. Repeat is enterococcus. Currently covered with Zosyn for now. Will monitor the patient's clinical course closely to see if there is any need for antibiotic on discharge. Continue with supportive care. MMODL / IJN: [id number] /
[2018-10-15] MEDS: MIRTAZAPINE 15 MG TAB PO SCH (21:00)
[2018-10-15] MEDS: ATORVASTATIN 40 MG TAB PO SCH (21:00)
[2018-10-16] MEDS: CLOTRIMAZOLE 1% CREAM 15 GM TUBE TOPICAL SCH ×3 (05:57→21:12)
[2018-10-16] MEDS: PROCHLORPERAZINE 10 MG TAB PO SCH ×3 (05:57→16:44)
[2018-10-16] MEDS: PIPERACILLIN-TAZOBACTAM 3.375 GM in SODIUM CHLORIDE 0.9% 100 ML IVPB SCH ×2 (08:23→16:43)
[2018-10-16] MEDS ORDERED: ONDANSETRON 4 MG/2 ML VIAL IVP PRN (09:00)
[2018-10-16] MEDS: APIXABAN 2.5 MG TABLET PO SCH ×2 (10:14→21:11)
[2018-10-16] MEDS: FUROSEMIDE 40 MG TAB PO SCH ×2 (10:14→16:44)
[2018-10-16] MEDS: PANTOPRAZOLE 40 MG TABLET PO SCH ×2 (10:15→21:11)
[2018-10-16] MEDS: POTASSIUM CHLORIDE ER 20 MEQ TAB.ER PO SCH ×4 (10:15→21:11)
[2018-10-16] MEDS: NYSTATIN 100,000 UNIT/GM POWD 15 GM TOPICAL SCH ×3 (10:29→21:11)
[2018-10-16] MEDS: SPIRONOLACTONE 25 MG TAB PO SCH (10:30)
[2018-10-16] MEDS: ALLOPURINOL 100 MG TAB PO SCH (10:30)
--- NOTE | 2018-10-16 11:42 | PN ---
PROGRESS NOTE DATE OF SERVICE: 10/16/2018. CHIEF COMPLAINT: Weakness and vomiting. HISTORY OF PRESENT ILLNESS: This gentleman has now started to have episodes of nausea and vomiting. He is not having abdominal pain. Potassium is up to 3.6. PHYSICAL EXAM: He remains a little bit more lethargic than he should be normally. Head, ears, eyes, nose, mouth, and throat are normal. The chest is fairly clear. Cardiac exam is unchanged. Abdomen is soft and there is no tenderness or masses. Bowel sounds present. IMPRESSION: 1. Nausea and vomiting, etiology unknown. 2. Acute and chronic congestive heart failure. 3. Atrial fibrillation. 4. Diabetes mellitus. 5. Urinary tract infection with sepsis. 6. Obstructive uropathy. PLAN: 1. Make Zofran intravenous. 2. Remove some of his medications to see if they are related to the nausea. MMODL / IJN: [id number] /
[2018-10-16] MEDS: TAMSULOSIN 0.4 MG CAP.ER.24H PO SCH (16:43)
[2018-10-16] MEDS: SODIUM CHLORIDE 0.9% 1,000 ML IV SCH (16:43)
[2018-10-16] MEDS: CHOLECALCIFEROL 1,000 UNIT TAB PO SCH (16:44)
--- NOTE | 2018-10-16 20:42 | PN ---
PROGRESS NOTE DATE OF SERVICE: 10/16/2018. REASON FOR FOLLOWUP: Pseudomonas and enterococcus urinary tract infection. INTERVAL HISTORY: The patient is currently afebrile. The patient did have an episode of vomiting this morning. discomfort. Denies any chest pain or any diarrhea. PHYSICAL EXAMINATION: Blood pressure 122/54 with a pulse of 76. Temperature 97.5. He is 98% on room air. General description is an elderly male lying in bed in no distress. RESPIRATORY SYSTEM: Unlabored breathing. Clear to auscultation anteriorly. HEART: S1, S2. Regular rate and rhythm. ABDOMEN: Soft, no tenderness. LAB: Hemoglobin 11.2, white count 6.2, BUN of 4, creatinine 0.74. DIAGNOSTIC IMPRESSION AND PLAN: Patient with Pseudomonas aeruginosa and enterococcus faecalis catheter associated urinary tract infection. Patient at this time is on Zosyn, to continue for now. GI is on the case for his persistent GI symptoms. Continue to monitor closely. Continue supportive care. MMODL / IJN: [id number] /
[2018-10-16] MEDS: MIRTAZAPINE 15 MG TAB PO SCH (21:11)
[2018-10-17] MEDS: CLOTRIMAZOLE 1% CREAM 15 GM TUBE TOPICAL SCH ×2 (05:24→15:15)
[2018-10-17] MEDS: PROCHLORPERAZINE 10 MG TAB PO SCH ×3 (05:24→15:14)
[2018-10-17] MEDS: PIPERACILLIN-TAZOBACTAM 3.375 GM in SODIUM CHLORIDE 0.9% 100 ML IVPB SCH ×3 (07:55)
[2018-10-17] MEDS: POTASSIUM CHLORIDE ER 20 MEQ TAB.ER PO SCH ×2 (07:56→15:14)
[2018-10-17] MEDS: FUROSEMIDE 40 MG TAB PO SCH (07:56)
[2018-10-17] MEDS: PANTOPRAZOLE 40 MG TABLET PO SCH (07:56)
[2018-10-17] MEDS: APIXABAN 2.5 MG TABLET PO SCH (07:56)
[2018-10-17] MEDS: NYSTATIN 100,000 UNIT/GM POWD 15 GM TOPICAL SCH (07:57)
--- NOTE | 2018-10-17 09:24 | EEG ---
ELECTROENCEPHALOGRAM REPORT DATE OF PROCEDURE: 10/15/2018 ELECTROENCEPHALOGRAM (EEG) REPORT: TECHNIQUE: A routine 18-channel EEG was performed with video using the 10-20 international placement system. HISTORY: Patient admitted after having nausea and vomiting, patient found to be dehydrated. Patient was recovering at [facility] for congestive heart failure and general debility. Patient has been more sluggish and lethargic. CURRENT MEDICATIONS: Desyrel, Flomax, Aldactone, Compazine, piperacillin and others. STUDY DURATION: 25 minutes. FINDINGS: BACKGROUND: The background activity consisted of 7-8 Hz rhythmic waveforms, symmetrically distributed to both posterior quadrants. ACTIVATION: Hyperventilation not performed. PHOTIC STIMULATION: symmetric driving seen. SLEEP: Drowsy. ABNORMALITIES: Intermittent diffuse 5-7 Hz polymorphic theta range slowing was seen. Please note that one channel of this EEG was dedicated to EKG and at times it did not demonstrate a sinus rhythm. IMPRESSION: Mildly abnormal EEG. The intermittent diffuse polymorphic theta range slowing mentioned above is not epileptiform in nature. These findings suggest mild diffuse cerebral dysfunction, which may in part be due to medication effect. Please note the background frequency did not exceed Hz. Given the patient's age, this can be considered within normal limits. No seizures were recorded. No epileptiform activity was present. MMODL / IJN: [id number] /
[2018-10-17 09:34] LABS: Anion Gap 4 mmol/L; Blood Urea Nitrogen 3 mg/dL (9-20); Calcium 6.9 mg/dL (8.4-10.2); Carbon Dioxide 29 mmol/L (22-30); Chloride 99 mmol/L (98-107); Glucose 108 mg/dL (74-99); Potassium 3.9 mmol/L (3.5-5.1); Sodium 132 mmol/L (137-145)
[2018-10-17] MEDS: SODIUM CHLORIDE 0.9% 1,000 ML IV SCH (10:00)
[2018-10-17 11:53] VITALS: BP 120/57; PULSE 69; RESP 17; TEMP 98
--- NOTE | 2018-10-17 12:19 | P.DS ---
Providers Date of admission: 10/06/18 19:50 Attending physician: Davey Riddle Consults: 10/09/18 10:45 Consult Physician Routine Consulting Provider: Jennifer Willimason Consult Reason/Comments: UTI Do you want consulting provider notified?: Yes Primary care physician: Davey Riddle Hospital Course: Final diagnosis Nausea vomiting possible acute gastritis Acute on chronic CHF Atrial fibrillation Diabetes type II CTA sepsis Obstructive uropathy Discharge disposition The patient be discharged in a stable condition with guarded prognosis to [facility]. Total time taken 35 minutes. Stable but overall guarded prognosis. History of present illness This 83-year-old gentleman with a past medical history multiple medical problems as mentioned earlier being followed by Dr. Riddle in the outpatient setting was admitted with the nausea vomiting and acute gastritis. Patient also had features of UTI sepsis. Patient was given broad-spectrum IV antibiotics. Infectious diseases seen the patient. Patient improved significantly. Patient be discharged in a stable condition with guarded prognosis to [facility] under the care of Dr. Riddle at this time. On exam vitals are stable. Cardio S1-S2 normal respirator system few scattered rhonchi abdomen soft nontender nervous system mild diffuse weakness diffusely. Please refer to the discharge medication list for discharge medications. Patient Condition at Discharge: Fair Plan - Discharge Summary Discharge Rx Participant: No New Discharge Prescriptions: New Metoclopramide [Reglan] 10 mg PO QID PRN tab PRN Reason: Nausea Pantoprazole [Protonix] 40 mg PO BID tablet. Potassium Chloride ER [K-Dur 20] 20 meq PO BID tab.er.prt Prochlorperazine [Compazine] 10 mg PO Q6HR tab Continue Apixaban [Eliquis] 2.5 mg PO BID@0800,2100 traZODone HCL [Desyrel] 100 mg PO HS PRN PRN Reason: Insomnia Cholecalciferol [Vitamin D3] 5,000 unit PO DAILY@1700 Mirtazapine [Remeron] 15 mg PO HS@2100 Atorvastatin [Lipitor] 40 mg PO HS@2100 Nystatin 100,000 Unit/gm Powd [Mycostatin Powder] 1 applic TOPICAL TID 60 Days #1 pack Bisacodyl [Dulcolax] 10 mg RECTAL DAILY PRN PRN Reason: Constipation Acetaminophen Tab [Tylenol] 650 mg PO Q4H PRN PRN Reason: Pain Tamsulosin [Flomax] 0.8 mg PO DAILY@1700 Na Phos,M-B/Na Phos,Di-Ba [Fleet Adult] 133 ml RECTAL DAILY PRN PRN Reason: Constipation INSULIN ASPART (NovoLOG) [NovoLOG (formulary)] 2 unit SQ AC-TID Clotrimazole Cream [Lotrimin Cream] 1 applic TOPICAL TID@0600,1400,2100 Metoprolol Tartrate [Lopressor] 12.5 mg PO BID@0800,2100 Furosemide [Lasix] 40 mg PO BID@0800,1700 Digoxin [Lanoxin] 250 mcg PO DAILY@0600 Insulin Detemir (Levemir) [Levemir] 5 unit SQ HS@2100 Amiodarone [Cordarone] 100 mg PO DAILY@0800 Allopurinol [Zyloprim] 100 mg PO DAILY@0800 Magnesium Hydroxide [Milk of Magnesia] 2,400 mg PO DAILY PRN PRN Reason: Constipation Ondansetron [Zofran] 4 mg PO Q4H PRN PRN Reason: Nausea Ipratropium-Albuterol Nebulize [Duoneb 0.5 mg-3 mg/3 ml Soln] 3 ml INHALATION RT-Q4H PRN PRN Reason: Shortness Of Breath Colchicine 0.6 mg PO Q2H PRN MDD 10 TABS PRN Reason: GOUT ATTACK Ipratropium-Albuterol Nebulize [Duoneb 0.5 mg-3 mg/3 ml Soln] 3 ml INHALATION RT-Q4H Prostat 1 dose PO BID@0800,1700 Discontinued Pantoprazole [Protonix] 40 mg PO DAILY@0600 Discharge Medication List Apixaban [Eliquis] 2.5 mg PO BID@0800,2100 03/26/18 [History] Atorvastatin [Lipitor] 40 mg PO HS@209907/28/18 [History] Cholecalciferol [Vitamin D3] 5,000 unit PO DAILY@1700 07/28/18 [History] Mirtazapine [Remeron] 15 mg PO HS@209907/28/18 [History] traZODone HCL [Desyrel] 100 mg PO HS PRN 07/28/18 [History] Nystatin 100,000 Unit/gm Powd [Mycostatin Powder] 1 applic TOPICAL TID 60 Days # 1 pack 08/27/18 [Rx] Acetaminophen Tab [Tylenol] 650 mg PO Q4H PRN 08/31/18 [History] Bisacodyl [Dulcolax] 10 mg RECTAL DAILY PRN 08/31/18 [History] Tamsulosin [Flomax] 0.8 mg PO DAILY@1700 08/31/18 [History] Allopurinol [Zyloprim] 100 mg PO DAILY@0800 09/12/18 [History] Amiodarone [Cordarone] 100 mg PO DAILY@0800 09/12/18 [History] Clotrimazole Cream [Lotrimin Cream] 1 applic TOPICAL TID@0600,1400,2100 [History] Digoxin [Lanoxin] 250 mcg PO DAILY@0600 09/12/18 [History] Furosemide [Lasix] 40 mg PO BID@0800,1700 09/12/18 [History] INSULIN ASPART (NovoLOG) [NovoLOG (formulary)] 2 unit SQ AC-TID 09/12/18 [ History] Insulin Detemir (Levemir) [Levemir] 5 unit SQ HS@209909/12/18 [History] Magnesium Hydroxide [Milk of Magnesia] 2,400 mg PO DAILY PRN 09/12/18 [History] Metoprolol Tartrate [Lopressor] 12.5 mg PO BID@0800,2100 09/12/18 [History] Na Phos,M-B/Na Phos,Di-Ba [Fleet Adult] 133 ml RECTAL DAILY PRN 09/12/18 [ History] Colchicine 0.6 mg PO Q2H PRN MDD 10 TABS 10/06/18 [History] Ipratropium-Albuterol Nebulize [Duoneb 0.5 mg-3 mg/3 ml Soln] 3 ml INHALATION RT -Q4H 10/06/18 [History] Ipratropium-Albuterol Nebulize [Duoneb 0.5 mg-3 mg/3 ml Soln] 3 ml INHALATION RT -Q4H PRN 10/06/18 [History] Ondansetron [Zofran] 4 mg PO Q4H PRN 10/06/18 [History] Prostat 1 dose PO BID@0800,1700 10/06/18 [History] Metoclopramide [Reglan] 10 mg PO QID PRN tab 10/17/18 [Rx] Pantoprazole [Protonix] 40 mg PO BID tablet. 10/17/18 [Rx] Potassium Chloride ER [K-Dur 20] 20 meq PO BID tab.er.prt 10/17/18 [Rx] Prochlorperazine [Compazine] 10 mg PO Q6HR tab 10/17/18 [Rx] Follow up Appointment(s)/Referral(s): Davey Riddle MD [Primary Care Provider] - 1 Week Activity/Diet/Wound Care/Special Instructions: Diet is cardiac Activity as tolerated Antibiotics per ID
[2018-10-17 14:58] VITALS: BMI 36.3
--- NOTE | 2018-10-17 15:13 | PN ---
PROGRESS NOTE DATE OF SERVICE: 10/17/2018 REASON FOR FOLLOWUP: Catheter associated urinary tract infection. INTERVAL HISTORY: The patient is currently afebrile. The patient is breathing comfortably. Denies having any chest pain or any cough. No abdominal pain or any diarrhea. PHYSICAL EXAMINATION: Blood pressure 120/57 with pulse of 69, temperature 98, he is 96% on room air. General description is an elderly male, up in the chair in no distress. RESPIRATORY SYSTEM: Unlabored breathing, clear to auscultation anteriorly. HEART: S1, S2. Regular rate and rhythm. ABDOMEN: Soft, no tenderness. LABS: BUN of 30, creatinine 0.74, hemoglobin of 11.1, white count of 6.3. DIAGNOSTIC IMPRESSION AND PLAN: Patient with catheter-associated urinary tract infection. Initial cultures show pseudomonas; however, change of Leyva catheter, culture were positive for Enterococcus faecalis. Patient has been treated with Zosyn, will give a short course of oral Augmentin to finish a course of therapy with close outpatient followup. MMODL / IJN: [id number] /
== END 2018-10-17 16:35 | DRG 698 ==
LOC: EC 17:28 → 3SCARD 19:50 → 3NMEDONC 10-09 11:43
PROVIDERS: ADMIT Family Medicine; ATTEND Family Medicine
DX: T83.518A Infection and inflammatory reaction due to other urinary catheter, initial encounter (principal); A41.81 Sepsis due to Enterococcus; A41.52 Sepsis due to Pseudomonas; I50.43 Acute on chronic combined systolic (congestive) and diastolic (congestive) heart failure; N39.0 Urinary tract infection, site not specified; E87.1 Hypo-osmolality and hyponatremia; I42.0 Dilated cardiomyopathy; Y84.6 Urinary catheterization as the cause of abnormal reaction of the patient, or of later complication, without mention of misadventure at the time of the procedure; D53.9 Nutritional anemia, unspecified; E11.9 Type 2 diabetes mellitus without complications; E83.42 Hypomagnesemia; E83.51 Hypocalcemia; E86.0 Dehydration; E87.6 Hypokalemia; I11.0 Hypertensive heart disease with heart failure; I25.10 Atherosclerotic heart disease of native coronary artery without angina pectoris; I25.2 Old myocardial infarction; I48.2 Chronic atrial fibrillation; Z87.01 Personal history of pneumonia (recurrent); Z87.440 Personal history of urinary (tract) infections; N13.9 Obstructive and reflux uropathy, unspecified; Z79.01 Long term (current) use of anticoagulants; Z79.4 Long term (current) use of insulin; Z79.899 Other long term (current) drug therapy; Z80.7 Family history of other malignant neoplasms of lymphoid, hematopoietic and related tissues; Z85.828 Personal history of other malignant neoplasm of skin; Z87.442 Personal history of urinary calculi; M10.9 Gout, unspecified; Z95.5 Presence of coronary angioplasty implant and graft; Z96.642 Presence of left artificial hip joint; Z96.653 Presence of artificial knee joint, bilateral; Z98.1 Arthrodesis status; Z98.42 Cataract extraction status, left eye; Z98.41 Cataract extraction status, right eye; M19.90 Unspecified osteoarthritis, unspecified site; H11.30 Conjunctival hemorrhage, unspecified eye
CPT/HCPCS: 36415; 70470; 71045; 74177; 80048; 80053; 80162; 81001; 82140; 82550; 82553; 83605; 83735; 84132; 84439; 84443; 84484; 85025; 85610; 85730; 87040; 87077; 87086; 87186; 87502; 93005; 93880; 94760; 95816; 96365; 96367; 99285

== ENCOUNTER 2018-10-31 17:34 | Inpatient (IN) | payer MEDICARE, BC ==
[2018-10-31] MEDS ORDERED: SODIUM CHLORIDE 0.9% 1,000 ML IV STA (17:52)
[2018-10-31] MEDS ORDERED: SODIUM CHLORIDE 0.9% 500 ML 500 ML IV STA (17:52)
--- NOTE | 2018-10-31 18:23 | ED ---
General Adult HPI - General Chief complaint: Weakness Stated complaint: hypotension Time Seen by Provider: 10/31/18 17:40 Source: patient, RN notes reviewed, old records reviewed Mode of arrival: EMS Limitations: no limitations - History of Present Illness Initial comments: 83-year-old male presented from the group home with generalized weakness and h ypotension. Patient denies any specific complaints. Denies fever or chills. Denies chest pain or dyspnea. Patient states he did have some nausea and lower abdominal pain however this was relieved with placement of Leyva catheter and several bowel movements. Denies abdominal pain currently. Patient is bedbound, has indwelling Leyva catheter. He does have history of left-sided sacral decubitus ulcer. - Related Data Home Medications Medication Instructions Recorded Confirmed Apixaban [Eliquis] 2.5 mg PO BID@0800,2100 03/26/18 10/31/18 Atorvastatin [Lipitor] 40 mg PO HS@209907/28/18 10/31/18 Cholecalciferol [Vitamin D3] 5,000 unit PO DAILY@17007/28/18 10/31/18 Mirtazapine [Remeron] 15 mg PO HS@209907/28/18 10/31/18 Acetaminophen Tab [Tylenol] 650 mg PO Q4H PRN 08/31/18 10/31/18 Bisacodyl [Dulcolax] 10 mg RECTAL DAILY PRN 08/31/18 10/31/18 Tamsulosin [Flomax] 0.8 mg PO DAILY@1700 08/31/18 10/31/18 Allopurinol [Zyloprim] 100 mg PO DAILY@0800 09/12/18 10/31/18 Amiodarone [Cordarone] 100 mg PO DAILY@0800 09/12/18 10/31/18 Clotrimazole Cream [Lotrimin Cream] 1 applic TOPICAL TID@0600,1400,2100 09/12/18 10/31/18 Digoxin [Lanoxin] 250 mcg PO DAILY@0800 09/12/18 10/31/18 Furosemide [Lasix] 40 mg PO BID@0600,1400 09/12/18 10/31/18 INSULIN ASPART (NovoLOG) [NovoLOG 2 unit SQ AC-TID 09/12/18 10/31/18 (formulary)] Insulin Detemir (Levemir) [Levemir] 5 unit SQ HS@2100 09/12/18 10/31/18 Magnesium Hydroxide [Milk of 2,400 mg PO DAILY PRN 09/12/18 10/31/18 Magnesia] Na Phos,M-B/Na Phos,Di-Ba [Fleet 133 ml RECTAL DAILY PRN 09/12/18 10/31/18 Adult] Colchicine 0.6 mg PO Q2H PRN MDD 10 TABS 10/06/18 10/31/18 Ondansetron [Zofran] 4 mg PO Q4H PRN 10/06/18 10/31/18 Ensure Clear 1 can PO TID-W/MEALS 10/31/18 10/31/18 Menthol-Zinc Oxide Oint 1 applic TOPICAL BID 10/31/18 10/31/18 [Calmoseptine Oint] traZODone HCL [Desyrel] 100 mg PO HS PRN 10/31/18 10/31/18 Previous Rx's Medication Instructions Recorded Nystatin 100,000 Unit/gm Powd 1 applic TOPICAL TID 60 Days #1 08/27/18 [Mycostatin Powder] pack Metoclopramide [Reglan] 10 mg PO QID PRN tab 10/17/18 Pantoprazole [Protonix] 40 mg PO BID tablet. 10/17/18 Potassium Chloride ER [K-Dur 20] 20 meq PO BID tab.er.prt 10/17/18 Prochlorperazine [Compazine] 10 mg PO Q6HR tab 10/17/18 Allergies Allergy/AdvReac Type Severity Reaction Status Date / Time No Known Allergies Allergy Verified 10/31/18 18:36 Review of Systems ROS Statement: Those systems with pertinent positive or pertinent negative responses have been documented in the HPI. ROS Other: All systems not noted in ROS Statement are negative. Past Medical History Past Medical History: Atrial Fibrillation, Coronary Artery Disease (CAD), Cancer, Chest Pain / Angina, Heart Failure, Diabetes Mellitus, Hypertension, Myocardial Infarction (NC), Osteoarthritis (OA), Skin Disorder, Supraventricular Tachycardia (SVT) Additional Past Medical History / Comment(s): hx gout, diet control diabetic(rx in past), hx kidney stones, skin cancer Last Myocardial Infarction Date:: 1992 History of Any Multi-Drug Resistant Organisms: MRSA Date of last positivie culture/infection: 08/05/18 MDRO Source:: mrsa sputum Past Surgical History: Appendectomy, Back Surgery, Heart Catheterization With Stent, Joint Replacement Additional Past Surgical History / Comment(s): bilateral knee replacement(left knee x 2), left hip replacement, two cardiac stents, spinal fusion, michael cataracts Past Anesthesia/Blood Transfusion Reactions: No Reported Reaction Date of Last Stent Placement:: unknown Past Psychological History: No Psychological Hx Reported Smoking Status: Never smoker Past Alcohol Use History: Occasional Past Drug Use History: None Reported - Past Family History Brother(s) Family Medical History: Cancer Additional Family Medical History / Comment(s): Spleen removed Daughter(s) Family Medical History: Cancer Additional Family Medical History / Comment(s): Multiple Myeloma Father Family Medical History: Cancer Additional Family Medical History / Comment(s): Somach Ca General Exam Limitations: no limitations General appearance: lethargic Head exam: Present: atraumatic, normocephalic Eye exam: Present: normal appearance, PERRL ENT exam: Present: mucous membranes dry Neck exam: Present: normal inspection. Absent: tenderness, meningismus Respiratory exam: Present: normal lung sounds bilaterally, decreased breath sounds Cardiovascular Exam: Present: tachycardia, irregular rhythm GI/Abdominal exam: Present: soft. Absent: distended, tenderness, guarding Extremities exam: Present: normal capillary refill, pedal edema Back exam: Present: normal inspection Neurological exam: Present: alert, oriented X3. Absent: motor sensory deficit Psychiatric exam: Present: normal affect, normal mood Skin exam: Present: warm, dry, other (Left upper buttock, sacral decubitus ulcer, dressing clean dry and intact.) Course Vital Signs 10/31/18 10/31/18 10/31/18 17:39 18:00 19:00 Temperature 98.4 F Pulse Rate 112 H 112 H 108 H Respiratory 16 22 15 Rate Blood Pressure 99/80 99/80 91/62 O2 Sat by Pulse 96 98 96 Oximetry 10/31/18 19:29 Temperature 98.0 F Pulse Rate 122 H Respiratory 19 Rate Blood Pressure 95/70 O2 Sat by Pulse 98 Oximetry EKG Findings - EKG Comments: EKG Findings:: EKG: Atrial fibrillation with RVR, left axis deviation, nonspecific intraventricular block rate of 124, QRS duration 134, QTC 476, similar appearing to EKG obtained October 06. Medical Decision Making - Medical Decision Making Patient has had complicated recent medical history. He is bedbound with indwelling Leyva catheter. Workup reveals stable hemoglobin, normal white blood cell count, mild lateral and abnormalities which are replaced in the emergency department. Lactic acid 2.2 mildly elevated. Urinalysis positive for nitrate, 171 white cells consistent with urinary tract infection. Culture results revi ewed from previous admission, started on appropriate antibiotics including cefepime and vancomycin. Patient will be For gentle IV hydration, IV antibiotics awaiting culture results. Case discussed with Dr. Riddle who will accept. - Lab Data Result diagrams: 10/31/18 18:00 10/31/18 18:00 Lab Results 10/31/18 10/31/18 10/31/18 Range/Units 18:00 18:00 18:00 WBC 5.1 (3.8-10.6) k/uL RBC 3.97 L (4.30-5.90) m/uL Hgb 12.5 L (13.0-17.5) gm/dL Hct 38.3 L (39.0-53.0) % MCV 96.5 (80.0-100.0) fL MCH 31.4 (25.0-35.0) pg MCHC 32.6 (31.0-37.0) g/dL RDW 15.5 (11.5-15.5) % Plt Count 179 (150-450) k/uL Neutrophils % 67 % Lymphocytes % 19 % Monocytes % 9 % Eosinophils % 4 % Basophils % 0 % Neutrophils # 3.4 (1.3-7.7) k/uL Lymphocytes # 1.0 (1.0-4.8) k/uL Monocytes # 0.5 (0-1.0) k/uL Eosinophils # 0.2 (0-0.7) k/uL Basophils # 0.0 (0-0.2) k/uL PT (9.0-12.0) sec INR (<1.2) APTT (22.0-30.0) sec Sodium 133 L (137-145) mmol/L Potassium 3.4 L (3.5-5.1) mmol/L Chloride 98 (98-107) mmol/L Carbon Dioxide 27 (22-30) mmol/L Anion Gap 8 mmol/L BUN 4 L (9-20) mg/dL Creatinine 0.71 (0.66-1.25) mg/dL Est GFR (CKD-EPI)AfAm >90 (>60 ml/min/1.73 sqM) Est GFR (CKD-EPI)NonAf 86 (>60 ml/min/1.73 sqM) Glucose 90 (74-99) mg/dL Plasma Lactic Acid Otilio 2.2 H* (0.7-2.0) mmol/L Calcium 7.4 L (8.4-10.2) mg/dL Magnesium 1.4 L (1.6-2.3) mg/dL Total Bilirubin 1.1 (0.2-1.3) mg/dL AST 38 (17-59) U/L ALT 28 (21-72) U/L Alkaline Phosphatase 109 (38-126) U/L Total Protein 4.7 L (6.3-8.2) g/dL Albumin 2.2 L (3.5-5.0) g/dL Urine Color Urine Appearance (Clear) Urine pH (5.0-8.0) Ur Specific [place] (1.001-1.035) Urine Protein (Negative) Urine Glucose (UA) (Negative) Urine Ketones (Negative) Urine Blood (Negative) Urine Nitrite (Negative) Urine Bilirubin (Negative) Urine Urobilinogen (<2.0) mg/dL Ur Leukocyte Esterase (Negative) Urine RBC (0-5) /hpf Urine WBC (0-5) /hpf Urine Bacteria (None) /hpf Hyaline Casts (0-2) /lpf Urine Mucus (None) /hpf 10/31/18 10/31/18 Range/Units 18:00 18:27 WBC (3.8-10.6) k/uL RBC (4.30-5.90) m/uL Hgb (13.0-17.5) gm/dL Hct (39.0-53.0) % MCV (80.0-100.0) fL MCH (25.0-35.0) pg MCHC (31.0-37.0) g/dL RDW (11.5-15.5) % Plt Count (150-450) k/uL Neutrophils % % Lymphocytes % % Monocytes % % Eosinophils % % Basophils % % Neutrophils # (1.3-7.7) k/uL Lymphocytes # (1.0-4.8) k/uL Monocytes # (0-1.0) k/uL Eosinophils # (0-0.7) k/uL Basophils # (0-0.2) k/uL PT 12.9 H (9.0-12.0) sec INR 1.2 H (<1.2) APTT 27.2 (22.0-30.0) sec Sodium (137-145) mmol/L Potassium (3.5-5.1) mmol/L Chloride (98-107) mmol/L Carbon Dioxide (22-30) mmol/L Anion Gap mmol/L BUN (9-20) mg/dL Creatinine (0.66-1.25) mg/dL Est GFR (CKD-EPI)AfAm (>60 ml/min/1.73 sqM) Est GFR (CKD-EPI)NonAf (>60 ml/min/1.73 sqM) Glucose (74-99) mg/dL Plasma Lactic Acid Otilio (0.7-2.0) mmol/L Calcium (8.4-10.2) mg/dL Magnesium (1.6-2.3) mg/dL Total Bilirubin (0.2-1.3) mg/dL AST (17-59) U/L ALT (21-72) U/L Alkaline Phosphatase (38-126) U/L Total Protein (6.3-8.2) g/dL Albumin (3.5-5.0) g/dL Urine Color Yellow Urine Appearance Cloudy (Clear) Urine pH 7.0 (5.0-8.0) Ur Specific [place] 1.008 (1.001-1.035) Urine Protein Trace H (Negative) Urine Glucose (UA) Negative (Negative) Urine Ketones Negative (Negative) Urine Blood Small H (Negative) Urine Nitrite Positive (Negative) Urine Bilirubin Negative (Negative) Urine Urobilinogen <2.0 (<2.0) mg/dL Ur Leukocyte Esterase Large H (Negative) Urine RBC 13 H (0-5) /hpf Urine WBC 171 H (0-5) /hpf Urine Bacteria Rare H (None) /hpf Hyaline Casts 23 H (0-2) /lpf Urine Mucus Few H (None) /hpf Disposition Clinical Impression: Urinary tract infection, Atrial fibrillation with RVR, Dehydration Disposition: ADMITTED IP TO THIS HOSP Condition: Stable Is patient prescribed a controlled substance at d/c from ED?: No Referrals: Davey Riddle MD [Primary Care Provider] - 1-2 days Decision to Admit Reason: Admit from [facility] Decision Date: 10/31/18 Decision Time: 20:17
[2018-10-31 18:33] LABS: Basophils % (A) 0 %; Eosinophils # (A) 0.2 k/uL (0-0.7); Eosinophils % (A) 4 %; HCT 38.3 % (39.0-53.0); HGB 12.5 gm/dL (13.0-17.5); Lymphocytes % (A) 19 %; MCH 31.4 pg (25.0-35.0); MCHC 32.6 g/dL (31.0-37.0); MCV 96.5 fL (80.0-100.0); Monocytes # (A) 0.5 k/uL (0-1.0); Monocytes % (A) 9 %; Neutrophils # (A) 3.4 k/uL (1.3-7.7); Neutrophils % (A) 67 %; Platelet Count 179 k/uL (150-450); RBC 3.97 m/uL (4.30-5.90); RDW 15.5 % (11.5-15.5); WBC 5.1 k/uL (3.8-10.6)
[2018-10-31 18:38] LABS: ALT 28 U/L (21-72); AST 38 U/L (17-59); Albumin 2.2 g/dL (3.5-5.0); Alkaline Phosphatase 109 U/L (38-126); Anion Gap 8 mmol/L; Blood Urea Nitrogen 4 mg/dL (9-20); Calcium 7.4 mg/dL (8.4-10.2); Carbon Dioxide 27 mmol/L (22-30); Chloride 98 mmol/L (98-107); Glucose 90 mg/dL (74-99); Magnesium 1.4 mg/dL (1.6-2.3); Potassium 3.4 mmol/L (3.5-5.1); Sodium 133 mmol/L (137-145); Total Bilirubin 1.1 mg/dL (0.2-1.3); Total Protein 4.7 g/dL (6.3-8.2)
[2018-10-31 18:42] LABS: Appearance,Urine Cloudy (Clear); Bacteria,Urine Rare /hpf; Bilirubin,Urine Negative (Negative); Blood,Urine Small (Negative); Color,Urine Yellow; Glucose,Urine (UA) Negative (Negative); Hyaline Casts,Urine 23 /lpf (0-2); Ketones,Urine Negative (Negative); Leukocyte Esterase,Urine Large (Negative); Mucus,Urine Few /hpf; Nitrite,Urine Positive (Negative); Protein,Urine Trace (Negative); RBC,Urine 13 /hpf (0-5); Specific Gravity,Urine 1.008 (1.001-1.035); Urobilinogen,Urine <2.0 mg/dL (<2.0); WBC,Urine 171 /hpf (0-5)
[2018-10-31 18:42] LABS: INR 1.2 (<1.2); Partial Thromboplastin Time 27.2 sec (22.0-30.0); Prothrombin Time 12.9 sec (9.0-12.0)
[2018-10-31] MEDS ORDERED: VANCOMYCIN IV PER PHARMACY 1 EACH MISC MISCELLANE PRN (19:20)
[2018-10-31] MEDS ORDERED: CEFEPIME 2 GM in SODIUM CHLORIDE 0.9% 100 ML IVPB STA (19:20)
[2018-10-31] MEDS ORDERED: MAGNESIUM SULFATE-D5W PMX 1 GM in DEXTROSE/WATER 1 100ML.BAG IVPB ONE (19:21)
[2018-10-31] MEDS ORDERED: POTASSIUM CHLORIDE ER 20 MEQ TAB.ER PO STA (19:21)
[2018-10-31] MEDS ORDERED: VANCOMYCIN 1,750 MG in SODIUM CHLORIDE 0.9% 500 ML 500 ML IVPB STA (19:27)
--- NOTE | 2018-10-31 19:31 | XR ---
EXAMINATION: XR chest 2V DATE AND TIME: 10/31/2018 7:07 PM CLINICAL INDICATION: PHH; Weakness TECHNIQUE: AP and lateral views COMPARISON: 10/06/2018 FINDINGS: There is low lung inflation at the moment of x-ray exposure. The lungs are predominantly clear bilaterally. Mildly blunted right costophrenic angle, a radiographi c finding which could represent small pleural effusion and/or partial airlessness of the right lower lobe. No abnormal gas collections. The cardiac silhouette is moderately enlarged, unchanged. The skeletal structures and soft tissues are negative for acute findings. IMPRESSION: Mildly blunted right costophrenic angle.
[2018-10-31] MEDS ORDERED: ACETAMINOPHEN TAB 325 MG TAB PO PRN (20:10)
[2018-10-31] MEDS ORDERED: NALOXONE 0.4 MG/ML 1 ML VIAL IV PRN (20:10)
[2018-10-31] MEDS ORDERED: SODIUM CHLORIDE 0.9% 500 ML 500 ML IV ONE (20:41)
[2018-10-31 21:29] LABS: Glucose,Whole Blood 109 mg/dL (75-99)
[2018-10-31 21:48] VITALS: BMI 32.1
[2018-10-31] MEDS: INSULIN DETEMIR (LEVEMIR) 100 UNIT/ML SYR SQ SCH (22:34)
[2018-10-31] MEDS: ATORVASTATIN 40 MG TAB PO SCH (22:34)
[2018-10-31] MEDS: APIXABAN 2.5 MG TABLET PO SCH (22:34)
[2018-11-01] MEDS: CEFEPIME 2 GM in SODIUM CHLORIDE 0.9% 100 ML IVPB SCH ×3 (04:08→21:11)
[2018-11-01 06:14] LABS: Glucose,Whole Blood 87 mg/dL (75-99)
[2018-11-01] MEDS ORDERED: VANCOMYCIN 1,750 MG in SODIUM CHLORIDE 0.9% 500 ML 500 ML IVPB SCH (07:00)
[2018-11-01 07:58] LABS: ALT 29 U/L (21-72); AST 32 U/L (17-59); Albumin 1.9 g/dL (3.5-5.0); Alkaline Phosphatase 92 U/L (38-126); Anion Gap 4 mmol/L; Blood Urea Nitrogen 5 mg/dL (9-20); Carbon Dioxide 26 mmol/L (22-30); Chloride 103 mmol/L (98-107); Glucose 82 mg/dL (74-99); Magnesium 1.5 mg/dL (1.6-2.3); Potassium 3.7 mmol/L (3.5-5.1); Sodium 133 mmol/L (137-145); Total Protein 4.1 g/dL (6.3-8.2)
[2018-11-01] MEDS: INSULIN ASPART (NovoLOG) 100 UNIT/ML VIAL SQ SCH ×3 (08:45→18:09)
[2018-11-01] MEDS: APIXABAN 2.5 MG TABLET PO SCH ×2 (08:47→21:11)
[2018-11-01] MEDS: DIGOXIN 250 MCG TAB PO SCH (08:47)
[2018-11-01] MEDS: AMIODARONE 100 MG TAB PO SCH (08:47)
[2018-11-01] MEDS ORDERED: Magnesium Replacement Protocol 1 EACH MISC MISCELLANE PRN (10:32)
[2018-11-01] MEDS ORDERED: Potassium Replacement Protocol 1 EACH MISC MISCELLANE PRN (10:32)
[2018-11-01] MEDS: VANCOMYCIN 1,750 MG in SODIUM CHLORIDE 0.9% 500 ML 500 ML IVPB SCH (10:51)
[2018-11-01] MEDS ORDERED: POTASSIUM CHLORIDE ER 20 MEQ TAB.ER PO SCH (11:00)
[2018-11-01 11:11] LABS: Glucose,Whole Blood 81 mg/dL (75-99)
[2018-11-01] MEDS ORDERED: MAGNESIUM HYDROXIDE 2,400 MG/10 ML CUP PO PRN (13:24)
[2018-11-01] MEDS ORDERED: METOCLOPRAMIDE 10 MG TAB PO PRN (13:24)
[2018-11-01] MEDS ORDERED: NA PHOS,M-B/NA PHOS,DI-BA 133 ML ENEMA RECTAL PRN (13:24)
[2018-11-01] MEDS ORDERED: ACETAMINOPHEN TAB 325 MG TAB PO PRN (13:24)
[2018-11-01] MEDS ORDERED: COLCHICINE 0.6 MG EACH PO PRN (13:24)
[2018-11-01] MEDS ORDERED: traZODone HCL 100 MG TAB PO PRN (13:24)
[2018-11-01] MEDS ORDERED: BISACODYL 10 MG SUPP RECTAL PRN (13:24)
[2018-11-01] MEDS ORDERED: ONDANSETRON 4 MG TAB PO PRN (13:24)
[2018-11-01] MEDS: MAGNESIUM SULFATE-D5W PMX 1 GM in DEXTROSE/WATER 1 100ML.BAG IVPB SCH ×2 (13:40→15:16)
--- NOTE | 2018-11-01 13:41 | PN ---
PROGRESS NOTE DATE OF SERVICE: 11/01/2018 CHIEF COMPLAINT: Urinary tract infection with septicemia. HISTORY OF PRESENT ILLNESS: This gentleman is doing better. His temperature has stayed down and he is not having any pain, shortness of breath, etc. He is not confused. PHYSICAL EXAMINATION: Head, ears, eyes, nose, mouth, and throat were normal. The chest is clear. Cardiac exam is unchanged with atrial fibrillation and tachycardia. The abdomen is soft, nontender. Extremities are normal. IMPRESSION: 1. Urinary tract infection. 2. Bacterial septicemia. 3. Congestive heart failure, diastolic. PLAN: Continue with IV fluids and antibiotics. MMODL / IJN: [id number] /
--- NOTE | 2018-11-01 13:50 | HP ---
HISTORY AND PHYSICAL CHIEF COMPLAINT: Hypotension, fever and probable sepsis. HISTORY OF PRESENT ILLNESS: This is another recent admission for this 83-year-old white male from [facility]. He has been out recently with congestive heart failure, failure to thrive, borderline renal failure and he has been slowly deteriorating. Apparently, his Leyva catheter was removed yesterday and then he suddenly dropped his blood pressure and was sent to the emergency room where he was found to have urinary tract infection and this is likely all related to sepsis. In the emergency room, his blood pressure was 91/62 with a pulse of 112 and he was afebrile. White count was 5100 with hemoglobin 12.5. Potassium was slightly low at 3.1. He has had hypocalcemia and hypomagnesemia and these were both low on admission. Lactic acid is elevated 2.2. Urine demonstrated numerous white cells and leukocyte esterase all consistent with UTI. He does have a sacral decubitus as well. REVIEW OF SYSTEMS: He is awake and alert. He denies headaches, shortness of breath, chest pain, abdominal pain, nausea, vomiting, etc. Leyva catheter is back in. Past medical history, family history and personal and social history are all essentially unchanged from his recent discharge summary. PHYSICAL EXAMINATION: Temperature 97.7 with a pulse of 103, respirations of 18 and blood pressure 92/54. GENERAL: He appeared to be overweight and in no acute distress. Skin was dry and he has not redeveloped his usual anasarca. Head, ears, eyes, nose, mouth, and throat were normal. Neck veins could not be assessed. The chest is fairly clear except for occasional rales. The cardiac exam demonstrates tachycardia and he is in atrial fibrillation. The abdomen is soft, nontender. Extremities are normal. Neurologically, he is intact. IMPRESSION: 1. Urinary tract infection with septicemia. 2. Chronic diastolic congestive heart failure. 3. Borderline renal function. 4. Diabetes mellitus. 5. Failure to thrive. 6. Sacral decubitus. PLAN: 1. Bed rest. 2. IV fluids. 3. IV antibiotics. 4. Stabilize and then send back to [facility]. MMODL / IJN: [id number] /
[2018-11-01] MEDS: FUROSEMIDE 40 MG TAB PO SCH (16:14)
[2018-11-01] MEDS: NYSTATIN 100,000 UNIT/GM POWD 15 GM TOPICAL SCH ×2 (16:14→21:12)
[2018-11-01] MEDS: PANTOPRAZOLE 40 MG TABLET PO SCH (16:14)
[2018-11-01] MEDS: CLOTRIMAZOLE 1% CREAM 15 GM TUBE TOPICAL SCH ×2 (16:15→21:13)
[2018-11-01 16:40] LABS: Glucose,Whole Blood 123 mg/dL (75-99)
[2018-11-01] MEDS ORDERED: CHOLECALCIFEROL 1,000 UNIT TAB PO SCH (17:00)
[2018-11-01] MEDS ORDERED: NON-FORMULARY DRUG (Ensure Clear 1 CAN) PO SCH (17:30)
[2018-11-01] MEDS: PROCHLORPERAZINE 10 MG TAB PO SCH (18:08)
[2018-11-01 20:53] LABS: Glucose,Whole Blood 103 mg/dL (75-99)
[2018-11-01] MEDS ORDERED: MIRTAZAPINE 15 MG TAB PO SCH (21:00)
[2018-11-01] MEDS: INSULIN DETEMIR (LEVEMIR) 100 UNIT/ML SYR SQ SCH (21:07)
[2018-11-01] MEDS: ATORVASTATIN 40 MG TAB PO SCH (21:11)
[2018-11-01] MEDS: MENTHOL-ZINC OXIDE OINT 113 GM TUBE TOPICAL SCH (21:11)
[2018-11-01] MEDS: POTASSIUM CHLORIDE ER 20 MEQ TAB.ER PO SCH (21:12)
[2018-11-02] MEDS: PROCHLORPERAZINE 10 MG TAB PO SCH ×3 (00:18→11:49)
[2018-11-02] MEDS: VANCOMYCIN 1,750 MG in SODIUM CHLORIDE 0.9% 500 ML 500 ML IVPB SCH ×2 (00:18→10:58)
[2018-11-02] MEDS: CEFEPIME 2 GM in SODIUM CHLORIDE 0.9% 100 ML IVPB SCH ×2 (04:12→11:46)
[2018-11-02 06:24] LABS: Glucose,Whole Blood 112 mg/dL (75-99)
[2018-11-02] MEDS: INSULIN ASPART (NovoLOG) 100 UNIT/ML VIAL SQ SCH ×2 (06:43→13:29)
[2018-11-02] MEDS: CLOTRIMAZOLE 1% CREAM 15 GM TUBE TOPICAL SCH (06:48)
[2018-11-02] MEDS: FUROSEMIDE 40 MG TAB PO SCH (06:48)
[2018-11-02] MEDS: PANTOPRAZOLE 40 MG TABLET PO SCH (06:48)
[2018-11-02 07:20] LABS: Magnesium 1.8 mg/dL (1.6-2.3); Potassium 3.5 mmol/L (3.5-5.1)
[2018-11-02] MEDS ORDERED: ALLOPURINOL 100 MG TAB PO SCH (08:00)
[2018-11-02] MEDS: APIXABAN 2.5 MG TABLET PO SCH (08:50)
[2018-11-02] MEDS: AMIODARONE 100 MG TAB PO SCH (08:50)
[2018-11-02] MEDS: DIGOXIN 250 MCG TAB PO SCH (08:50)
[2018-11-02] MEDS: NYSTATIN 100,000 UNIT/GM POWD 15 GM TOPICAL SCH (08:51)
[2018-11-02] MEDS: MENTHOL-ZINC OXIDE OINT 113 GM TUBE TOPICAL SCH (08:51)
[2018-11-02] MEDS: POTASSIUM CHLORIDE ER 20 MEQ TAB.ER PO SCH (10:02)
[2018-11-02 11:44] LABS: Glucose,Whole Blood 93 mg/dL (75-99)
[2018-11-02] MEDS: MAGNESIUM SULFATE-D5W PMX 1 GM in DEXTROSE/WATER 1 100ML.BAG IVPB SCH ×2 (13:29→13:32)
[2018-11-02] MEDS ORDERED: LORazepam 2 MG/ML INJ IM PRN (13:57)
[2018-11-02] MEDS: LORazepam 2 MG/ML INJ IV PRN ×2 (14:12→22:08)
[2018-11-02] MEDS: SODIUM CHLORIDE 0.9% 1,000 ML IV SCH (14:12)
[2018-11-02] MEDS ORDERED: VANCOMYCIN TROUGH DUE 1 EACH MISC MISCELLANE ONE (22:00)
[2018-11-02 22:44] LABS: Anion Gap 5 mmol/L; Blood Urea Nitrogen 6 mg/dL (9-20); Calcium 6.9 mg/dL (8.4-10.2); Carbon Dioxide 25 mmol/L (22-30); Chloride 104 mmol/L (98-107); Glucose 88 mg/dL (74-99); Potassium 3.3 mmol/L (3.5-5.1); Sodium 134 mmol/L (137-145)
[2018-11-03] MEDS: SODIUM CHLORIDE 0.9% 1,000 ML IV SCH (11:14)
--- NOTE | 2018-11-03 12:06 | CDI ---
Documentation Clarification Form Date: 11/03/2018 11:52:49 AM From: Senia Cade RN, CCDS Admit Date: 10/31/2018 8:10:00 PM Patient Name: Julius Murphy Visit Number: [id number] Discharge Date: ATTENTION: The Clinical Documentation Specialists (CDI) and [facility] Coding Staff appreciate your assistance in clarifying documentation. Please respond to the clarification below the line at the bottom and electronically sign. The CDI & [facility] Coding staff will review the response and follow-up if needed. Please note: Queries are made part of the Legal Health Record. If you have any questions, please contact the author of this message via ITS. Dr. Davey Riddle UTI was documented in the Emergency Department note, your H&P and progress notes. History/Risk Factors: (Leyva POA, Diastolic congestive heart failure, Atrial Fibrillation, Hypertension, Diabetes Mellitus, Clinical Indicators: 83-year-old male who present with weakness hypotension, nausea and lower abdominal pain. He is bedbound with indwelling Leyva catheter. Urinalysis positive for nitrate, 171 white cells consistent with urinary tract infection per ED assessment Vital Signs: 99/80 112 16 98.4 WBC: 5.1, Lactic acid 2.2 Urinalysis: Positive nitrate, Large Leukocyte Esterase, Urine Culture: Pseudomonas aeruginosa Treatment IV Fluids Vancomycin IV PTD Please document the condition that these clinical indicators signify, whether Present on Admission, and cause if known: UTI Leyva Catheter related and Present on admission -With Sepsis -Specify organism, if known UTI not related to Leyva catheter Other, please specify Unable to determine (Last Revision: May 2017) MTDD
--- NOTE | 2018-11-03 12:22 | CDI ---
Documentation Clarification Form Date: 11/03/2018 12:12:07 PM From: Senia Cade RN, CCDS Admit Date: 10/31/2018 8:10:00 PM Patient Name: Julius Murphy Visit Number: [id number] Discharge Date: ATTENTION: The Clinical Documentation Specialists (CDI) and [facility] Coding Staff appreciate your assistance in clarifying documentation. Please respond to the clarification below the line at the bottom and electronically sign. The CDI & [facility] Coding staff will review the response and follow-up if needed. Please note: Queries are made part of the Legal Health Record. If you have any questions, please contact the author of this message via ITS. Dr. Davey Riddle Atrial Fibrillation is documented in the past medical history and additional clarification is needed. History/Risk Factors: Atrial Fibrillation, CAD, Chronic Diastolic Heart Failure, Hypertension, Diabetes Mellitus Clinical Indicators: 83-year-old male who present with weakness and hypotension. EKG/telemetry: Atrial Fibrillation with RVR at 124bpm Treatment: Eliquis PO (now DC) Monitor PT/INR In your professional opinion, can you please clarify the type of Atrial Fibrillation, if known? Chronic/Permanent Paroxysmal Persistent Other, please specify Unable to determine (Last Revision: November 2017) MTDD
--- NOTE | 2018-11-03 16:15 | DS ---
DISCHARGE SUMMARY CHIEF COMPLAINT: Urinary tract infection and sepsis. HISTORY OF PRESENT ILLNESS AND PHYSICAL EXAMINATION: Details of this man's history and physical can be found in the initial workup. LABORATORY STUDIES: While he was in the hospital he had laboratory studies, details of which can be found in the laboratory section of his chart. COURSE IN THE HOSPITAL: After admission, he was placed on bedrest, started on intravenous fluids and antibiotics. Temperature went down and he seemed to be stabilizing, but remained quite sleepy and lethargic. He was clearly not going to be a good candidate for physical therapy and rehab. As he became a little more drowsy, he expressed to his son that he did not want any more treatment, including medications, and just wanted to be kept comfortable. The following day he was referred to hospice and arrangements were made for him to go back to [facility]. FINAL DIAGNOSES: 1. Urinary tract infection. 2. Septicemia with urinary tract source. 3. Urinary retention. 4. Chronic diastolic congestive heart failure. 5. Type 2 diabetes mellitus. 6. Cardiac arrhythmia and atrial fibrillation. 7. Renal failure, stage IIIA. OPERATIONS: None. CONSULTATIONS: None. He is not improved. He was referred to Hospice. MMODL / IJN: [id number] /
--- NOTE | 2018-11-03 17:27 | PN ---
PROGRESS NOTE DATE OF SERVICE: 11/03/2018 CHIEF COMPLAINT: Urinary tract infection, sepsis, CHF. HISTORY OF PRESENT ILLNESS: This gentleman is failing. He is becoming more and more lethargic. Earlier today he called his son and told him that he thought that this was his last day and wanted the family to come. His son is here now. The patient indicates that he no longer wants to take any medications, treatment, and does not want to eat. The case was discussed with his son, and it was determined that he would be made comfort care only. He is already a DNR. PHYSICAL EXAMINATION: He is quite lethargic. Skin is well hydrated. Chest is clear. Cardiac exam is unchanged. The abdomen is soft. Extremities are normal. IMPRESSION: 1. Septicemia secondary to urinary urinary tract infection. 2. Urinary tract infection. 3. Obstructive uropathy. 4. Chronic diastolic congestive heart failure. 5. Atrial fibrillation. 6. Diabetes. 7. Failure to thrive. PLAN: Discussed with his son change in treatment plan. We will probably be taking him off medication and moving him back to the correction. We may wind up consulting Hospice. AMY / CHUCHON: [id number] /
[2018-11-04] MEDS: SODIUM CHLORIDE 0.9% 1,000 ML IV SCH (07:44)
[2018-11-04 10:00] VITALS: RESP 20
[2018-11-04 12:01] VITALS: BP 119/65; PULSE 101; TEMP 98.5
--- NOTE | 2018-11-04 17:52 | MISC ---
MISCELLANOUS REPORT UTI, Leyva catheter related and present on admission with sepsis. Organism: Pseudomonas aeruginosa. MMODL / IJN: [id number] /
--- NOTE | 2018-11-04 17:52 | MISC ---
MISCELLANOUS REPORT Atrial fibrillation, chronic and permanent. MMODL / IJN: [id number] /
--- NOTE | 2018-11-05 17:11 | PN ---
PROGRESS NOTE DATE OF SERVICE: 11/04/2018 CHIEF COMPLAINT: Terminal congestive heart failure. HISTORY OF PRESENT ILLNESS: This gentleman is still in the hospital. He was to have been discharged to hospice care at [facility]. AMY / TRISHA: [id number] /
--- NOTE | 2018-11-06 08:37 | CDI ---
Documentation Clarification Form Date: 11/06/18 From: Tania Davis Phone: If you have a question regarding this query, please contact Abril Castellon at [phone] between 8am and 5pm. Admit Date: 10/31/2018 8:10:00 PM Patient Name: Julius Murphy Visit Number: [id number] Discharge Date: 11/04/2018 3:59:00 PM ATTENTION: The Clinical Documentation Specialists (CDI) and [facility] Coding Staff appreciate your assistance in clarifying documentation. Please respond to the clarification below the line at the bottom and electronically sign. The CDI & [facility] Coding staff will review the response and follow-up if needed. Please note: Queries are made part of the Legal Health Record. If you have any questions, please contact the author of this message via ITS. Dr. Davey Riddle A decubitus ulcer was documented in the ED note and H&P. History/Risk Factors: Patient is bedbound and presented with a UTI and dehydration and has a history of diabetes, CAD, CKD III, hypertension and failure to thrive Clinical Indicators: Per nursing documentation coccyx is red but blanchable Location: sacrum Wound description: Per nursing documentation coccyx is red but blanchable. Treatment: Dressings In your professional opinion, can you please clarify the stage of the decubitus ulcer: Stage 1 Pressure/Decubitus Ulcer (intact skin, non-blanching redness of local area) Stage 2 Pressure/Decubitus Ulcer (Partial thickness, loss of dermis, pink wound bed) Stage 3 Pressure/Decubitus Ulcer (Full thickness tissue loss) Stage 4 Pressure/Decubitus Ulcer (Full thickness tissue loss with exposed bone, tendon, or muscle. May have slough or eschar present) Unstageable Other condition, please specify Unable to determine MTDD
--- NOTE | 2018-11-06 11:39 | MISC ---
MISCELLANOUS REPORT QUERY Decubitus, stage II decubitus. MMODL / IJN: [id number] /
== END 2018-11-04 15:59 | DRG 698 ==
LOC: EC 17:34 → 3SCARD 20:10
PROVIDERS: ADMIT Family Medicine; ATTEND Family Medicine
DX: T83.511A Infection and inflammatory reaction due to indwelling urethral catheter, initial encounter (principal); A41.52 Sepsis due to Pseudomonas; I50.32 Chronic diastolic (congestive) heart failure; I13.0 Hypertensive heart and chronic kidney disease with heart failure and stage 1 through stage 4 chronic kidney disease, or unspecified chronic kidney disease; N39.0 Urinary tract infection, site not specified; L89.152 Pressure ulcer of sacral region, stage 2; E86.0 Dehydration; E11.22 Type 2 diabetes mellitus with diabetic chronic kidney disease; I48.2 Chronic atrial fibrillation; E83.42 Hypomagnesemia; E83.51 Hypocalcemia; N18.3 Chronic kidney disease, stage 3 (moderate); I25.10 Atherosclerotic heart disease of native coronary artery without angina pectoris; I25.2 Old myocardial infarction; N13.9 Obstructive and reflux uropathy, unspecified; R62.7 Adult failure to thrive; M10.9 Gout, unspecified; M19.90 Unspecified osteoarthritis, unspecified site; Z51.5 Encounter for palliative care; Z66 Do not resuscitate; Z74.01 Bed confinement status; Z79.01 Long term (current) use of anticoagulants; Z79.4 Long term (current) use of insulin; Z79.899 Other long term (current) drug therapy; Z86.14 Personal history of Methicillin resistant Staphylococcus aureus infection; Z85.828 Personal history of other malignant neoplasm of skin; Z87.442 Personal history of urinary calculi; Z95.5 Presence of coronary angioplasty implant and graft; Z96.642 Presence of left artificial hip joint; Z96.653 Presence of artificial knee joint, bilateral; Z98.1 Arthrodesis status; Z90.49 Acquired absence of other specified parts of digestive tract; Z98.42 Cataract extraction status, left eye; Z98.41 Cataract extraction status, right eye; Z96.1 Presence of intraocular lens; Z80.7 Family history of other malignant neoplasms of lymphoid, hematopoietic and related tissues; Z80.0 Family history of malignant neoplasm of digestive organs; Y84.6 Urinary catheterization as the cause of abnormal reaction of the patient, or of later complication, without mention of misadventure at the time of the procedure
CPT/HCPCS: 36415; 71046; 80048; 80053; 80202; 81001; 83605; 83735; 84132; 85025; 85610; 85730; 87040; 87077; 87086; 87186; 93005; 96361; 96365; 99285